=== PATIENT | female | born 1965 | race Caucasian/White ===

== ENCOUNTER 2024-11-01 16:57 | Observation (INO) | payer BC, SELFPAY ==
[2024-11-01] VITALS (8 sets, daily range): BP systolic 99–107; BP diastolic 45–65; PULSE 81–93; RESP 16–20; TEMP 36–36.7; O2SAT 94–98
--- NOTE | ~2024-11-01 | XR_ITS ---
EXAMINATION: XR chest 1V portable Exam Date/Time: 11/01/2024 19:40 [facility] HISTORY: stroke symptoms Comparison: None. RESULT: Lines, tubes, and devices: None. Lungs and pleura: Low volumes with crowding, otherwise clear. Cardiomediastinal silhouette: Calcified left hilar nodes, otherwise unremarkable. Other: No acute osseous or upper abdominal finding. IMPRESSION: No acute cardiopulmonary process. Reviewed, dictated and finalized at location K. [facility] TOOL AND DIE
--- NOTE | ~2024-11-01 | CT_ITS ---
EXAMINATION: CT brain wo con DATE: 11/01/2024 17:33 INDICATION: facial droop . TECHNIQUE: Computed tomography (CT) of the head was performed without intravenous contrast. The mA wa s adjusted according to patient size. Iterative reconstruction technique was employed. The dose-lengt h product was 605.33 mGy-cm. COMPARISON: None. FINDINGS: No acute intracranial hemorrhage or extra-axial fluid collection. No hydrocephalus, mass, or herniation. No acute ischemic infarct. Unremarkable dural venous sinus attenuation. No acute osseous abnormality. The aerated spaces are clear. Small nasopharyngeal polyp. Moderate atrophy and chronic white matter change. Atherosclerotic intracranial calcification. Focal b ilateral old lacunar infarcts. Focal right frontal encephalomalacia. IMPRESSION: No acute intracranial process. Reviewed, dictated and finalized at location K. FARMER
--- NOTE | 2024-11-01 17:12 | ECG_ITS ---
Test Date: 2024-11-01 18:04:37 Measurements Intervals [place] Rate: 86 P: 40 DE: 158 QRS: -26 QRSD: 90 T: 30 QT: 372 QTc: 445 Interpretive Statements SINUS RHYTHM POSSIBLE ANTERIOR MYOCARDIAL INFARCTION , OF INDETERMINATE AGE CONSIDER INFERIOR INFARCT, AGE INDETERMINATE BASELINE ARTIFACT- I, II, AVR ABNORMAL ECG No previous ECG available for comparison Electronically Signed On 11-01-2024 19:06:10 EVENING SITTER by Abimael Branch D.O.
--- NOTE | 2024-11-01 17:13 | ED.NEUROSD ---
HPI - Neuro Symptoms/Deficit General Chief Complaint: Neuro Symptoms/Deficit <Marcy Workman PA-C - Last Filed: 11/02/24 10:28> Stated Complaint: PT/OT noticed facial drooping unknown LKW <Marcy Workman PA-C - Last Filed: 11/02/24 10:28> Time Seen by Provider: 11/01/24 17:13 <Marcy Workman PA-C - Last Filed: 11/02/24 10:28> Focused HPI: This is a 59 year old female that presents to the ER for left sided facial droop. Noted today by her PT/OT specialist. She is seeing them after a recent lumbar surgery. Unsure when her last known well was. No other focal numbness, weakness. GENERAL: Well-appearing, well-nourished, and in no acute distress. HEAD: Normocephalic, atraumatic. CHEST: Clear to auscultation. ?No respiratory distress. HEART: Regular rate and rhythm.? NEURO: ?Alert and oriented x3. Patient screened in triage and initial orders placed.? ?Additional care and disposition to be based upon?diagnostic testing and treatment. <ZEINA Vides Last Filed: 11/02/24 10:28> Source: patient and family <Navin Valladares PA-C - Last Filed: 11/01/24 20:36> Mode of arrival: ambulatory <Navin Valladares PA-C - Last Filed: 11/01/24 20:36> Limitations: no limitations <ZEINA Ryan Last Filed: 11/01/24 20:36> History of Present Illness HPI Narrative: This is a 59-year-old female who presents to the ED for chief complaint of left-sided facial droop. It was noted by her home speech language therapist today. This was communicated to her spine surgeon who recommended going to the ER for evaluation of possible stroke. She is accompanied by her 2 daughters who are bedside. They state that patient had a complicated hospital course recently with spine surgery at [facility]. She had spinal hardware placed on 10/19/2024 and ended up being accidentally overdosed with opioids. She had to be placed on Narcan drip. She was able to be discharged from the hospital about 5-6 days ago. Daughter is concerned because she has had difficulty with slurring speech and this facial droop since the surgery. Last known well is unknown but seems to be before the initial date of surgery. They state that since being home she has had a continuation of the symptoms of left facial droop and occasional slurring of words / occasional difficulty naming objects. Patient denies any focal numbness or weakness. She does feel that it is hard to find words at times. Denies chest pain, shortness of breath, headache, neck pain, dizziness. <Navin Valladares PA-C - Last Filed: 11/01/24 20:36> Related Data Home Medications: Home Medications ?Medication ?Instructions ?Recorded ?Confirmed ?Last Taken ?Type alpha lipoic acid 600 mg capsule 600 mg PO DAILY 11/01/24 11/01/24 Unknown History amitriptyline 10 mg tablet 10 mg PO HS 11/01/24 11/01/24 Unknown History atorvastatin 20 mg tablet 20 mg PO HS 11/01/24 11/01/24 Unknown History escitalopram oxalate 10 mg tablet 10 mg PO DAILY 11/01/24 11/01/24 Unknown History fludrocortisone 0.1 mg tablet 0.1 mg PO .am 11/01/24 11/01/24 Unknown History gabapentin 300 mg capsule 300 mg PO TID 11/01/24 11/01/24 Unknown History hydrocodone 5 mg-acetaminophen 325 1 tablet PO Q6H 11/01/24 11/01/24 Unknown History mg tablet metformin 500 mg tablet,extended See Rx Instructions PO .COMPLEX 11/01/24 11/01/24 Unknown History release 24 hr methocarbamol 500 mg tablet 500 mg PO Q6H 11/01/24 11/01/24 Unknown History omeprazole 40 mg capsule,delayed 40 mg PO BID 11/01/24 11/01/24 Unknown History release oxycodone 15 mg tablet 15 mg PO Q4H 11/01/24 11/01/24 Unknown History prednisone 5 mg tablet 5 mg PO DAILY 11/01/24 11/01/24 Unknown History pregabalin 100 mg capsule 100 mg PO HS 11/01/24 11/01/24 Unknown History tacrolimus 1 mg tablet,extended 1 mg PO QID 11/01/24 11/01/24 Unknown History release 24 hr (Envarsus XR) tirzepatide 5 mg/0.5 mL 5 mg subcut WEEKLY 11/01/24 11/01/24 10/29/24 History subcutaneous pen injector (Mounjaro) <Marcy Workman PA-C - Last Filed: 11/02/24 10:28> Allergies/Adverse Reactions: Allergies Allergy/AdvReac Type Severity Reaction Status Date / Time vancomycin Allergy Intermediate Hives Verified 11/01/24 21:10 amoxicillin Allergy Mild Hives Verified 11/01/24 21:10 <Marcy Workman PA-C - Last Filed: 11/02/24 10:28> Review of Systems Review of Systems: All systems as dictated in HPI <Navin Valladares PA-C - Last Filed: 11/01/24 20:36> PMFSH Past Medical History Medical History: Medical History (Updated 11/02/24 @ 10:28 by Marcy Workman PA-C) UTI (urinary tract infection) GERD (gastroesophageal reflux disease) Insulin dependent diabetes mellitus Recurrent depression Dyslipidemia <Marcy Workman PA-C - Last Filed: 11/02/24 10:28> Surgical History Surgical History: Surgical History (Updated 11/01/24 @ 21:38 by Enrique Escobedo MD) S/P lumbar fusion S/P kidney transplant <Marcy Workman PA-C - Last Filed: 11/02/24 10:28> Social History Social History: Social History Smoking status: Never smoker Alcohol intake: never Substance use: never Do You Feel Safe in your Home?: Yes Lack of Transportation: No Lack of Food: Never True Current Housing: I Have Housing Concerned About Future Housing: No Difficulty Paying Gas/Electric Bills: No Difficulty Paying for Meds: No Currently Unemployed: No Education: High School Diploma/GED Difficulty w/ Childcare or Family Care: No Spiritual care concerns: No <Marcy Workman PA-C - Last Filed: 11/02/24 10:28> Exam Narrative: GENERAL: Well-appearing, well-nourished, and in no acute distress. HEAD: Normocephalic, atraumatic. EYES: PERRLA and EOMI. ENT: Nares clear, no rhinorrhea or epistaxis. Mucous membranes moist. Oropharynx without tonsillar hypertrophy exudate or other lesions. NECK: Supple. No adenopathy or masses. CHEST: No respiratory distress. Clear to auscultation. No wheezes rales or rhonchi HEART: Regular rate and rhythm. No murmur heard. Normal peripheral pulses. ABDOMEN: Soft, nontender, nondistended, normal active bowel sounds. MSK: Normal range of motion. No edema. SKIN: Warm, dry, no rash. NEURO: Alert and oriented x4. Left facial droop noted. Occasional difficulty with word finding. No dysarthria. Negative pronator drift to the upper and lower extremities. No nystagmus. 5/5 strength and sensation to the upper and lower extremities. PSYCH: Normal mood and affect. <Navin Valladares PA-C - Last Filed: 11/01/24 20:36> Course Vital Signs Vital signs: Vital Signs Temperature 96.8 F L 11/01/24 17:07 Pulse Rate 93 11/01/24 17:07 Respiratory Rate 18 11/01/24 17:07 Blood Pressure 101/60 11/01/24 17:07 Pulse Oximetry 98 11/01/24 17:07 Oxygen Delivery Room Air 11/01/24 17:07 Temperature 98.1 F 11/02/24 05:36 Pulse Rate 79 11/02/24 05:36 Respiratory Rate 18 11/02/24 05:36 Blood Pressure 120/59 L 11/02/24 05:36 Pulse Oximetry 95 11/02/24 05:36 Oxygen Delivery Room Air 11/02/24 08:00 <Marcy Workman PA-C - Last Filed: 11/02/24 10:28> Vital Signs Temperature 96.8 F L 11/01/24 17:07 Pulse Rate 93 11/01/24 17:07 Respiratory Rate 18 11/01/24 17:07 Blood Pressure 101/60 11/01/24 17:07 Pulse Oximetry 98 11/01/24 17:07 Oxygen Delivery Room Air 11/01/24 17:07 Temperature 98.1 F 11/02/24 05:36 Pulse Rate 79 11/02/24 05:36 Respiratory Rate 18 11/02/24 05:36 Blood Pressure 120/59 L 11/02/24 05:36 Pulse Oximetry 95 11/02/24 05:36 Oxygen Delivery Room Air 11/02/24 08:00 <Navin Valladares PA-C - Last Filed: 11/01/24 20:36> MDM - Neuro Symptoms/Deficit MDM Narrative Medical decision making narrative: This is a 59-year-old female who presents to the ED for possible stroke-like symptoms with an unknown last known well time. She was recently at the [facility] for spinal surgery and family feels that her speech symptoms and facial droop have been present since being in the hospital. Vitals are normal. Exam remarkable for slight left facial droop at the corner of the mouth. No other focal deficits on exam. EKG shows sinus rhythm with no acute ischemic findings. Lab work is unremarkable overall. BUN and creatinine slightly elevated, however she does have history of renal transplant in the distant past. NIH score is 1 for mild aphasia. Non con brain CT today shows no acute intracranial process, however does show focal bilateral lacunar infarcts, focal right frontal encephalomalacia, moderate atrophy and chronic white matter change. There is atherosclerotic intracranial calcification. Spoke with Dr. Philip (Neurology) who does agree that a CTA would be minimally useful compared to MRI. There is no surgical intervention that patient will qualify for possible stroke. I spoke with Dr. Resendiz ([facility] Neurology): He feels that an acute stroke is less likely given the patient's presentation today. He was able to review the records from [place] and does feel that the patient should be MRI compatible. He recommends that the patient be admitted here at [place] for stroke workup including MRI. He recommends that if the MRI is positive, she should get carotid artery imaging. Recommended medical therapy of 81 mg ASA as well as atorvastatin 80 mg daily. I discussed the above workup, plan with patient and family members. They are understanding and agreeable to plan for admission here. Discussed with Dr. Escobedo (hospitalist) will admit the patient to medical floor with telemetry. He is recommending adding lactic acid, VBG, ammonia levels onto laboratory studies. <Marcy Workman PA-C - Last Filed: 11/02/24 10:28> This is a 59-year-old female who presents to the ED for possible stroke-like symptoms with an unknown last known well time. She was recently at the [facility] for spinal surgery and family feels that her speech symptoms and facial droop have been present since being in the hospital. Vitals are normal. Exam remarkable for slight left facial droop at the corner of the mouth. No other focal deficits on exam. EKG shows sinus rhythm with no acute ischemic findings. Lab work is unremarkable overall. BUN and creatinine slightly elevated, however she does have history of renal transplant in the distant past. NIH score is 1 for mild aphasia. Non con brain CT today shows no acute intracranial process, however does show focal bilateral lacunar infarcts, focal right frontal encephalomalacia, moderate atrophy and chronic white matter change. There is atherosclerotic intracranial calcification. Spoke with Dr. Philip (Neurology) who does agree that a CTA would be minimally use full compared to MRI today. There is no surgical intervention that patient will qualify for possible stroke. I spoke with Dr. Resendiz ([facility] Neurology): He feels that an acute stroke is less likely given the patient's presentation today. He was able to review the records from [place] and does feel that the patient should be MRI compatible. He recommends that the patient be admitted here at [place] for stroke workup including MRI. He recommends that if the MRI is positive, she should get carotid artery imaging. Recommended medical therapy of 81 mg ASA as well as atorvastatin 80 mg daily. I discussed the above workup, plan with patient and family members. They are understanding and agreeable to plan for admission here. Discussed with Dr. Escobedo (hospitalist) will admit the patient to medical floor with telemetry. He is recommending adding lactic acid, VBG, ammonia levels onto laboratory studies. <Navin Valladares PA-C - Last Filed: 11/01/24 20:36> Lab Data Result diagrams: 11/02/24 05:29 11/02/24 05:29 <Marcy Workman PA-C - Last Filed: 11/02/24 10:28> Labs: Lab Results 11/01/24 Range/Units 17:20 WBC 8.3 (4.5-10.0) K/mm3 RBC 4.19 L (4.2-5.4) M/mm3 Hgb 12.0 (12.0-15.0) g/dL Hct 39.5 (37.0-47.0) % MCV 94.3 (80-100) fl MCH 28.6 (26-34) pg MCHC 30.4 L (32-36) g/dl RDW 15.2 H (11.5-14.5) % Plt Count 278 (150-375) k/mm3 MPV 9.9 (7.4-10.4) fl Immature Gran % (Auto) 0.4 (0-0.5) % Neut % (Auto) 84.1 H (45.5-73.1) % Lymph % (Auto) 9.5 L (18.3-44.2) % Nash % (Auto) 3.9 (2.6-8.5) % Eos % (Auto) 1.6 (0-4.4) % Baso % (Auto) 0.5 (0.2-1.2) % Lymph # (Auto) 0.79 L (0.9-3.2) K/mm3 Nash # (Auto) 0.3 (0.1-0.6) K/mm3 Eos # (Auto) 0.1 (0-0.3) K/mm3 Baso # (Auto) 0.0 (0.0-0.1) K/mm3 Abs Immat Gran (auto) 0.03 (0.00-0.031) K/mm3 Absolute Neuts (auto) 7.0 H (1.3-6.7) K/mm3 Absolute Nucleated RBC 0.000 (0.0-0.012) K/mm3 Nucleated RBC % 0.0 (0.0-0.2) % PT 13.1 (11.1-14.7) Seconds INR 0.9 APTT 27.5 (22.3-36.8) Seconds Sodium 137 (137-145) mmol/L Potassium 5.0 (3.4-5.0) mmol/L Chloride 102 (98-107) mmol/L Carbon Dioxide 25 (22-30) mmol/L Anion Gap 10 (4-12) mmol/L BUN 36 H (7-17) mg/dL Creatinine 1.36 H (0.7-1.0) mg/dL Estim Creat Clear Calc 47 ml/min Estimated GFR 40 L (59 - ) Glucose 121 H (65-110) mg/dL Hemoglobin A1c 5.2 (<5.7) % Calcium 10.4 H (8.4-10.2) mg/dL Total Bilirubin 1.1 (0.2-1.3) mg/dL AST 36 (14-36) U/L ALT 28 (6-35) U/L Alkaline Phosphatase 108 (38-126) U/L Troponin I < 0.012 (0.000-0.034) ng/mL Total Protein 7.0 (6.3-8.2) g/dL Albumin 3.7 (3.5-5.1) g/dL <Marcy Workman PA-C - Last Filed: 11/02/24 10:28> Lab Results 11/01/24 Range/Units 17:20 WBC 8.3 (4.5-10.0) K/mm3 RBC 4.19 L (4.2-5.4) M/mm3 Hgb 12.0 (12.0-15.0) g/dL Hct 39.5 (37.0-47.0) % MCV 94.3 (80-100) fl MCH 28.6 (26-34) pg MCHC 30.4 L (32-36) g/dl RDW 15.2 H (11.5-14.5) % Plt Count 278 (150-375) k/mm3 MPV 9.9 (7.4-10.4) fl Immature Gran % (Auto) 0.4 (0-0.5) % Neut % (Auto) 84.1 H (45.5-73.1) % Lymph % (Auto) 9.5 L (18.3-44.2) % Nash % (Auto) 3.9 (2.6-8.5) % Eos % (Auto) 1.6 (0-4.4) % Baso % (Auto) 0.5 (0.2-1.2) % Lymph # (Auto) 0.79 L (0.9-3.2) K/mm3 Nash # (Auto) 0.3 (0.1-0.6) K/mm3 Eos # (Auto) 0.1 (0-0.3) K/mm3 Baso # (Auto) 0.0 (0.0-0.1) K/mm3 Abs Immat Gran (auto) 0.03 (0.00-0.031) K/mm3 Absolute Neuts (auto) 7.0 H (1.3-6.7) K/mm3 Absolute Nucleated RBC 0.000 (0.0-0.012) K/mm3 Nucleated RBC % 0.0 (0.0-0.2) % PT 13.1 (11.1-14.7) Seconds INR 0.9 APTT 27.5 (22.3-36.8) Seconds Sodium 137 (137-145) mmol/L Potassium 5.0 (3.4-5.0) mmol/L Chloride 102 (98-107) mmol/L Carbon Dioxide 25 (22-30) mmol/L Anion Gap 10 (4-12) mmol/L BUN 36 H (7-17) mg/dL Creatinine 1.36 H (0.7-1.0) mg/dL Estim Creat Clear Calc 47 ml/min Estimated GFR 40 L (59 - ) Glucose 121 H (65-110) mg/dL Hemoglobin A1c 5.2 (<5.7) % Calcium 10.4 H (8.4-10.2) mg/dL Total Bilirubin 1.1 (0.2-1.3) mg/dL AST 36 (14-36) U/L ALT 28 (6-35) U/L Alkaline Phosphatase 108 (38-126) U/L Troponin I < 0.012 (0.000-0.034) ng/mL Total Protein 7.0 (6.3-8.2) g/dL Albumin 3.7 (3.5-5.1) g/dL <ZEINA Ryan Last Filed: 11/01/24 20:36> Imaging Data Radiologist's impression: ITS Impressions Head CT 11/01/24 17:41 IMPRESSION: No acute intracranial process. Chest X-Ray 11/01/24 19:48 IMPRESSION: No acute cardiopulmonary process. <Marcy Workman PA-C - Last Filed: 11/02/24 10:28> ECG Data EKG #1: ECG completion date: 11/01/24 <Navin Valladares PA-C - Last Filed: 11/01/24 20:36> ECG completion time: 18:04 <Navin Valladares PA-C - Last Filed: 11/01/24 20:36> Prior ECG tracings: not available for review <Navin Valladares PA-C - Last Filed: 11/01/24 20:36> EKG Interpretation: normal rate, sinus rhythm, normal QRS, normal QT and right axis <Navin Valladares PA-C - Last Filed: 11/01/24 20:36> Critical Care Time Critical Care Time Critical Care Time: No <Marcy Workman PA-C - Last Filed: 11/02/24 10:28> Discharge Plan Discharge Clinical Impression: Stroke-like symptoms <Marcy Workman PA-C - Last Filed: 11/02/24 10:28> Patient Disposition: Still a Patient <Marcy Workman PA-C - Last Filed: 11/02/24 10:28> Condition: Stable <Marcy Workman PA-C - Last Filed: 11/02/24 10:28> Quality Stroke Scale Stroke Scale 1: 1a Level of consciousness: alert-0 <Navin Valladares PA-C - Last Filed: 11/01/24 20:36> 1b Level of consciousness questions: answers both correctly-0 <Navin Valladares PA-C - Last Filed: 11/01/24 20:36> 1c Level of consciousness commands: obeys both correctly-0 <Navin Valladares PA-C - Last Filed: 11/01/24 20:36> 2 Best gaze: normal-0 <Navin Valladares PA-C - Last Filed: 11/01/24 20:36> 3 Visual: no visual loss-0 <Navin Valladares PA-C - Last Filed: 11/01/24 20:36> 4 Facial palsy: normal-0 <Navin Valladares PA-C - Last Filed: 11/01/24 20:36> 5a Motor: left arm: no drift-0 <Navin Valladares PA-C - Last Filed: 11/01/24 20:36> 5b Motor: right arm: no drift-0 <Navin Valladares PA-C - Last Filed: 11/01/24 20:36> 6a Motor: left leg: no drift-0 <Navin Valladares PA-C - Last Filed: 11/01/24 20:36> 6b Motor: right leg: no drift-0 <Navin Valladares PA-C - Last Filed: 11/01/24 20:36> 7 Limb ataxia: absent-0 <Navin Valladares PA-C - Last Filed: 11/01/24 20:36> 8 Sensory: normal-0 <Navin Valladares PA-C - Last Filed: 11/01/24 20:36> 9 Best language: some loss of fluency-1 <Navin Valladares PA-C - Last Filed: 11/01/24 20:36> 10 Dysarthria: normal-0 <Navin Valladares PA-C - Last Filed: 11/01/24 20:36> 11 Extinction and inattention: no abnormality-0 <Navin Valladares PA-C - Last Filed: 11/01/24 20:36> Level:: 1 <Marcy Workman PA-C - Last Filed: 11/02/24 10:28> 1 <Navin Valladares PA-C - Last Filed: 11/01/24 20:36>
[2024-11-01 17:28] LABS: Basophils Percent Auto 0.5 % (0.2-1.2); Eosinophils Absolute Auto 0.1 K/mm3 (0-0.3); Eosinophils Percent Auto 1.6 % (0-4.4); Hematocrit 39.5 % (37.0-47.0); Immature Granulocyte Absolute 0.03 K/mm3 (0.00-0.031); Immature Granulocyte Percent A 0.4 % (0-0.5); Lymphocytes Absolute Auto 0.79 K/mm3 (0.9-3.2); Lymphocytes Percent Auto 9.5 % (18.3-44.2); Mean Corpuscular HGB Conc 30.4 g/dl (32-36); Mean Corpuscular Hemoglobin 28.6 pg (26-34); Mean Corpuscular Volume 94.3 fl (80-100); Mean Platelet Volume 9.9 fl (7.4-10.4); Monocytes Absolute Auto 0.3 K/mm3 (0.1-0.6); Monocytes Percent Auto 3.9 % (2.6-8.5); Neutrophils Percent Auto 84.1 % (45.5-73.1); Platelet Count Result 278 k/mm3 (150-375); Red Blood Count 4.19 M/mm3 (4.2-5.4); Red Cell Distribution Width 15.2 % (11.5-14.5); White Blood Count 8.3 K/mm3 (4.5-10.0)
[2024-11-01 17:39] LABS: INR 0.9; Prothrombin Time 13.1 Seconds (11.1-14.7)
[2024-11-01 17:40] LABS: Partial Thromboplastin Time 27.5 Seconds (22.3-36.8)
[2024-11-01 17:42] LABS: Alanine Aminotransferase 28 U/L (6-35); Albumin Level 3.7 g/dL (3.5-5.1); Alkaline Phosphatase 108 U/L (38-126); Anion Gap 10 mmol/L (4-12); Aspartate Amino Transferase 36 U/L (14-36); Bilirubin,Total 1.1 mg/dL (0.2-1.3); Blood Urea Nitrogen 36 mg/dL (7-17); Calcium 10.4 mg/dL (8.4-10.2); Carbon Dioxide 25 mmol/L (22-30); Chloride 102 mmol/L (98-107); Estimated CRCL calculation 47 ml/min; Estimated Glomerular Filt Rate 40; Glucose 121 mg/dL (65-110); Sodium 137 mmol/L (137-145)
[2024-11-01 17:54] LABS: Troponin I < 0.012 ng/mL (0.000-0.034)
--- OUTSIDE RECORDS SUMMARY | 2024-11-01 18:35 | XMS_ITS | Encounter Summary ---
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 Name Role Phone Hugh Sarkar MD Primary Care Provider Encounter Details Date Type Department Care Team (Late Contact Info) Description 12/08/2022 [employer] [facility] Patient Accounts [address] [place] [address] [facility] Provider Monthly Credit Card Payment Social History Tobacco Use Types Packs/Day Years Used Date Smoking Tobacco: Never Smokeless Tobacco: Never Alcohol Use Standard Drinks/Week Comments Not Currently 0 (1 standard drink = 0.6 oz pur e alcohol) Comments No Sex and Gender Information Value Date Recorded Sex Assigned at Not on file Legal Sex Female 7:51 PM CDT Gender Identity Not on file Sexual Orientation Straight 03/14/2024 2: 49 PM CDT COVID-19 Exposure Response Date Recorded In the last 10 days, have yo u been in contact with someone who was confirmed or suspected to have Coronavirus/COVID-19? No / Unsure 12/02/2022 3:58 PM CDT documented as of this encounter Plan of Treatment Upcoming Encounters Date Type Department Care Team (Late Contact Info) Description 12/13/2024 3:45 PM CDT Office Visit [address] [address] Malathi Clark PA [address] [address] documented as of this encounter Visit Diagnoses Not on filedocumented in this encounter Care Teams Grounds Maintenance Worker Relationship Specialty Start Date End Date Hugh Sarkar MD [address] [place] [id number] PCP - General FAMILY PRACTICE 02/10/19 documented as of this encounter
--- OUTSIDE RECORDS SUMMARY | 2024-11-01 18:35 | XMS_ITS | Clinical Summary ---
Author Organization [facility] Address [address] [place] [address] Care Team Providers Care Rattan Worker Name Role Phone Hugh Sarkar MD Primary Care Provider [phone] Allergies Active Allergy Reactions Criticality Noted Date Comments Amoxicillin Hives,Itching,Rash Medium 12/24/1986 Vancomycin Hives 03/15/2018 Medications escitalopram (LEXAPRO) 10 MG tablet Take 1 tablet (10 mg total) by mouth daily. Active amitriptyline (ELAVIL) 10 MG tablet Take 1 tablet (10 mg total) by mouth nightly at bedtime. Active predniSONE (DELTASONE) 5 mg tablet Take 1 tablet (5 mg total) by mouth daily. Active gabapentin (NEURONTIN) 300 MG capsule Take 1 capsule (300 mg total) by mouth 3 (three) times daily. Active aspirin EC (ECOTRIN) 81 MG tablet Take 1 tablet (81 mg total) by mouth daily. Active atorvastatin (LIPITOR) 20 MG tablet Take 1 tablet (20 mg total) by mouth daily. Active Senna (SENOKOT) 8.6 MG tablet Take 2 tablets (17.2 mg total) by mouth as needed for Constipation. Active insulin glargine (LANTUS) 100 UNIT/ML injection (PEN) Inject 18 Units into the skin nightly at bedtime. Active fish oil (OMEGA-3 FATTY ACID) 1000 MG Cap capsule Take 1 capsule (1,000 mg total) by mouth 2 (two) times daily. Active Alpha-Lipoic Acid 600 MG Cap 4 Active vitamin B-12 (CYANOCOBALAMI N) 1000 MCG tablet 6 Active metFORMIN ER (GLUCOPHAGE-XR ) 500 MG 24 hr tablet Take 1 tablet (500 mg total) by mouth 2 (two) times daily. 6 Active pregabalin (LYRICA) 100 MG capsule Take 1 capsule (100 mg total) by mouth daily. 3 Active ENVARSUS XR 1 MG TABLET SR 24 HR tablet 3 Active NOVOLOG 100 UNIT/ML injection (VIAL) 18 Units 3 (three) times daily before meals. 3 Active omeprazole (PRILOSEC) 40 MG capsule Take 1 capsule (40 mg total) by mouth daily. 3 Active SEMGLEE, YFGN, 100 UNIT/ML Solution Pen-injector INJECT 18 UNITS IN THE EVENING 4 Active MOUNJARO 2.5 MG/0.5ML injection INJECT 2.5 MG SUBCUTANEOUSLY WEEKLY 4 Active fludrocortison e (FLORINEF) 0.1 MG tablet 4 Active Glucagon 3 MG/DOSE Powder 1 spray by Nasal route. 4 Active TRUEPLUS INSULIN SYRINGE 31G X 5/16 0.5 ML Misc 4 Active Active Problems Problem Noted Date Diagnosed Date Low back pain 06/13/2024 Right shoulder pain 03/16/2024 Traumatic complete tear of r otator cuff, unspecified laterality, initial encounter 02/10/2023 Encounters Date Type Department Care Team Description 10/30/2024 Telephone [facility] [address] [place] [address] Puja Gloria RN Referral (Swing bed referral to [facility] from [facility]/) 08/16/2024 3:00 PM [employer] Office Visit [address] [address] Malathi Clark PA Injection (RIGHT shoulder) 08/16/2024 MyChart Message Enc [address] [address] Malathi Clark PA Visit Follow Up 08/16/2024 Travel from Last 3 Months Immunizations Name Administration Dates Next Due MODERNA COVID-19 ([employer] PORSHA CYDNEY), MRNA, LNP-S, PF, 50 MCG/ 0.25 ML DOSE 2022 Tdap (Boostrix) 03/18/2024 Family History Medical History Relation Comments Polycystic kidney disease Father Breast Cancer Maternal Aunt Alzheimer's disease Mother Breast Cancer Paternal Aunt Breast Cancer Sister Relation Status Comments Father Maternal Aunt Mother Paternal Aunt Sister Social History Tobacco Use Types Packs/Day Years Used Date Smoking Tobacco: Never Smokeless Tobacco: Never Tobacco Cessation:Counseling Given: Not Answered Alcohol Use Standard Drinks/Week Comments Not Currently 0 (1 standard drink = 0.6 oz pur e alcohol) Comments No Sex and Gender Information Value Date Recorded Sex Assigned at Not on file Legal Sex Female 7:51 PM CDT Gender Identity Not on file Sexual Orientation Straight 03/14/2024 2: 49 PM CDT Last Filed Vital Signs Vital Sign Reading Time Taken Comments Blood Pressure 123/85 03/22/2024 8:36 AM CDT Pulse 80 03/22/2024 8:36 AM CDT Temperature 36.6 C (97.8 F) 03/18/2024 8:25 AM CDT Respiratory Rate 16 03/18/2024 9:33 AM CDT Oxygen Saturation 97% 03/22/2024 8:36 AM CDT Inhaled Oxygen Concentration - - Weight 97.1 kg (214 lb) 08/16/2024 3:00 PM [employer] Height 175.3 cm (5' 9 ) 08/16/2024 3:00 PM [employer] Body Mass Index 31.6 08/16/2024 3:00 PM [employer] Plan of Treatment Upcoming Encounters Date Type Department Care Team (Late st Contact Info) Description 12/13/2024 3:45 PM CDT Office Visit [facility] [address] [place] [address] Malathi Clark PA [address] [place] [id number] Health Maintenance Due Date Last Done Comments Annual Physical 1968 Hepatitis C 1981 RSV Immunization or 60+ Years (1 - Risk 60-74 years 1-dose series) 2023 COVID-19 Vaccine ( season) 2024 2022, 06/11/2021, 09/28/2020, Additional history exists Mammogram Screening 04/26/2026 04/26/2024, 04/20/2023, 03/16/2022, Additional history exists Colorectal Cancer Screening Colonoscopy (10 Years) 09/29/2032 09/29/2022, 09/29/2022 DTaP, Tdap and Td Vaccines (2 - Td or Tdap) 03/18/2034 03/18/2024 Pneumococcal Vaccine: Pediatrics (0 to 5 Years) and At-Risk Patients (6 to 64 Years) Completed 08/25/2022, 07/07/2015 Zoster Vaccines Completed 03/24/2023, 08/25/2022 Influenza Adult Completed 06/06/2024, 07/08, 07/10/2022, Additional history exists Meningococcal B Vaccine Aged Out No l onger eligible based on patient's age to complete this topic Meningococcal Vaccine Aged Out No matt shell eligible based on patient's age to complete this topic RSV Immunizations Under 20 Months Aged Out No longer eligible based on patient's age to complete this topic Procedures Procedure Name Priority Date/Time Associated Diagnosis Comments MG SCREENING W BRUCE MANDEEP DIGI Routine 04/26/2024 2:57 PM CDT Visit for screening mammogram COLONOSCOPY 09/29/2022 6:50 AM [employer] from Last 3 Months or Most Recently Relevant to Health Maintenance Results * MG SCREENING W BRUCE MANDEEP DIGI (04/26/2024 2:57 PM CDT) Anatomical Region Laterality Modality Breast Bilateral Mammography 04/26/2024 3:27 PM CDT Impressions 04/26/2024 3:27 PM CDT IMPRESSION: No interval features to suggest malignancy. In the absence of clinical symptoms, return for annual screening mammogram due in 1 year. RECOMMENDATION: Routine Screening, Bilateral Mammogram in 1 year ASSESSMENT: ACR BI-RADS 1 - NEGATIVE Ordered By: BALTAZAR TRIANA Interpreted By: Eugenio Blanco MD, 04/26/2024 3:27 PM Narrative 04/26/2024 3:27 PM CDT EXAMINATION: BILATERAL SCREENING MAMMOGRAPHY Exam Date: 04/26/2024 2:35 PM CLINICAL INDICATION: 59 years of age female routine screening. COMPARISON: Dating back to 02/22/2019 TECHNIQUE: Digital CC & MLO views. Tomosynthesis imaging acquisition Study read with the assistance of a computer-aided detection system. TISSUE DENSITY: The breast tissue is almost entirely fatty. FINDINGS: No suspicious grouping of microcalcifications, architectural distortion, or any suspicious nodule 3 dimensionally demonstrated in either breast. us Baltazar Triana PA MAMMO Final Result * Colonoscopy (09/29/2022 6:50 AM [employer]) us Roc Garcias MD GI PROCEDURE ORDERABLES Final Result from Last 3 Months or Most Recently Relevant to Health Maintenance Insurance [facility] Care Teams Rattan Worker Relationship Specialty Start Date End Date Hugh Sarkar MD [address] [place] [phone] PCP - General FAMILY PRACTICE 02/10/19
--- OUTSIDE RECORDS SUMMARY | 2024-11-01 18:35 | XMS_ITS | Encounter Summary ---
Author Organization [facility] Address [facility] [place] [address] Care Team Providers Care Bank Teller Machine Mechanic Name Role Phone Hugh Sarkar MD Primary Care Provider Encounter Details Date Type Department Care Team (Late Contact Info) Description 02/15/2024 MyChart Message Enc [address] [address] Malathi Clark PA [address] [place] [id number] Visit Follow Up Social History Tobacco Use Types Packs/Day Years [...] Orientation Straight 03/14/2024 2: 49 PM CDT documented as of this encounter Plan of Treatment Upcoming Encounters Date Type Department Care Team (Late Contact Info) Description 12/13/2024 3:45 PM CDT Office Visit [address] [address] Malathi Clark PA [address] [place] [address] [phone] documented as of this encounter Visit Diagnoses Not on filedocumented in this encounter Care Teams Bank Teller Machine Mechanic Relationship Specialty Start Date End Date Hugh Sarkar MD [address] [place] [phone] PCP - General FAMILY PRACTICE 02/10/19 documented as of this encounter
--- OUTSIDE RECORDS SUMMARY | 2024-11-01 18:35 | XMS_ITS ---
Author Organization [facility] ([facility]) Address [address] [address] Care Team Providers Care Professor Of Archaeology Name Role Phone Unavailable Unavailable Unavailable Allergies, Adverse Reactions, Alerts This patient has no known allergies or adverse reactions. Problems This patient has no known problems.
--- OUTSIDE RECORDS SUMMARY | 2024-11-01 18:35 | XMS_ITS | Referral Summary ---
Author Organization [facility] Address [address] [place] [address] Care Team Providers Care Calender Wind Up Helper Name Role Phone Hugh Sarkar MD Primary Care Provider [phone] Seda Russell MD Unavailable [phone] Malena Morales MD Unavailable Allyn Tierney RN Unavailable Encounters Date Type Department Care Team Description 11/01/2024 Telephone [facility] Orthopaedic Surgery [address] [place] [address] [address] Inderjit Stephen MD 10/30/2024 Telephone [facility] Orthopaedic Surgery [address] [place] [address] [address] [place] [phone] Inderjit Stephen MD 10/30/2024 SHOP/CHAP Initial Eligibility Review [facility] OP CASE MANAGEMENT [address] [place] [phone] Katiana Salas LCSW 10/19/2024 5:43 AM LANDSCAPE ARCHITECTURE TEACHER - 10/27/2024 4:46 PM LANDSCAPE ARCHITECTURE TEACHER Hospital Encounter [facility] [address] [place] [id number] Inderjit Stephen MD Spondylolisthesis of lumbar region (Primary Dx); Type 2 diabetes mellitus with diabetic neuropathy, with long-term current use of insulin (HCC); Peripheral nerve disease; Kidney transplanted Discharge Disposition: Discharge to home or self care 10/19/2024 7:30 AM LANDSCAPE ARCHITECTURE TEACHER - 10/19/2024 1:45 PM LANDSCAPE ARCHITECTURE TEACHER Surgery [facility] Operating Room [address] [place] [address] Inderjit Stephen MD FUSION DECOMPRESSION LAMINECTOMY WITH INSTRUMENTATION - MEDTRONIC SOLERA- L2-Pelvis Instrumented Posteror Spinal Fusion, L3-5 laminectomy/foraminotom y, autograft, allograft, bone morphogenetic protein, cut to close 240 minutes 10/19/2024 7:32 AM LANDSCAPE ARCHITECTURE TEACHER Anesthesia Event [facility] Operating Room [address] [place] [address] Lesly Ambrocio MD Wilkens, Kelly Ann, NP 10/06/2024 Telephone [facility] and [facility] Transplant Kidney [address] [facility] [address] [phone] [place] [address] Allyn Tierney RN 10/04/2024 Telephone [facility] Orthopaedic Surgery [address] [place] [address] Office Building [address] [place] [phone] Inderjit Stephen MD 10/03/2024 Documentation [facility] Orthopaedic Surgery [address] [place] [address] Office [facility] [address] [place] [phone] Zenobia Ricks RN 10/03/2024 2:00 PM LANDSCAPE ARCHITECTURE TEACHER Pre-Admission Testing [facility] Center for Preoperative Assessment and Planning [facility] [address] [place] [address] Spondylolisthesis of lumbar region; Lumbar radiculopathy 10/03/2024 10:00 AM LANDSCAPE ARCHITECTURE TEACHER Clinical Support [facility] Endocrinology Metabolism and Lipid [address] [facility] 13th [place] [address] [place] [address] Jocelin Thompson RN Type 2 diabetes mellitus with diabetic neuropathy, with long-term current use of insulin (HCC) (Primary Dx) 10/03/2024 9:30 AM LANDSCAPE ARCHITECTURE TEACHER Office Visit [facility] Endocrinology Metabolism and Lipid [address] [facility] 13th [place] [address] [place] [phone] Nimco Tong PA Type 2 diabetes mellitus with diabetic neuropathy, with long-term current use of insulin (HCC) (Primary Dx); Hypoglycemia; Mixed hyperlipidemia; Obesity with body mass index 30 or greater; Encounter for aftercare following kidney transplant from Last 3 Months Allergies Active Allergy Reactions Criticality Noted Date Comments Amoxicillin Hives,Itching,Rash Medium 12/24/1986 Moxifloxacin Itching Low 03/31/2012 Pt not sure if true allergy Vancomycin Redness,Hives Medium 01/14/2016 Medications amitriptyline (ELAVIL) 10 mg tablet Take 1 tablet (10 mg total) by mouth nightly 017 Active aspirin 81 mg tabletIndicatio ns:started post transplant Take 1 tablet (81 mg total) by mouth every morning 016 Active alpha lipoic acid 600 mg capsuleIndicati ons:Peripheral nerve disease Take 1 capsule (600 mcg total) by mouth daily. 018 Active Additional Information Patient taking differently:1 capsule oralNightly, Reported on 10/19/2024 cyanocobalamin (Vitamin B-12) 1,000 mcg tabletIndicatio ns:Prevention of Vitamin B12 Deficiency Take 0.5 tablets (500 mcg total) by mouth 3 (three) times a day. 018 Active escitalopram (LEXAPRO) 10 mg tablet TAKE ONE TABLET BY MOUTH EVERY DAY 30 tablet 1 019 Active Additional Information Patient taking differently: 10 mg oral Nightly, Reported on 10/19/2024 pen needle, diabetic 32 gauge x 32 needleIndicatio ns:Type 2 diabetes, uncontrolled, with neuropathy Use for insulin 4 times daily. 400 each 3 022 Active lancets (OneTouch Delica Plus Lancet) 30 gauge miscIndications :Type 2 diabetes mellitus with other diabetic kidney complication, without long-term current use of insulin (HCC) Use to test blood sugar 4 times per day 150 each 11 04/14/2 022 Active glucagon (BAQSIMI) 3 mg/actuation spray,non-aeros olIndications:T ype 2 diabetes mellitus with diabetic neuropathy, with long-term current use of insulin ([facility]) Administer 1 spray into one nostril as needed (In cases of emergency low blood sugars) 2 each Active insulin syringe-needle U-100 0.5 mL 31 gauge x 5/16 syringeIndicati ons:Encounter for long-term (current) use of insulin ([facility]),Type 2 diabetes mellitus with diabetic neuropathy, with long-term current use of insulin ([facility]) Use to inject 1-4 times daily as directed 200 each Active atorvastatin (LIPITOR) 20 mg tablet TAKE ONE TABLET BY MOUTH DAILY 30 tablet Active Additional Information Patient taking differently:20 mg oralNightly, Indications: hyperlipidemia, Reported on 10/19/2024 fludrocortisone 0.1 mg tablet Take 1 tablet (0.1 mg total) by mouth daily 30 tablet 2024 Active Additional Information Patient taking differently:0.1 mg oralEvery morning, Reported on 10/19/2024 predniSONE (DELTASONE) 5 mg tablet TAKE ONE TABLET BY MOUTH DAILY 30 tablet Active Additional Information Patient taking differently: 5 mg oral Every morning, TAKE ONE TABLET BY MOUTH DAILY,Indications: Organ Transplant Rejection, Reported on 10/19/2024 metFORMIN XR (GLUCOPHAGE XR) 500 mg 24 hr tabletIndicatio ns:Type 2 diabetes mellitus with diabetic neuropathy, with long-term current use of insulin ([facility]),Periphera l nerve disease TAKE ONE TABLET BY MOUTH BEFORE LUNCH AND DINNER 60 tablet 2 Active Additional Information Patient taking differently: 500 mg oral 2 times daily, TAKE ONE TABLET BY MOUTH BEFORE LUNCH AND DINNER,Indications: type 2 diabetes mellitus, Reported on 10/19/2024 blood-glucose sensor (Gameletcom G7 Sensor) deviceIndicatio ns:Type 2 diabetes mellitus with diabetic neuropathy, with long-term current use of insulin ([facility]),Hypoglyce mariah Use for continuous glucose monitor. Change sensor every 10 days. 9 each 3 Active FERROUS FUMARATE ORAL Take 325 mg by mouth daily with breakfast Active cholecalciferol (Vitamin D3) 2000 unit capsule Take 1 capsule (2,000 Units total) by mouth every morning Active multivitamin tabletIndicatio ns:Vitamin Deficiency Prevention Take 1 tablet by mouth every morning Active insulin glargine 100 unit/mL vial for injection Inject 8 Units under the skin nightly Active Mounjaro 5 mg/0.5 mL pen injector injectionIndica tions:Type 2 diabetes mellitus with diabetic neuropathy, with long-term current use of insulin (HCC) INJECT 5 MG UNDER THE SKIN EVERY 7 DAYS E11.9 2 mL 3 Active pregabalin (LYRICA) 100 mg capsuleIndicati ons:Postoperati ve Acute Pain Take 1 capsule (100 mg total) by mouth daily after dinner 30 capsule 2024 Active oxyCODONE (ROXICODONE) 15 mg immediate release tabletIndicatio ns:Pain Take 0.5 tablets (7.5 mg total) by mouth every 4 (four) hours as needed for pain 42 tablet Active lidocaine (LIDODERM) 5 % Place 2 patches on the skin daily Remove & discard patch within 12 hours or as directed by . 60 patch 2024 Active methocarbamoL (ROBAXIN) 500 mg tablet Take 1 tablet (500 mg total) by mouth 4 (four) times a day 120 tablet 2024 Active omeprazole (PriLOSEC) 40 mg capsuleIndicati ons:Type 2 diabetes mellitus with diabetic neuropathy, with long-term current use of insulin (HCC),Periphera l nerve disease Take 1 capsule (40 mg total) by mouth 2 (two) times a day Active acetaminophen 500 mg capsuleIndicati ons:Pain Take 2 capsules (1,000 mg total) by mouth every 6 (six) hours as needed for pain Active senna-docusate (PERICOLACE) 8.6-50 mg Take 1 tablet by mouth as needed for constipation 30 tablet 2024 Active gabapentin (NEURONTIN) 300 mg capsule Take 1 capsule (300 mg total) by mouth 3 (three) times a day 90 capsule 11 02/21/2 025 02/21/ 2026 Active tacrolimus XR (ENVARSUS XR) 1 mg tablet extended release 24 hrIndications:P revention of Kidney Transplant Rejection Take 1 tablet (1 mg total) by mouth daily Take 4 Tablets equaling 4 mg daily 120 tablet 025 2024 Active HYDROcodone-yaima taminophen (NORCO) 5-325 mg per tabletIndicatio ns:Pain Take 1 tablet by mouth every 4 (four) hours as needed for pain 42 tablet 025 Active senna-docusate (PERICOLACE) 8.6-50 mg Take 1 tablet by mouth as needed for constipation 016 2024 Discontinued omega 0-ggq-ebq-fish oil 1,000 mg (120 mg-180 mg) capsule Take 1 capsule (1,000 mg total) by mouth 3 (three) times a day 2024 Discontinued(S top Taking at Discharge) docosahexaenoic acid-epa 120-180 mg capsule Take 1,000 mg by mouth 3 (three) times a day with meals 2024 Discontinued(E rror) gabapentin (NEURONTIN) 300 mg capsuleIndicati ons:Type 2 diabetes mellitus with diabetic neuropathy, with long-term current use of insulin ([facility]),Periphera l nerve disease Take 1 capsule (300 mg total) by mouth 3 (three) times a day 90 capsule 11 023 2024 Discontinued omeprazole (PriLOSEC) 40 mg capsuleIndicati ons:Type 2 diabetes mellitus with diabetic neuropathy, with long-term current use of insulin ([facility]),Periphera l nerve disease Take 1 capsule (40 mg total) by mouth daily 30 capsule 3 023 2024 Discontinued(E rror) insulin glargine (SEMGLEE-yfgn) 100 unit/mL (3 mL) pen for injectionIndica tions:Type 2 diabetes mellitus with diabetic neuropathy, with long-term current use of insulin ([facility]) INJECT 18 UNITS IN THE EVENING 45 mL 2 024 2024 Discontinued(E rror) insulin aspart (NovoLOG) 100 unit/mL vial for injectionIndica tions:Type 2 diabetes mellitus with diabetic neuropathy, with long-term current use of insulin ([facility]),Periphera l nerve disease INJECT 18 units breakfast, 14 units at lunch and 14 units at dinner PLUS 1 UNIT FOR EVERY 25 POINTS GREATER THAN 150. Total daily dose: 80 units. 30 mL 3 024 2024 Discontinued(E rror) pregabalin (LYRICA) 100 mg capsuleIndicati ons:Aftercare following organ transplant TRANSFERRED: 02/12/23 -READ RX NOTE (ALT-N)- TAKE 1 CAPSULE EVERY DAY AT SUPPER TIME 90 capsule 1 024 2024 Discontinued Mounjaro 5 mg/0.5 mL pen injectorIndicat ions:Type 2 diabetes mellitus with diabetic neuropathy, with long-term current use of insulin ([facility]) INJECT 5 MG UNDER THE SKIN EVERY 7 DAYS 2 mL 3 024 2024 Discontinued tacrolimus XR (Envarsus XR) 1 mg tablet extended release 24 hrIndications:K idney transplanted TAKE 3 TABLETS BY MOUTH DAILY 90 tablet 11 024 2024 Discontinued(S top Taking at Discharge) mupirocin (BACTROBAN) 2 % ointment Apply topically 2 (two) times a day for 5 days APPLY TO NOSTRILS TWICE A DAY FOR 5 DAYS PRIOR TO SURGERY. 22 g 025 2024 acetaminophen (TYLENOL) 500 mg tablet Take 1 tablet (500 mg total) by mouth every 6 (six) hours as needed for pain 2024 Discontinued(S top Taking at Discharge) cephalexin (KEFLEX) 500 mg capsule Take 1 capsule (500 mg total) by mouth 2 (two) times a day for 7 days 14 capsule 025 2024 pregabalin (LYRICA) 100 mg capsuleIndicati ons:Aftercare following organ transplant TAKE 1 CAPSULE BY MOUTH DAILY AT SUPPER 90 capsule 1 025 2024 Discontinued(S top Taking at Discharge) gabapentin (NEURONTIN) 300 mg capsuleIndicati ons:Type 2 diabetes mellitus with diabetic neuropathy, with long-term current use of insulin (HCC),Periphera l nerve disease TAKE 1 CAPSULE BY MOUTH 3 TIMES A DAY 90 capsule 11 025 2024 Discontinued(S top Taking at Discharge) tacrolimus XR (ENVARSUS XR) 4 mg tablet extended release 24 hrIndications:P revention of Kidney Transplant Rejection Take 1 tablet (4 mg total) by mouth every morning 30 tablet 025 2024 Discontinued(S top Taking at Discharge) Active Problems Patient Care Coordination No te Formatting of this note migh t be different from the original. Lab: [facility] P:[phone] F:[phone] SO: Q-Monthly FK; Q-3 Routine (06/27/2025) Problem Noted Date Diagnosed Date Spondylolisthesis 10/19/2024 Hypoglycemia 10/03/2024 Assessment & Plan (10/03/2024 12:49 PM LANDSCAPE ARCHITECTURE TEACHER): - Upon rooming, BG 67mg/dL, patient's hands were shaking - Given an apple juice by staff - Prior to her appointment, she had given 13 units of Novolog for a donut, sausage biscuit and coffee with cream + sugar - Repeat blood sugar is 95 mg/dL - Start Dexcom G7 to evaluate recurrent hypoglycemia. Spondylolisthesis of lumbar region 08/17/2024 Lumbar radiculopathy 08/17/2024 Right shoulder pain 03/16/2024 Traumatic complete tear of rotator cuff 02/11/20 23 COVID 10/08/2021 Overview (10/08/2021): After vaccination - onset 10/01/21 Assessment & Plan (10/08/2021 9:32 AM LANDSCAPE ARCHITECTURE TEACHER): Current infection - about 10/01/21. Causes some temporary hyperglycemia. Has immunity to COVID-19 virus 04/07/2021 Overview (08/10/2022): Moderna vaccine x 4 COVID infection 10/01/21 Note - immunosuppression from transplant Assessment & Plan (08/10/2022 9:25 AM LANDSCAPE ARCHITECTURE TEACHER): Fully vaccinated, Hx COVID; eligible for booster. Assessment & Plan (12/19/2021 2:46 PM CDT): Moderna vaccine x3 as well as COVID infection. She can check with her transplant team ia to getting a fourth shot Assessment & Plan (10/03/2021 4:18 PM LANDSCAPE ARCHITECTURE TEACHER): Moderna vaccine 06/11/2021, 09/28/2020, 08/31/2020 Note - immunosuppression from transplant Immunosuppression 12/06/2020 Edema, lower extremity 12/06/2020 Vitamin D deficiency 06/03/2018 Overview (10/08/2021): 04/24/2021 DEXA hip and spine normal Assessment & Plan (05/28/2024 7:09 PM CDT): Continue supplement Assessment & Plan (11/16/2023 8:43 PM CDT): Continue supplement Assessment & Plan (05/18/2023 7:19 PM CDT): Continue supplement Assessment & Plan (08/14/2022 10:26 AM LANDSCAPE ARCHITECTURE TEACHER): Continue supplement and recheck level Assessment & Plan (12/19/2021 2:47 PM CDT): 04/24/2021 DEXA hip and spine normal Continue long-term supplement. Assessment & Plan (10/08/2021 9:35 AM LANDSCAPE ARCHITECTURE TEACHER): 04/24/2021 DEXA hip and spine normal Continue long-term supplement and recheck level Assessment & Plan (04/07/2021 10:06 AM CDT): Recent level about 70, scheduled to have a 24 hour urine calcium and a DEXA bone density per the renal transplant team. Assessment & Plan (06/04/2020 4:46 PM CDT): Continue long-term supplementation Assessment & Plan (10/27/2019 3:01 PM LANDSCAPE ARCHITECTURE TEACHER): Continue supplement Assessment & Plan (12/28/2018 3:31 PM CDT): Continue supplement, particularly since she has take steroids Basal cell carcinoma of skin of other parts of f yaima - Right 03/28/2018 Basal cell carcinoma of skin of other parts of f yaima 03/28/2018 Obesity with body mass index 30 or greater 01/07 Assessment & Plan (10/03/2024 12:51 PM LANDSCAPE ARCHITECTURE TEACHER): - Continue Mounjaro 5 mg once a week - She has lost approximately 15 lbs since March 2024 - Once reoccurring hypoglycemia resolves, will optimize Mounjaro Dermatophytoses 11/20/2016 Skin callus 11/20/2016 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 Controlled - having too much hypoglycemia. Lab Results Component Value Date HGBA1C 5.2 10/03/2024 Per [place] [employer], goal A1c is less 7% without significant hypoglycemia. - Management Goal: reduce frequency of hypoglycemia - Continue Metformin XR 500 mg twice daily - Continue Mounjaro 5 mg once weekly. Consider optimizing when hypoglycemia has been resolved. - Continue glargine 8 units once daily - STOP Novolog for now. - START Dexcom G7 CGM. Sample sensor placed today. Phone is not compatible with DorsaVI or Dafiti apps. Given sample supply chain vice president today as well. Plan to download in 1 week from home, given written instructions on how to complete this. She will message me once downloaded and I will review blood sugar readings. - Advised annual dilated eye exam - up to date. - Advised checking blood glucose before driving - Discussed hypoglycemia risk, and treatment such as the rule of 15s and the use of glucagon - Annual labs are up to date. - Update me on consistent glycemia excursions or if there is any hypoglycemia. - Advised and ensured that I am available via phone or Edusoftt if they have any concerns for hypo/hyperglycemia, medication refills, etc. Assessment & Plan (05/28/2024 7:09 PM CDT): Overall doing reasonably well, stable on current regimen Assessment & Plan (04/03/2024 10:05 AM CDT): - Diabetes is complicated by neuropathy, CKD s/p renal transplant (2016) and chronic steroid use. Controlled. Lab Results Component Value Date HGBA1C 5.4 04/03/2024 Per [place] [employer], goal A1c is less 7% without significant hypoglycemia. - Management Goal: maintain glycemic control - If taking Mounjaro 2.5 mg weekly: Metformin XR 500 mg BID Reduce glargine to 15 units at night Novolog 10 units at breakfast, 18 units with lunch and dinner - If taking Mounjaro 5 mg weekly: Metformin XR 500 mg BID Reduce glargine to 15 units at night Reduce Novolog to 8 units with breakfast and 15 units with meals - Continue checking blood sugar 4+ times/daily. She is interested in starting a CGM. Asked her to call her insurance and see which CGM they prefer. She will let us know which one to start. - Advised bolusing 10-15 minutes before each meal. - Advised annual dilated eye exam - UTD. - Advised checking blood glucose before driving - Discussed hypoglycemia risk, and treatment such as the rule of 15s and the use of glucagon. Prescription sent. - Annual labs are UTD - Update me on consistent glycemia excursions or if there is any hypoglycemia. - Advised and ensured that I am available via phone or MyChart if they have any concerns for hypo/hyperglycemia, medication refills, etc. Assessment & Plan (11/16/2023 8:45 PM CDT): Overall doing reasonably well, but higher mid-day glucoses. Need to adjust AM Novolog. Also may benefit from Jardiance, but off-label so defer to renal specialist to review. Assessment & Plan (05/18/2023 7:21 PM CDT): Slightly suboptimal control; would benefit from switching Lantus to the AM. Would also benefit from GLP-1 agonist. Needs repeat A1c with next labs. Assessment & Plan (08/14/2022 10:27 AM LANDSCAPE ARCHITECTURE TEACHER): Glucoses increase after meals, so needs mealtime Humalog in addition to sliding scale. Also needs to adjust insulin during GI procedure in September. Assessment & Plan (05/07/2022 3:10 PM CDT): Hemoglobin A1c decreased to 6.5%, without hypoglycemia. Try Livongo system through insurance, but still recommend FreeStyle Elif, if insurance coverage/cost is reasonable. She is tolerating Metformin XR 1,000mg, Jardiance 25mg and Januvia 100mg well and without side effects at this time. She is taking Lantus PM daily, consistently. She is taking Novolog with meals and using sliding scale. Diabetes education is beneficial for her as she is intelligent and motivated to manage her diabetes. Assessment & Plan (12/19/2021 2:48 PM CDT): Glucoses somewhat better with recent increases in her Lantus, but she would also benefit from mealtime NovoLog plus a sliding scale. She had comprehensive diabetes and nutrition Education today Assessment & Plan (10/08/2021 9:37 AM LANDSCAPE ARCHITECTURE TEACHER): Glucoses a little high, and renal function adequate for full-dose Invokana, which provides some renal and cardiovascular protection. Also temporarily higher due to COVID infection Assessment & Plan (04/07/2021 10:07 AM CDT): Clinically doing well, recent A1c within target. She anticipates having more exercise and following a good diet. She also needs to occasionally check her glucoses in the evenings Assessment & Plan (06/04/2020 4:45 PM CDT): Glucoses creeping up a little, A1c recently 7.3%. She would benefit from adding SGLT-2 inhibitor therapy, which would help to lower her glucoses and provide cardiovascular and renal benefit. Assessment & Plan (10/27/2019 3:01 PM LANDSCAPE ARCHITECTURE TEACHER): Glucoses within a good margin of safety. However, we need to increase gabapentin as tolerated. She also uses Lyrica (control substances agreement in effect) Assessment & Plan (12/28/2018 3:31 PM CDT): Slightly suboptimal glycemic control, may do better with G LP 1 agonist instead of linagliptin Assessment & Plan (09/02/2018 3:44 PM LANDSCAPE ARCHITECTURE TEACHER): She had been taking Januvia 100 mg daily and with a drop in her EGFR to 41 she would be safer taking Tradjenta 5 mg daily since there is no renal clearance issues The renal dosing for Januvia would be 50 mg her last and this likely would not be adequate to manage her blood sugars Hemoglobin A1c 7.4% We discussed this and I made the changes today Peripheral nerve disease 04/27/2016 Assessment & Plan (11/16/2023 8:45 PM CDT): Improved with better glycemic control and gabapentin, pregabalin. Assessment & Plan (12/19/2021 2:47 PM CDT): Improved with better glycemic control and gabapentin Assessment & Plan (06/04/2020 4:44 PM CDT): Still very painful, affects her quality and ability to sleep. We should be able to increase her gabapentin and take at supper time in order to have an effect by a bedtime. Assessment & Plan (12/28/2018 3:32 PM CDT): Continue gabapentin, optimize glycemic control Assessment & Plan (09/02/2018 3:48 PM LANDSCAPE ARCHITECTURE TEACHER): Takes alpha lipoic acid Lyrica and gabapentin and still has some pain She could consider Nortriptyline 25 mg at bedtime might help her pain a little bit more but this should be discussed with her primary care doctor but it could be substituted for the Amitriptyline 10 mg that she also takes at a very low dose at bedtime. Urged her to incorporate activities that help her work on her balance which has been somewhat affected by the neuropathy. History of nocturia 04/27/2016 Post-transplant diabetes mellitus ([facility]) 03/06 Aftercare following organ transplant 03/24/2016 Assessment & Plan (05/07/2022 9:35 AM CDT): On steroids, immunosuppressants that affect glycemic control as well as neuropathy. Assessment & Plan (12/19/2021 2:45 PM CDT): On steroids, immunosuppressants that affect glycemic control as well as neuropathy. Assessment & Plan (10/08/2021 9:44 AM LANDSCAPE ARCHITECTURE TEACHER): On steroids, immunosuppressants that affect glycemic control as well as neuropathy. Assessment & Plan (04/07/2021 10:14 AM CDT): On steroids, immunosuppressants that affect glycemic control as well as neuropathy Assessment & Plan (06/04/2020 4:47 PM CDT): On steroids, immunosuppressants that affect glycemic control as well as neuropathy Assessment & Plan (10/27/2019 8:05 AM LANDSCAPE ARCHITECTURE TEACHER): On steroids, immunosuppressants that affect diabetes care Encounter for aftercare following kidney transpl ant 01/21/2016 Assessment & Plan (10/03/2024 12:52 PM LANDSCAPE ARCHITECTURE TEACHER): - Chronic immunosuppressant and steroid use complicates diabetes management. Assessment & Plan (05/28/2024 7:10 PM CDT): On steroids, immunosuppressants that affect glycemic control as well as neuropathy. Assessment & Plan (04/03/2024 10:06 AM CDT): - Chronic steroid use complicates diabetes management and control Assessment & Plan (11/16/2023 8:45 PM CDT): On steroids, immunosuppressants that affect glycemic control as well as neuropathy. Assessment & Plan (05/18/2023 7:18 PM CDT): On steroids, immunosuppressants that affect glycemic control as well as neuropathy. 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 Assessment & Plan (09/02/2018 3:43 PM LANDSCAPE ARCHITECTURE TEACHER): Has follow-up with renal scheduled EGFR is 41 Creatinine has been range 1.5-1.65 Orthostatic hypotension 01/14/2016 Hyperlipidemia 03/12/2011 Assessment & Plan (10/03/2024 12:50 PM LANDSCAPE ARCHITECTURE TEACHER): - Last LDL 65 (12/2023), up to date - Continue Lipitor 20 mg daily Assessment & Plan (05/28/2024 7:10 PM CDT): Continue statin, omega-3 and glycemic control. Assessment & Plan (04/03/2024 10:06 AM CDT): - Last LDL 65 (12/2023), at goal - Continue Lipitor 20 mg daily Assessment & Plan (11/16/2023 8:42 PM CDT): Continue statin, omega-3 and glycemic control. Assessment & Plan (05/18/2023 7:18 PM CDT): Continue statin, omega-3 and glycemic control. Assessment & Plan (08/14/2022 10:28 AM LANDSCAPE ARCHITECTURE TEACHER): Continue statin, omega-3 and glycemic control. Assessment & Plan (05/07/2022 9:34 AM CDT): Continue statin therapy (atorvastatin 20mg) daily and she is also taking omega- 3. Optimize glycemic control. 04/2022- HDL 50, LDL 84 Assessment & Plan (12/19/2021 2:46 PM CDT): Continue statin, omega-3 and glycemic control. Recent Tg only slightly elevated and LDL within goal. Assessment & Plan (10/08/2021 9:33 AM LANDSCAPE ARCHITECTURE TEACHER): Continue statin, omega-3 and glycemic control. Recent Tg only slightly elevated and LDL within goal. Assessment & Plan (04/07/2021 10:07 AM CDT): Continue statin, omega-3 and glycemic control Assessment & Plan (12/28/2018 3:31 PM CDT): Continue statin, optimize glycemic control Cerebral arterial aneurysm 03/12/2011 Polycystic kidney disease 03/12/2011 Resolved Problems Problem Noted Date Diagnosed Date Resolved Date Hypercalcemia 12/06/2020 04/07/2021 Immunizations Immunization Administration Dates Next Due Influenza, Quadrivalent, Alva l Culture-based MDCK, Preservative Free, Antibiotic Free, Intramuscular 07/27/2018 Influenza, Quadrivalent, Spl it, Intramuscular 05/22/2021,05/23/2020 Influenza, Quadrivalent, Spl it, Preservative Free, Intramuscular 07/27/2019,09/28/2016,09/28/2016 Influenza, Trivalent, IM (MDV) 07/27/2018 Influenza, Trivalent, Preser vative Free, Intramuscular 06/28/2017,06/28/2017,07/07/2015,07/07 Influenza, Unspecified 06/06/2024,05/22/2021 Pneumococcal Polysaccharide PPV23 08/25/2022,09/2014 ZOSTER Recombinant 03/24/2023,08/25/2022 Social History Tobacco Use Types Packs/Day Years Used Date Smoking Tobacco: Never Smokeless Tobacco: Never Tobacco Cessation:Counseling Given: No 2heuresavant Utilities Answer Date Recorded In the past 12 months has Augmentix, Drimki, or water [employer] threatened to shut off services in your home? No 10/25/2024 Social Connection and Isolat ion Panel [NHANES] Answer Date Recorded In a typical week, how many times do you talk on the phone with family, friends, or neighbors? More than three times a week 10/25/2024 How often do you get togethe r with friends or relatives? More than three times a week 10/25/2024 How often do you attend [facility] or confucianist services? More than 4 times per year 10/25/2024 Do you belong to any clubs o r organizations such as episcopal groups, unions, fraternal or athletic groups, or school groups? Yes 10/25/2024 How often do you attend meet ings of the clubs or organizations you belong to? More than 4 times per year 10/25/2024 Are you , , di vorced, , never , or living with a partner? 10/25/2024 Overall Financial Resource Strain (CARDIA) Answe r Date Recorded How hard is it for you to pa y for the very basics like food, housing, medical care, and heating? Not hard at all 10/25/2024 PHQ-2 Answer Date Recorded PHQ-2 Total Score (If total score is 3 or more points, staff should administer the PHQ-9) 0 10/25/2024 Hunger Vital Sign Answer Date Recorded Within the past 12 months, y ou worried that your food would run out before you got the money to buy more. Never true 10/25/19 25 Within the past 12 months, t he food you bought just didn't last and you didn't have money to get more. Never true 10/25/2024 PRAPARE - Transportation Answer Date Re corded In the past 12 months, has l ack of transportation kept you from medical appointments or from getting medications? No 10/07 In the past 12 months, has l ack of transportation kept you from meetings, work, or from getting things needed for daily living? No 10/25/2024 Housing Stability Vital Sign Answer Louis e Recorded In the last 12 months, was t here a time when you were not able to pay the mortgage or rent on time? No 10/25/2024 In the past 12 months, how m any times have you moved where you were living? 0 10/25/2024 At any time in the past 12 m [facility], were you homeless or living in a prison (including now)? No 10/25/2024 Personal Safety Answer Date Recorded Have you ever been in or are you currently in a harmful physical or emotional relationship or is someone making you feel afraid or unsafe? Denies 10/19/2024 Comments Unknown Sex and Gender Information Value Date Recorded Sex Assigned at Not on file Legal Sex Female 4:18 AM LANDSCAPE ARCHITECTURE TEACHER Gender Identity Female 07/10/2019 11:32 AM LANDSCAPE ARCHITECTURE TEACHER Sexual Orientation Not on file Last Filed Vital Signs Vital Sign Reading Time Taken Comments Blood Pressure 100/54 10/27/2024 11:20 AM LANDSCAPE ARCHITECTURE TEACHER Pulse 80 10/27/2024 11:20 AM LANDSCAPE ARCHITECTURE TEACHER Temperature 36.6 C (97.8 F) 10/27/2024 11:20 AM LANDSCAPE ARCHITECTURE TEACHER Respiratory Rate 16 10/27/2024 11:20 AM LANDSCAPE ARCHITECTURE TEACHER Oxygen Saturation 98% 10/27/2024 11:20 AM LANDSCAPE ARCHITECTURE TEACHER Inhaled Oxygen Concentration - - Weight 91 kg (200 lb 9.9 oz) 10/19/2024 8:00 PM LANDSCAPE ARCHITECTURE TEACHER Height 175.3 cm (5' 9 ) 10/19/2024 8:00 PM LANDSCAPE ARCHITECTURE TEACHER Body Mass Index 29.63 10/19/2024 8:00 PM LANDSCAPE ARCHITECTURE TEACHER Plan of Treatment Not on file Medical Devices Implanted Type Area Fish And Wildlife Technician Device Identifier Shelf Expiration Date Model / Serial / Lot Fistula Left: Arm Si-Bone Implant Arthrodesis 90x9.5mm Ifuse [facility] Sacroiliac [id number] - [id number] - [id number] Implanted:Qty: 1 on 10/19/2024 by Inderjit Stephen MD at [facility] N/A: Spine Thoracic Si-Bone 06/14/2034 [id number] / [id number] / Medicrea [place] Lp 6.5mm 50mm 2 Lead Spine Pedicle Screw Bone Nonsterile [id number] - [id number] Implanted:Qty: 6 on 10/19/2024 by Inderjit Stephen MD at [facility] N/A: Spine Thoracic Medicrea Usa [id number] / / Medicrea Usa Screw Spinal Pedicle Dual Lead Solid Pass Lp 6.5x55mm Titanium [id number] - [id number] Implanted:Qty: 3 on 10/19/2024 by Inderjit Stephen MD at [facility] N/A: Spine Thoracic Medicrea Usa [id number] / / Medicrea [place] Pass Lp 6.5mm 45mm 2 Lead Spine Pedicle Screw Bone Nonsterile [id number] - [id number] Implanted:Qty: 1 on 10/19/2024 by Inderjit Stephen MD at [facility] N/A: Spine Thoracic Medicrea Usa [id number] / / Medicrea [place] Pass Lp Break Away Nut Spinal Nonsterile [id number] - [id number] Implanted:Qty: 10 on 10/19/2024 by Inderjit Stephen MD at [facility] N/A: Spine Thoracic Medicrea Usa [id number] / / Medicrea [place] Pass Lp 6mm Standard Clamp Spinal Nonsterile Latex Free [id number] - [id number] Implanted:Qty: 5 on 10/19/2024 by Inderjit Stephen MD at [facility] N/A: Spine Thoracic Medicrea Usa [id number] / / Medicrea [place] Pass Lp 6mm Offset Spine Connector Abiel Nonsterile Latex Free [id number] - [id number] Implanted:Qty: 3 on 10/19/2024 by Inderjit Stephen MD at [facility] N/A: Spine Thoracic Medicrea [place]sa [id number] / / Medicrea [place] Pass Lp 6mm Spine Angulate Connector Abiel Nonsterile Latex Free [id number] - [id number] Implanted:Qty: 2 on 10/19/2024 by Inderjit Stephen MD at [facility] N/A: Spine Thoracic Medicrea [place]sa [id number] / / Medtronic Inc Unid Exp [id number] 6.0 Ti Abiel 4up L [id number] - [id number] Implanted:Qty: 2 on 10/19/2024 by Inderjit Stephen MD at [facility] N/A: Spine Thoracic Medtronic Inc 01/15/2025 [id number] / / Medtronic Inc Bmp Infuse [id number] - [id number] Implanted:Qty: 1 on 10/19/2024 by Inderjit Stephen MD at [facility] N/A: Spine Thoracic Medtronic Inc [id number] 10/07/2025 [id number] / / [id number] Medtronic Inc Kit Graft Bone Sponge Xlg Infuse 8cc Granules [id number] - [id number] Implanted:Qty: 1 on 10/19/2024 by Inderjit Stephen MD at [facility] N/A: Spine Thoracic Medtronic Inc [id number] 01/04/2026 [id number] / / [id number] Medtronic Inc Set Implant Graft Bone Filler Accelerate Milo 9cc Dbf [id number] - [id number] - [id number] Implanted:Qty: 1 on 10/19/2024 by Inderjit Stephen MD at [facility] N/A: Spine Lumbar Medtronic Inc [id number] 07/04/2026 [id number] / [id number] / Medtronic Inc Set Implant Graft Bone Filler Accelerate Milo 9cc Dbf [id number] - [id number] - [id number] Implanted:Qty: 1 on 10/19/2024 by Inderjit Stephen MD at [facility] N/A: Spine Lumbar Medtronic Inc [id number] 07/04/2026 [id number] / [id number] / Medtronic Inc Set Implant Graft Bone Filler Accelerate Dagmar 9cc Dbf [id number] - [id number] - [id number] Implanted:Qty: 1 on 10/19/2024 by Inderjit Stephen MD at [facility] N/A: Spine Lumbar Medtronic Inc [id number] 07/04/2026 [id number] / [id number] / Medtronic Inc Set Implant Graft Bone Filler Accelerate Milo 9cc Dbf [id number] - [id number] - [id number] Implanted:Qty: 1 on 10/19/2024 by Inderjit Stephen MD at [facility] N/A: Spine Lumbar Medtronic Inc [id number] 07/04/2026 [id number] / [id number] / Allosource Crushed Chip Frozen Graft 60ml Bone Cancellous [id number] - [id number] Implanted:Qty: 1 on 10/19/2024 by Inderjit Stephen MD at [facility] N/A: Spine Thoracic Allosource 07/18/2029 [id number] / / [id number] Si-Bone Implant Arthrodesis 90x9.5mm Ifuse [place] [employer] Sacroiliac [id number] - [id number] - [id number] Implanted:Qty: 1 on 10/19/2024 by Inderjit Stephen MD at [facility] N/A: Spine Thoracic Si-Bone 06/26/2034 [id number] / [id number] / Procedures Procedure Name Priority Date/Time Associated Diagnosis Comments POCT GLUCOSE DEVICE Routine 10/27/2024 12:08 PM LANDSCAPE ARCHITECTURE TEACHER POCT GLUCOSE DEVICE Routine 10/27/2024 8 :09 AM LANDSCAPE ARCHITECTURE TEACHER EGFR Routine 10/27/2024 6:29 AM LANDSCAPE ARCHITECTURE TEACHER TACROLIMUS LEVEL, TROUGH Routine 10/27/2024 6:29 AM LANDSCAPE ARCHITECTURE TEACHER RENAL FUNCTION PANEL Routine 10/27/2024 6:29 AM LANDSCAPE ARCHITECTURE TEACHER PHOSPHORUS Routine 10/26/2024 9:55 PM LANDSCAPE ARCHITECTURE TEACHER MAGNESIUM Routine 10/26/2024 9:55 PM LANDSCAPE ARCHITECTURE TEACHER POCT GLUCOSE DEVICE Routine 10/26/2024 9 :27 PM LANDSCAPE ARCHITECTURE TEACHER POCT GLUCOSE DEVICE Routine 10/26/2024 8 :33 PM LANDSCAPE ARCHITECTURE TEACHER POCT GLUCOSE DEVICE Routine 10/26/2024 5 :22 PM LANDSCAPE ARCHITECTURE TEACHER POCT GLUCOSE DEVICE Routine 10/26/2024 11:49 AM LANDSCAPE ARCHITECTURE TEACHER POCT GLUCOSE DEVICE Routine 10/26/2024 8 :09 AM LANDSCAPE ARCHITECTURE TEACHER EGFR Routine 10/26/2024 6:38 AM LANDSCAPE ARCHITECTURE TEACHER TACROLIMUS LEVEL, TROUGH Routine 10/26/2024 6:38 AM LANDSCAPE ARCHITECTURE TEACHER RENAL FUNCTION PANEL Routine 10/26/2024 6:38 AM LANDSCAPE ARCHITECTURE TEACHER POCT GLUCOSE DEVICE Routine 10/25/2024 9 :51 PM LANDSCAPE ARCHITECTURE TEACHER PHOSPHORUS Routine 10/25/2024 9:42 PM LANDSCAPE ARCHITECTURE TEACHER MAGNESIUM Routine 10/25/2024 9:42 PM LANDSCAPE ARCHITECTURE TEACHER POCT GLUCOSE DEVICE Routine 10/25/2024 8 :00 PM LANDSCAPE ARCHITECTURE TEACHER POCT GLUCOSE DEVICE Routine 10/25/2024 5 :28 PM LANDSCAPE ARCHITECTURE TEACHER POCT GLUCOSE DEVICE Routine 10/25/2024 11:06 AM LANDSCAPE ARCHITECTURE TEACHER XR SCOLIOSIS AP LAT IP Routine 10/25/2024 10:17 AM LANDSCAPE ARCHITECTURE TEACHER POCT GLUCOSE DEVICE Routine 10/25/2024 7 :18 AM LANDSCAPE ARCHITECTURE TEACHER EGFR Routine 10/25/2024 6:56 AM LANDSCAPE ARCHITECTURE TEACHER TACROLIMUS LEVEL, TROUGH Routine 10/25/2024 6:56 AM LANDSCAPE ARCHITECTURE TEACHER RENAL FUNCTION PANEL Routine 10/25/2024 6:56 AM LANDSCAPE ARCHITECTURE TEACHER PHOSPHORUS Routine 10/25/2024 1:21 AM LANDSCAPE ARCHITECTURE TEACHER MAGNESIUM Routine 10/25/2024 1:21 AM LANDSCAPE ARCHITECTURE TEACHER CBC WITHOUT DIFFERENTIAL Routine 10/25/2024 1:21 AM LANDSCAPE ARCHITECTURE TEACHER POCT GLUCOSE DEVICE Routine 10/24/2024 8 :06 PM LANDSCAPE ARCHITECTURE TEACHER POCT GLUCOSE DEVICE Routine 10/24/2024 6 :03 PM LANDSCAPE ARCHITECTURE TEACHER POCT GLUCOSE DEVICE Routine 10/24/2024 11:31 AM LANDSCAPE ARCHITECTURE TEACHER EGFR Routine 10/24/2024 5:03 AM LANDSCAPE ARCHITECTURE TEACHER RENAL FUNCTION PANEL Routine 10/24/2024 5:03 AM LANDSCAPE ARCHITECTURE TEACHER TACROLIMUS LEVEL, TROUGH Routine 10/24/2024 5:03 AM LANDSCAPE ARCHITECTURE TEACHER PHOSPHORUS Routine 10/23/2024 10:00 PM LANDSCAPE ARCHITECTURE TEACHER MAGNESIUM Routine 10/23/2024 10:00 PM LANDSCAPE ARCHITECTURE TEACHER CBC WITHOUT DIFFERENTIAL Routine 10/23/2024 10:00 PM LANDSCAPE ARCHITECTURE TEACHER POCT GLUCOSE DEVICE Routine 10/23/2024 8 :23 PM LANDSCAPE ARCHITECTURE TEACHER POCT GLUCOSE DEVICE Routine 10/23/2024 5 :48 PM LANDSCAPE ARCHITECTURE TEACHER POCT GLUCOSE DEVICE Routine 10/23/2024 4 :55 PM LANDSCAPE ARCHITECTURE TEACHER POCT GLUCOSE DEVICE Routine 10/23/2024 2 :06 PM LANDSCAPE ARCHITECTURE TEACHER POCT GLUCOSE DEVICE Routine 10/23/2024 12:39 PM LANDSCAPE ARCHITECTURE TEACHER POCT GLUCOSE DEVICE Routine 10/23/2024 12:03 PM LANDSCAPE ARCHITECTURE TEACHER POCT GLUCOSE DEVICE Routine 10/23/2024 7 :29 AM LANDSCAPE ARCHITECTURE TEACHER EGFR Routine 10/23/2024 5:24 AM LANDSCAPE ARCHITECTURE TEACHER RENAL FUNCTION PANEL Routine 10/23/2024 5:24 AM LANDSCAPE ARCHITECTURE TEACHER TACROLIMUS LEVEL, TROUGH Routine 10/23/2024 5:24 AM LANDSCAPE ARCHITECTURE TEACHER POCT GLUCOSE DEVICE Routine 10/23/2024 3 :24 AM LANDSCAPE ARCHITECTURE TEACHER POCT GLUCOSE DEVICE Routine 10/23/2024 12:16 AM LANDSCAPE ARCHITECTURE TEACHER PHOSPHORUS Routine 10/22/2024 8:39 PM LANDSCAPE ARCHITECTURE TEACHER MAGNESIUM Routine 10/22/2024 8:39 PM LANDSCAPE ARCHITECTURE TEACHER CBC WITHOUT DIFFERENTIAL Routine 10/22/2024 8:39 PM LANDSCAPE ARCHITECTURE TEACHER TACROLIMUS LEVEL, TROUGH Routine 10/22/2024 8:35 PM LANDSCAPE ARCHITECTURE TEACHER POCT GLUCOSE DEVICE Routine 10/22/2024 8 :25 PM LANDSCAPE ARCHITECTURE TEACHER POCT GLUCOSE DEVICE Routine 10/22/2024 4 :24 PM LANDSCAPE ARCHITECTURE TEACHER EGFR STAT 10/22/2024 1:09 PM LANDSCAPE ARCHITECTURE TEACHER TACROLIMUS LEVEL, TROUGH STAT 10/22/2024 1:09 PM LANDSCAPE ARCHITECTURE TEACHER RENAL FUNCTION PANEL STAT 10/22/2024 1:09 PM LANDSCAPE ARCHITECTURE TEACHER POCT GLUCOSE DEVICE Routine 10/22/2024 12:12 PM LANDSCAPE ARCHITECTURE TEACHER POCT GLUCOSE DEVICE Routine 10/22/2024 8 :00 AM LANDSCAPE ARCHITECTURE TEACHER EGFR Routine 10/22/2024 5:52 AM LANDSCAPE ARCHITECTURE TEACHER PHOSPHORUS Routine 10/22/2024 5:52 AM LANDSCAPE ARCHITECTURE TEACHER TACROLIMUS LEVEL, TROUGH Routine 10/22/2024 5:52 AM LANDSCAPE ARCHITECTURE TEACHER TACROLIMUS LEVEL, RANDOM Routine 10/22/2024 5:52 AM LANDSCAPE ARCHITECTURE TEACHER COMPREHENSIVE METABOLIC PANEL Routine 10/22/2024 5:52 AM LANDSCAPE ARCHITECTURE TEACHER POCT GLUCOSE DEVICE Routine 10/22/2024 3 :49 AM LANDSCAPE ARCHITECTURE TEACHER POCT GLUCOSE DEVICE Routine 10/21/2024 11:38 PM LANDSCAPE ARCHITECTURE TEACHER POCT GLUCOSE DEVICE Routine 10/21/2024 8 :23 PM LANDSCAPE ARCHITECTURE TEACHER EGFR Timed 10/21/2024 4:35 PM LANDSCAPE ARCHITECTURE TEACHER TACROLIMUS LEVEL, RANDOM Timed 10/21/2024 4:35 PM LANDSCAPE ARCHITECTURE TEACHER COMPREHENSIVE METABOLIC PANEL Timed 10/21/2024 4:35 PM LANDSCAPE ARCHITECTURE TEACHER PHOSPHORUS Routine 10/21/2024 4:35 PM LANDSCAPE ARCHITECTURE TEACHER MAGNESIUM Routine 10/21/2024 4:35 PM LANDSCAPE ARCHITECTURE TEACHER CBC WITHOUT DIFFERENTIAL Routine 10/21/2024 4:35 PM LANDSCAPE ARCHITECTURE TEACHER POCT GLUCOSE DEVICE Routine 10/21/2024 4 :15 PM LANDSCAPE ARCHITECTURE TEACHER POCT GLUCOSE DEVICE Routine 10/21/2024 11:39 AM LANDSCAPE ARCHITECTURE TEACHER POCT GLUCOSE DEVICE Routine 10/21/2024 7 :48 AM LANDSCAPE ARCHITECTURE TEACHER EGFR Routine 10/21/2024 4:35 AM LANDSCAPE ARCHITECTURE TEACHER TACROLIMUS LEVEL, RANDOM Routine 10/21/2024 4:35 AM LANDSCAPE ARCHITECTURE TEACHER PHOSPHORUS Routine 10/21/2024 4:35 AM LANDSCAPE ARCHITECTURE TEACHER MAGNESIUM Routine 10/21/2024 4:35 AM LANDSCAPE ARCHITECTURE TEACHER BASIC METABOLIC PANEL Routine 10/21/2024 4:35 AM LANDSCAPE ARCHITECTURE TEACHER CBC WITHOUT DIFFERENTIAL Routine 10/21/2024 4:35 AM LANDSCAPE ARCHITECTURE TEACHER POCT GLUCOSE DEVICE Routine 10/21/2024 4 :13 AM LANDSCAPE ARCHITECTURE TEACHER POCT GLUCOSE DEVICE Routine 10/20/2024 11:54 PM LANDSCAPE ARCHITECTURE TEACHER POCT GLUCOSE DEVICE Routine 10/20/2024 8 :14 PM LANDSCAPE ARCHITECTURE TEACHER POCT GLUCOSE DEVICE Routine 10/20/2024 3 :24 PM LANDSCAPE ARCHITECTURE TEACHER POCT GLUCOSE DEVICE Routine 10/20/2024 11:50 AM LANDSCAPE ARCHITECTURE TEACHER POCT GLUCOSE DEVICE Routine 10/20/2024 7 :38 AM LANDSCAPE ARCHITECTURE TEACHER TACROLIMUS LEVEL, RANDOM Routine 10/20/2024 4:37 AM LANDSCAPE ARCHITECTURE TEACHER POCT GLUCOSE DEVICE Routine 10/20/2024 3 :51 AM LANDSCAPE ARCHITECTURE TEACHER POCT GLUCOSE DEVICE Routine 10/19/2024 11:41 PM LANDSCAPE ARCHITECTURE TEACHER ECG 12-LEAD STAT 10/19/2024 8:45 PM LANDSCAPE ARCHITECTURE TEACHER URINALYSIS, MICROSCOPIC ONLY STAT 10/19/2024 8:31 PM LANDSCAPE ARCHITECTURE TEACHER URINE CULTURE STAT 10/19/2024 8:31 PM LANDSCAPE ARCHITECTURE TEACHER URINALYSIS AND REFLEX TO MICROSCOPIC AND CULTURE STAT 10/19/2024 8:31 PM LANDSCAPE ARCHITECTURE TEACHER POCT GLUCOSE DEVICE Routine 10/19/2024 8 :29 PM LANDSCAPE ARCHITECTURE TEACHER PROTIME-INR STAT 10/19/2024 8:26 PM LANDSCAPE ARCHITECTURE TEACHER APTT STAT 10/19/2024 8:26 PM LANDSCAPE ARCHITECTURE TEACHER PHOSPHORUS Routine 10/19/2024 8:26 PM LANDSCAPE ARCHITECTURE TEACHER MAGNESIUM Routine 10/19/2024 8:26 PM LANDSCAPE ARCHITECTURE TEACHER XR CHEST 1 VIEW ED Urgent/IP Urgent 10/19/2024 7:58 PM LANDSCAPE ARCHITECTURE TEACHER CREATINE KINASE (CK), TOTAL STAT 10/19/2024 6:56 PM LANDSCAPE ARCHITECTURE TEACHER LACTATE STAT 10/19/2024 6:56 PM LANDSCAPE ARCHITECTURE TEACHER LIPID PANEL STAT 10/19/2024 6:04 PM LANDSCAPE ARCHITECTURE TEACHER HEPATIC FUNCTION PANEL STAT 10/19/2024 6:04 PM LANDSCAPE ARCHITECTURE TEACHER MAGNESIUM STAT 10/19/2024 6:04 PM LANDSCAPE ARCHITECTURE TEACHER PHOSPHORUS STAT 10/19/2024 6:04 PM LANDSCAPE ARCHITECTURE TEACHER EGFR STAT 10/19/2024 6:04 PM LANDSCAPE ARCHITECTURE TEACHER DIFFERENTIAL AUTO STAT 10/19/2024 6:0 4 PM LANDSCAPE ARCHITECTURE TEACHER TROPONIN I HIGH-SENSITIVITY STAT 10/19/2024 6:04 PM LANDSCAPE ARCHITECTURE TEACHER BASIC METABOLIC PANEL STAT 10/19/2024 6:04 PM LANDSCAPE ARCHITECTURE TEACHER CBC WITH AUTO DIFFERENTIAL STAT 10/19/2024 6:04 PM LANDSCAPE ARCHITECTURE TEACHER BLOOD GAS, ARTERIAL STAT 10/19/2024 6 :04 PM LANDSCAPE ARCHITECTURE TEACHER POCT GLUCOSE DEVICE Routine 10/19/2024 6 :03 PM LANDSCAPE ARCHITECTURE TEACHER POC BLOOD GAS AND CHEMISTRIES, ARTERIAL Routine 10/19/2024 4:16 PM LANDSCAPE ARCHITECTURE TEACHER POCT GLUCOSE DEVICE Routine 10/19/2024 2 :32 PM LANDSCAPE ARCHITECTURE TEACHER EGFR STAT 10/19/2024 2:28 PM LANDSCAPE ARCHITECTURE TEACHER BASIC METABOLIC PANEL STAT 10/19/2024 2:28 PM LANDSCAPE ARCHITECTURE TEACHER CBC WITHOUT DIFFERENTIAL STAT 10/19/2024 2:28 PM LANDSCAPE ARCHITECTURE TEACHER XR SPINE LUMBAR 2 OR 3 VIEWS IP Routine 10/19/2024 1:13 PM LANDSCAPE ARCHITECTURE TEACHER FL FLUOROSCOPY < 1 HOUR IP Routine 10/19/2024 1:12 PM LANDSCAPE ARCHITECTURE TEACHER POC BLOOD GAS AND CHEMISTRIES, ARTERIAL Routine 10/19/2024 12:39 PM LANDSCAPE ARCHITECTURE TEACHER POC BLOOD GAS AND CHEMISTRIES, ARTERIAL Routine 10/19/2024 11:33 AM LANDSCAPE ARCHITECTURE TEACHER POC BLOOD GAS AND CHEMISTRIES, ARTERIAL Routine 10/19/2024 10:22 AM LANDSCAPE ARCHITECTURE TEACHER DE AN PROCEDURE PLACEHOLDER Routine 10/19/2024 9:52 AM LANDSCAPE ARCHITECTURE TEACHER DE AN PROCEDURE PLACEHOLDER Routine 10/19/2024 9:51 AM LANDSCAPE ARCHITECTURE TEACHER DE AN PROCEDURE PLACEHOLDER Routine 10/19/2024 9:46 AM LANDSCAPE ARCHITECTURE TEACHER DE AN ELECTIVE ENDOTRACHEAL AIRWAY Routine 10/19/2024 9:46 AM LANDSCAPE ARCHITECTURE TEACHER POC BLOOD GAS AND CHEMISTRIES, ARTERIAL Routine 10/19/2024 9:11 AM LANDSCAPE ARCHITECTURE TEACHER SPINAL CORD MONITORING 10/19/2024 7:30 AM LANDSCAPE ARCHITECTURE TEACHER Spondylolisthesis of lumbar region Lumbar radiculopathy Case Notes 08/22@1337- Per [place] via case msg cell saver is needed / Per Dilma via phone call cell saver ID- [id number]- DMF [id number]- Per audit case msg sent to [facility] to verify if cell saver needed or not for case- DMF Special Needs Medtronic Solera,, morselized allograft, local autograft, BMP 1 Large, SCM, Pro-Dows Table, c-arm, GW Tongs, 15 lbs traction, microscope, 1 unit bloodcell saver ID- [id number] BONE GRAFT WITH BONE MORPHOGENIC PROTEIN 10/19/2024 7:30 AM LANDSCAPE ARCHITECTURE TEACHER Spondylolisthesis of lumbar region Lumbar radiculopathy Case Notes 08/22@1337- Per [place] via case msg cell saver is needed / Per Dilma via phone call cell saver ID- [id number]- DMF [id number]- Per audit case msg sent to [facility] to verify if cell saver needed or not for case- DMF Special Needs Medtronic Solera,, morselized allograft, local autograft, BMP 1 Large, SCM, Pro-Dows Table, c-arm, GW Tongs, 15 lbs traction, microscope, 1 unit bloodcell saver ID- [id number] FUSION DECOMPRESSION LAMINECTOMY WITH INSTRUMENTATION - MEDTRONIC SOLERA 10/19/2024 7:30 AM LANDSCAPE ARCHITECTURE TEACHER Spondylolisthesis of lumbar region Lumbar radiculopathy Case Notes 08/22@1337- Per [place] via case msg cell saver is needed / Per Dilma via phone call cell saver ID- [id number]- DMF [id number]- Per audit case msg sent to [facility] to verify if cell saver needed or not for case- DMF Special Needs Med[employer] Solera,, morselized allograft, local autograft, BMP 1 Large, SCM, Pro-Dows Table, c-arm, GW Tongs, 15 lbs traction, microscope, 1 unit bloodcell saver ID- [id number] POCT GLUCOSE DEVICE Routine 10/19/2024 6 :53 AM LANDSCAPE ARCHITECTURE TEACHER TYPE AND SCREEN STAT 10/19/2024 6:52 AM LANDSCAPE ARCHITECTURE TEACHER EGFR Routine 10/03/2024 2:08 PM LANDSCAPE ARCHITECTURE TEACHER Spondylolisthesis of lumbar region Lumbar radiculopathy URINALYSIS, MICROSCOPIC ONLY Routine 10/03/2024 2:08 PM LANDSCAPE ARCHITECTURE TEACHER Spondylolisthesis of lumbar region Lumbar radiculopathy DIFFERENTIAL AUTO Routine 10/03/2024 2:0 8 PM LANDSCAPE ARCHITECTURE TEACHER Spondylolisthesis of lumbar region Lumbar radiculopathy NICOTINE METABOLITE SCREEN, URINE Routine 10/03/2024 2:08 PM LANDSCAPE ARCHITECTURE TEACHER Spondylolisthesis of lumbar region Lumbar radiculopathy ERYTHROCYTE SEDIMENTATION RATE Routine 10/03/2024 2:08 PM LANDSCAPE ARCHITECTURE TEACHER Spondylolisthesis of lumbar region Lumbar radiculopathy VITAMIN D 25 HYDROXY Routine 10/03/2024 2:08 PM LANDSCAPE ARCHITECTURE TEACHER Spondylolisthesis of lumbar region Lumbar radiculopathy TYPE AND SCREEN Routine 10/03/2024 2:08 PM LANDSCAPE ARCHITECTURE TEACHER Spondylolisthesis of lumbar region Lumbar radiculopathy CRP (ACUTE PHASE) Routine 10/03/2024 2:0 8 PM LANDSCAPE ARCHITECTURE TEACHER Spondylolisthesis of lumbar region Lumbar radiculopathy CBC WITH AUTO DIFFERENTIAL Routine 10/03/2024 2:08 PM LANDSCAPE ARCHITECTURE TEACHER Spondylolisthesis of lumbar region Lumbar radiculopathy COMPREHENSIVE METABOLIC PANEL Routine 10/03/2024 2:08 PM LANDSCAPE ARCHITECTURE TEACHER Spondylolisthesis of lumbar region Lumbar radiculopathy URINE CULTURE Routine 10/03/2024 2:08 PM LANDSCAPE ARCHITECTURE TEACHER URINALYSIS AND REFLEX TO MICROSCOPIC AND CULTURE Routine 10/03/2024 2:08 PM LANDSCAPE ARCHITECTURE TEACHER Spondylolisthesis of lumbar region Lumbar radiculopathy POCT HEMOGLOBIN A1C Routine 10/03/2024 9 :32 AM LANDSCAPE ARCHITECTURE TEACHER Type 2 diabetes mellitus with diabetic neuropathy, with long-term current use of insulin (HCC) POCT GLUCOSE 35114 Routine 10/03/2024 9: 32 AM LANDSCAPE ARCHITECTURE TEACHER Type 2 diabetes mellitus with diabetic neuropathy, with long-term current use of insulin (HCC) SERUM HEPATITIS C AB Routine 12/24/2015 6:54 AM CDT from Last 3 Months or Most Recently Relevant to Health Maintenance Results * POCT glucose (10/27/2024 12:08 PM LANDSCAPE ARCHITECTURE TEACHER) Glucose, POC 126 70 - 199 mg/dL Blood 10/27/2024 12:0 8 PM LANDSCAPE ARCHITECTURE TEACHER 10/27/2024 12:08 PM LANDSCAPE ARCHITECTURE TEACHER us Inderjit Stephen MD LAB POCT ORDERABLES - DEVICE Final Result [facility] Department [place] [address] * POCT glucose (10/27/2024 8:09 AM LANDSCAPE ARCHITECTURE TEACHER) Glucose, POC 111 70 - 199 mg/dL Blood 10/27/2024 8:09 AM LANDSCAPE ARCHITECTURE TEACHER 10/27/2024 8:09 AM LANDSCAPE ARCHITECTURE TEACHER Inderjit Stephen MD LAB POCT ORDERABLES - DEVICE Final Result Performing Organization Address [facility] Co de Phone Number [facility] [place] [address] * (ABNORMAL) eGFR (10/27/2024 6:29 AM LANDSCAPE ARCHITECTURE TEACHER) [facility] eGFR 44(L) >=60 mL/min/1. 73 m2 Comment: Interpretive Data Reference Interval Normal >/= 90 mL/min/1.73m2 Mildly decreased* 60 - 89 mL/min/1.73m2 Mildly to moderately decreased 45 - 59 mL/min/1.73m2 Moderately to severely decreased 30 - 44 mL/min/1.73m2 Severely decreased 15 - 29 mL/min/1.73m2 Kidney Failure < 15 mL/min/1.73m2 *Relative to young adult level Estimated glomerular filtration rate is determined by the 2020 CKD-EPI equation recommended by the National Kidney Foundation (A Unifying Approach to GFR Estimation: Recommendations of the NKF-ASK Task Force on Reassessing the Inclusion of Race in Diagnosing Kidney Disease, JASN 2020). The CKD-EPI equation should not be used for patients with unstable renal function and has not been validated in children and those over 70. Current interpretive data was last reviewed 2021. Blood 10/27/2024 6:2 9 AM LANDSCAPE ARCHITECTURE TEACHER 10/27/2024 6:40 AM LANDSCAPE ARCHITECTURE TEACHER Puja Bello NP LAB BLOOD ORDERABLES Sondra l Result Performing Organization Address City/[facility]/ZIP Co de Phone Number [facility] Department [place] [address] * Tacrolimus level trough (10/27/2024 6:29 AM LANDSCAPE ARCHITECTURE TEACHER) [facility] Tacrolimus trough 3.7 ng/mL Comment: Interpretive Data Testing performed by liquid chromatography-tandem mass spectrometry. Therapeutic concentrations vary depending on type of transplanted organ and time elapsed since transplant. Typical trough concentrations range from 5-15 ng/mL. This test was developed and its performance characteristics determined by the [facility] consistent with CLIA requirements. This test has not been cleared or approved by the US Food and Drug administration. Current interpretive data last reviewed 2019. Blood 10/27/2024 6:29 AM LANDSCAPE ARCHITECTURE TEACHER 10/27/2024 6:40 AM LANDSCAPE ARCHITECTURE TEACHER Herrera Hunter NP LAB BLOOD ORDERABLES Final R esult [facility] Department [place] [address] * (ABNORMAL) Renal function panel (10/27/2024 6:29 AM LANDSCAPE ARCHITECTURE TEACHER) Sodium 142 135 - 145 mmol/L Potassium, pl 4.4 3.3 - 4.9 mmol/L [facility] Chloride 104 97 - 110 mmol/L [facility] CO2 32 22 - 32 mmol/L [facility] Anion gap 6 2 - 15 mmol/L [facility] BUN 25 6 - 25 mg/dL [facility] Creatinine 1.36(H) 0.60 - 1.10 mg/dL [facility] Glucose 112 70 - 199 mg/dL [facility] Comment: Interpretive Data Fasting glucose >/= 126 mg/dl is diagnostic for diabetes. Fasting is defined as no caloric intake for at least 8 hours. Fasting glucose between 100 mg/dl to 125 mg/dl is diagnostic of prediabetes. In a patient with classic symptoms of hyperglycemia or hyperglycemic crisis, a random glucose >/= 200 mg/dl is diagnostic for diabetes. In the absence of unequivocal hyperglycemia, results should be confirmed by repeat testing. The classification and Diagnosis of Diabetes Diabetes Care 2021; 46: S19-S40. Current interpretive data was last revised 2022. Calcium 10.1 8.5 - 10.3 mg/dL [facility] Phosphorus, pl 3.4 2.3 - 4.5 mg/dL [facility] Albumin 3.3(L) 3.5 - 5.0 g/dL [facility] Blood 10/27/2024 6:29 AM LANDSCAPE ARCHITECTURE TEACHER 10/27/2024 6:40 AM LANDSCAPE ARCHITECTURE TEACHER Puja Bello WELD ENGINEER LAB BLOOD ORDERABLES Sondra l Result Performing Organization Address City/[facility] Co de Phone Number [facility] [place] [address] * Phosphorus (10/26/2024 9:55 PM LANDSCAPE ARCHITECTURE TEACHER) Pathologist [facility] Phosphorus, pl 2.4 2.3 - 4.5 mg/dL Blood 10/26/2024 9:55 PM LANDSCAPE ARCHITECTURE TEACHER 10/26/2024 11:35 PM LANDSCAPE ARCHITECTURE TEACHER Pippa Neville WELD ENGINEER LAB BLOOD ORDERABLES Final Result Performing Organization Address [facility] de Phone Number [facility] [place] [address] * Magnesium (10/26/2024 9:55 PM LANDSCAPE ARCHITECTURE TEACHER) [facility] Magnesium 2.4 1.4 - 2.5 mg/dL Blood 10/26/2024 9:55 PM LANDSCAPE ARCHITECTURE TEACHER 10/26/2024 11:35 PM LANDSCAPE ARCHITECTURE TEACHER Pippa Neville WELD ENGINEER LAB BLOOD ORDERABLES Final Result Performing Organization Address [facility] Co de Phone Number [facility] [place] [address] * POCT glucose (10/26/2024 9:27 PM LANDSCAPE ARCHITECTURE TEACHER) Glucose, POC 163 70 - 199 mg/dL Blood 10/26/2024 9:27 PM LANDSCAPE ARCHITECTURE TEACHER 10/26/2024 9:27 PM LANDSCAPE ARCHITECTURE TEACHER Inderjit Stephen MD LAB POCT ORDERABLES - DEVICE Final Result Performing Organization Address [facility] Co de Phone Number [facility] [place] [address] * (ABNORMAL) POCT glucose (10/26/2024 8:33 PM LANDSCAPE ARCHITECTURE TEACHER) Glucose, POC 256(H) 70 - 199 mg/dL Blood 10/26/2024 8:33 PM LANDSCAPE ARCHITECTURE TEACHER 10/26/2024 8:33 PM LANDSCAPE ARCHITECTURE TEACHER Inderjit Stephen MD LAB POCT ORDERABLES - DEVICE Final Result Performing Organization Address [facility] [place] [address] * POCT glucose (10/26/2024 5:22 PM LANDSCAPE ARCHITECTURE TEACHER) Glucose, POC 179 70 - 199 mg/dL Blood 10/26/2024 5:22 PM LANDSCAPE ARCHITECTURE TEACHER 10/26/2024 5:22 PM LANDSCAPE ARCHITECTURE TEACHER Inderjit Stephen MD LAB POCT ORDERABLES - DEVICE Final Result Performing Organization Address [facility] de Phone Number [facility] [place] [address] * POCT glucose (10/26/2024 11:49 AM LANDSCAPE ARCHITECTURE TEACHER) Glucose, POC 171 70 - 199 mg/dL Blood 10/26/2024 11:4 9 AM LANDSCAPE ARCHITECTURE TEACHER 10/26/2024 11:49 AM LANDSCAPE ARCHITECTURE TEACHER Inderjit Stephen MD LAB POCT ORDERABLES - DEVICE Final Result Performing Organization Address [facility] Co de Phone Number [facility] [place] [address] * POCT glucose (10/26/2024 8:09 AM LANDSCAPE ARCHITECTURE TEACHER) Glucose, POC 112 70 - 199 mg/dL Blood 10/26/2024 8:09 AM LANDSCAPE ARCHITECTURE TEACHER 10/26/2024 8:09 AM LANDSCAPE ARCHITECTURE TEACHER Inderjit Stephen MD LAB POCT ORDERABLES - DEVICE Final Result Performing Organization Address City/[facility]/ZIP Co de [place] [address] * (ABNORMAL) eGFR (10/26/2024 6:38 AM LANDSCAPE ARCHITECTURE TEACHER) Pathologist [facility] eGFR 39(L) >=60 mL/min/1. 73 m2 Comment: Interpretive Data Reference Interval Normal >/= 90 mL/min/1.73m2 Mildly decreased* 60 - 89 mL/min/1.73m2 Mildly to moderately decreased 45 - 59 mL/min/1.73m2 Moderately to severely decreased 30 - 44 mL/min/1.73m2 Severely decreased 15 - 29 mL/min/1.73m2 Kidney Failure < 15 mL/min/1.73m2 *Relative to young adult level Estimated glomerular filtration rate is determined by the 2020 CKD-EPI equation recommended by the National Kidney Foundation (A Unifying Approach to GFR Estimation: Recommendations of the NKF-ASK Task Force on Reassessing the Inclusion of Race in Diagnosing Kidney Disease, JASN 2020). The CKD-EPI equation should not be used for patients with unstable renal function and has not been validated in children and those over 70. Current interpretive data was last reviewed 2021. Blood 10/26/2024 6:38 AM LANDSCAPE ARCHITECTURE TEACHER 10/26/2024 6:46 AM LANDSCAPE ARCHITECTURE TEACHER us Puja Bello NP LAB BLOOD ORDERABLES Sondra l Result [facility] [place] [place] [address] * Tacrolimus level trough (10/26/2024 6:38 AM LANDSCAPE ARCHITECTURE TEACHER) Tacrolimus trough 3.4 ng/mL Comment: Interpretive Data Testing performed by liquid chromatography-tandem mass spectrometry. Therapeutic concentrations vary depending on type of transplanted organ and time elapsed since transplant. Typical trough concentrations range from 5-15 ng/mL. This test was developed and its performance characteristics determined by the [facility] consistent with CLIA requirements. This test has not been cleared or approved by the US Food and Drug administration. Current interpretive data last reviewed 2019. Blood 10/26/2024 6:38 AM LANDSCAPE ARCHITECTURE TEACHER 10/26/2024 6:46 AM LANDSCAPE ARCHITECTURE TEACHER Herrera Hunter NP LAB BLOOD ORDERABLES Final R esult [facility] Department [place] [address] * (ABNORMAL) Renal function panel (10/26/2024 6:38 AM LANDSCAPE ARCHITECTURE TEACHER) Sodium 142 135 - 145 mmol/L Potassium, pl 4.9 3.3 - 4.9 mmol/L [facility] Chloride 105 97 - 110 mmol/L [facility] CO2 33(H) 22 - 32 mmol/L [facility] Anion gap 4 2 - 15 mmol/L [facility] BUN 30(H) 6 - 25 mg/dL [facility] Creatinine 1.52(H) 0.60 - 1.10 mg/dL [facility] Glucose 115 70 - 199 mg/dL [facility] Comment: Interpretive Data Fasting glucose >/= 126 mg/dl is diagnostic for diabetes. Fasting is defined as no caloric intake for at least 8 hours. Fasting glucose between 100 mg/dl to 125 mg/dl is diagnostic of prediabetes. In a patient with classic symptoms of hyperglycemia or hyperglycemic crisis, a random glucose >/= 200 mg/dl is diagnostic for diabetes. In the absence of unequivocal hyperglycemia, results should be confirmed by repeat testing. The classification and Diagnosis of Diabetes Diabetes Care 202; 46: S19-S40. Current interpretive data was last revised 2022. Calcium 10.0 8.5 - 10.3 mg/dL [facility] Phosphorus, pl 2.9 2.3 - 4.5 mg/dL [facility] Albumin 3.2(L) 3.5 - 5.0 g/dL [facility] Blood 10/26/2024 6:38 AM LANDSCAPE ARCHITECTURE TEACHER 10/26/2024 6:46 AM LANDSCAPE ARCHITECTURE TEACHER Puja Bello WELD ENGINEER LAB BLOOD ORDERABLES Sondra l Result Performing Organization Address [facility] Co de Phone Number [facility] [place] [address] * POCT glucose (10/25/2024 9:51 PM LANDSCAPE ARCHITECTURE TEACHER) Glucose, POC 168 70 - 199 mg/dL Blood 10/25/2024 9:51 PM LANDSCAPE ARCHITECTURE TEACHER 10/25/2024 9:51 PM LANDSCAPE ARCHITECTURE TEACHER Inderjit Stephen MD LAB POCT ORDERABLES - DEVICE Final Result Performing Organization Address [facility] de Phone Number [facility] [place] [address] * Phosphorus (10/25/2024 9:42 PM LANDSCAPE ARCHITECTURE TEACHER) Phosphorus, pl 2.4 2.3 - 4.5 mg/dL Blood 10/25/2024 9:42 PM LANDSCAPE ARCHITECTURE TEACHER 10/25/2024 9:57 PM LANDSCAPE ARCHITECTURE TEACHER Pippa Neville WELD ENGINEER LAB BLOOD ORDERABLES Final Result Performing Organization Address [facility] Co de Phone Number [facility] [place] [address] * Magnesium (10/25/2024 9:42 PM LANDSCAPE ARCHITECTURE TEACHER) Magnesium 2.4 1.4 - 2.5 mg/dL Blood 10/25/2024 9:42 PM LANDSCAPE ARCHITECTURE TEACHER 10/25/2024 9:57 PM LANDSCAPE ARCHITECTURE TEACHER Pippa Neville NP LAB BLOOD ORDERABLES Final Result Performing Organization Address [facility] de Phone Number [facility] [place] [address] * (ABNORMAL) POCT glucose (10/25/2024 8:00 PM LANDSCAPE ARCHITECTURE TEACHER) Glucose, POC 253(H) 70 - 199 mg/dL Blood 10/25/2024 8:00 PM LANDSCAPE ARCHITECTURE TEACHER 10/25/2024 8:00 PM LANDSCAPE ARCHITECTURE TEACHER Inderjit Stephen MD LAB POCT ORDERABLES - DEVICE Final Result Performing Organization Address [facility] de Phone Number [facility] [place] [address] * (ABNORMAL) POCT glucose (10/25/2024 5:28 PM LANDSCAPE ARCHITECTURE TEACHER) Glucose, POC 272(H) 70 - 199 mg/dL Blood 10/25/2024 5:28 PM LANDSCAPE ARCHITECTURE TEACHER 10/25/2024 5:28 PM LANDSCAPE ARCHITECTURE TEACHER Inderjit Stephen MD LAB POCT ORDERABLES - DEVICE Final Result Performing Organization Address [facility] de Phone Number [facility] [place] [address] * (ABNORMAL) POCT glucose (10/25/2024 11:06 AM LANDSCAPE ARCHITECTURE TEACHER) Glucose, POC 231(H) 70 - 199 mg/dL Blood 10/25/2024 11:0 6 AM LANDSCAPE ARCHITECTURE TEACHER 10/25/2024 11:06 AM LANDSCAPE ARCHITECTURE TEACHER Inderjit Stephen MD LAB POCT ORDERABLES - DEVICE Final Result [facility] Department [place] [address] * XR Scoliosis Ap and Lateral (10/25/2024 10:17 AM LANDSCAPE ARCHITECTURE TEACHER) Anatomical Region Laterality Modality Spine N/A Computed Radiogr aphy 10/25/2024 10:5 8 AM LANDSCAPE ARCHITECTURE TEACHER Impressions 10/25/2024 11:19 AM LANDSCAPE ARCHITECTURE TEACHER 1. Unchanged posterior decompression and instrumented fusion from L2 to the pelvis. Dictated by: Fantasma Cox M.D. The radiology attending physician has personally reviewed this study, and had reviewed and/or edited this written report and agrees with it. Electronically signed by: Merrill Ohara M.D. Narrative 10/25/2024 11:19 AM LANDSCAPE ARCHITECTURE TEACHER EXAMINATION: XR SCOLIOSIS AP AND LATERAL HISTORY: Status post spinal fusion COMPARISON: Comparison is made to prior radiograph dated 10/19/2024. FINDINGS: Vertebral body heights are maintained. No significant scoliotic curvature. No coronal imbalance. No pelvic obliquity. Mild anterior sagittal imbalance. Unchanged posterior decompression and instrumented fusion from L2 to the pelvis. Instrumentation is intact. Decreased but persistent mild soft tissue and lindsay-instrumental gas about the L2 posterior rods. Right upper quadrant surgical clips. Procedure Note Merrill Ohara MD - 10/25/2024 EXAMINATION: XR SCOLIOSIS AP AND LATERAL HISTORY: Status post spinal fusion COMPARISON: Comparison is made to prior radiograph dated 10/19/2024. FINDINGS: Vertebral body heights are maintained. No significant scoliotic curvature. No coronal imbalance. No pelvic obliquity. Mild anterior sagittal imbalance. Unchanged posterior decompression and instrumented fusion from L2 to the pelvis. Instrumentation is intact. Decreased but persistent mild soft tissue and lindsay-instrumental gas about the L2 posterior rods. Right upper quadrant surgical clips. IMPRESSION: 1. Unchanged posterior decompression and instrumented fusion from L2 to the pelvis. Dictated by: Fantasma Cox M.D. The radiology attending physician has personally reviewed this study, and had reviewed and/or edited this written report and agrees with it. Electronically signed by: Merrill Ohara M.D. us Rayne Marcelino WELD ENGINEER IMG XR PROCEDURES F inal Result * POCT glucose (10/25/2024 7:18 AM LANDSCAPE ARCHITECTURE TEACHER) Glucose, POC 120 70 - 199 mg/dL Blood 10/25/2024 7:18 AM LANDSCAPE ARCHITECTURE TEACHER 10/25/2024 7:18 AM LANDSCAPE ARCHITECTURE TEACHER Inderjit Stephen MD LAB POCT ORDERABLES - DEVICE Final Result [facility] Department [place] [address] * (ABNORMAL) eGFR (10/25/2024 6:56 AM LANDSCAPE ARCHITECTURE TEACHER) eGFR 40(L) >=60 mL/min/1. 73 m2 Comment: Interpretive Data Reference Interval Normal >/= 90 mL/min/1.73m2 Mildly decreased* 60 - 89 mL/min/1.73m2 Mildly to moderately decreased 45 - 59 mL/min/1.73m2 Moderately to severely decreased 30 - 44 mL/min/1.73m2 Severely decreased 15 - 29 mL/min/1.73m2 Kidney Failure < 15 mL/min/1.73m2 *Relative to young adult level Estimated glomerular filtration rate is determined by the 2020 CKD-EPI equation recommended by the National Kidney Foundation (A Unifying Approach to GFR Estimation: Recommendations of the NKF-ASK Task Force on Reassessing the Inclusion of Race in Diagnosing Kidney Disease, JASN 202). The CKD-EPI equation should not be used for patients with unstable renal function and has not been validated in children and those over 70. Current interpretive data was last reviewed 2021. Blood 10/25/2024 6:56 AM LANDSCAPE ARCHITECTURE TEACHER 10/25/2024 7:02 AM LANDSCAPE ARCHITECTURE TEACHER us Puja Tamica Eugenia WELD ENGINEER LAB BLOOD ORDERABLES Sondra l Result Performing Organization Address [facility] de Phone Number [facility] Department [place] [address] * Tacrolimus level trough (10/25/2024 6:56 AM LANDSCAPE ARCHITECTURE TEACHER) [facility] Tacrolimus trough 4.1 ng/mL Comment: Interpretive Data Testing performed by liquid chromatography-tandem mass spectrometry. Therapeutic concentrations vary depending on type of transplanted organ and time elapsed since transplant. Typical trough concentrations range from 5-15 ng/mL. This test was developed and its performance characteristics determined by the [facility] consistent with CLIA requirements. This test has not been cleared or approved by the US Food and Drug administration. Current interpretive data last reviewed 2019. Blood 10/25/2024 6:56 AM LANDSCAPE ARCHITECTURE TEACHER 10/25/2024 7:02 AM LANDSCAPE ARCHITECTURE TEACHER Herrera Hunter WELD ENGINEER LAB BLOOD ORDERABLES Final R esult Performing Organization Address [facility] Co de Phone Number [facility] Department [place] [address] * (ABNORMAL) Renal function panel (10/25/2024 6:56 AM LANDSCAPE ARCHITECTURE TEACHER) [facility] Sodium 138 135 - 145 mmol/L Potassium, pl 4.3 3.3 - 4.9 mmol/L [facility] Chloride 102 97 - 110 mmol/L [facility] CO2 29 22 - 32 mmol/L [facility] Anion gap 7 2 - 15 mmol/L [facility] BUN 26(H) 6 - 25 mg/dL [facility] Creatinine 1.48(H) 0.60 - 1.10 mg/dL [facility] Glucose 102 70 - 199 mg/dL [facility] Comment: Interpretive Data Fasting glucose >/= 126 mg/dl is diagnostic for diabetes. Fasting is defined as no caloric intake for at least 8 hours. Fasting glucose between 100 mg/dl to 125 mg/dl is diagnostic of prediabetes. In a patient with classic symptoms of hyperglycemia or hyperglycemic crisis, a random glucose >/= 200 mg/dl is diagnostic for diabetes. In the absence of unequivocal hyperglycemia, results should be confirmed by repeat testing. The classification and Diagnosis of Diabetes Diabetes Care 202; 46: S19-S40. Current interpretive data was last revised 2022. Calcium 10.3 8.5 - 10.3 mg/dL [facility] Phosphorus, pl 2.5 2.3 - 4.5 mg/dL [facility] Albumin 3.3(L) 3.5 - 5.0 g/dL [facility] Blood 10/25/2024 6:56 AM LANDSCAPE ARCHITECTURE TEACHER 10/25/2024 7:02 AM LANDSCAPE ARCHITECTURE TEACHER Puja Bello NP LAB BLOOD ORDERABLES Sondra sosa Result [facility] Department [place] [address] * (ABNORMAL) CBC without differential (10/25/2024 1:21 AM LANDSCAPE ARCHITECTURE TEACHER) Pathologist [facility] WBC 4.9 3.8 - 9.9 K/cumm Hgb 10.5(L) 11.9 - 15.5 g/dL [facility] Hct 33.1(L) 35.6 - 45.5 % [facility] Plt 138(L) 150 - 400 K/cumm [facility] MPV 10.4 9.1 - 12.3 fL [facility] RBC 3.64(L) 3.90 - 5.20 M/cumm [facility] MCV 90.9 81.3 - 96.4 fL [facility] MCH 28.8 27.1 - 33.3 pg [facility] MCHC 31.7(L) 32.3 - 35.7 g/dL [facility] RDW CV 14.4 11.1 - 14.9 % [facility] RDW SD 48.4(H) 35.7 - 48.1 fL [facility] NRBC abs 0.00 0.00 - 0.01 K/cumm [facility] Blood 10/25/2024 1:21 AM LANDSCAPE ARCHITECTURE TEACHER 10/25/2024 2:32 AM LANDSCAPE ARCHITECTURE TEACHER Wilda Bryant WELD ENGINEER LAB BLOOD ORDERABLES Sondra l Result Performing Organization Address [facility] de Phone Number [facility] [place] [address] * Phosphorus (10/25/2024 1:21 AM LANDSCAPE ARCHITECTURE TEACHER) Phosphorus, pl 2.4 2.3 - 4.5 mg/dL Blood 10/25/2024 1:21 AM LANDSCAPE ARCHITECTURE TEACHER 10/25/2024 2:32 AM LANDSCAPE ARCHITECTURE TEACHER Pippa Neville WELD ENGINEER LAB BLOOD ORDERABLES Final Result Performing Organization Address [facility] de Phone Number [facility] [place] [address] * (ABNORMAL) Magnesium (10/25/2024 1:21 AM LANDSCAPE ARCHITECTURE TEACHER) Magnesium 2.9(H) 1.4 - 2.5 mg/dL Blood 10/25/2024 1:21 AM LANDSCAPE ARCHITECTURE TEACHER 10/25/2024 2:32 AM LANDSCAPE ARCHITECTURE TEACHER Pippa Neville WELD ENGINEER LAB BLOOD ORDERABLES Final Result Performing Organization Address [facility] Phone Number [facility] Department [place] [address] * (ABNORMAL) POCT glucose (10/24/2024 8:06 PM LANDSCAPE ARCHITECTURE TEACHER) Glucose, POC 270(H) 70 - 199 mg/dL Blood 10/24/2024 8:06 PM LANDSCAPE ARCHITECTURE TEACHER 10/24/2024 8:06 PM LANDSCAPE ARCHITECTURE TEACHER Inderjit Stephen MD LAB POCT ORDERABLES - DEVICE Final Result Performing Organization Address [facility]/ZIP Co de Phone Number [facility] [place] [address] * (ABNORMAL) POCT glucose (10/24/2024 6:03 PM LANDSCAPE ARCHITECTURE TEACHER) Glucose, POC 251(H) 70 - 199 mg/dL Blood 10/24/2024 6:03 PM LANDSCAPE ARCHITECTURE TEACHER 10/24/2024 6:03 PM LANDSCAPE ARCHITECTURE TEACHER Inderjit Stephen MD LAB POCT ORDERABLES - DEVICE Final Result Performing Organization Address [facility] [place] [address] * POCT glucose (10/24/2024 11:31 AM LANDSCAPE ARCHITECTURE TEACHER) [facility] Glucose, POC 168 70 - 199 mg/dL Blood 10/24/2024 11:3 1 AM LANDSCAPE ARCHITECTURE TEACHER 10/24/2024 11:31 AM LANDSCAPE ARCHITECTURE TEACHER Inderjit Stephen MD LAB POCT ORDERABLES - DEVICE Final Result Performing Organization Address [facility] Co de Phone Number [facility] [place] [address] * (ABNORMAL) eGFR (10/24/2024 5:03 AM LANDSCAPE ARCHITECTURE TEACHER) [facility] eGFR 41(L) >=60 mL/min/1. 73 m2 Comment: Interpretive Data Reference Interval Normal >/= 90 mL/min/1.73m2 Mildly decreased* 60 - 89 mL/min/1.73m2 Mildly to moderately decreased 45 - 59 mL/min/1.73m2 Moderately to severely decreased 30 - 44 mL/min/1.73m2 Severely decreased 15 - 29 mL/min/1.73m2 Kidney Failure < 15 mL/min/1.73m2 *Relative to young adult level Estimated glomerular filtration rate is determined by the 2020 CKD-EPI equation recommended by the National Kidney Foundation (A Unifying Approach to GFR Estimation: Recommendations of the NKF-ASK Task Force on Reassessing the Inclusion of Race in Diagnosing Kidney Disease, JASN 2020). The CKD-EPI equation should not be used for patients with unstable renal function and has not been validated in children and those over 70. Current interpretive data was last reviewed 2021. Blood 10/24/2024 5:03 AM LANDSCAPE ARCHITECTURE TEACHER 10/24/2024 5:43 AM LANDSCAPE ARCHITECTURE TEACHER [facility] LAB BLOOD ORDERABLES Sondra l Result Performing Organization Address [facility] de Phone Number [facility] [place] [address] * Tacrolimus level trough (10/24/2024 5:03 AM LANDSCAPE ARCHITECTURE TEACHER) Pathologist [facility] Tacrolimus trough 5.2 ng/mL Comment: Interpretive Data Testing performed by liquid chromatography-tandem mass spectrometry. Therapeutic concentrations vary depending on type of transplanted organ and time elapsed since transplant. Typical trough concentrations range from 5-15 ng/mL. This test was developed and its performance characteristics determined by the [facility] consistent with CLIA requirements. This test has not been cleared or approved by the US Food and Drug administration. Current interpretive data last reviewed 2019. Blood 10/24/2024 5:03 AM LANDSCAPE ARCHITECTURE TEACHER 10/24/2024 5:43 AM LANDSCAPE ARCHITECTURE TEACHER [facility] LAB BLOOD ORDERABLES Sondra l Result Performing Organization Address [facility] de Phone Number [facility] [address] [place] [address] * (ABNORMAL) Renal function panel (10/24/2024 5:03 AM LANDSCAPE ARCHITECTURE TEACHER) [facility] Sodium 141 135 - 145 mmol/L Potassium, pl 4.1 3.3 - 4.9 mmol/L [facility] Chloride 104 97 - 110 mmol/L [facility] CO2 30 22 - 32 mmol/L [facility] Anion gap 7 2 - 15 mmol/L [facility] BUN 26(H) 6 - 25 mg/dL [facility] Creatinine 1.44(H) 0.60 - 1.10 mg/dL [facility] Glucose 108 70 - 199 mg/dL [facility] Comment: Interpretive Data Fasting glucose >/= 126 mg/dl is diagnostic for diabetes. Fasting is defined as no caloric intake for at least 8 hours. Fasting glucose between 100 mg/dl to 125 mg/dl is diagnostic of prediabetes. In a patient with classic symptoms of hyperglycemia or hyperglycemic crisis, a random glucose >/= 200 mg/dl is diagnostic for diabetes. In the absence of unequivocal hyperglycemia, results should be confirmed by repeat testing. The classification and Diagnosis of Diabetes Diabetes Care 202; 46: S19-S40. Current interpretive data was last revised 2022. Calcium 9.7 8.5 - 10.3 mg/dL [facility] Phosphorus, pl 2.4 2.3 - 4.5 mg/dL [facility] Albumin 3.0(L) 3.5 - 5.0 g/dL [facility] Blood 10/24/2024 5:03 AM LANDSCAPE ARCHITECTURE TEACHER 10/24/2024 5:43 AM LANDSCAPE ARCHITECTURE TEACHER Puja Bello NP LAB BLOOD ORDERABLES Sondra sosa Result [facility] Department [place] [address] * (ABNORMAL) CBC without differential (10/23/2024 10:00 PM LANDSCAPE ARCHITECTURE TEACHER) [facility] WBC 4.4 3.8 - 9.9 K/cumm Hgb 10.5(L) 11.9 - 15.5 g/dL [facility] Hct 32.7(L) 35.6 - 45.5 % [facility] Plt 112(L) 150 - 400 K/cumm [facility] MPV 10.7 9.1 - 12.3 fL [facility] RBC 3.62(L) 3.90 - 5.20 M/cumm [facility] MCV 90.3 81.3 - 96.4 fL [facility] MCH 29.0 27.1 - 33.3 pg [facility] MCHC 32.1(L) 32.3 - 35.7 g/dL [facility] RDW CV 14.4 11.1 - 14.9 % [facility] RDW SD 47.6 35.7 - 48.1 fL [facility] NRBC abs 0.00 0.00 - 0.01 K/cumm [facility] Blood 10/23/2024 10:0 0 PM LANDSCAPE ARCHITECTURE TEACHER 10/23/2024 11:01 PM LANDSCAPE ARCHITECTURE TEACHER Wilda Bryant WELD ENGINEER LAB BLOOD ORDERABLES Sondra l Result Performing Organization Address [facility] Co de Phone Number [facility] [place] [address] * Phosphorus (10/23/2024 10:00 PM LANDSCAPE ARCHITECTURE TEACHER) Phosphorus, pl 2.3 2.3 - 4.5 mg/dL Blood 10/23/2024 10:0 0 PM LANDSCAPE ARCHITECTURE TEACHER 10/23/2024 11:01 PM LANDSCAPE ARCHITECTURE TEACHER Pippa Neville WELD ENGINEER LAB BLOOD ORDERABLES Final Result Performing Organization Address [facility] Co de Phone Number [facility] [place] [address] * Magnesium (10/23/2024 10:00 PM LANDSCAPE ARCHITECTURE TEACHER) Magnesium 2.4 1.4 - 2.5 mg/dL Blood 10/23/2024 10:0 0 PM LANDSCAPE ARCHITECTURE TEACHER 10/23/2024 11:01 PM LANDSCAPE ARCHITECTURE TEACHER Pippa Neville WELD ENGINEER LAB BLOOD ORDERABLES Final Result Performing Organization Address [facility] Co de Phone Number [facility] [place] [address] * (ABNORMAL) POCT glucose (10/23/2024 8:23 PM LANDSCAPE ARCHITECTURE TEACHER) Glucose, POC 218(H) 70 - 199 mg/dL Blood 10/23/2024 8:23 PM LANDSCAPE ARCHITECTURE TEACHER 10/23/2024 8:23 PM LANDSCAPE ARCHITECTURE TEACHER Inderjit Stephen MD LAB POCT ORDERABLES - DEVICE Final Result Performing Organization Address [facility] Co de Phone Number [facility] [place] [address] * POCT glucose (10/23/2024 5:48 PM LANDSCAPE ARCHITECTURE TEACHER) Glucose, POC 191 70 - 199 mg/dL Blood 10/23/2024 5:48 PM LANDSCAPE ARCHITECTURE TEACHER 10/23/2024 5:48 PM LANDSCAPE ARCHITECTURE TEACHER Inderjit Stephen MD LAB POCT ORDERABLES - DEVICE Final Result Performing Organization Address [facility] de Phone Number [facility] [place] [address] * POCT glucose (10/23/2024 4:55 PM LANDSCAPE ARCHITECTURE TEACHER) Glucose, POC 187 70 - 199 mg/dL Blood 10/23/2024 4:55 PM LANDSCAPE ARCHITECTURE TEACHER 10/23/2024 4:55 PM LANDSCAPE ARCHITECTURE TEACHER Inderjit Stephen MD LAB POCT ORDERABLES - DEVICE Final Result Performing Organization Address [facility] de Phone Number [facility] [place] [address] * (ABNORMAL) POCT glucose (10/23/2024 2:06 PM LANDSCAPE ARCHITECTURE TEACHER) Glucose, POC 266(H) 70 - 199 mg/dL Blood 10/23/2024 2:06 PM LANDSCAPE ARCHITECTURE TEACHER 10/23/2024 2:06 PM LANDSCAPE ARCHITECTURE TEACHER Inderjit Stephen MD LAB POCT ORDERABLES - DEVICE Final Result Performing Organization Address [facility] Co de Phone Number [facility] [place] [address] * (ABNORMAL) POCT glucose (10/23/2024 12:39 PM LANDSCAPE ARCHITECTURE TEACHER) Glucose, POC 237(H) 70 - 199 mg/dL Blood 10/23/2024 12:3 9 PM LANDSCAPE ARCHITECTURE TEACHER 10/23/2024 12:39 PM LANDSCAPE ARCHITECTURE TEACHER Inderjit Stephen MD LAB POCT ORDERABLES - DEVICE Final Result Performing Organization Address [facility] de Phone Number [facility] [place] [address] * (ABNORMAL) POCT glucose (10/23/2024 12:03 PM LANDSCAPE ARCHITECTURE TEACHER) Glucose, POC 254(H) 70 - 199 mg/dL Blood 10/23/2024 12:0 3 PM LANDSCAPE ARCHITECTURE TEACHER 10/23/2024 12:03 PM LANDSCAPE ARCHITECTURE TEACHER Inderjit Stephen MD LAB POCT ORDERABLES - DEVICE Final Result Performing Organization Address [facility] [place] [address] * POCT glucose (10/23/2024 7:29 AM LANDSCAPE ARCHITECTURE TEACHER) Glucose, POC 109 70 - 199 mg/dL Blood 10/23/2024 7:29 AM LANDSCAPE ARCHITECTURE TEACHER 10/23/2024 7:29 AM LANDSCAPE ARCHITECTURE TEACHER Inderjit Stephen MD LAB POCT ORDERABLES - DEVICE Final Result Performing Organization Address [facility] Co de Phone Number [facility] [place] [address] * (ABNORMAL) eGFR (10/23/2024 5:24 AM LANDSCAPE ARCHITECTURE TEACHER) eGFR 40(L) >=60 mL/min/1. 73 m2 Comment: Interpretive Data Reference Interval Normal >/= 90 mL/min/1.73m2 Mildly decreased* 60 - 89 mL/min/1.73m2 Mildly to moderately decreased 45 - 59 mL/min/1.73m2 Moderately to severely decreased 30 - 44 mL/min/1.73m2 Severely decreased 15 - 29 mL/min/1.73m2 Kidney Failure < 15 mL/min/1.73m2 *Relative to young adult level Estimated glomerular filtration rate is determined by the 2020 CKD-EPI equation recommended by the National Kidney Foundation (A Unifying Approach to GFR Estimation: Recommendations of the NKF-ASK Task Force on Reassessing the Inclusion of Race in Diagnosing Kidney Disease, JASN 2020). The CKD-EPI equation should not be used for patients with unstable renal function and has not been validated in children and those over 70. Current interpretive data was last reviewed 2021. Blood 10/23/2024 5:24 AM LANDSCAPE ARCHITECTURE TEACHER 10/23/2024 5:37 AM LANDSCAPE ARCHITECTURE TEACHER Puja Bello NP LAB BLOOD ORDERABLES Sondra l Result Performing Organization Address [facility] Co de Phone Number [facility] [place] [address] * Tacrolimus level trough (10/23/2024 5:24 AM LANDSCAPE ARCHITECTURE TEACHER) Tacrolimus trough 5.4 ng/mL Comment: Interpretive Data Testing performed by liquid chromatography-tandem mass spectrometry. Therapeutic concentrations vary depending on type of transplanted organ and time elapsed since transplant. Typical trough concentrations range from 5-15 ng/mL. This test was developed and its performance characteristics determined by the [facility] consistent with CLIA requirements. This test has not been cleared or approved by the US Food and Drug administration. Current interpretive data last reviewed 2019. Blood 10/23/2024 5:24 AM LANDSCAPE ARCHITECTURE TEACHER 10/23/2024 1:46 PM LANDSCAPE ARCHITECTURE TEACHER us Puja Bello NP LAB BLOOD ORDERABLES Sondra l Result [facility] Department [place] [address] * (ABNORMAL) Renal function panel (10/23/2024 5:24 AM LANDSCAPE ARCHITECTURE TEACHER) Sodium 143 135 - 145 mmol/L Potassium, pl 4.3 3.3 - 4.9 mmol/L [facility] Chloride 108 97 - 110 mmol/L [facility] CO2 28 22 - 32 mmol/L [facility] Anion gap 7 2 - 15 mmol/L [facility] BUN 21 6 - 25 mg/dL [facility] Creatinine 1.47(H) 0.60 - 1.10 mg/dL [facility] Glucose 106 70 - 199 mg/dL [facility] Comment: Interpretive Data Fasting glucose >/= 126 mg/dl is diagnostic for diabetes. Fasting is defined as no caloric intake for at least 8 hours. Fasting glucose between 100 mg/dl to 125 mg/dl is diagnostic of prediabetes. In a patient with classic symptoms of hyperglycemia or hyperglycemic crisis, a random glucose >/= 200 mg/dl is diagnostic for diabetes. In the absence of unequivocal hyperglycemia, results should be confirmed by repeat testing. The classification and Diagnosis of Diabetes Diabetes Care 2021; 46: S19-S40. Current interpretive data was last revised 2022. Calcium 10.1 8.5 - 10.3 mg/dL [facility] Phosphorus, pl 2.8 2.3 - 4.5 mg/dL [facility] Albumin 3.1(L) 3.5 - 5.0 g/dL [facility] Blood 10/23/2024 5:24 AM LANDSCAPE ARCHITECTURE TEACHER 10/23/2024 5:37 AM LANDSCAPE ARCHITECTURE TEACHER us Puja Bello NP LAB BLOOD ORDERABLES Sondra l Result Performing Organization Address [facility]/ZIP Co de Phone Number [facility] [place] [address] * POCT glucose (10/23/2024 3:24 AM LANDSCAPE ARCHITECTURE TEACHER) [facility] Signature Glucose, POC 145 70 - 199 mg/dL Blood 10/23/2024 3:24 AM LANDSCAPE ARCHITECTURE TEACHER 10/23/2024 3:24 AM LANDSCAPE ARCHITECTURE TEACHER Inderjit Stephen MD LAB POCT ORDERABLES - DEVICE Final Result Performing Organization Address [facility] Co de Phone Number [facility] [place] [address] * POCT glucose (10/23/2024 12:16 AM LANDSCAPE ARCHITECTURE TEACHER) [facility] Glucose, POC 127 70 - 199 mg/dL Blood 10/23/2024 12:1 6 AM LANDSCAPE ARCHITECTURE TEACHER 10/23/2024 12:16 AM LANDSCAPE ARCHITECTURE TEACHER Inderjit Stephen MD LAB POCT ORDERABLES - DEVICE Final Result Performing Organization Address [facility] Co de Phone Number [facility] [place] [address] * (ABNORMAL) CBC without differential (10/22/2024 8:39 PM LANDSCAPE ARCHITECTURE TEACHER) [facility] WBC 5.3 3.8 - 9.9 K/cumm Hgb 11.2(L) 11.9 - 15.5 g/dL [facility] Hct 34.9(L) 35.6 - 45.5 % [facility] Plt 109(L) 150 - 400 K/cumm [facility] MPV 10.9 9.1 - 12.3 fL [facility] RBC 3.82(L) 3.90 - 5.20 M/cumm [facility] MCV 91.4 81.3 - 96.4 fL [facility] MCH 29.3 27.1 - 33.3 pg [facility] MCHC 32.1(L) 32.3 - 35.7 g/dL [facility] RDW CV 14.6 11.1 - 14.9 % [facility] RDW SD 49.1(H) 35.7 - 48.1 fL [facility] NRBC abs 0.00 0.00 - 0.01 K/cumm [facility] Blood 10/22/2024 8:39 PM LANDSCAPE ARCHITECTURE TEACHER 10/22/2024 8:56 PM LANDSCAPE ARCHITECTURE TEACHER Wilda Bryant WELD ENGINEER LAB BLOOD ORDERABLES Sondra l Result Performing Organization Address [facility] Co de Phone Number [facility] [place] [address] * Phosphorus (10/22/2024 8:39 PM LANDSCAPE ARCHITECTURE TEACHER) Phosphorus, pl 3.0 2.3 - 4.5 mg/dL Blood 10/22/2024 8:39 PM LANDSCAPE ARCHITECTURE TEACHER 10/22/2024 8:57 PM LANDSCAPE ARCHITECTURE TEACHER Pippa Neville WELD ENGINEER LAB BLOOD ORDERABLES Final Result Performing Organization Address [facility] Co de Phone Number [facility] Department [place] [address] * Magnesium (10/22/2024 8:39 PM LANDSCAPE ARCHITECTURE TEACHER) Magnesium 2.0 1.4 - 2.5 mg/dL Blood 10/22/2024 8:39 PM LANDSCAPE ARCHITECTURE TEACHER 10/22/2024 8:57 PM LANDSCAPE ARCHITECTURE TEACHER Pippa Neville WELD ENGINEER LAB BLOOD ORDERABLES Final Result Performing Organization Address City/[facility]/ZIP Co de Phone Number [facility] Department [place] [address] * Tacrolimus level trough (10/22/2024 8:35 PM LANDSCAPE ARCHITECTURE TEACHER) Tacrolimus trough 8.4 ng/mL Comment: Interpretive Data Testing performed by liquid chromatography-tandem mass spectrometry. Therapeutic concentrations vary depending on type of transplanted organ and time elapsed since transplant. Typical trough concentrations range from 5-15 ng/mL. This test was developed and its performance characteristics determined by the [facility] consistent with CLIA requirements. This test has not been cleared or approved by the US Food and Drug administration. Current interpretive data last reviewed 2019. Blood 10/22/2024 8:35 PM LANDSCAPE ARCHITECTURE TEACHER 10/23/2024 9:44 AM LANDSCAPE ARCHITECTURE TEACHER Inderjit Stephen MD LAB BLOOD ORDERABLES Final Result Performing Organization Address [facility] Phone Number [facility] Department [place] [address] * POCT glucose (10/22/2024 8:25 PM LANDSCAPE ARCHITECTURE TEACHER) Glucose, POC 168 70 - 199 mg/dL Blood 10/22/2024 8:25 PM LANDSCAPE ARCHITECTURE TEACHER 10/22/2024 8:25 PM LANDSCAPE ARCHITECTURE TEACHER Inderjit Stephne MD LAB POCT ORDERABLES - DEVICE Final Result Performing Organization Address [facility] de Phone Number [facility] [place] [address] * POCT glucose (10/22/2024 4:24 PM LANDSCAPE ARCHITECTURE TEACHER) Glucose, POC 179 70 - 199 mg/dL Blood 10/22/2024 4:24 PM LANDSCAPE ARCHITECTURE TEACHER 10/22/2024 4:24 PM LANDSCAPE ARCHITECTURE TEACHER Inderjit Stephen MD LAB POCT ORDERABLES - DEVICE Final Result MAYDA CANNON [facility] Department [place] [address] * (ABNORMAL) eGFR (10/22/2024 1:09 PM LANDSCAPE ARCHITECTURE TEACHER) eGFR 46(L) >=60 mL/min/1. 73 m2 Comment: Interpretive Data Reference Interval Normal >/= 90 mL/min/1.73m2 Mildly decreased* 60 - 89 mL/min/1.73m2 Mildly to moderately decreased 45 - 59 mL/min/1.73m2 Moderately to severely decreased 30 - 44 mL/min/1.73m2 Severely decreased 15 - 29 mL/min/1.73m2 Kidney Failure < 15 mL/min/1.73m2 *Relative to young adult level Estimated glomerular filtration rate is determined by the 2020 CKD-EPI equation recommended by the National Kidney Foundation (A Unifying Approach to GFR Estimation: Recommendations of the NKF-ASK Task Force on Reassessing the Inclusion of Race in Diagnosing Kidney Disease, JASN 2020). The CKD-EPI equation should not be used for patients with unstable renal function and has not been validated in children and those over 70. Current interpretive data was last reviewed 2021. Blood 10/22/2024 1:09 PM LANDSCAPE ARCHITECTURE TEACHER 10/22/2024 1:20 PM LANDSCAPE ARCHITECTURE TEACHER Puja Bello NP LAB BLOOD ORDERABLES Sondra ian Result MAYDA CANNON [facility] Department [place] [address] * Tacrolimus level trough (10/22/2024 1:09 PM LANDSCAPE ARCHITECTURE TEACHER) Tacrolimus trough 4.2 ng/mL Comment: Interpretive Data Testing performed by liquid chromatography-tandem mass spectrometry. Therapeutic concentrations vary depending on type of transplanted organ and time elapsed since transplant. Typical trough concentrations range from 5-15 ng/mL. This test was developed and its performance characteristics determined by the [facility] consistent with CLIA requirements. This test has not been cleared or approved by the US Food and Drug administration. Current interpretive data last reviewed 2019. Blood 10/22/2024 1:09 PM LANDSCAPE ARCHITECTURE TEACHER 10/22/2024 1:20 PM LANDSCAPE ARCHITECTURE TEACHER Puja Bello WELD ENGINEER LAB BLOOD ORDERABLES Sondra l Result [facility] Department [place] [address] * (ABNORMAL) Renal function panel (10/22/2024 1:09 PM LANDSCAPE ARCHITECTURE TEACHER) Sodium 143 135 - 145 mmol/L Potassium, pl 4.3 3.3 - 4.9 mmol/L [facility] Chloride 106 97 - 110 mmol/L [facility] CO2 28 22 - 32 mmol/L [facility] Anion gap 9 2 - 15 mmol/L [facility] BUN 16 6 - 25 mg/dL [facility] Creatinine 1.33(H) 0.60 - 1.10 mg/dL [facility] Glucose 165 70 - 199 mg/dL [facility] Comment: Interpretive Data Fasting glucose >/= 126 mg/dl is diagnostic for diabetes. Fasting is defined as no caloric intake for at least 8 hours. Fasting glucose between 100 mg/dl to 125 mg/dl is diagnostic of prediabetes. In a patient with classic symptoms of hyperglycemia or hyperglycemic crisis, a random glucose >/= 200 mg/dl is diagnostic for diabetes. In the absence of unequivocal hyperglycemia, results should be confirmed by repeat testing. The classification and Diagnosis of Diabetes Diabetes Care 2021; 46: S19-S40. Current interpretive data was last revised 2022. Calcium 10.6(H) 8.5 - 10.3 mg/dL [facility] Phosphorus, pl 2.4 2.3 - 4.5 mg/dL [facility] Albumin 3.4(L) 3.5 - 5.0 g/dL [facility] Blood 10/22/2024 1:09 PM LANDSCAPE ARCHITECTURE TEACHER 10/22/2024 1:20 PM LANDSCAPE ARCHITECTURE TEACHER Puja Tamica [place] WELD ENGINEER LAB BLOOD ORDERABLES Sondra l Result Performing Organization Address City/[facility]/ZIP Co de Phone Number [facility] Department [place] [address] * POCT glucose (10/22/2024 12:12 PM LANDSCAPE ARCHITECTURE TEACHER) [facility] Signature Glucose, POC 128 70 - 199 mg/dL Blood 10/22/2024 12:1 2 PM LANDSCAPE ARCHITECTURE TEACHER 10/22/2024 12:12 PM LANDSCAPE ARCHITECTURE TEACHER us Inderjit Stephen MD LAB POCT ORDERABLES - DEVICE Final Result Performing Organization Address [facility] Co de Phone Number [facility] [place] [address] * POCT glucose (10/22/2024 8:00 AM LANDSCAPE ARCHITECTURE TEACHER) [facility] Glucose, POC 92 70 - 199 mg/dL Blood 10/22/2024 8:00 AM LANDSCAPE ARCHITECTURE TEACHER 10/22/2024 8:00 AM LANDSCAPE ARCHITECTURE TEACHER Inderjit Stephen MD LAB POCT ORDERABLES - DEVICE Final Result Performing Organization Address [facility] Co de Phone Number [facility] Department [place] [address] * (ABNORMAL) eGFR (10/22/2024 5:52 AM LANDSCAPE ARCHITECTURE TEACHER) [facility] eGFR 48(L) >=60 mL/min/1. 73 m2 Comment: Interpretive Data Reference Interval Normal >/= 90 mL/min/1.73m2 Mildly decreased* 60 - 89 mL/min/1.73m2 Mildly to moderately decreased 45 - 59 mL/min/1.73m2 Moderately to severely decreased 30 - 44 mL/min/1.73m2 Severely decreased 15 - 29 mL/min/1.73m2 Kidney Failure < 15 mL/min/1.73m2 *Relative to young adult level Estimated glomerular filtration rate is determined by the 2020 CKD-EPI equation recommended by the National Kidney Foundation (A Unifying Approach to GFR Estimation: Recommendations of the NKF-ASK Task Force on Reassessing the Inclusion of Race in Diagnosing Kidney Disease, JASN 2020). The CKD-EPI equation should not be used for patients with unstable renal function and has not been validated in children and those over 70. Current interpretive data was last reviewed 2021. Blood 10/22/2024 5:52 AM LANDSCAPE ARCHITECTURE TEACHER 10/22/2024 6:32 AM LANDSCAPE ARCHITECTURE TEACHER [facility] Eugenia NP LAB BLOOD ORDERABLES Sondra l Result Performing Organization Address [facility] de Phone Number MAYDA [facility] [address] [place] [address] * Tacrolimus level trough (10/22/2024 5:52 AM LANDSCAPE ARCHITECTURE TEACHER) Tacrolimus trough 2.0 ng/mL Comment: Interpretive Data Testing performed by liquid chromatography-tandem mass spectrometry. Therapeutic concentrations vary depending on type of transplanted organ and time elapsed since transplant. Typical trough concentrations range from 5-15 ng/mL. This test was developed and its performance characteristics determined by the [facility] consistent with CLIA requirements. This test has not been cleared or approved by the US Food and Drug administration. Current interpretive data last reviewed 2019. Blood 10/22/2024 5:52 AM LANDSCAPE ARCHITECTURE TEACHER 10/22/2024 6:32 AM LANDSCAPE ARCHITECTURE TEACHER [facility] LAB BLOOD ORDERABLES Sondra l Result Performing Organization Address [facility] de Phone Number [facility] [place] [address] * Tacrolimus level random (10/22/2024 5:52 AM LANDSCAPE ARCHITECTURE TEACHER) Tacrolimus random 2.2 ng/mL Comment: Interpretive Data Testing performed by liquid chromatography-tandem mass spectrometry. Therapeutic concentrations vary depending on type of transplanted organ and time elapsed since transplant. Typical trough concentrations range from 5-15 ng/mL. This test was developed and its performance characteristics determined by the [facility] consistent with CLIA requirements. This test has not been cleared or approved by the [place] Food and Drug administration. Current interpretive data last reviewed 2019. Blood 10/22/2024 5:52 AM LANDSCAPE ARCHITECTURE TEACHER 10/22/2024 6:32 AM LANDSCAPE ARCHITECTURE TEACHER Pippa Neville WELD ENGINEER LAB BLOOD ORDERABLES Final Result Performing Organization Address City/[facility]/ZIP Co de Phone Number [facility] Department [place] [address] * Phosphorus (10/22/2024 5:52 AM LANDSCAPE ARCHITECTURE TEACHER) Pathologist [facility] Phosphorus, pl 2.5 2.3 - 4.5 mg/dL Blood 10/22/2024 5:52 AM LANDSCAPE ARCHITECTURE TEACHER 10/22/2024 6:32 AM LANDSCAPE ARCHITECTURE TEACHER Puja Bello WELD ENGINEER LAB BLOOD ORDERABLES Sondra l Result Performing Organization Address [facility] de Phone Number [facility] Department [place] [address] * (ABNORMAL) Comprehensive metabolic panel (10/22/2024 5:52 AM LANDSCAPE ARCHITECTURE TEACHER) Pathologist [facility] Sodium 143 135 - 145 mmol/L Potassium, pl 4.0 3.3 - 4.9 mmol/L [facility] Chloride 108 97 - 110 mmol/L [facility] CO2 29 22 - 32 mmol/L [facility] Anion gap 6 2 - 15 mmol/L [facility] BUN 14 6 - 25 mg/dL [facility] Creatinine 1.27(H) 0.60 - 1.10 mg/dL [facility] Glucose 88 70 - 199 mg/dL [facility] Comment: Interpretive Data Fasting glucose >/= 126 mg/dl is diagnostic for diabetes. Fasting is defined as no caloric intake for at least 8 hours. Fasting glucose between 100 mg/dl to 125 mg/dl is diagnostic of prediabetes. In a patient with classic symptoms of hyperglycemia or hyperglycemic crisis, a random glucose >/= 200 mg/dl is diagnostic for diabetes. In the absence of unequivocal hyperglycemia, results should be confirmed by repeat testing. The classification and Diagnosis of Diabetes Diabetes Care 2021; 46: S19-S40. Current interpretive data was last revised 2022. Calcium 10.5(H) 8.5 - 10.3 mg/dL [facility] Bilirubin, total 0.6 0.1 - 1.2 mg/dL [facility] Protein, pl 5.8(L) 6.5 - 8.5 g/dL [facility] Albumin 3.2(L) 3.5 - 5.0 g/dL [facility] Alk phos 60 40 - 130 Units/L [facility] ALT 12 7 - 45 Units/L [facility] AST 44 10 - 45 Units/L [facility] Blood 10/22/2024 5:52 AM LANDSCAPE ARCHITECTURE TEACHER 10/22/2024 6:32 AM LANDSCAPE ARCHITECTURE TEACHER Puja Bello NP LAB BLOOD ORDERABLES Sondra l Result [facility] [place] [address] * POCT glucose (10/22/2024 3:49 AM LANDSCAPE ARCHITECTURE TEACHER) Glucose, POC 86 70 - 199 mg/dL Blood 10/22/2024 3:49 AM LANDSCAPE ARCHITECTURE TEACHER 10/22/2024 3:49 AM LANDSCAPE ARCHITECTURE TEACHER Inderjit Stephen MD LAB POCT ORDERABLES - DEVICE Final Result [facility] [place] [address] * POCT glucose (10/21/2024 11:38 PM LANDSCAPE ARCHITECTURE TEACHER) Glucose, POC 91 70 - 199 mg/dL Blood 10/21/2024 11:3 8 PM LANDSCAPE ARCHITECTURE TEACHER 10/21/2024 11:38 PM LANDSCAPE ARCHITECTURE TEACHER Inderjit Stephen MD LAB POCT ORDERABLES - DEVICE Final Result Performing Organization Address City/[facility] Co de Phone Number [facility] [place] [address] * POCT glucose (10/21/2024 8:23 PM LANDSCAPE ARCHITECTURE TEACHER) Glucose, POC 128 70 - 199 mg/dL Blood 10/21/2024 8:23 PM LANDSCAPE ARCHITECTURE TEACHER 10/21/2024 8:23 PM LANDSCAPE ARCHITECTURE TEACHER Inderjit Stephen MD LAB POCT ORDERABLES - DEVICE Final Result Performing Organization Address [facility] de Phone Number [facility] [place] [address] * (ABNORMAL) eGFR (10/21/2024 4:35 PM LANDSCAPE ARCHITECTURE TEACHER) [facility] eGFR 46(L) >=60 mL/min/1. 73 m2 Comment: Interpretive Data Reference Interval Normal >/= 90 mL/min/1.73m2 Mildly decreased* 60 - 89 mL/min/1.73m2 Mildly to moderately decreased 45 - 59 mL/min/1.73m2 Moderately to severely decreased 30 - 44 mL/min/1.73m2 Severely decreased 15 - 29 mL/min/1.73m2 Kidney Failure < 15 mL/min/1.73m2 *Relative to young adult level Estimated glomerular filtration rate is determined by the 2020 CKD-EPI equation recommended by the National Kidney Foundation (A Unifying Approach to GFR Estimation: Recommendations of the NKF-ASK Task Force on Reassessing the Inclusion of Race in Diagnosing Kidney Disease, JASN 2020). The CKD-EPI equation should not be used for patients with unstable renal function and has not been validated in children and those over 70. Current interpretive data was last reviewed 2021. Blood 10/21/2024 4:35 PM LANDSCAPE ARCHITECTURE TEACHER 10/21/2024 4:43 PM LANDSCAPE ARCHITECTURE TEACHER Pippa Neville WELD ENGINEER LAB BLOOD ORDERABLES Final Result Performing Organization Address [facility] Co de Phone Number [facility] Department [place] [address] * Tacrolimus level random (10/21/2024 4:35 PM LANDSCAPE ARCHITECTURE TEACHER) [facility] Tacrolimus random 3.4 ng/mL Comment: Interpretive Data Testing performed by liquid chromatography-tandem mass spectrometry. Therapeutic concentrations vary depending on type of transplanted organ and time elapsed since transplant. Typical trough concentrations range from 5-15 ng/mL. This test was developed and its performance characteristics determined by the [facility] consistent with CLIA requirements. This test has not been cleared or approved by the US Food and Drug administration. Current interpretive data last reviewed 2019. Blood 10/21/2024 4:35 PM LANDSCAPE ARCHITECTURE TEACHER 10/21/2024 4:43 PM LANDSCAPE ARCHITECTURE TEACHER Puja Bello WELD ENGINEER LAB BLOOD ORDERABLES Sondra l Result Performing Organization Address [facility] de Phone Number [facility] Department [place] [address] * (ABNORMAL) CBC without differential (10/21/2024 4:35 PM LANDSCAPE ARCHITECTURE TEACHER) [facility] WBC 5.9 3.8 - 9.9 K/cumm Hgb 11.3(L) 11.9 - 15.5 g/dL [facility] Hct 35.2(L) 35.6 - 45.5 % [facility] Plt 74(L) 150 - 400 K/cumm [facility] MPV 11.3 9.1 - 12.3 fL [facility] RBC 3.88(L) 3.90 - 5.20 M/cumm [facility] MCV 90.7 81.3 - 96.4 fL [facility] MCH 29.1 27.1 - 33.3 pg [facility] MCHC 32.1(L) 32.3 - 35.7 g/dL [facility] RDW CV 14.6 11.1 - 14.9 % [facility] RDW SD 48.6(H) 35.7 - 48.1 fL [facility] NRBC abs 0.00 0.00 - 0.01 K/cumm [facility] Blood 10/21/2024 4:35 PM LANDSCAPE ARCHITECTURE TEACHER 10/21/2024 4:43 PM LANDSCAPE ARCHITECTURE TEACHER Wilda Bryant WELD ENGINEER LAB BLOOD ORDERABLES Sondra l Result Performing Organization Address City/[facility]/[place] [address] * Phosphorus (10/21/2024 4:35 PM LANDSCAPE ARCHITECTURE TEACHER) Pathologist [facility] Phosphorus, pl 2.6 2.3 - 4.5 mg/dL Blood 10/21/2024 4:35 PM LANDSCAPE ARCHITECTURE TEACHER 10/21/2024 4:43 PM LANDSCAPE ARCHITECTURE TEACHER Pippa Neville WELD ENGINEER LAB BLOOD ORDERABLES Final Result Performing Organization Address [facility] Co de Phone Number [facility] [place] [address] * Magnesium (10/21/2024 4:35 PM LANDSCAPE ARCHITECTURE TEACHER) [facility] Magnesium 1.7 1.4 - 2.5 mg/dL Blood 10/21/2024 4:35 PM LANDSCAPE ARCHITECTURE TEACHER 10/21/2024 4:43 PM LANDSCAPE ARCHITECTURE TEACHER Pippa Neville WELD ENGINEER LAB BLOOD ORDERABLES Final Result Performing Organization Address [facility] de Phone Number [facility] [place] [address] * (ABNORMAL) Comprehensive metabolic panel (10/21/2024 4:35 PM LANDSCAPE ARCHITECTURE TEACHER) [facility] Sodium 141 135 - 145 mmol/L Potassium, pl 4.1 3.3 - 4.9 mmol/L [facility] Chloride 105 97 - 110 mmol/L [facility] CO2 26 22 - 32 mmol/L [facility] Anion gap 10 2 - 15 mmol/L [facility] BUN 18 6 - 25 mg/dL [facility] Creatinine 1.32(H) 0.60 - 1.10 mg/dL [facility] Glucose 240(H) 70 - 199 mg/dL [facility] Comment: Interpretive Data Fasting glucose >/= 126 mg/dl is diagnostic for diabetes. Fasting is defined as no caloric intake for at least 8 hours. Fasting glucose between 100 mg/dl to 125 mg/dl is diagnostic of prediabetes. In a patient with classic symptoms of hyperglycemia or hyperglycemic crisis, a random glucose >/= 200 mg/dl is diagnostic for diabetes. In the absence of unequivocal hyperglycemia, results should be confirmed by repeat testing. The classification and Diagnosis of Diabetes Diabetes Care 2021; 46: S19-S40. Current interpretive data was last revised 2022. Calcium 10.4(H) 8.5 - 10.3 mg/dL [facility] Bilirubin, total 0.5 0.1 - 1.2 mg/dL [facility] Protein, pl 6.1(L) 6.5 - 8.5 g/dL [facility] Albumin 3.4(L) 3.5 - 5.0 g/dL [facility] Alk phos 65 40 - 130 Units/L [facility] ALT 14 7 - 45 Units/L [facility] AST 51(H) 10 - 45 Units/L [facility] Blood 10/21/2024 4:35 PM LANDSCAPE ARCHITECTURE TEACHER 10/21/2024 4:43 PM LANDSCAPE ARCHITECTURE TEACHER us Pippa Neville NP LAB BLOOD ORDERABLES Final Result [facility] Department [place] [address] * (ABNORMAL) POCT glucose (10/21/2024 4:15 PM LANDSCAPE ARCHITECTURE TEACHER) [facility] Glucose, POC 229(H) 70 - 199 mg/dL Blood 10/21/2024 4:15 PM LANDSCAPE ARCHITECTURE TEACHER 10/21/2024 4:15 PM LANDSCAPE ARCHITECTURE TEACHER Inderjit Stephen MD LAB POCT ORDERABLES - DEVICE Final Result Performing Organization Address [facility] de Phone Number [facility] [place] [address] * POCT glucose (10/21/2024 11:39 AM LANDSCAPE ARCHITECTURE TEACHER) [facility] Glucose, POC 150 70 - 199 mg/dL Blood 10/21/2024 11:3 9 AM LANDSCAPE ARCHITECTURE TEACHER 10/21/2024 11:39 AM LANDSCAPE ARCHITECTURE TEACHER Result [facility] Inderjit Stephen MD LAB POCT ORDERABLES - DEVICE Final Result Performing Organization Address [facility] de Phone Number [facility] [place] [address] * POCT glucose (10/21/2024 7:48 AM LANDSCAPE ARCHITECTURE TEACHER) [facility] Glucose, POC 134 70 - 199 mg/dL Blood 10/21/2024 7:48 AM LANDSCAPE ARCHITECTURE TEACHER 10/21/2024 7:48 AM LANDSCAPE ARCHITECTURE TEACHER Result [facility] Inderjit Stephen MD LAB POCT ORDERABLES - DEVICE Final Result Performing Organization Address [facility] de Phone Number [facility] [place] [address] * (ABNORMAL) eGFR (10/21/2024 4:35 AM LANDSCAPE ARCHITECTURE TEACHER) [facility] eGFR 42(L) >=60 mL/min/1. 73 m2 Comment: Interpretive Data Reference Interval Normal >/= 90 mL/min/1.73m2 Mildly decreased* 60 - 89 mL/min/1.73m2 Mildly to moderately decreased 45 - 59 mL/min/1.73m2 Moderately to severely decreased 30 - 44 mL/min/1.73m2 Severely decreased 15 - 29 mL/min/1.73m2 Kidney Failure < 15 mL/min/1.73m2 *Relative to young adult level Estimated glomerular filtration rate is determined by the 2020 CKD-EPI equation recommended by the National Kidney Foundation (A Unifying Approach to GFR Estimation: Recommendations of the NKF-ASK Task Force on Reassessing the Inclusion of Race in Diagnosing Kidney Disease, JASN 2020). The CKD-EPI equation should not be used for patients with unstable renal function and has not been validated in children and those over 70. Current interpretive data was last reviewed 2021. Blood 10/21/2024 4:35 AM LANDSCAPE ARCHITECTURE TEACHER 10/21/2024 5:19 AM LANDSCAPE ARCHITECTURE TEACHER Wilda Bryant WELD ENGINEER LAB BLOOD ORDERABLES Sondra l Result Performing Organization Address [facility] de Phone Number [facility] [place] [address] * Tacrolimus level random (10/21/2024 4:35 AM LANDSCAPE ARCHITECTURE TEACHER) Tacrolimus random 2.2 ng/mL Comment: Interpretive Data Testing performed by liquid chromatography-tandem mass spectrometry. Therapeutic concentrations vary depending on type of transplanted organ and time elapsed since transplant. Typical trough concentrations range from 5-15 ng/mL. This test was developed and its performance characteristics determined by the [facility] consistent with CLIA requirements. This test has not been cleared or approved by the US Food and Drug administration. Current interpretive data last reviewed 2019. Blood 10/21/2024 4:35 AM LANDSCAPE ARCHITECTURE TEACHER 10/21/2024 5:19 AM LANDSCAPE ARCHITECTURE TEACHER Pippa eNville WELD ENGINEER LAB BLOOD ORDERABLES Final Result Performing Organization Address [facility] Co de Phone Number [facility] Department [place] [address] * (ABNORMAL) CBC without differential (10/21/2024 4:35 AM LANDSCAPE ARCHITECTURE TEACHER) [facility] WBC 5.7 3.8 - 9.9 K/cumm Hgb 10.8(L) 11.9 - 15.5 g/dL [facility] Hct 32.9(L) 35.6 - 45.5 % [facility] Plt 82(L) 150 - 400 K/cumm [facility] MPV 11.3 9.1 - 12.3 fL [facility] RBC 3.67(L) 3.90 - 5.20 M/cumm [facility] MCV 89.6 81.3 - 96.4 fL [facility] MCH 29.4 27.1 - 33.3 pg [facility] MCHC 32.8 32.3 - 35.7 g/dL [facility] RDW CV 14.6 11.1 - 14.9 % [facility] RDW SD 47.8 35.7 - 48.1 fL [facility] NRBC abs 0.00 0.00 - 0.01 K/cumm [facility] Blood 10/21/2024 4:35 AM LANDSCAPE ARCHITECTURE TEACHER 10/21/2024 5:19 AM LANDSCAPE ARCHITECTURE TEACHER Wilda Bryant WELD ENGINEER LAB BLOOD ORDERABLES Sondra l Result Performing Organization Address City/[facility]/ZIP Co de Phone Number [facility] [place] [address] * Phosphorus (10/21/2024 4:35 AM LANDSCAPE ARCHITECTURE TEACHER) [facility] Phosphorus, pl 2.3 2.3 - 4.5 mg/dL Blood 10/21/2024 4:35 AM LANDSCAPE ARCHITECTURE TEACHER 10/21/2024 5:19 AM LANDSCAPE ARCHITECTURE TEACHER Pippa Neville WELD ENGINEER LAB BLOOD ORDERABLES Final Result [facility] [place] [address] * Magnesium (10/21/2024 4:35 AM LANDSCAPE ARCHITECTURE TEACHER) Magnesium 1.7 1.4 - 2.5 mg/dL Blood 10/21/2024 4:35 AM LANDSCAPE ARCHITECTURE TEACHER 10/21/2024 5:19 AM LANDSCAPE ARCHITECTURE TEACHER Pippa Neville WELD ENGINEER LAB BLOOD ORDERABLES Final Result Performing Organization Address City/[facility]/ZIP Co de Phone Number [facility] Department [place] [address] * (ABNORMAL) Basic metabolic panel (10/21/2024 4:35 AM LANDSCAPE ARCHITECTURE TEACHER) Pathologist [facility] Sodium 141 135 - 145 mmol/L Potassium, pl 3.9 3.3 - 4.9 mmol/L [facility] Chloride 107 97 - 110 mmol/L [facility] CO2 25 22 - 32 mmol/L [facility] Anion gap 9 2 - 15 mmol/L [facility] BUN 19 6 - 25 mg/dL [facility] Creatinine 1.43(H) 0.60 - 1.10 mg/dL [facility] Glucose 122 70 - 199 mg/dL [facility] Comment: Interpretive Data Fasting glucose >/= 126 mg/dl is diagnostic for diabetes. Fasting is defined as no caloric intake for at least 8 hours. Fasting glucose between 100 mg/dl to 125 mg/dl is diagnostic of prediabetes. In a patient with classic symptoms of hyperglycemia or hyperglycemic crisis, a random glucose >/= 200 mg/dl is diagnostic for diabetes. In the absence of unequivocal hyperglycemia, results should be confirmed by repeat testing. The classification and Diagnosis of Diabetes Diabetes Care 202; 46: S19-S40. Current interpretive data was last revised 2022. Calcium 9.8 8.5 - 10.3 mg/dL [facility] Blood 10/21/2024 4:35 AM LANDSCAPE ARCHITECTURE TEACHER 10/21/2024 5:19 AM LANDSCAPE ARCHITECTURE TEACHER Wilda Bryant WELD ENGINEER LAB BLOOD ORDERABLES [place] [address] * POCT glucose (10/21/2024 4:13 AM LANDSCAPE ARCHITECTURE TEACHER) Glucose, POC 131 70 - 199 mg/dL Blood 10/21/2024 4:13 AM LANDSCAPE ARCHITECTURE TEACHER 10/21/2024 4:13 AM LANDSCAPE ARCHITECTURE TEACHER Inderjit Stephen MD LAB POCT ORDERABLES - DEVICE Final Result Performing Organization Address [facility] [place] [address] * POCT glucose (10/20/2024 11:54 PM LANDSCAPE ARCHITECTURE TEACHER) Glucose, POC 148 70 - 199 mg/dL Blood 10/20/2024 11:5 4 PM LANDSCAPE ARCHITECTURE TEACHER 10/20/2024 11:54 PM LANDSCAPE ARCHITECTURE TEACHER Inderjit Stephen MD LAB POCT ORDERABLES - DEVICE Final Result Performing Organization Address [facility]/ZIP Co de Phone Number [facility] [place] [address] * POCT glucose (10/20/2024 8:14 PM LANDSCAPE ARCHITECTURE TEACHER) Glucose, POC 163 70 - 199 mg/dL Blood 10/20/2024 8:14 PM LANDSCAPE ARCHITECTURE TEACHER 10/20/2024 8:14 PM LANDSCAPE ARCHITECTURE TEACHER Inderjit Stephen MD LAB POCT ORDERABLES - DEVICE Final Result Performing Organization Address City/[facility] Co de Phone Number [facility] [place] [address] * POCT glucose (10/20/2024 3:24 PM LANDSCAPE ARCHITECTURE TEACHER) Glucose, POC 165 70 - 199 mg/dL Blood 10/20/2024 3:24 PM LANDSCAPE ARCHITECTURE TEACHER 10/20/2024 3:24 PM LANDSCAPE ARCHITECTURE TEACHER Inderjit Stephen MD LAB POCT ORDERABLES - DEVICE Final Result Performing Organization Address [facility] Phone Number [facility] [place] [address] * POCT glucose (10/20/2024 11:50 AM LANDSCAPE ARCHITECTURE TEACHER) Glucose, POC 118 70 - 199 mg/dL Blood 10/20/2024 11:5 0 AM LANDSCAPE ARCHITECTURE TEACHER 10/20/2024 11:50 AM LANDSCAPE ARCHITECTURE TEACHER Inderjit Stephen MD LAB POCT ORDERABLES - DEVICE Final Result Performing Organization Address [facility] Phone Number [facility] [place] [address] * POCT glucose (10/20/2024 7:38 AM LANDSCAPE ARCHITECTURE TEACHER) Glucose, POC 90 70 - 199 mg/dL Blood 10/20/2024 7:38 AM LANDSCAPE ARCHITECTURE TEACHER 10/20/2024 7:38 AM LANDSCAPE ARCHITECTURE TEACHER Result [facility] Inderjit Stephen MD LAB POCT ORDERABLES - DEVICE Final Result Performing Organization Address [facility] Number [facility] [place] [address] * Tacrolimus level random (10/20/2024 4:37 AM LANDSCAPE ARCHITECTURE TEACHER) [facility] Tacrolimus random 1.9 ng/mL Comment: Interpretive Data Testing performed by liquid chromatography-tandem mass spectrometry. Therapeutic concentrations vary depending on type of transplanted organ and time elapsed since transplant. Typical trough concentrations range from 5-15 ng/mL. This test was developed and its performance characteristics determined by the [facility] consistent with CLIA requirements. This test has not been cleared or approved by the US Food and Drug administration. Current interpretive data last reviewed 2019. Blood 10/20/2024 4:37 AM LANDSCAPE ARCHITECTURE TEACHER 10/20/2024 4:54 AM LANDSCAPE ARCHITECTURE TEACHER Pippa Neville NP LAB BLOOD ORDERABLES Final Result Performing Organization Address [facility] Co de Phone Number [facility] [place] [address] * POCT glucose (10/20/2024 3:51 AM LANDSCAPE ARCHITECTURE TEACHER) Glucose, POC 95 70 - 199 mg/dL Blood 10/20/2024 3:51 AM LANDSCAPE ARCHITECTURE TEACHER 10/20/2024 3:51 AM LANDSCAPE ARCHITECTURE TEACHER Inderjit Stephen MD LAB POCT ORDERABLES - DEVICE Final Result Performing Organization Address [facility] Co de Phone Number [facility] [place] [address] * POCT glucose (10/19/2024 11:41 PM LANDSCAPE ARCHITECTURE TEACHER) Glucose, POC 98 70 - 199 mg/dL Blood 10/19/2024 11:4 1 PM LANDSCAPE ARCHITECTURE TEACHER 10/19/2024 11:41 PM LANDSCAPE ARCHITECTURE TEACHER Inderjit Stephen MD LAB POCT ORDERABLES - DEVICE Final Result Performing Organization Address [facility] Co de Phone Number [facility] [place] [address] * ECG 12 lead (10/19/2024 8:45 PM LANDSCAPE ARCHITECTURE TEACHER) Ventricular Rate EKG/Min 78 BPM [facility] Atrial Rate 78 BPM [facility] DE-Interval (MSEC) 164 ms [facility] QRS-Interval (MSEC) 86 ms [facility] QT-Interval (MSEC) 386 ms [facility] QTc 440 ms [facility] P Dows 41 degrees [facility] R Dows -7 degrees [facility] T Dows 34 degrees [facility] Diagnosis Normal sinus rhythm Low voltage QRS Cannot rule out Anterior infarct (cited on or before 27-MAR-2014) Abnormal ECG When compared with ECG of 29-DEC-2015 01:20, Vent. rate has decreased BY 42 BPM Questionable change in initial forces of Anterior leads Confirmed by GIL GALLARDO M.D ([id number]) on 10/20/2024 2:15:25 PM [facility] 10/19/2024 8:45 PM LANDSCAPE ARCHITECTURE TEACHER 10/20/2024 2:15 PM LANDSCAPE ARCHITECTURE TEACHER us Pippa Neville NP ECG ORDERABLES Sondra sosa Result [facility] * (ABNORMAL) Urinalysis reflex to microscopic and culture Urine (10/19/2024 8:31 PM LANDSCAPE ARCHITECTURE TEACHER) Color, ur Yellow Yellow Clarity, ur Clear Clear [facility] Specific gravity, ur 1.021 1.003 - 1.030 [facility] pH, urine 6.0 [facility] Comment: Interpretive Data U rine pH is affected by diet, medications, systemic acid-base disturbances, and renal tubular function. pH may affect urinary stone formation. For example, urine pH below 6.0 may help reduce the tendency for calcium phosphate stones and pH greater than 6.0 may reduce the tendency for uric acid stone formation. Source: [place] [employer] Current Interpretive Data was last revised on 2017 Protein, ur ql Trace Negative [facility] Glucose, ur ql Trace(A) Negative [facility] Ketones, ur Negative Negative [facility] Bilirubin, ur Negative Negative [facility] Blood, ur Trace(A) Negative [facility] Urobilinogen, ur <2.0 <2.0 mg/dL [facility] Nitrite, ur Negative Negative [facility] Leukocyte esterase, ur 2+(A) Negative [facility] UA reflex comment Reflex to microscopic UA will be performed. [facility] Urine 10/19/2024 8:31 PM LANDSCAPE ARCHITECTURE TEACHER 10/19/2024 8:48 PM LANDSCAPE ARCHITECTURE TEACHER Pipap Neville WELD ENGINEER LAB MICROBIOLOGY - G ENERAL ORDERABLES Final Result Performing Organization Address [facility] Co de Phone Number [facility] [place] [address] * (ABNORMAL) Urinalysis, microscopic only (10/19/2024 8:31 PM LANDSCAPE ARCHITECTURE TEACHER) WBC, ur 11-20(A) 0 - 5 /HPF RBC, ur 6-10(A) 0 - 2 /HPF [facility] Epithelial cells, squamous, ur 1-5 0 - 5 /HPF [facility] Bacteria, ur 1+(A) [facility] Mucous, ur Present(A) [facility] Culture Reflex Comment Reflex to urine culture will be performed. [facility] Urine 10/19/2024 8:31 PM LANDSCAPE ARCHITECTURE TEACHER 10/19/2024 8:48 PM LANDSCAPE ARCHITECTURE TEACHER Pippa Neville WELD ENGINEER LAB URINE ORDERABLES Final Result Performing Organization Address [facility] de Phone Number [facility] [place] [address] * Urine culture Urine (10/19/2024 8:31 PM LANDSCAPE ARCHITECTURE TEACHER) Report Final Report: No growth Urine 10/19/2024 8:31 PM LANDSCAPE ARCHITECTURE TEACHER 10/19/2024 11:08 PM LANDSCAPE ARCHITECTURE TEACHER Narrative [facility] - 10/21/2024 7:55 AM LANDSCAPE ARCHITECTURE TEACHER Urine culture reflexed based upon urinalysis results. Testing performed by [facility] ([phone]) Pippa Neville WELD ENGINEER LAB MICROBIOLOGY - G ENERAL ORDERABLES Final Result Performing Organization Address City/[facility] Co de Phone Number [facility] [place] [address] * POCT glucose (10/19/2024 8:29 PM LANDSCAPE ARCHITECTURE TEACHER) Glucose, POC 128 70 - 199 mg/dL Blood 10/19/2024 8:29 PM LANDSCAPE ARCHITECTURE TEACHER 10/19/2024 8:29 PM LANDSCAPE ARCHITECTURE TEACHER Inderjit Stephen MD LAB POCT ORDERABLES - DEVICE Final Result Performing Organization Address [facility] [place] [address] * (ABNORMAL) aPTT (10/19/2024 8:26 PM LANDSCAPE ARCHITECTURE TEACHER) aPTT 24(L) 28 - 38 sec Comment: Interpretive Data Heparin therapeutic range: 66.0 - 100.0 seconds. Range based on correlation with therapeutic heparin activity range of 0.3 - 0.7 Units/mL. Current interpretive data was last revised on 2023. Blood 10/19/2024 8:26 PM LANDSCAPE ARCHITECTURE TEACHER 10/19/2024 8:50 PM LANDSCAPE ARCHITECTURE TEACHER us Pippa Neville NP LAB BLOOD ORDERABLES Final Result Performing Organization Address [facility] Co de Phone Number [facility] [place] [address] * Protime-INR (10/19/2024 8:26 PM LANDSCAPE ARCHITECTURE TEACHER) PT 11.6 9.7 - 13.0 sec INR 1.07 0.90 - 1.20 [facility] Comment: Interpretive data Oral anticoagulant therapeutic ranges: Venous thromboembolism prophylaxis or treatment: 2.0-3.0 CARDIOLOGY Standard range: 2.0-3.0 High-intensity range: 2.5-3.5 Refer to indication-specific guidelines for appropriate target ranges for prosthetic heart valve replacement. Current interpretive data was last revised on 2019. Blood 10/19/2024 8:26 PM LANDSCAPE ARCHITECTURE TEACHER 10/19/2024 8:50 PM LANDSCAPE ARCHITECTURE TEACHER Pippa Neville WELD ENGINEER LAB BLOOD ORDERABLES Final Result Performing Organization Address [facility] Co de Phone Number [facility] [place] [address] * Phosphorus (10/19/2024 8:26 PM LANDSCAPE ARCHITECTURE TEACHER) Phosphorus, pl 2.6 2.3 - 4.5 mg/dL Blood 10/19/2024 8:26 PM LANDSCAPE ARCHITECTURE TEACHER 10/19/2024 8:43 PM LANDSCAPE ARCHITECTURE TEACHER Pippa Banuelosbrien WELD ENGINEER LAB BLOOD ORDERABLES Final Result Performing Organization Address [facility] Phone Number [facility] Department [place] [address] * (ABNORMAL) Magnesium (10/19/2024 8:26 PM LANDSCAPE ARCHITECTURE TEACHER) Magnesium 2.9(H) 1.4 - 2.5 mg/dL Blood 10/19/2024 8:26 PM LANDSCAPE ARCHITECTURE TEACHER 10/19/2024 8:43 PM LANDSCAPE ARCHITECTURE TEACHER Pippa Neville WELD ENGINEER LAB BLOOD ORDERABLES Final Result Performing Organization Address [facility] [place] [address] * XR Chest 1 View (10/19/2024 7:58 PM LANDSCAPE ARCHITECTURE TEACHER) Anatomical Region Laterality Modality Body, Chest N/A Digital Radiogra phy 10/20/2024 9:34 AM LANDSCAPE ARCHITECTURE TEACHER Impressions 10/20/2024 9:34 AM LANDSCAPE ARCHITECTURE TEACHER No priors are available for comparison. The lung volumes are small and the right hemidiaphragm is elevated. There are streaky opacities adjacent to the right hilum, favored to be atelectasis given the small lung volumes and elevated diaphragm. The left lung is clear. Heart size normal. No pleural effusion or pneumothorax. Electronically signed by: George Mendoza M.D. Narrative 10/20/2024 9:34 AM LANDSCAPE ARCHITECTURE TEACHER EXAMINATION: 1 view chest radiograph Procedure Note George Mendoza MD - 10/20/2024 EXAMINATION: 1 view chest radiograph IMPRESSION: No priors are available for comparison. The lung volumes are small and the right hemidiaphragm is elevated. There are streaky opacities adjacent to the right hilum, favored to be atelectasis given the small lung volumes and elevated diaphragm. The left lung is clear. Heart size normal. No pleural effusion or pneumothorax. Electronically signed by: George Mendoza M.D. Inderjit Stephen MD IMG XR PROCEDURES Fi nal Result * Lactate (10/19/2024 6:56 PM LANDSCAPE ARCHITECTURE TEACHER) Pathologist [facility] Lactate 1.4 0.7 - 2.0 mmol/L Blood 10/19/2024 6:56 PM LANDSCAPE ARCHITECTURE TEACHER 10/19/2024 7:07 PM LANDSCAPE ARCHITECTURE TEACHER Pippa Neville NP LAB BLOOD ORDERABLES Final Result Performing Organization Address City/[facility]/ZIP Co de Phone Number [facility] Department [place] [address] * (ABNORMAL) Creatine kinase (CK), total (10/19/2024 6:56 PM LANDSCAPE ARCHITECTURE TEACHER) CK 416(H) 30 - 200 Units/L Blood 10/19/2024 6:56 PM LANDSCAPE ARCHITECTURE TEACHER 10/19/2024 7:07 PM LANDSCAPE ARCHITECTURE TEACHER Pippa Neville NP LAB BLOOD ORDERABLES Final Result [facility] Department [place] [address] * Troponin I high-sensitivity (10/19/2024 6:04 PM LANDSCAPE ARCHITECTURE TEACHER) Trop I hs 4 <=17 ng/L Comment: Interpretive Data For further hscTnI resources including the diagnostic algorithm and an aid in interpretation, copy and paste this link: [email or web address]/[email or web address] Current Interpretive Data last revised 2020. Blood 10/19/2024 6:04 PM LANDSCAPE ARCHITECTURE TEACHER 10/19/2024 6:23 PM LANDSCAPE ARCHITECTURE TEACHER Inderjit Stephen MD LAB BLOOD ORDERABLES Final Result [facility] Department [place] [address] * (ABNORMAL) eGFR (10/19/2024 6:04 PM LANDSCAPE ARCHITECTURE TEACHER) eGFR 48(L) >=60 mL/min/1. 73 m2 Comment: Interpretive Data Reference Interval Normal >/= 90 mL/min/1.73m2 Mildly decreased* 60 - 89 mL/min/1.73m2 Mildly to moderately decreased 45 - 59 mL/min/1.73m2 Moderately to severely decreased 30 - 44 mL/min/1.73m2 Severely decreased 15 - 29 mL/min/1.73m2 Kidney Failure < 15 mL/min/1.73m2 *Relative to young adult level Estimated glomerular filtration rate is determined by the 2020 CKD-EPI equation recommended by the National Kidney Foundation (A Unifying Approach to GFR Estimation: Recommendations of the NKF-ASK Task Force on Reassessing the Inclusion of Race in Diagnosing Kidney Disease, JASN 2020). The CKD-EPI equation should not be used for patients with unstable renal function and has not been validated in children and those over 70. Current interpretive data was last reviewed 2021. Blood 10/19/2024 6:04 PM LANDSCAPE ARCHITECTURE TEACHER 10/19/2024 6:23 PM LANDSCAPE ARCHITECTURE TEACHER us Inderjit Stephen MD LAB BLOOD ORDERABLES Final Result [facility] Department [place] [address] * (ABNORMAL) Differential, auto (10/19/2024 6:04 PM LANDSCAPE ARCHITECTURE TEACHER) Neutrophil abs 6.8(H) 1.5 - 6.5 K/cumm Imm gran abs 0.1 0.0 - 0.1 K/cumm [facility] Lymphocyte abs 0.2(L) 0.8 - 3.3 K/cumm [facility] Monocyte abs 0.2 0.2 - 0.8 K/cumm [facility] Eosinophil abs 0.0 0.0 - 0.5 K/cumm [facility] Basophil abs 0.0 0.0 - 0.1 K/cumm [facility] Neutrophil pct 93.8 % [facility] Comment: Interpretive Data Percent cell count reference ranges are not reported, since discordance with absolute values may lead to misinterpretation of CBC data. Current Interpretive Data was last revised on 2017. Imm gran pct 1.0 % [facility] Comment: Interpretive Data Percent cell count reference ranges are not reported, since discordance with absolute values may lead to misinterpretation of CBC data. Current Interpretive Data was last revised on 2017. Lymphocyte pct 2.6 % [facility] Comment: Interpretive Data Percent cell count reference ranges are not reported, since discordance with absolute values may lead to misinterpretation of CBC data. Current Interpretive Data was last revised on 2017. Monocyte pct 2.5 % [facility] Comment: Interpretive Data Percent cell count reference ranges are not reported, since discordance with absolute values may lead to misinterpretation of CBC data. Current Interpretive Data was last revised on 2017. Eosinophil pct 0.0 % [facility] Comment: Interpretive Data Percent cell count reference ranges are not reported, since discordance with absolute values may lead to misinterpretation of CBC data. Current Interpretive Data was last revised on 2017. Basophil pct 0.1 % [facility] Comment: Interpretive Data Percent cell count reference ranges are not reported, since discordance with absolute values may lead to misinterpretation of CBC data. Current Interpretive Data was last revised on 2017. Blood 10/19/2024 6:04 PM LANDSCAPE ARCHITECTURE TEACHER 10/19/2024 6:23 PM LANDSCAPE ARCHITECTURE TEACHER Inderjit Stephen MD LAB BLOOD ORDERABLES Final Result [facility] [place] [address] * (ABNORMAL) CBC with auto differential (10/19/2024 6:04 PM LANDSCAPE ARCHITECTURE TEACHER) WBC 7.2 3.8 - 9.9 K/cumm Hgb 12.0 11.9 - 15.5 g/dL [facility] Hct 37.5 35.6 - 45.5 % [facility] Plt 97(L) 150 - 400 K/cumm [facility] MPV 10.4 9.1 - 12.3 fL [facility] RBC 4.11 3.90 - 5.20 M/cumm [facility] MCV 91.2 81.3 - 96.4 fL [facility] MCH 29.2 27.1 - 33.3 pg [facility] MCHC 32.0(L) 32.3 - 35.7 g/dL [facility] RDW CV 15.0(H) 11.1 - 14.9 % [facility] RDW SD 49.8(H) 35.7 - 48.1 fL [facility] NRBC abs 0.00 0.00 - 0.01 K/cumm [facility] Blood 10/19/2024 6:04 PM LANDSCAPE ARCHITECTURE TEACHER 10/19/2024 6:23 PM LANDSCAPE ARCHITECTURE TEACHER Inderjit Stephen MD LAB BLOOD ORDERABLES Final Result Performing Organization Address City/[facility]/ZIP Co de Phone Number [facility] Department [place] [address] * Phosphorus (10/19/2024 6:04 PM LANDSCAPE ARCHITECTURE TEACHER) Pathologist [facility] Phosphorus, pl 3.4 2.3 - 4.5 mg/dL Blood 10/19/2024 6:04 PM LANDSCAPE ARCHITECTURE TEACHER 10/19/2024 6:23 PM LANDSCAPE ARCHITECTURE TEACHER Inderjit Stephen MD LAB BLOOD ORDERABLES Final Result Performing Organization Address [facility] [place] [address] * Magnesium (10/19/2024 6:04 PM LANDSCAPE ARCHITECTURE TEACHER) [facility] Magnesium 1.6 1.4 - 2.5 mg/dL Blood 10/19/2024 6:04 PM LANDSCAPE ARCHITECTURE TEACHER 10/19/2024 6:23 PM LANDSCAPE ARCHITECTURE TEACHER Result [facility] Inderjit Stephen MD LAB BLOOD ORDERABLES Final Result Performing Organization Address [facility] [place] [address] * (ABNORMAL) Blood gas, arterial (10/19/2024 6:04 PM LANDSCAPE ARCHITECTURE TEACHER) Pathologist [facility] pH, Art 7.28(L) 7.35 - 7.45 PCO2, Arterial 47(H) 35 - 45 mmHg [facility] PO2, Arterial 117(H) 83 - 108 mmHg [facility] HCO3 Art (Calculated) 22 20 - 30 mmol/L [facility] BE, art -5 mmol/L [facility] Comment: Interpretive Data No Reference Range Established Current Interpretive Data was last revised on 2017 O2 Sat Art (Measured) 98(H) 90 - 95 % [facility] Blood 10/19/2024 6:04 PM LANDSCAPE ARCHITECTURE TEACHER 10/19/2024 6:17 PM LANDSCAPE ARCHITECTURE TEACHER Paulette Whitehead MD LAB BLOOD ORDERABLES Fi nal Result Performing Organization Address [facility] Co de Phone Number [facility] [place] [address] * (ABNORMAL) Hepatic function panel (10/19/2024 6:04 PM LANDSCAPE ARCHITECTURE TEACHER) Bilirubin, total 0.6 0.1 - 1.2 mg/dL Bilirubin, direct 0.3 0.1 - 0.3 mg/dL [facility] Protein, pl 5.4(L) 6.5 - 8.5 g/dL [facility] Albumin 3.7 3.5 - 5.0 g/dL [facility] Alk phos 70 40 - 130 Units/L [facility] ALT 53(H) 7 - 45 Units/L [facility] AST 86(H) 10 - 45 Units/L [facility] Blood 10/19/2024 6:04 PM LANDSCAPE ARCHITECTURE TEACHER 10/19/2024 6:23 PM LANDSCAPE ARCHITECTURE TEACHER us Inderjit Stephen MD LAB BLOOD ORDERABLES Final Result Performing Organization Address [facility] Co de Phone Number [facility] [place] [address] * (ABNORMAL) Lipid panel (10/19/2024 6:04 PM LANDSCAPE ARCHITECTURE TEACHER) Cholesterol 108 30 - 199 mg/dL Comment: Interpretive Data Ages < or = 19 years Acceptable: <170 mg/dL Borderline high: 170-199 mg/dL High: >or= 200 mg/dL Ages > or = 20 years Desirable: <200 mg/dL Borderline high: 200-239 mg/dL High: >or= 240 mg/dL Literature References: 1. Expert Panel on Integrated Guidelines for Cardiovascular Health and Risk Reduction in Children and Adolescents. Pediatrics 2011;128:S213 2. NCEP Expert Panel. Circulation 2004;110:227 Current Interpretive Data was last revised on 2018. Triglycerides 270(H) <=149 mg/dL [facility] Comment: Interpretive Data Ages < or = 9 years Acceptable: <75 mg/dL Borderline high: 75-99 mg/dL High: >or= 100 mg/dL Ages 10 to 20 years Acceptable: <90 mg/dL Borderline high: 90-129 mg/dL High: >or= 130 mg/dL Ages > or = 20 years Desirable: <150 mg/dL Borderline high: 150-199 mg/dL High: 200-499 mg/dL Very high: >or= 499 mg/dL Literature References: 1. Expert Panel on Integrated Guidelines for Cardiovascular Health and Risk Reduction in Children and Adolescents. Pediatrics 2011;128:S213 2. NCEP Expert Panel. Circulation 2004;110:227 Current Interpretive Data was last revised on 2018. HDL 25(L) >=40 mg/dL [facility] Comment: Interpretive Data Ages < or = 19 years Acceptable: >45 mg/dL Borderline low: 40-45 mg/dL Low: <40 mg/dL Ages > or = 20 years Desirable: >or= 60 mg/dL Low: <40 mg/dL Literature References: 1. Expert Panel on Integrated Guidelines for Cardiovascular Health and Risk Reduction in Children and Adolescents. Pediatrics 2011;128:S213 2. NCEP Expert Panel. Circulation 2004;110:227 Current Interpretive Data was last revised on 2018. LDL, calculated 41 <=129 mg/dL [facility] Comment: Interpretive Data Ages < or = 19 years Acceptable: <110 mg/dL Borderline high: 110-129 mg/dL High: >or= 130 mg/dL Ages > or = 20 years Optimal: <100 mg/dL Near optimal: 100-129 mg/dL Borderline high: 130-159 mg/dL High: >160 mg/dL Calculated using the Chapin LDL-C estimating equation. This equation was implemented on 2024. Prior to this date LDL-C was estimated using the Friedewald equation. Literature References: 1. Expert Panel on Integrated Guidelines for Cardiovascular Health and Risk Reduction in Children and Adolescents. Pediatrics 2011;128:S213 2. NCEP Expert Panel. Circulation 2004;110:227 3. Chapin June al. ZBIGNIEW Cardiol. 2020 January 04;5(5):540-548. doi: [email or web address] Current Interpretive Data was last revised on 2024. Non-HDL Cholesterol 83 mg/dL [facility] Comment: Interpretive Data Ages < or = 19 years Acceptable: <120 mg/dL Borderline high: 120-144 mg/dL High: >145 mg/dL Ages > or = 20 years When triglycerides are >200 mg/dL, Non-HDL cholesterol is a secondary target of therapy with treatment goals that are 30 mg/dL greater than the LDL cholesterol target. Literature References: 1. Expert Panel on Integrated Guidelines for Cardiovascular Health and Risk Reduction in Children and Adolescents. Pediatrics 2011;128:S213 2. NCEP Expert Panel. Circulation 2004;110:227 Current Interpretive Data was last revised on 2018. Chol/HDL ratio 4 [facility] Blood 10/19/2024 6:04 PM LANDSCAPE ARCHITECTURE TEACHER 10/19/2024 6:23 PM LANDSCAPE ARCHITECTURE TEACHER us Inderjit Stephen MD LAB BLOOD ORDERABLES Final Result [facility] Department [place] [address] * (ABNORMAL) Basic metabolic panel (10/19/2024 6:04 PM LANDSCAPE ARCHITECTURE TEACHER) Sodium 141 135 - 145 mmol/L Potassium, pl 4.3 3.3 - 4.9 mmol/L [facility] Chloride 110 97 - 110 mmol/L [facility] CO2 23 22 - 32 mmol/L [facility] Anion gap 8 2 - 15 mmol/L [facility] BUN 21 6 - 25 mg/dL [facility] Creatinine 1.28(H) 0.60 - 1.10 mg/dL [facility] Glucose 209(H) 70 - 199 mg/dL [facility] Comment: Interpretive Data Fasting glucose >/= 126 mg/dl is diagnostic for diabetes. Fasting is defined as no caloric intake for at least 8 hours. Fasting glucose between 100 mg/dl to 125 mg/dl is diagnostic of prediabetes. In a patient with classic symptoms of hyperglycemia or hyperglycemic crisis, a random glucose >/= 200 mg/dl is diagnostic for diabetes. In the absence of unequivocal hyperglycemia, results should be confirmed by repeat testing. The classification and Diagnosis of Diabetes Diabetes Care 2021; 46: S19-S40. Current interpretive data was last revised 2022. Calcium 8.8 8.5 - 10.3 mg/dL [facility] Blood 10/19/2024 6:04 PM LANDSCAPE ARCHITECTURE TEACHER 10/19/2024 6:23 PM LANDSCAPE ARCHITECTURE TEACHER Inderjit Stephen MD LAB BLOOD ORDERABLES Final Result Performing Organization Address City/[facility]/ZIP Co de Phone Number [facility] Department [place] [address] * POCT glucose (10/19/2024 6:03 PM LANDSCAPE ARCHITECTURE TEACHER) Glucose, POC 189 70 - 199 mg/dL Blood 10/19/2024 6:03 PM LANDSCAPE ARCHITECTURE TEACHER 10/19/2024 6:03 PM LANDSCAPE ARCHITECTURE TEACHER Inderjit Stephen MD LAB POCT ORDERABLES - DEVICE Final Result Performing Organization Address [facility] de Phone Number [facility] Department [place] [address] * (ABNORMAL) POC Blood Gas and Chemistries, Arterial - (10/19/2024 4:16 PM LANDSCAPE ARCHITECTURE TEACHER) pH, Art POC 6.98(C) 7.35 - 7.45 pCO2, Art POC 111(C) 35 - 45 mmHg [facility] pO2, Art POC 177(H) 83 - 108 mmHg [facility] Na, POC 140 135 - 145 mmol/L [facility] K POC 5.0(H) 3.3 - 4.9 mmol/L [facility] Comment: Hemolyzed;K+ value may be falsely elevated 0.6-1.0 Interpretive Data Not all point of care methods assess for hemolysis. Confirm with instrument and retest K+ if not consistent with clinical signs and symptoms. Current Interpretive Data was last revised on 2023. Cl, POC 110 97 - 110 mmol/L [facility] Ionized Ca, POC 5.51(H) 4.50 - 5.10 mg/dL [facility] Glucose, POC 254(H) 70 - 199 mg/dL [facility] Lactate, POC 0.5(L) 0.7 - 2.0 mmol/L [facility] SO2 (mishel) arterial 100(H) 90 - 95 % [facility] Base excess, POC -8.1 mmol/L [facility] HCO3, Art POC 26 20 - 30 mmol/L [facility] Hct, POC 40.0 36.3 - 45.3 % [facility] Total Hb, POC 13.4 11.9 - 15.5 g/dL [facility] Blood 10/19/2024 4:16 PM LANDSCAPE ARCHITECTURE TEACHER 10/19/2024 4:16 PM LANDSCAPE ARCHITECTURE TEACHER Inderjit Stephen MD LAB POCT ORDERABLES - DEVICE Final Result Performing Organization Address [facility] Co de Phone Number [facility] Department [place] [address] * POCT glucose (10/19/2024 2:32 PM LANDSCAPE ARCHITECTURE TEACHER) [facility] Glucose, POC 178 70 - 199 mg/dL Blood 10/19/2024 2:32 PM LANDSCAPE ARCHITECTURE TEACHER 10/19/2024 2:32 PM LANDSCAPE ARCHITECTURE TEACHER Inderjit Stephen MD LAB POCT ORDERABLES - DEVICE Final Result Performing Organization Address City/[facility] Co de Phone Number [facility] [place] [address] * (ABNORMAL) eGFR (10/19/2024 2:28 PM LANDSCAPE ARCHITECTURE TEACHER) [facility] eGFR 49(L) >=60 mL/min/1. 73 m2 Comment: Interpretive Data Reference Interval Normal >/= 90 mL/min/1.73m2 Mildly decreased* 60 - 89 mL/min/1.73m2 Mildly to moderately decreased 45 - 59 mL/min/1.73m2 Moderately to severely decreased 30 - 44 mL/min/1.73m2 Severely decreased 15 - 29 mL/min/1.73m2 Kidney Failure < 15 mL/min/1.73m2 *Relative to young adult level Estimated glomerular filtration rate is determined by the 2020 CKD-EPI equation recommended by the National Kidney Foundation (A Unifying Approach to GFR Estimation: Recommendations of the NKF-ASK Task Force on Reassessing the Inclusion of Race in Diagnosing Kidney Disease, JASN 202). The CKD-EPI equation should not be used for patients with unstable renal function and has not been validated in children and those over 70. Current interpretive data was last reviewed 2021. Blood 10/19/2024 2:28 PM LANDSCAPE ARCHITECTURE TEACHER 10/19/2024 2:41 PM LANDSCAPE ARCHITECTURE TEACHER us Wilda Bryant NP LAB BLOOD ORDERABLES Sondra sosa Result [facility] Department [place] [address] * (ABNORMAL) CBC without differential (10/19/2024 2:28 PM LANDSCAPE ARCHITECTURE TEACHER) WBC 8.0 3.8 - 9.9 K/cumm Hgb 12.1 11.9 - 15.5 g/dL [facility] Hct 38.6 35.6 - 45.5 % [facility] Plt 94(L) 150 - 400 K/cumm [facility] MPV 10.4 9.1 - 12.3 fL [facility] RBC 4.09 3.90 - 5.20 M/cumm [facility] MCV 94.4 81.3 - 96.4 fL [facility] MCH 29.6 27.1 - 33.3 pg [facility] MCHC 31.3(L) 32.3 - 35.7 g/dL [facility] RDW CV 14.9 11.1 - 14.9 % [facility] RDW SD 52.2(H) 35.7 - 48.1 fL [facility] NRBC abs 0.00 0.00 - 0.01 K/cumm [facility] Blood 10/19/2024 2:28 PM LANDSCAPE ARCHITECTURE TEACHER 10/19/2024 2:41 PM LANDSCAPE ARCHITECTURE TEACHER Wilda Bryant NP LAB BLOOD ORDERABLES Sondra l Result Performing Organization Address [facility]/ZIP Co de Phone Number [facility] Department [place] [address] * (ABNORMAL) Basic metabolic panel (10/19/2024 2:28 PM LANDSCAPE ARCHITECTURE TEACHER) [facility] Sodium 140 135 - 145 mmol/L Potassium, pl 4.2 3.3 - 4.9 mmol/L [facility] Chloride 109 97 - 110 mmol/L [facility] CO2 25 22 - 32 mmol/L [facility] Anion gap 6 2 - 15 mmol/L [facility] BUN 19 6 - 25 mg/dL [facility] Creatinine 1.25(H) 0.60 - 1.10 mg/dL [facility] Glucose 200(H) 70 - 199 mg/dL [facility] Comment: Interpretive Data Fasting glucose >/= 126 mg/dl is diagnostic for diabetes. Fasting is defined as no caloric intake for at least 8 hours. Fasting glucose between 100 mg/dl to 125 mg/dl is diagnostic of prediabetes. In a patient with classic symptoms of hyperglycemia or hyperglycemic crisis, a random glucose >/= 200 mg/dl is diagnostic for diabetes. In the absence of unequivocal hyperglycemia, results should be confirmed by repeat testing. The classification and Diagnosis of Diabetes Diabetes Care 2021; 46: S19-S40. Current interpretive data was last revised 2022. Calcium 8.9 8.5 - 10.3 mg/dL [facility] Blood 10/19/2024 2:28 PM LANDSCAPE ARCHITECTURE TEACHER 10/19/2024 2:41 PM LANDSCAPE ARCHITECTURE TEACHER Wilda Bryant NP LAB BLOOD ORDERABLES Sondra l Result Performing Organization Address [facility] Co de Phone Number [facility] Department [place] [address] * XR Spine Lumbar 2 or 3 Views (10/19/2024 1:13 PM LANDSCAPE ARCHITECTURE TEACHER) Anatomical Region Laterality Modality Spine N/A Computed Radiogr aphy 10/19/2024 1:21 PM LANDSCAPE ARCHITECTURE TEACHER Impressions 10/19/2024 1:32 PM LANDSCAPE ARCHITECTURE TEACHER Posterior spinal fusion instrumentation spanning from L2 to the iliac bones. Dictated by: Amadou Meeks MD The radiology attending physician has personally reviewed this study, and had reviewed and/or edited this written report and agrees with it. Electronically signed by: Bairon Cevallos M.D. Narrative 10/19/2024 1:32 PM LANDSCAPE ARCHITECTURE TEACHER EXAMINATION: XR SPINE LUMBAR 2 OR 3 VIEWS HISTORY: Intra-Op; L2-Pelvis Posteror Spinal Fusion COMPARISON: 07/12/2024 FINDINGS: 2 intraoperative views of the lumbar spine are provided for interpretation. Posterior instrumented fusion extending from L2 to the iliac bones. Lap sponges noted. Procedure Note Bairon Cevallos MD PhD - 10/19/2024 EXAMINATION: XR SPINE LUMBAR 2 OR 3 VIEWS HISTORY: Intra-Op; L2-Pelvis Posteror Spinal Fusion COMPARISON: 07/12/2024 FINDINGS: 2 intraoperative views of the lumbar spine are provided for interpretation. Posterior instrumented fusion extending from L2 to the iliac bones. Lap sponges noted. IMPRESSION: Posterior spinal fusion instrumentation spanning from L2 to the iliac bones. Dictated by: Amadou Meeks MD The radiology attending physician has personally reviewed this study, and had reviewed and/or edited this written report and agrees with it. Electronically signed by: Bairon Cevallos M.D. Inderjit Stephen MD IMG XR PROCEDURES Fi nal Result * FL Fluoroscopy < 1 Hour (10/19/2024 1:12 PM LANDSCAPE ARCHITECTURE TEACHER) Narrative [facility] - 10/19/2024 1:13 PM LANDSCAPE ARCHITECTURE TEACHER The images from this study are not interpreted by Radiology. Please refer to the physician's procedure / OR operative note. Inderjit Stephen MD IMG FLUOROSCOPY PROC EDURES Final Result [facility] * (ABNORMAL) POC Blood Gas and Chemistries, Arterial - (10/19/2024 12:39 PM LANDSCAPE ARCHITECTURE TEACHER) pH, Art POC 7.36 7.35 - 7.45 pCO2, Art POC 37 35 - 45 mmHg [facility] pO2, Art POC 183(H) 83 - 108 mmHg [facility] Na, POC 140 135 - 145 mmol/L [facility] K POC 3.4 3.3 - 4.9 mmol/L [facility] Comment: Interpretive Data Not all point of care methods assess for hemolysis. Confirm with instrument and retest K+ if not consistent with clinical signs and symptoms. Current Interpretive Data was last revised on 2023. Cl, POC 110 97 - 110 mmol/L [facility] Ionized Ca, POC 5.47(H) 4.50 - 5.10 mg/dL [facility] Glucose, POC 160 70 - 199 mg/dL [facility] Lactate, POC 0.9 0.7 - 2.0 mmol/L [facility] SO2 (mishel) arterial 100(H) 90 - 95 % [facility] Base excess, POC -4.1 mmol/L [facility] Hct, POC 37.0 36.3 - 45.3 % [facility] Total Hb, POC 12.3 11.9 - 15.5 g/dL [facility] Blood 10/19/2024 12:3 9 PM LANDSCAPE ARCHITECTURE TEACHER 10/19/2024 12:39 PM LANDSCAPE ARCHITECTURE TEACHER us Inderjit Stephen MD LAB POCT ORDERABLES - DEVICE Final Result [facility] Department [place] [address] * (ABNORMAL) POC Blood Gas and Chemistries, Arterial - (10/19/2024 11:33 AM LANDSCAPE ARCHITECTURE TEACHER) pH, Art POC 7.37 7.35 - 7.45 pCO2, Art POC 37 35 - 45 mmHg [facility] pO2, Art POC 181(H) 83 - 108 mmHg [facility] Na, POC 140 135 - 145 mmol/L [facility] K POC 3.6 3.3 - 4.9 mmol/L [facility] Comment: Interpretive Data Not all point of care methods assess for hemolysis. Confirm with instrument and retest K+ if not consistent with clinical signs and symptoms. Current Interpretive Data was last revised on 2023. Cl, POC 110 97 - 110 mmol/L [facility] Ionized Ca, POC 5.38(H) 4.50 - 5.10 mg/dL [facility] Glucose, POC 116 70 - 199 mg/dL [facility] Lactate, POC 1.0 0.7 - 2.0 mmol/L [facility] SO2 (mishel) arterial 100(H) 90 - 95 % [facility] Base excess, POC -3.4 mmol/L [facility] Hct, POC 38.0 36.3 - 45.3 % [facility] Total Hb, POC 12.5 11.9 - 15.5 g/dL [facility] Blood 10/19/2024 11:3 3 AM LANDSCAPE ARCHITECTURE TEACHER 10/19/2024 11:33 AM LANDSCAPE ARCHITECTURE TEACHER Inderjit Stephen MD LAB POCT ORDERABLES - DEVICE Final Result [facility] Department [place] [address] * (ABNORMAL) POC Blood Gas and Chemistries, Arterial - (10/19/2024 10:22 AM LANDSCAPE ARCHITECTURE TEACHER) pH, Art POC 7.41 7.35 - 7.45 pCO2, Art POC 34(L) 35 - 45 mmHg [facility] pO2, Art POC 163(H) 83 - 108 mmHg [facility] Na, POC 139 135 - 145 mmol/L [facility] K POC 3.2(L) 3.3 - 4.9 mmol/L [facility] Comment: Interpretive Data Not all point of care methods assess for hemolysis. Confirm with instrument and retest K+ if not consistent with clinical signs and symptoms. Current Interpretive Data was last revised on 2023. Cl, POC 110 97 - 110 mmol/L [facility] Ionized Ca, POC 5.46(H) 4.50 - 5.10 mg/dL [facility] Glucose, POC 97 70 - 199 mg/dL [facility] Lactate, POC 0.9 0.7 - 2.0 mmol/L [facility] SO2 (mishel) arterial 100(H) 90 - 95 % [facility] Base excess, POC -2.4 mmol/L [facility] Hct, POC 39.0 36.3 - 45.3 % [facility] Total Hb, POC 13.1 11.9 - 15.5 g/dL [facility] Blood 10/19/2024 10:2 2 AM LANDSCAPE ARCHITECTURE TEACHER 10/19/2024 10:22 AM LANDSCAPE ARCHITECTURE TEACHER Inderjit Stephen MD LAB POCT ORDERABLES - DEVICE Final Result Performing Organization Address City/State/[facility] Co de Phone Number [facility] Department [place] [address] * DE AN PROCEDURE PLACEHOLDER (10/19/2024 9:52 AM LANDSCAPE ARCHITECTURE TEACHER) Narrative Sveta Naranjo CRNA - 10/19/2024 9:52 AM LANDSCAPE ARCHITECTURE TEACHER Sveta Naranjo CRNA 10/19/2024 9:53 AM Arterial Line Patient location: OR Indication: continuous blood pressure monitoring and blood sampling needed Staff: Placed by: SUPERVISOR PAPER COATING: Sveta Naranjo CRNA Procedure prep: Prep solution: chlorhexadine/alcohol Prep: sterile gloves Arterial line: Catheter size: 20 gauge Catheter length: 1 and 1/4 inch Catheter type: wire-guided catheter Seldinger technique: no Laterality: right Site: radial artery Line secured: Tegaderm and tape Results: good waveform and good blood return Number of attempts: 1 Assessment: Events: patient tolerated procedure well with no complications Lesly Ambrocio MD ANESTHESIA ORDERABLES Final Resu lt * DE AN PROCEDURE PLACEHOLDER (10/19/2024 9:51 AM LANDSCAPE ARCHITECTURE TEACHER) Sveta Maldonado CRNA - 10/19/2024 9:51 AM LANDSCAPE ARCHITECTURE TEACHER Sveta Naranjo CRNA 10/19/2024 9:52 AM Peripheral IV Catheter Patient location: OR Staff: Placed by: Anesthesiologist: Lesly Ambrocio MD Preprocedure prep: Prep solution: chlorhexadine PIV line: Laterality: right Site: saphenous Catheter size: 18 g Technique: ultrasound guided Procedure details: good blood return and occlusive dressing applied Number of attempts: 1 Assessment: Events: patient tolerated procedure well with no complications Additional comments: Multiple iv site attempts to ultrasound, patient with left arm restriction Lesly Ambrocio MD ANESTHESIA ORDERABLES Final Resu lt * DE AN ELECTIVE ENDOTRACHEAL AIRWAY, DE AN PROCEDURE PLACEHOLDER (10/19/2024 9:46 AM LANDSCAPE ARCHITECTURE TEACHER) Sveta Maldonado CRNA - 10/19/2024 9:46 AM LANDSCAPE ARCHITECTURE TEACHER Sveta Naranjo CRNA 10/19/2024 9:50 AM Airway Patient location: OR Urgency: elective Indications for airway management: anesthesia Difficult airway: no Staff: Placed by: SOPHIE: Sveta Naranjo CRNA Emergent airway documentation: Risks and benefits discussed: yes Consent obtained: yes Consent given by: patient Airway prep: Preoxygenated: yes Patient position: sniffing Mask difficulty assessment: 0 - not attempted Spontaneous ventilation during airway: absent Sedation level during airway: GA Final airway details: Final airway type: endotracheal airway Tube type: ETT ETT size: 7.0 mm Cuffed: yes Technique used for successful ETT placement: direct laryngoscopy Insertion site: oral Blade type: Amita Blade size: 3 Cormack-Lehane (direct): grade IIa - partial view of glottis Initial cuff pressure: 28 cm H2O Cuff volume: 8 mL Cuff inflated with: air ETT to teeth: 21 cm Airway secured with: silk tape, prone view tape and tegaderm Number of attempts: 1 Additional comments: AOI, DVC, ENT resident placed ETT with supervision, esme equal bs, cta, distant, teeth and soft tissue intact, esme bite blocks soft gauze with tongue in neutral position Lesly Ambrocio MD ANESTHESIA ORDERABLES Final Resu lt * (ABNORMAL) POC Blood Gas and Chemistries, Arterial - (10/19/2024 9:11 AM LANDSCAPE ARCHITECTURE TEACHER) pH, Art POC 7.41 7.35 - 7.45 pCO2, Art POC 36 35 - 45 mmHg [facility] pO2, Art POC 119(H) 83 - 108 mmHg [facility] Na, POC 140 135 - 145 mmol/L [facility] K POC 3.5 3.3 - 4.9 mmol/L [facility] Comment: Interpretive Data Not all point of care methods assess for hemolysis. Confirm with instrument and retest K+ if not consistent with clinical signs and symptoms. Current Interpretive Data was last revised on 2023. Cl, POC 109 97 - 110 mmol/L [facility] Ionized Ca, POC 5.60(H) 4.50 - 5.10 mg/dL [facility] Glucose, POC 96 70 - 199 mg/dL [facility] Lactate, POC 1.0 0.7 - 2.0 mmol/L [facility] SO2 (mishel) arterial 100(H) 90 - 95 % [facility] Base excess, POC -1.4 mmol/L [facility] Hct, POC 42.0 36.3 - 45.3 % [facility] Total Hb, POC 14.0 11.9 - 15.5 g/dL [facility] Blood 10/19/2024 9:11 AM LANDSCAPE ARCHITECTURE TEACHER 10/19/2024 9:11 AM LANDSCAPE ARCHITECTURE TEACHER Inderjit Stephen MD LAB POCT ORDERABLES - DEVICE Final Result Performing Organization Address [facility]/ZIP Co de Phone Number [facility] Department [place] [address] * POCT glucose (10/19/2024 6:53 AM LANDSCAPE ARCHITECTURE TEACHER) Glucose, POC 99 70 - 199 mg/dL Blood 10/19/2024 6:53 AM LANDSCAPE ARCHITECTURE TEACHER 10/19/2024 6:53 AM LANDSCAPE ARCHITECTURE TEACHER Inderjit Stephen MD LAB POCT ORDERABLES - DEVICE Final Result Performing Organization Address City/[facility]/ZIP Co de Phone Number [facility] Department [place] [address] * Type and screen (10/19/2024 6:52 AM LANDSCAPE ARCHITECTURE TEACHER) ABO Rh O Negative Nas, indirect Negative [facility] Blood 10/19/2024 6:52 AM LANDSCAPE ARCHITECTURE TEACHER 10/19/2024 7:24 AM LANDSCAPE ARCHITECTURE TEACHER Narrative [facility] - 10/19/2024 8:47 AM LANDSCAPE ARCHITECTURE TEACHER Has the patient had Daratumumab or Isatuximab in the past 6 months?->Unknown us Jamilah Cortez NP LAB BLOOD BANK TEST ORDERAB LES Final Result Performing Organization Address [facility] Co de Phone Number [facility] [place] [address] * (ABNORMAL) eGFR (10/03/2024 2:08 PM LANDSCAPE ARCHITECTURE TEACHER) eGFR 39(L) >=60 mL/min/1. 73 m2 Comment: Interpretive Data Reference Interval Normal >/= 90 mL/min/1.73m2 Mildly decreased* 60 - 89 mL/min/1.73m2 Mildly to moderately decreased 45 - 59 mL/min/1.73m2 Moderately to severely decreased 30 - 44 mL/min/1.73m2 Severely decreased 15 - 29 mL/min/1.73m2 Kidney Failure < 15 mL/min/1.73m2 *Relative to young adult level Estimated glomerular filtration rate is determined by the 2020 CKD-EPI equation recommended by the National Kidney Foundation (A Unifying Approach to GFR Estimation: Recommendations of the NKF-ASK Task Force on Reassessing the Inclusion of Race in Diagnosing Kidney Disease, JASN 2020). The CKD-EPI equation should not be used for patients with unstable renal function and has not been validated in children and those over 70. Current interpretive data was last reviewed 2021. Blood 10/03/2024 2:08 PM LANDSCAPE ARCHITECTURE TEACHER 10/03/2024 2:59 PM LANDSCAPE ARCHITECTURE TEACHER us Inderjit Stephen MD LAB BLOOD ORDERABLES Final Result [facility] Department [place] [address] * Differential, auto (10/03/2024 2:08 PM LANDSCAPE ARCHITECTURE TEACHER) Neutrophil abs 3.6 1.5 - 6.5 K/cumm Imm gran abs 0.0 0.0 - 0.1 K/cumm [facility] Lymphocyte abs 1.4 0.8 - 3.3 K/cumm [facility] Monocyte abs 0.4 0.2 - 0.8 K/cumm [facility] Eosinophil abs 0.1 0.0 - 0.5 K/cumm [facility] Basophil abs 0.0 0.0 - 0.1 K/cumm [facility] Neutrophil pct 65.5 % [facility] Comment: Interpretive Data Percent cell count reference ranges are not reported, since discordance with absolute values may lead to misinterpretation of CBC data. Current Interpretive Data was last revised on 2017. Imm gran pct 0.2 % [facility] Comment: Interpretive Data Percent cell count reference ranges are not reported, since discordance with absolute values may lead to misinterpretation of CBC data. Current Interpretive Data was last revised on 2017. Lymphocyte pct 24.8 % [facility] Comment: Interpretive Data Percent cell count reference ranges are not reported, since discordance with absolute values may lead to misinterpretation of CBC data. Current Interpretive Data was last revised on 2017. Monocyte pct 6.6 % [facility] Comment: Interpretive Data Percent cell count reference ranges are not reported, since discordance with absolute values may lead to misinterpretation of CBC data. Current Interpretive Data was last revised on 2017. Eosinophil pct 2.4 % [facility] Comment: Interpretive Data Percent cell count reference ranges are not reported, since discordance with absolute values may lead to misinterpretation of CBC data. Current Interpretive Data was last revised on 2017. Basophil pct 0.5 % [facility] Comment: Interpretive Data Percent cell count reference ranges are not reported, since discordance with absolute values may lead to misinterpretation of CBC data. Current Interpretive Data was last revised on 2017. Blood 10/03/2024 2:08 PM LANDSCAPE ARCHITECTURE TEACHER 10/03/2024 3:00 PM LANDSCAPE ARCHITECTURE TEACHER us Inderjit Stephen MD LAB BLOOD ORDERABLES Final Result Performing Organization Address [facility]/ZIP Co de Phone Number [facility] Department [place] [address] * (ABNORMAL) Urinalysis reflex to microscopic and culture Urine, clean voided (10/03/2024 2:08 PM LANDSCAPE ARCHITECTURE TEACHER) Color, ur Yellow Yellow Clarity, ur Cloudy(A) Clear [facility] Specific gravity, ur 1.026 1.003 - 1.030 [facility] pH, urine 5.5 [facility] Comment: Interpretive Data U rine pH is affected by diet, medications, systemic acid-base disturbances, and renal tubular function. pH may affect urinary stone formation. For example, urine pH below 6.0 may help reduce the tendency for calcium phosphate stones and pH greater than 6.0 may reduce the tendency for uric acid stone formation. Source: [facility] Current Interpretive Data was last revised on 2017 Protein, ur ql 1+(A) Negative [facility] Glucose, ur ql Negative Negative [facility] Ketones, ur 1+(A) Negative [facility] Bilirubin, ur Negative Negative [facility] Blood, ur Trace(A) Negative [facility] Urobilinogen, ur <2.0 <2.0 mg/dL [facility] Nitrite, ur Negative Negative [facility] Leukocyte esterase, ur 3+(A) Negative [facility] UA reflex comment Reflex to microscopic UA will be performed. [facility] Urine, clean voided 10/03/2024 2:08 PM LANDSCAPE ARCHITECTURE TEACHER 10/03/2024 2:49 PM LANDSCAPE ARCHITECTURE TEACHER Inderjit Stephen MD LAB MICROBIOLOGY - G ENERAL ORDERABLES Final Result [facility] Department [place] [address] * (ABNORMAL) CBC with auto differential (10/03/2024 2:08 PM LANDSCAPE ARCHITECTURE TEACHER) [facility] WBC 5.5 3.8 - 9.9 K/cumm Hgb 14.5 11.9 - 15.5 g/dL [facility] Hct 45.2 35.6 - 45.5 % [facility] Plt 117(L) 150 - 400 K/cumm [facility] MPV 10.8 9.1 - 12.3 fL [facility] RBC 4.96 3.90 - 5.20 M/cumm [facility] MCV 91.1 81.3 - 96.4 fL [facility] MCH 29.2 27.1 - 33.3 pg [facility] MCHC 32.1(L) 32.3 - 35.7 g/dL [facility] RDW CV 14.7 11.1 - 14.9 % [facility] RDW SD 49.2(H) 35.7 - 48.1 fL [facility] NRBC abs 0.00 0.00 - 0.01 K/cumm [facility] Blood 10/03/2024 2:08 PM LANDSCAPE ARCHITECTURE TEACHER 10/03/2024 3:00 PM LANDSCAPE ARCHITECTURE TEACHER Inderjit Stephen MD LAB BLOOD ORDERABLES Final Result Performing Organization Address [facility]/State/[facility] Co de Phone Number [facility] Department [place] [address] * Nicotine metabolite screen, urine (10/03/2024 2:08 PM LANDSCAPE ARCHITECTURE TEACHER) [facility] Nicotine, ur <5.0 <5.0 ng/mL [facility] Cotinine, ur <5.0 <5.0 ng/mL [facility] Anabasine ur <2.0 <2.0 ng/mL [facility] Comment: ADDITIONAL INFORMATION This test was developed and its performance characteristics determined by [facility] in a manner consistent with CLIA requirements. This test has not been cleared or approved by the U.S. Food and Drug Administration. Test Performed by: [facility] [address] [place] [address] X Ray Nurse: Luciana Simmons Ph.D.; CLIA# [id number] Nornicotine, ur <2.0 <2.0 ng/mL [facility] Urine 10/03/2024 2:08 PM LANDSCAPE ARCHITECTURE TEACHER 10/03/2024 4:21 PM LANDSCAPE ARCHITECTURE TEACHER Inderjit Stephen MD LAB URINE ORDERABLES Final Result Performing Organization Address City/[facility]/ZIP Co de Phone Number [facility] [place] [address] [place] [facility] * (ABNORMAL) Vitamin D 25 hydroxy (10/03/2024 2:08 PM LANDSCAPE ARCHITECTURE TEACHER) Pathologist [facility] Vitamin D 25-OH 86(H) 30 - 80 ng/mL Blood 10/03/2024 2:08 PM LANDSCAPE ARCHITECTURE TEACHER 10/03/2024 2:59 PM LANDSCAPE ARCHITECTURE TEACHER Inderjit Stephen MD LAB BLOOD ORDERABLES Final Result Performing Organization Address City/[facility]/ZIP Co de Phone Number [facility] Department [place] [address] * (ABNORMAL) Urinalysis, microscopic only (10/03/2024 2:08 PM LANDSCAPE ARCHITECTURE TEACHER) WBC, ur 21-50(A) 0 - 5 /HPF RBC, ur 0-2 0 - 2 /HPF [facility] Epithelial cells, squamous, ur 1-5 0 - 5 /HPF [facility] Bacteria, ur 2+(A) [facility] Mucous, ur Present(A) [facility] Amorphous crystals, ur Trace(A) [facility] Hyaline casts, ur 1-5 0 - 10 /LPF [facility] Culture Reflex Comment Reflex to urine culture will be performed. [facility] Urine, clean voided 10/03/2024 2:08 PM LANDSCAPE ARCHITECTURE TEACHER 10/03/2024 2:49 PM LANDSCAPE ARCHITECTURE TEACHER Inderjit Stephen MD LAB URINE ORDERABLES Final Result Performing Organization Address [facility] Co de Phone Number [facility] [place] [address] * Erythrocyte sedimentation rate (10/03/2024 2:08 PM LANDSCAPE ARCHITECTURE TEACHER) Pathologist [facility] Erythrocyte sedimentation rate 7 1 - 30 mm/hr Blood 10/03/2024 2:08 PM LANDSCAPE ARCHITECTURE TEACHER 10/03/2024 3:00 PM LANDSCAPE ARCHITECTURE TEACHER Inderjit Stephen MD LAB BLOOD ORDERABLES Final Result Performing Organization Address [facility] de Phone Number [facility] [place] [address] * Type and screen (10/03/2024 2:08 PM LANDSCAPE ARCHITECTURE TEACHER) Pathologist [facility] Nas, indirect Negative ABO Rh O Negative [facility] Blood 10/03/2024 2:08 PM LANDSCAPE ARCHITECTURE TEACHER 10/03/2024 3:00 PM LANDSCAPE ARCHITECTURE TEACHER Narrative [facility] - 10/03/2024 4:53 PM LANDSCAPE ARCHITECTURE TEACHER Has the patient had Daratumumab or Isatuximab in the past 6 months?->Unknown Inderjit Stephen MD LAB BLOOD BANK TEST ORDERABLES Final Result Performing Organization Address [facility] [place] [address] * (ABNORMAL) Urine culture Urine, clean voided (10/03/2024 2:08 PM LANDSCAPE ARCHITECTURE TEACHER) Pathologist [facility] Emergency Department Report Final Report: Greater than or equal to 100,000 colonies/mL of Klebsiella pneumoniae (.) Organism KLEBSIELLA PNEUMONIAE [facility] Urine, clean voided 10/03/2024 2:08 PM LANDSCAPE ARCHITECTURE TEACHER 10/03/2024 7:29 PM LANDSCAPE ARCHITECTURE TEACHER Narrative [facility] - 10/05/2024 3:03 PM LANDSCAPE ARCHITECTURE TEACHER Urine culture reflexed based upon urinalysis results. Testing performed by [facility] Microbiology Laboratory ([phone]) Organism Antibiotic Method Susceptibility Klebsiella pneumoniae Ampicillin INTERPRETATION Resistant Klebsiella pneumoniae Cefazolin INTERPRETATION Susceptible Klebsiella pneumoniae Nitrofurantoin INTERPRETATION Intermediate Klebsiella pneumoniae Gentamicin INTERPRETATION Susceptible Klebsiella pneumoniae Trimethoprim with Sulfamethoxazole INTERPRETATION Susceptible Klebsiella pneumoniae Meropenem INTERPRETATION Susceptible Klebsiella pneumoniae Cefepime INTERPRETATION Susceptible Klebsiella pneumoniae Ciprofloxacin INTERPRETATION Susceptible Klebsiella pneumoniae Ceftazidime INTERPRETATION Susceptible Klebsiella pneumoniae Ceftriaxone INTERPRETATION Susceptible Klebsiella pneumoniae Piperacillin/Tazobactam INTERPRE TATION Susceptible Klebsiella pneumoniae Cephalexin INTERPRETATION Susceptible Klebsiella pneumoniae Cefuroxime-axetil INTERPRETATION Susceptible Klebsiella pneumoniae Cefdinir INTERPRETATION Susceptible Inderjit Stephen MD LAB MICROBIOLOGY - G ENERAL ORDERABLES Final Result [facility] Department [place] [address] * CRP (acute phase) (10/03/2024 2:08 PM LANDSCAPE ARCHITECTURE TEACHER) [facility] CRP 0.5 <=10.0 mg/L Blood 10/03/2024 2:08 PM LANDSCAPE ARCHITECTURE TEACHER 10/03/2024 2:59 PM LANDSCAPE ARCHITECTURE TEACHER Inderjit Stephen MD LAB BLOOD ORDERABLES Final Result [facility] [place] [address] * (ABNORMAL) Comprehensive metabolic panel (10/03/2024 2:08 PM LANDSCAPE ARCHITECTURE TEACHER) [facility] Sodium 145 135 - 145 mmol/L Potassium, pl 4.4 3.3 - 4.9 mmol/L [facility] Comment:Hemolyzed; Potassium value may be falsely elevated by as much as 0.3-0.5 mmol/L. Suggest redraw and reanalysis. Chloride 108 97 - 110 mmol/L [facility] CO2 30 22 - 32 mmol/L [facility] Anion gap 7 2 - 15 mmol/L [facility] BUN 18 6 - 25 mg/dL [facility] Creatinine 1.50(H) 0.60 - 1.10 mg/dL [facility] Glucose 58(L) 70 - 199 mg/dL [facility] Comment: Interpretive Data Fasting glucose >/= 126 mg/dl is diagnostic for diabetes. Fasting is defined as no caloric intake for at least 8 hours. Fasting glucose between 100 mg/dl to 125 mg/dl is diagnostic of prediabetes. In a patient with classic symptoms of hyperglycemia or hyperglycemic crisis, a random glucose >/= 200 mg/dl is diagnostic for diabetes. In the absence of unequivocal hyperglycemia, results should be confirmed by repeat testing. The classification and Diagnosis of Diabetes Diabetes Care 2021; 46: S19-S40. Current interpretive data was last revised 2022. Calcium 10.1 8.5 - 10.3 mg/dL [facility] Bilirubin, total 0.5 0.1 - 1.2 mg/dL [facility] Protein, pl 6.5 6.5 - 8.5 g/dL [facility] Albumin 3.9 3.5 - 5.0 g/dL [facility] Alk phos 59 40 - 130 Units/L [facility] ALT 20 7 - 45 Units/L [facility] AST 31 10 - 45 Units/L [facility] Comment:Hemolyzed; result ma y be falsely elevated Blood 10/03/2024 2:08 PM LANDSCAPE ARCHITECTURE TEACHER 10/03/2024 2:59 PM LANDSCAPE ARCHITECTURE TEACHER us Inderjit Stephen MD LAB BLOOD ORDERABLES Final Result [facility] [place] [address] * POCT glucose (10/03/2024 9:32 AM LANDSCAPE ARCHITECTURE TEACHER) Glucose Blood, POC 67 mg/dL Blood 10/03/2024 9:32 AM LANDSCAPE ARCHITECTURE TEACHER [facility] ABREU POINT OF CARE TEST ORDERA BLES Final Result * POCT hemoglobin A1c (10/03/2024 9:32 AM LANDSCAPE ARCHITECTURE TEACHER) Hemoglobin A1C, POC 5.2 4.0 - 5.6 % Blood 10/03/2024 9:32 AM LANDSCAPE ARCHITECTURE TEACHER [facility] ABREU POINT OF CARE TEST ORDERA BLES Final Result * Serum Hepatitis C ab (12/24/2015 6:54 AM CDT) HCV ab Negative NEG HISTORICAL RESULTS Serum 12/24/2015 6:54 AM CDT Narrative HISTORICAL RESULTS - 12/25/2015 7:16 AM CDT Interpretive Data If confirmation is required, call Laboratory Customer Service to request sample to be sent to [facility] for Hepatitis C Virus (HCV) RNA Detection and Quantitation by Real-Time Reverse Cream Maker-PCR (RT-PCR). Current interpretive data was last revised on 2011 Nicole Kunz WELD ENGINEER LAB BLOOD ORDERA BLES Final Result HISTORICAL RESULTS from Last 3 Months or Most Recently Relevant to Health Maintenance Insurance [place] [facility] Address: [address] [address] [place] [address] [facility] BL CHOICE [place] P[place] Advance Directives For more information, please contact: [phone] * Full Code (Latest Code Status on File) Date Activated Date Inactivated Comments 10/19/2024 6:14 PM 10/27/2024 8:46 PM Care Teams Calender Wind Up Helper Relationship Specialty Start Date End Date Hugh Sarkar MD PCP - General 11/16/16 Seda Russell MD [id number] [place] [address] Referring Physician Transplant 05/02/20 Malena Morales MD [address] [place] [address] Referring Physician Endocrinology Diabetes & Metabolism 05/02/20 Allyn Tierney, DANIKA [address] [facility] [address] [place] [address] Ice Guard Inspector Ice Guard Inspector 09/17/20
--- OUTSIDE RECORDS SUMMARY | 2024-11-01 18:35 | XMS_ITS | Encounter Summary ---
Author Organization [facility] Address [facility] [place] [address] Care Team Providers Care Collar Pointer Name Role Phone Hugh Sarkar MD Primary Care Provider Encounter Details Date Type Department Care Team (Late st Contact Info) Description 02/10/2023 MyChart Message Enc [address], [facility] [id number] Hang Dorman MD [address] [place] [address] Visit Follow Up Social History Tobacco Use [...] suspected to have Coronavirus/COVID-19? No / Unsure 02/10/2023 3:27 PM CDT documented as of this encounter Plan of Treatment Upcoming Encounters Date Type Department Care Team (Late Contact Info) Description 12/13/2024 3:45 PM CDT Office Visit [facility] [address] [facility], [facility] 1 [place] [address] Malathi Clark PA 7[address] [facility] 1 [place] [address] documented as of this encounter Visit Diagnoses Not on filedocumented in this encounter Care Teams Collar Pointer Relationship Specialty Start Date End Date Hugh Sarkar MD [address] [place] [phone] PCP - General FAMILY PRACTICE 02/10/19 documented as of this encounter
--- OUTSIDE RECORDS SUMMARY | 2024-11-01 18:35 | XMS_ITS | Encounter Summary ---
Author Organization [facility] Address [facility] [place] [address] Care Team Providers Care Dairy Farm Manager Name Role Phone Hugh Sarkar MD Primary Care Provider Encounter Details Date Type Department Care Team (Late st Contact Info) Description 08/16/2024 MyChart Message Enc [address] [address] Malathi Clark PA [address] [place] [address] Visit Follow Up Social History Tobacco [...] Description 12/13/2024 3:45 PM CDT Office Visit [address] [address] Malathi Clark PA [address] [place] [address] documented as of this encounter Visit Diagnoses Not on filedocumented in this encounter Care Teams Dairy Farm Manager Relationship Specialty Start Date End Date Hugh Sarkar MD [address] [place] [phone] PCP - General FAMILY PRACTICE 02/10/19 documented as of this encounter
--- OUTSIDE RECORDS SUMMARY | 2024-11-01 18:36 | XMS_ITS ---
Author Organization [facility] Address [address] [place] [address] Care Team Providers Care Underwriting Clerks Supervisor Name Role Phone Hugh Sarkar MD Primary Care Provider Seda Russell MD Unavailable [phone] Malena Morales MD Unavailable Allyn Tierney RN Unavailable Transplant Episode Kidney Recipient [facility] ([place], [place]) - [facility] Organ Received: Right Kidney Transplanted on 12/25/2015 Marked as Active Follow-up on 12/25/2015 Kidney CoordinatorAllyn Tierney RN Fax: N/A Email: N/A [place] Organ Diagnosis Organ Primary Contributory Kidney Polycystic Kidneys Retransplant Diagnosis Organ Primary Contributory Kidney Polycystic Kidneys Infection History Noted Survival Infection Treatment Organism Resolved 10/08/2021 5 years 9 months COVID 11/20/2016 331 days Dermatophytoses 06/23/2016 181 days Disease due to B K polyomavirus Donor Information Organ ABO Source Meets Risk Criteria HLA Match Mismatches Cross Match Right Kidney Transplanted O DBD No A: B: DR: Right Kidney Donor Serology Results Anti-CMV CMV IgG: Positive EBV IgG EBV VCA IgG: Positive Anti-HBcAb HBC Total: Negative HBsAg HBsAg: Negative HBV DNA No results on file Anti-HCV HCV: Negative Anti-HIV I/II No results on file Anti-HTLV I/II HTLV: Not Done RPR/VDRL RPR: Negative EBV IgM EBV VCA IgM: Negative HBsAb No results on file EBNA No results on file SARS CoV-2 No results on file Care Team Name Role Phone Fax Email Allyn Tierney, RN Kidney Coordinator [phone] N/ A N/A Nita Thomas Primary Mechanical Equipment Sales Engineer N/A N/A N/A Allyn Tierney RN Station Cashier [phone] N/A N/A Marlena Zaidi Secondary Mechanical Equipment Sales Engineer N/A N/A N/A Esmer Moreira RN Secondary Coordinator [phone] N/A N/A Brittany Deutsch Data Collection Interviewer [phone] N/A N/A Events Post-Transplant Pre-Transplant Admitted: 12/24/2015 Referred: 12/08/2010 Transplanted: 12/25/2015 Evaluation began: 1 Discharged: 01/03/2016 Center waitlisted: 1 Dialysis History Dialysis History Start End Type Comments Center 08/24/2011 Continuous Arter iovenous Hemofiltration 4 days/week [facility] Dialysis Center Information Center Phone Fax Address [facility] [phone] [address] [facility] [address]
--- OUTSIDE RECORDS SUMMARY | 2024-11-01 18:36 | XMS_ITS | Encounter Summary ---
Author Organization [facility] Address [address] [place] [address] Phone Care Team Providers Care Installer Soft Top Name Role Phone Hugh Sarkar MD Primary Care Provider [phone] Reason for Visit * Auth/Cert (Routine) Specialty Diagnoses / Procedures Referred By Arabella gonzalez Referred To Contact Referral ID Status Reason Start Date Expiration Date Visits Re quested Visits Authorized [id number] 1 1 Encounter Details Date Type Department Care Team (Latest Contact Info) Description 10/31/2024 9:30 AM RN NICU [facility] [address] [place] [address] Ifrah Andersen, RN [place] SN - [place] START OF CARE Social History Tobacco Use Types Packs/Day Years Used Date Smoking Tobacco: Never Assessed Comments Unknown Sex and Gender Information Value Date Recorded Sex Assigned at Not on file Legal Sex Female 7:58 AM RN NICU Gender Identity Not on file Sexual Orientation Not on file documented as of this encounter Last Filed Vital Signs Vital Sign Reading Time Taken Comments Blood Pressure 108/60 10/31/2024 9:54 AM RN NICU Pulse 68 10/31/2024 9:54 AM RN NICU Temperature 36.9 C (98.4 F) 10/31/2024 9:54 AM RN NICU Respiratory Rate 18 10/31/2024 9:54 AM RN NICU Oxygen Saturation - - Inhaled Oxygen Concentration - - Weight - - Height - - Body Mass Index - - documented in this encounter Plan of Treatment Upcoming Encounters Date Type Department Care Team (Late st Contact Info) Description 11/02/2024 1:00 AM RN [facility] [address] [place] [address] Ifrah Andersen, RN [place] 11/02/2024 8:00 AM [facility] [address] [place] [address] Sho Reardon MSW [place] 11/03/2024 1:00 AM RN [facility] [address] [place] [address] Rayne Castillo, SOLIDS CONTROL TECHNICIAN [place] 11/07/2024 1:00 AM RN NICU [facility] Visit [facility] [address] [place] [address] Rayne Castillo, SOLIDS CONTROL TECHNICIAN [place] 11/07/2024 2:00 AM RN [facility] [address] [place] [address] Ifrah Andersen, RN [place] 11/08/2024 1:00 AM RN NICU Home Care Visit [address] [address] Tiara Cortez, SPIRITUAL COUNSELOR [place] 11/09/2024 1:00 AM RN [facility] [address] [place] [address] Rayne Castillo, SOLIDS CONTROL TECHNICIAN [place] 11/09/2024 2:00 AM RN [facility] [address] [place] [address] Ifrah Andersen, RN [place] 11/13/2024 1:00 AM CDT Home Care Visit [address] [address] Rayne Castillo, SOLIDS CONTROL TECHNICIAN [place] 11/13/2024 2:00 AM CDT [facility] [address] [place] [address] Tiara Cortez, SPIRITUAL COUNSELOR [place] 11/14/2024 1:00 AM CDT [facility] [address] [place] [address] Ifrah Andersen, RN [place] 11/15/2024 1:00 AM CDT [facility] [address] [place] [address] Keiry Stubbs, PT 11/15/2024 2:00 AM CDT [facility] [address] [place] [address] Tiara Cortez, TC [place] 11/21/2024 1:00 AM CDT Home Care Visit [address] [address] Ifrah Andersen, RN [place] 11/23/2024 1:00 AM CDT Home Care Visit [address] [address] Tiara Cortez, TC [place] 11/24/2024 1:00 AM CDT Home Care Visit [address] [address] Tiara Cortez, TC [place] 11/28/2024 1:00 AM CDT Home Care Visit [address] [address] Ifrah Andersen, RN [place] documented as of this encounter Visit Diagnoses Not on filedocumented in this encounter Care Teams Installer Soft Top Relationship Specialty Start Date End Date Hugh Sarkar MD [address] [place] [address] PCP - General Family Medicine 10/27/24 documented as of this encounter
--- OUTSIDE RECORDS SUMMARY | 2024-11-01 18:36 | XMS_ITS | Clinical Summary ---
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 Active Cholecalciferol (Vitamin D3) 25 mcg Capsule Take 2,000 Units by mouth daily. Active Tacrolimus ER (ASTAGRAF) 1 MG CAPSULE SR 24 HR Take 4 mg by mouth daily. Active acetaminophen (TYLENOL) 500 MG Tablet Take 1,000 mg by mouth every 6 hours as needed for Mild or more severe pain. Active amitriptyline (ELAVIL) 10 MG Tablet Take 10 mg by mouth nightly. Active Aspirin 81 MG Capsule Take 1 Tablet by mouth daily. Active atorvastatin (LIPITOR) 20 MG Tablet Take 20 mg by mouth daily. Active Cyanocobalamin (Vitamin B 12) 500 MCG Tablet Take 1 Tablet by mouth 3 times daily. Active escitalopram (LEXAPRO) 10 MG Tablet Take 10 mg by mouth daily. Active ferrous sulfate 324 MG Tablet Delayed Response Take 324 mg by mouth daily. Active fludrocortisone (FLORINEF) 0.1 MG Tablet Take 0.1 mg by mouth daily. Active gabapentin (NEURONTIN) 300 MG Capsule Take 300 mg by mouth 3 times daily. Active insulin glargine in sodium chloride 8 Units by Subcutaneous route daily. Active lidocaine (LIDODERM) 5 % Patch 2 Patches by Transdermal route every 12 hours. Active metFORMIN (GLUCOPHAGE) 500 MG Tablet Take 500 mg by mouth 2 times daily (with meals). Active methocarbamol (ROBAXIN) 500 MG Tablet Take 500 mg by mouth 4 times daily. Active Tirzepatide (Mounjaro) 5 MG/0.5ML Solution Auto-injector 5 mg by Injection route once a week. Active Multiple Vitamin (MULTI VITAMIN PO) Take 1 Tablet by mouth daily. Active omeprazole (PriLOSEC) 40 MG CAPSULE DELAYED RELEASE Take 40 mg by mouth daily. Active oxyCODONE, immediate release, (OXY-IR) 15 MG Tablet Take 7.5 mg by mouth every 4 hours as needed for Severe pain. Active pregabalin (LYRICA) 100 MG Capsule Take 100 mg by mouth daily. Active senna (SENOKOT) 8.6 MG Tablet Take 1 Tablet by mouth daily as needed for Constipation - 1st line. Active Encounters Date Type Department Care Team Description 11/01/2024 12:30 PM PMO MANAGER Home Care Visit [address] [address] Joyce Alex, CULTURE ROOM WORKER-SPEECH LANGUAGE PATHOLOGIST CULTURE ROOM WORKER - INITIAL EVALUATION 11/01/2024 12:30 PM PMO MANAGER Home Care Visit [address] [address] Maria T Munoz, OT OT - INITIAL EVALUATION 10/31/2024 11:30 AM PMO MANAGER Home Care Visit [address] [address] Keiry Stubbs, PT PT - INITIAL EVALUATION 10/31/2024 9:30 AM PMO MANAGER Home Care Visit [address] [address] Ifrah Andersen, RN SN - OASIS START OF CARE 10/31/2024 Plan of Care Documentation [address] [address] from Last 3 Months Social History Tobacco Use Types Packs/Day Years Used Date Smoking Tobacco: Never Assessed Comments Unknown Sex and Gender Information Value Date Recorded Sex Assigned at Not on file Legal Sex Female 7:58 AM PMO MANAGER Gender Identity Not on file Sexual Orientation Not on file Last Filed Vital Signs Vital Sign Reading Time Taken Comments Blood Pressure 102/58 11/01/2024 12:38 PM PMO MANAGER Pulse 73 11/01/2024 12:38 PM PMO MANAGER Temperature 36.3 C (97.4 F) 11/01/2024 12:38 PM PMO MANAGER Respiratory Rate 16 11/01/2024 12:38 PM PMO MANAGER Oxygen Saturation 95% 11/01/2024 12:38 PM PMO MANAGER Inhaled Oxygen Concentration - - Weight - - Height - - Body Mass Index - - Plan of Treatment Upcoming Encounters Date Type Department Care Team (Late st Contact Info) Description 11/02/2024 1:00 AM PMO MANAGER Home Care Visit [address] [address] Ifrah Andersen, RN [place] 11/02/2024 8:00 AM PMO MANAGER Home Care Visit [address] [address] Sho Reardon MSW [place] 11/03/2024 1:00 AM PMO MANAGER Home Care Visit [address] [address] Rayne Castillo, HOSPITALITY SERVICES MANAGER [place] 11/07/2024 1:00 AM PMO MANAGER Home Care Visit [address] [address] Rayne Castillo, HOSPITALITY SERVICES MANAGER [place] 11/07/2024 2:00 AM PMO MANAGER Home Care Visit [address] [address] Ifrah Andersen, RN [place] 11/08/2024 1:00 AM PMO MANAGER Home Care Visit [address] [address] Tiara Cortez OTA [place] 11/09/2024 1:00 AM PMO MANAGER Home Care Visit [address] [address] Rayne Castillo, HOSPITALITY SERVICES MANAGER [place] 11/09/2024 2:00 AM PMO MANAGER Home Care Visit [address] [address] Ifrah Andersen, RN [place] 11/13/2024 1:00 AM CDT Home Care Visit [address] [address] Rayne Castillo PTA [place] 11/13/2024 2:00 AM CD[facility] [address] [place] [address] Tiara Cortez, TC [place] 11/14/2024 1:00 AM CDT Home Care Visit [address] [address] Ifrah Andersen, RN [place] 11/15/2024 1:00 AM CDT Home Care Visit [address] [address] Keiry Stubbs, PT 11/15/2024 2:00 AM CDT Home Care Visit [address] [address] Tiara Cortez, TC [place] 11/21/2024 1:00 AM CDT Home Care Visit [address] [address] Ifrah Andersen, RN [place] 11/23/2024 1:00 AM CDT Home Care Visit [address] [address] Tiara Cortez, TC [place] 11/24/2024 1:00 AM CDT Home Care Visit [address] [address] Tiara Cortez, AIRFIELD ENGINEER OFFICER [place] 11/28/2024 1:00 AM CDT Home Care Visit [address] [address] Ifrah Andersen, RN [place] Health Maintenance Due Date Last Done Comments Hepatitis C Virus (HCV) Screening 1963 Pap Smear 1984 Cervical Cancer Screening (CCS) 1993 HPV/Cotest 1993 Cologuard 2013 Immunochemical Fecal Occult Blood 2013 Respiratory Syncytial Virus (RSV) Immunization (Adult) (1 - Risk 60-74 years 1-dose series) 2023 SARS-COV-2 Immunization ( season) 2024 2022, 06/11/2021, 09/28/2020, Additional history exists Mammogram 04/26/2025 04/26/2024, 0809/2023, 04/20/2023, Additional history exists Colonoscopy 09/29/2032 09/29/2022 Colorectal Cancer Screening 09/29/2032 09/29/2022 Pneumococcal Immunization (50+ years) Completed 08/25/2022, 08/25/2022, 07/07/2015 Zoster Immunization Completed 03/24/2023, TdaP Immunization Completed 03/18/2024, 03/29/2023 Influenza Immunization Completed , 07/10/2022, 05/22/2021, Additional history exists Hepatitis B Immunization Aged Out No longer eligible based on patient's age to complete this topic Meningococcal Immunization (ACWY) Aged Out No longer eligible based on patient's age to complete this topic Rotavirus Immunization Aged Out No lo nger eligible based on patient's age to complete this topic Insurance [facility] Care Teams Shipyard Helper Relationship Specialty Start Date End Date Hugh Sarkar MD [address] [place] [address] PCP - General Family Medicine 10/27/24
--- OUTSIDE RECORDS SUMMARY | 2024-11-01 18:36 | XMS_ITS | Clinical Summary ---
Author Organization [facility] Address [address] [place] [address] Care Team Providers Care Language Pathologist Name Role Phone Hugh Sarkar MD Primary Care Provider Seda Russell MD Unavailable [phone] Malena Morales MD Unavailable Allyn Tierney RN Unavailable Allergies Active Allergy Reactions Criticality Noted Date [...] BY MOUTH EVERY DAY 30 tablet 1 Active Additional Information Patient taking differently: 10 mg oral Nightly, Reported on 10/19/2024 pen needle, diabetic 32 gauge x 5/32 needleIndicatio ns:Type 2 diabetes, uncontrolled, with neuropathy Use for insulin 4 times daily. 400 each 3 Active lancets (OneTouch Delica Plus Lancet) 30 gauge miscIndications :Type 2 diabetes mellitus with other diabetic kidney complication, without long-term current use of insulin ([facility]) Use to test blood sugar 4 times per day 150 each Active glucagon (BAQSIMI) 3 mg/actuation spray,non-aeros olIndications:T ype 2 diabetes mellitus with diabetic neuropathy, with long-term current use of insulin ([facility]) Administer 1 spray into one nostril as needed (In cases of emergency low blood sugars) 2 each 3 Active insulin syringe-needle U-100 0.5 mL 31 gauge x 5/16 syringeIndicati ons:Encounter for long-term (current) use of insulin ([facility]),Type 2 diabetes mellitus with diabetic neuropathy, with long-term current use of insulin ([facility]) Use to inject 1-4 times daily as directed 200 each Active atorvastatin (LIPITOR) 20 mg tablet TAKE ONE TABLET BY MOUTH DAILY 30 tablet 11 Active Additional Information Patient taking differently:20 mg [...] neuropathy, with long-term current use of insulin ([facility]),Periphera l nerve disease TAKE ONE TABLET BY MOUTH BEFORE LUNCH AND DINNER 60 tablet 2 Active Additional Information Patient taking differently: 500 mg oral 2 times daily, TAKE ONE TABLET BY MOUTH BEFORE LUNCH AND DINNER,Indications: type 2 diabetes mellitus, Reported on 10/19/2024 blood-glucose sensor (Dexcom G7 Sensor) deviceIndicatio ns:Type 2 diabetes mellitus with diabetic neuropathy, with long-term current use of insulin ([facility]),Hypoglyce mariah Use for continuous glucose monitor. Change [...] neuropathy, with long-term current use of insulin ([facility]) INJECT 5 MG UNDER THE SKIN EVERY [...] neuropathy, with long-term current use of insulin ([facility]),Periphera l nerve disease Take 1 capsule (40 mg total) by mouth 2 (two) times a day Active acetaminophen 500 mg capsuleIndicati ons:Pain Take 2 capsules (1,000 mg total) by mouth every 6 (six) hours as needed for pain Active senna-docusate (PERICOLACE) 8.6-50 mg Take 1 tablet by mouth as needed for constipation 30 tablet 025 2024 Active gabapentin (NEURONTIN) 300 mg capsule Take 1 capsule (300 mg total) by mouth 3 (three) times a day 90 capsule 11 025 2025 Active tacrolimus XR (ENVARSUS XR) 1 mg [...] needed for constipation 016 2024 Discontinued omega 2-chy-vys-fish oil 1,000 mg (120 mg-180 mg) capsule [...] neuropathy, with long-term current use of insulin ([facility]),Periphera l nerve disease Take 1 capsule (300 mg total) by mouth 3 (three) times a day 90 capsule 11 023 2024 Discontinued omeprazole (PriLOSEC) 40 mg capsuleIndicati ons:Type 2 diabetes mellitus with diabetic neuropathy, with long-term current use of insulin ([facility]),Periphera l nerve disease Take 1 capsule (40 mg total) by mouth daily 30 capsule 3 023 2024 Discontinued(E rror) insulin glargine (SEMGLEE-yfgn) 100 unit/mL (3 mL) pen for injectionIndica tions:Type 2 diabetes mellitus with diabetic neuropathy, with long-term current use of insulin ([facility]) INJECT 18 UNITS IN THE EVENING 45 mL 2 024 2024 Discontinued(E rror) insulin aspart (NovoLOG) 100 unit/mL vial for injectionIndica tions:Type 2 diabetes mellitus with diabetic neuropathy, with long-term current use of insulin ([facility]),Periphera l nerve disease INJECT 18 units breakfast, [...] neuropathy, with long-term current use of insulin ([facility]) INJECT 5 MG UNDER THE SKIN EVERY [...] t be different from the original. Lab: [facility] P:[phone] F:[phone] SO: Q-Monthly FK; Q-3 Routine (06/27/2025) Problem Noted Date Diagnosed Date Spondylolisthesis 10/19/2024 Hypoglycemia 10/03/2024 Assessment & Plan (10/03/2024 12:49 PM TERADATA ARCHITECT): - Upon rooming, BG 67mg/dL, patient's hands [...] 10/01/21 Assessment & Plan (10/08/2021 9:32 AM TERADATA ARCHITECT): Current infection - about 10/01/21. Causes some temporary hyperglycemia. Has immunity to COVID-19 virus 04/07/2021 Overview (08/10/2022): Moderna vaccine x 4 COVID infection 10/01/21 Note - immunosuppression from transplant Assessment & Plan (08/10/2022 9:25 AM TERADATA ARCHITECT): Fully vaccinated, Hx COVID; eligible for booster. Assessment & Plan (12/19/2021 2:46 PM CDT): Moderna vaccine x3 as well as COVID infection. She can check with her transplant team ia to getting a fourth shot Assessment & Plan (10/03/2021 4:18 PM TERADATA ARCHITECT): Moderna vaccine 06/11/2021, 09/28/2020, 08/31/2020 Note - immunosuppression from transplant Immunosuppression 12/06/2020 Edema, lower extremity 12/06/2020 Vitamin D deficiency 06/03/2018 Overview (10/08/2021): 04/24/2021 DEXA hip and spine normal Assessment & Plan (05/28/2024 7:09 PM CDT): Continue supplement Assessment & Plan (11/16/2023 8:43 PM CDT): Continue supplement Assessment & Plan (05/18/2023 7:19 PM CDT): Continue supplement Assessment & Plan (08/14/2022 10:26 AM TERADATA ARCHITECT): Continue supplement and recheck level Assessment & Plan (12/19/2021 2:47 PM CDT): 04/24/2021 DEXA hip and spine normal Continue long-term supplement. Assessment & Plan (10/08/2021 9:35 AM TERADATA ARCHITECT): 04/24/2021 DEXA hip and spine normal Continue long-term supplement and recheck level Assessment & Plan (04/07/2021 10:06 AM CDT): Recent level about 70, scheduled to have a 24 hour urine calcium and a DEXA bone density per the renal transplant team. Assessment & Plan (06/04/2020 4:46 PM CDT): Continue long-term supplementation Assessment & Plan (10/27/2019 3:01 PM TERADATA ARCHITECT): Continue supplement Assessment & Plan (12/28/2018 3:31 PM CDT): Continue supplement, particularly since she has take steroids Basal cell carcinoma of skin of other parts of f yaima - Right 03/28/2018 Basal cell carcinoma of skin of other parts of f yaima 03/28/2018 Obesity with body mass index 30 or greater 01/07 Assessment & Plan (10/03/2024 12:51 PM TERADATA ARCHITECT): - Continue Mounjaro 5 mg once a [...] 04/27/2016 Assessment & Plan (10/03/2024 12:47 PM TERADATA ARCHITECT): - Diabetes is complicated by neuropathy, chronic kidney disease s/p transplant (2015), hyperlipidemia and obesity. Controlled - having too much hypoglycemia. Lab Results Component Value Date HGBA1C 5.2 10/03/2024 Per [place] [employer], goal A1c is less 7% [...] placed today. Phone is not compatible with Elif or Dexcom apps. Given sample furniture mechanic today as well. Plan to download in [...] that I am available via phone or [employer] if they have any concerns for hypo/hyperglycemia, medication refills, etc. Assessment & Plan (05/28/2024 7:09 PM CDT): Overall doing reasonably well, stable on current regimen Assessment & Plan (04/03/2024 10:05 AM CDT): - Diabetes is complicated by neuropathy, CKD s/p renal transplant (2016) and chronic steroid use. Controlled. Lab Results Component Value Date HGBA1C 5.4 04/03/2024 Per [place] [employer], goal A1c is less 7% [...] labs. Assessment & Plan (08/14/2022 10:27 AM TERADATA ARCHITECT): Glucoses increase after meals, so needs mealtime [...] today Assessment & Plan (10/08/2021 9:37 AM TERADATA ARCHITECT): Glucoses a little high, and renal function [...] benefit. Assessment & Plan (10/27/2019 3:01 PM TERADATA ARCHITECT): Glucoses within a good margin of safety. However, we need to increase gabapentin as tolerated. 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 Assessment & Plan (12/19/2021 2:45 PM CDT): On steroids, immunosuppressants that affect glycemic control as well as neuropathy. Assessment & Plan (10/08/2021 9:44 AM TERADATA ARCHITECT): On steroids, immunosuppressants that affect glycemic control as well as neuropathy. Assessment & Plan (04/07/2021 10:14 AM CDT): On steroids, immunosuppressants that affect glycemic control as well as neuropathy Assessment & Plan (06/04/2020 4:47 PM CDT): On steroids, immunosuppressants that affect glycemic control as well as neuropathy Assessment & Plan (10/27/2019 8:05 AM TERADATA ARCHITECT): On steroids, immunosuppressants that affect diabetes care Encounter for aftercare following kidney transpl ant 01/21/2016 Assessment & Plan (10/03/2024 12:52 PM TERADATA ARCHITECT): - Chronic immunosuppressant and steroid use complicates [...] neuropathy. Assessment & Plan (08/14/2022 10:28 AM TERADATA ARCHITECT): On steroids, immunosuppressants that affect glycemic control as well as neuropathy. Assessment & Plan (09/02/2018 3:43 PM TERADATA ARCHITECT): Has follow-up with renal scheduled EGFR is 41 Creatinine has been range 1.5-1.65 Orthostatic hypotension 01/14/2016 Hyperlipidemia 03/12/2011 Assessment & Plan (10/03/2024 12:50 PM TERADATA ARCHITECT): - Last LDL 65 (12/2023), up to [...] control. Assessment & Plan (08/14/2022 10:28 AM TERADATA ARCHITECT): Continue statin, omega-3 and glycemic control. Assessment & Plan (05/07/2022 9:34 AM CDT): Continue statin therapy (atorvastatin 20mg) daily and she is also taking omega- 3. Optimize glycemic control. 04/2022- HDL 50, LDL 84 Assessment & Plan (12/19/2021 2:46 PM CDT): Continue statin, omega-3 and glycemic control. Recent Tg only slightly elevated and LDL within goal. Assessment & Plan (10/08/2021 9:33 AM TERADATA ARCHITECT): Continue statin, omega-3 and glycemic control. Recent Tg only slightly elevated and LDL within goal. Assessment & Plan (04/07/2021 10:07 AM CDT): Continue statin, omega-3 and glycemic control Assessment & Plan (12/28/2018 3:31 PM CDT): Continue statin, optimize glycemic control Cerebral arterial aneurysm 03/12/2011 Polycystic kidney disease 03/12/2011 Resolved Problems Problem Noted Date Diagnosed Date Resolved Date Hypercalcemia 12/06/2020 04/07/2021 Encounters Date Type Department Care Team Description 11/01/2024 Telephone [facility] Orthopaedic Surgery [address] [place] [address] [address] [place] [phone] Inderjit Stephen MD 10/30/2024 Telephone [facility] Orthopaedic Surgery [address] [place] [address] 4 [address] [place] [address] Inderjit Stephen MD 10/30/2024 SHOP/CHAP Initial Eligibility Review [facility] OP CASE MANAGEMENT [address] [place] [address] Katiana Salas LCSW 10/19/2024 7:32 AM TERADATA ARCHITECT Anesthesia Event [facility] Operating Room [address] [place] [id number] Lesly Ambrocio MD Wilkens, Kelly Ann, CHALINO 10/19/2024 7:30 AM TERADATA ARCHITECT - 10/19/2024 1:45 PM TERADATA ARCHITECT Surgery [facility] Operating Room [address] [place] [address] Inderjit Stephen MD FUSION DECOMPRESSION LAMINECTOMY WITH INSTRUMENTATION - MEDTRONIC SOLERA- L2-Pelvis Instrumented Posteror Spinal Fusion, L3-5 laminectomy/foraminotom y, autograft, allograft, bone morphogenetic protein, cut to close 240 minutes 10/19/2024 5:43 AM TERADATA ARCHITECT - 10/27/2024 4:46 PM TERADATA ARCHITECT Hospital Encounter [facility] [address] [place] [address] Inderjit Stephen MD Spondylolisthesis of lumbar region (Primary Dx); Type 2 diabetes mellitus with diabetic neuropathy, with long-term current use of insulin (HCC); Peripheral nerve disease; Kidney transplanted Discharge Disposition: Discharge to home or self care 10/06/2024 Telephone [facility] and [facility] Transplant Kidney [address] [address] [phone] [place] [address] Allyn Tierney RN 10/04/2024 Telephone [facility] Orthopaedic Surgery [facility] Medical Office Building [address] [place] [address] Inderjit Stephen MD 10/03/2024 2:00 PM TERADATA ARCHITECT Pre-Admission Testing [facility] for Preoperative Assessment and Planning [facility] [address] [place] [address] Spondylolisthesis of lumbar region; Lumbar radiculopathy 10/03/2024 10:00 AM TERADATA ARCHITECT Clinical Support [facility] Endocrinology Metabolism and Lipid [address] [facility] Medicine 13th [place] [address] [place] [phone] Jocelin Thompson RN Type 2 diabetes mellitus with diabetic neuropathy, with long-term current use of insulin (HCC) (Primary Dx) 10/03/2024 9:30 AM TERADATA ARCHITECT Office Visit [facility] Endocrinology Metabolism and Lipid [address] [facility] 13th [place] [address] Nimco Tong PA Type 2 diabetes mellitus with diabetic neuropathy, with long-term current use of insulin (HCC) (Primary Dx); Hypoglycemia; Mixed hyperlipidemia; Obesity with body mass index 30 or greater; Encounter for aftercare following kidney transplant 10/03/2024 Documentation [facility] Orthopaedic Surgery [address] [facility] Medical Office Building [address] [place] [phone] Zenobia Ricks RN from Last 3 Months Immunizations Immunization Administration Dates Next Due Influenza, Quadrivalent, Alva l Culture-based MDCK, Preservative Free, Antibiotic Free, Intramuscular 07/27/2018 Influenza, Quadrivalent, Spl it, Intramuscular 05/22/2021,05/23/2020 Influenza, Quadrivalent, Spl it, Preservative Free, Intramuscular 07/27/2019,09/28/2016,09/28/2016 Influenza, Trivalent, IM (MDV) 07/27/2018 Influenza, Trivalent, Preser vative Free, Intramuscular 06/28/2017,06/28/2017,07/07/2015,07/07 Influenza, Unspecified 06/06/2024,05/22/2021 Pneumococcal Polysaccharide PPV23 08/25/2022,09/2014 ZOSTER Recombinant 03/24/2023,08/25/2022 Surgical History Surgery Date Site/Laterality Comments CENTRAL LINE PLACEMENT > 5 YEARS 12/27/2015 N/A KIDNEY TRANSPLANT 12/06/2015 - 01/04/2016 FL UPPER GI AIR CONTRAST W KUB 06/07/2024 Left ESOPHAGEAL DILATION 09/06/2022 - 10/06/2022 Medical History Medical History Date Comments Cancer (CMS/HCC) (HCC) Hypercalcemia 12/06/2020 Rotator cuff tear 11/2022 pt states both sides Hyperlipidemia Polycystic kidney disease History of hemodialysis Type 2 diabetes mellitus (HCC) Spondylolisthesis of lumbar region Kidney transplant recipient PONV (postoperative nausea and vomiting) Acquired aneurysm of cerebral artery Family History Medical History Relation Name Comments Polycystic kidney disease Daughter 1 Po lycystic Kidney - Father, two brothers, two daughters, one grandson (Added by TW Conv) Polycystic kidney disease Daughter 2 Po lycystic Kidney - Father, two brothers, two daughters, one grandson (Added by TW Conv) Polycystic kidney disease Father Po lycystic Kidney - Father, two brothers, two daughters, one grandson (Added by TW Conv)/Polycystic Kidney - Father, two brothers, two daughters, one grandson (Added by TW Conv) No Known Problems Mother Polycystic kidney disease Other 1 Po lycystic Kidney - Father, two brothers, two daughters, one grandson (Added by TW Conv) Polycystic kidney disease Other 2 Po lycystic Kidney - Father, two brothers, two daughters, one grandson (Added by TW Conv) Polycystic kidney disease Other 3 Po lycystic Kidney - Father, two brothers, two daughters, one grandson (Added by TW Conv) Polycystic kidney disease Other 4 Po lycystic Kidney - Father, two brothers, two daughters, one grandson (Added by TW Conv) Breast cancer Sister Adenocarcinoma of breast - (Added by TW Conv) Relation Name Status Comments Daughter 1 Daughter 2 Father Mother Other 1 Other 2 Other 3 Other 4 Sister Social History Tobacco Use Types Packs/Day Years Used Date Smoking Tobacco: Never Smokeless Tobacco: Never Tobacco Cessation:Counseling Given: No [facility] Utilities Answer Date Recorded In the past 12 months has [employer], gas, oil, or water [employer] threatened to shut off services in your [...] week 10/25/2024 How often do you attend chur or rastafari services? More than 4 times per year 10/25/2024 Do you belong to any clubs o r organizations such as religious groups, unions, fraternal or athletic groups, or [...] any time in the past 12 m [facility], were you homeless or living in a halfway (including now)? No 10/25/2024 Personal Safety Answer Date Recorded Have you ever been in or are you currently in a harmful physical or emotional relationship or is someone making you feel afraid or unsafe? Denies 10/19/2024 Comments Unknown Sex and Gender Information Value Date Recorded Sex Assigned at Not on file Legal Sex Female 4:18 AM TERADATA ARCHITECT Gender Identity Female 07/10/2019 11:32 AM TERADATA ARCHITECT Sexual Orientation Not on file Obstetrics History Last Filed Vital Signs Vital Sign Reading Time Taken Comments Blood Pressure 100/54 10/27/2024 11:20 AM TERADATA ARCHITECT Pulse 80 10/27/2024 11:20 AM TERADATA ARCHITECT Temperature 36.6 C (97.8 F) 10/27/2024 11:20 AM TERADATA ARCHITECT Respiratory Rate 16 10/27/2024 11:20 AM TERADATA ARCHITECT Oxygen Saturation 98% 10/27/2024 11:20 AM TERADATA ARCHITECT Inhaled Oxygen Concentration - - Weight 91 kg (200 lb 9.9 oz) 10/19/2024 8:00 PM TERADATA ARCHITECT Height 175.3 cm (5' 9 ) 10/19/2024 8:00 PM TERADATA ARCHITECT Body Mass Index 29.63 10/19/2024 8:00 PM TERADATA ARCHITECT Plan of Treatment Health Maintenance Due Date Last Done Comments Albumin Creatinine Ratio, Urine 1963 Cervical Cancer Screening 1963 Colon Cancer Screening-Colonoscopy 1963 Dilated Eye Exam 1963 Hepatitis B Screening 1981 Regular Well Visit/Exam 18-64 1981 Foot Exam 10/27/2020 10/27/2019, 08/07, 06/03/2018 Pneumococcal vaccine <65 (3 of 3 - PCV) 08/25/2023 08/25/2022, 07/07/2015 Covid-19 Vaccine ( - 2023-2 5 season) 2024 2022, 06/11/2021, 09/28/2020, Additional history exists Hemoglobin A1C 04/02/2025 10/03/2024, 03/07, 08/11/2022, Additional history exists Breast Cancer Screening-Mammogram 04/26/2025 04/26/2024, 04/26/2024, 04/20/2023, Additional history exists Depression Screening 08/17/2025 08/17/2024 Lipid Panel 10/19/2025 10/19/2024, 06/07, 03/15/2024, Additional history exists eGFR 10/27/2025 10/27/2024, 10/08, 10/25/2024, Additional history exists DTaP/Tdap/Td Vaccine (2 - Td or Tdap) 03/18/2034 03/18/2024 Hepatitis C Screening Completed 12/24/2015 , 10/04/2015, 05/26/2015, Additional history exists Zoster Vaccine Completed 03/24/2023, 08/25/2022 Influenza Vaccine Completed 06/06/2024, , 07/07/2022, Additional history exists Medical Devices Implanted Type Area Armorer Technician Device Identifier Shelf Expiration Date Model / Serial / Lot Fistula Left: Arm Si-Bone Implant Arthrodesis 90x9.5mm Ifuse [place] Grnt Sacroiliac [id number] - [id number] - [id number] Implanted:Qty: 1 on 10/19/2024 by Inderjit Stephen MD at [facility] N/A: Spine Thoracic Si-Bone 06/14/2034 [id number] / [id number] / Medicrea [place] Lp 6.5mm 50mm 2 Lead Spine Pedicle Screw Bone Nonsterile [id number] - [id number] Implanted:Qty: 6 on 10/19/2024 by Inderjit Stephen MD at [facility] N/A: Spine Thoracic Medicrea Usa [id number] / / Medicrea [place]sa Screw Spinal Pedicle Dual Lead Solid Pass Lp 6.5x55mm Titanium [id number] - [id number] Implanted:Qty: 3 on 10/19/2024 by Inderjit Stephen MD at [facility] N/A: Spine Thoracic Medicrea Usa [id number] / / Medicrea [place] Lp 6.5mm 45mm 2 Lead Spine Pedicle Screw Bone Nonsterile [id number] - [id number] Implanted:Qty: 1 on 10/19/2024 by Inderjit Stephen MD at [facility] N/A: Spine Thoracic Medicrea Usa [id number] / / Medicrea [place] Lp Break Away Nut Spinal Nonsterile [id number] - [id number] Implanted:Qty: 10 on 10/19/2024 by Inderjit Stephen MD at [facility] N/A: Spine Thoracic Medicrea Usa [id number] / / Medicrea [place] Lp 6mm Standard Clamp Spinal Nonsterile Latex Free [id number] - [id number] Implanted:Qty: 5 on 10/19/2024 by Inderjit Stephen MD at [facility] N/A: Spine Thoracic Medicrea [place]sa [id number] / / Medicrea [place] Lp 6mm Offset Spine Connector Abiel Nonsterile Latex Free [id number] - [id number] Implanted:Qty: 3 on 10/19/2024 by Inderjit Stephen MD at [facility] N/A: Spine Thoracic Medicrea [place]sa [id number] / / Medicrea [place] Lp 6mm Spine Angulate Connector Abiel Nonsterile Latex Free [id number] - [id number] Implanted:Qty: 2 on 10/19/2024 by Inderjit Stephen MD at [facility] N/A: Spine Thoracic Medicrea [place] [id number] / / Medtronic Inc Unid Exp [id number] 6.0 Ti Abiel 4up L [id number] - [id number] Implanted:Qty: 2 on 10/19/2024 by Inderjit Stephen MD at [facility] N/A: Spine Thoracic Medtronic Inc 01/15/2025 [id number] / / Medtronic Inc Bmp Infuse Sm [id number] - [id number] Implanted:Qty: 1 on 10/19/2024 by Inderjit Stephen MD at [facility] N/A: Spine Thoracic Medtronic Inc [id number] 10/07/2025 [id number] / / [id number] Medtronic Inc Kit Graft Bone Sponge Xlg Infuse 8cc Granules [id number] - [id number] Implanted:Qty: 1 on 10/19/2024 by Inderjit Stephen MD at [facility] N/A: Spine Thoracic Medtronic Inc [id number] 01/04/2026 [id number] / / [id number] Medtronic Inc Set Implant Graft Bone Filler Accelerate [place] 9cc Dbf [id number] - [id number] - [id number] Implanted:Qty: 1 on 10/19/2024 by Inderjit Stephen MD at [facility] N/A: Spine Lumbar Medtronic Inc [id number] 07/04/2026 [id number] / [id number] / Medtronic Inc Set Implant Graft Bone Filler Accelerate [place] 9cc Dbf [id number] - [id number] - [id number] Implanted:Qty: 1 on 10/19/2024 by Inderjit Stephen MD at [facility] N/A: Spine Lumbar Medtronic Inc [id number] 07/04/2026 [id number] / [id number] / Medtronic Inc Set Implant Graft Bone Filler Accelerate [place] 9cc Dbf [id number] - [id number] - [id number] Implanted:Qty: 1 on 10/19/2024 by Inderjit Stephen MD at [facility] N/A: Spine Lumbar Medtronic Inc [id number] 07/04/2026 [id number] / [id number] / Medtronic Inc Set Implant Graft Bone Filler Accelerate [place] 9cc Dbf [id number] - [id number] - [id number] Implanted:Qty: 1 on 10/19/2024 by Inderjit Stephen MD at [facility] N/A: Spine Lumbar Medtronic Inc [id number] 07/04/2026 [id number] / [id number] / Allosource Crushed Chip Frozen Graft 60ml Bone Cancellous [id number] - [id number] Implanted:Qty: 1 on 10/19/2024 by Inderjit Stephen MD at [facility] N/A: Spine Thoracic Allosource 07/18/2029 [id number] / / [id number] Si-Bone Implant Arthrodesis 90x9.5mm Ifuse [employer] Sacroiliac [id number] - [id number] - [id number] Implanted:Qty: 1 on 10/19/2024 by Inderjit Stephen MD at [facility] System N/A: Spine Thoracic Si-Bone 06/26/2034 [id number] / [id number] / Procedures Procedure Name Priority Date/Time Associated Diagnosis Comments POCT GLUCOSE DEVICE Routine 10/27/2024 12:08 PM TERADATA ARCHITECT POCT GLUCOSE DEVICE Routine 10/27/2024 8 :09 AM TERADATA ARCHITECT EGFR Routine 10/27/2024 6:29 AM TERADATA ARCHITECT TACROLIMUS LEVEL, TROUGH Routine 10/27/2024 6:29 AM TERADATA ARCHITECT RENAL FUNCTION PANEL Routine 10/27/2024 6:29 AM TERADATA ARCHITECT PHOSPHORUS Routine 10/26/2024 9:55 PM TERADATA ARCHITECT MAGNESIUM Routine 10/26/2024 9:55 PM TERADATA ARCHITECT POCT GLUCOSE DEVICE Routine 10/26/2024 9 :27 PM TERADATA ARCHITECT POCT GLUCOSE DEVICE Routine 10/26/2024 8 :33 PM TERADATA ARCHITECT POCT GLUCOSE DEVICE Routine 10/26/2024 5 :22 PM TERADATA ARCHITECT POCT GLUCOSE DEVICE Routine 10/26/2024 11:49 AM TERADATA ARCHITECT POCT GLUCOSE DEVICE Routine 10/26/2024 8 :09 AM TERADATA ARCHITECT EGFR Routine 10/26/2024 6:38 AM TERADATA ARCHITECT TACROLIMUS LEVEL, TROUGH Routine 10/26/2024 6:38 AM TERADATA ARCHITECT RENAL FUNCTION PANEL Routine 10/26/2024 6:38 AM TERADATA ARCHITECT POCT GLUCOSE DEVICE Routine 10/25/2024 9 :51 PM TERADATA ARCHITECT PHOSPHORUS Routine 10/25/2024 9:42 PM TERADATA ARCHITECT MAGNESIUM Routine 10/25/2024 9:42 PM TERADATA ARCHITECT POCT GLUCOSE DEVICE Routine 10/25/2024 8 :00 PM TERADATA ARCHITECT POCT GLUCOSE DEVICE Routine 10/25/2024 5 :28 PM TERADATA ARCHITECT POCT GLUCOSE DEVICE Routine 10/25/2024 11:06 AM TERADATA ARCHITECT XR SCOLIOSIS AP LAT IP Routine 10/25/2024 10:17 AM TERADATA ARCHITECT POCT GLUCOSE DEVICE Routine 10/25/2024 7 :18 AM TERADATA ARCHITECT EGFR Routine 10/25/2024 6:56 AM TERADATA ARCHITECT TACROLIMUS LEVEL, TROUGH Routine 10/25/2024 6:56 AM TERADATA ARCHITECT RENAL FUNCTION PANEL Routine 10/25/2024 6:56 AM TERADATA ARCHITECT PHOSPHORUS Routine 10/25/2024 1:21 AM TERADATA ARCHITECT MAGNESIUM Routine 10/25/2024 1:21 AM TERADATA ARCHITECT CBC WITHOUT DIFFERENTIAL Routine 10/25/2024 1:21 AM TERADATA ARCHITECT POCT GLUCOSE DEVICE Routine 10/24/2024 8 :06 PM TERADATA ARCHITECT POCT GLUCOSE DEVICE Routine 10/24/2024 6 :03 PM TERADATA ARCHITECT POCT GLUCOSE DEVICE Routine 10/24/2024 11:31 AM TERADATA ARCHITECT EGFR Routine 10/24/2024 5:03 AM TERADATA ARCHITECT RENAL FUNCTION PANEL Routine 10/24/2024 5:03 AM TERADATA ARCHITECT TACROLIMUS LEVEL, TROUGH Routine 10/24/2024 5:03 AM TERADATA ARCHITECT PHOSPHORUS Routine 10/23/2024 10:00 PM TERADATA ARCHITECT MAGNESIUM Routine 10/23/2024 10:00 PM TERADATA ARCHITECT CBC WITHOUT DIFFERENTIAL Routine 10/23/2024 10:00 PM TERADATA ARCHITECT POCT GLUCOSE DEVICE Routine 10/23/2024 8 :23 PM TERADATA ARCHITECT POCT GLUCOSE DEVICE Routine 10/23/2024 5 :48 PM TERADATA ARCHITECT POCT GLUCOSE DEVICE Routine 10/23/2024 4 :55 PM TERADATA ARCHITECT POCT GLUCOSE DEVICE Routine 10/23/2024 2 :06 PM TERADATA ARCHITECT POCT GLUCOSE DEVICE Routine 10/23/2024 12:39 PM TERADATA ARCHITECT POCT GLUCOSE DEVICE Routine 10/23/2024 12:03 PM TERADATA ARCHITECT POCT GLUCOSE DEVICE Routine 10/23/2024 7 :29 AM TERADATA ARCHITECT EGFR Routine 10/23/2024 5:24 AM TERADATA ARCHITECT RENAL FUNCTION PANEL Routine 10/23/2024 5:24 AM TERADATA ARCHITECT TACROLIMUS LEVEL, TROUGH Routine 10/23/2024 5:24 AM TERADATA ARCHITECT POCT GLUCOSE DEVICE Routine 10/23/2024 3 :24 AM TERADATA ARCHITECT POCT GLUCOSE DEVICE Routine 10/23/2024 12:16 AM TERADATA ARCHITECT PHOSPHORUS Routine 10/22/2024 8:39 PM TERADATA ARCHITECT MAGNESIUM Routine 10/22/2024 8:39 PM TERADATA ARCHITECT CBC WITHOUT DIFFERENTIAL Routine 10/22/2024 8:39 PM TERADATA ARCHITECT TACROLIMUS LEVEL, TROUGH Routine 10/22/2024 8:35 PM TERADATA ARCHITECT POCT GLUCOSE DEVICE Routine 10/22/2024 8 :25 PM TERADATA ARCHITECT POCT GLUCOSE DEVICE Routine 10/22/2024 4 :24 PM TERADATA ARCHITECT EGFR STAT 10/22/2024 1:09 PM TERADATA ARCHITECT TACROLIMUS LEVEL, TROUGH STAT 10/22/2024 1:09 PM TERADATA ARCHITECT RENAL FUNCTION PANEL STAT 10/22/2024 1:09 PM TERADATA ARCHITECT POCT GLUCOSE DEVICE Routine 10/22/2024 12:12 PM TERADATA ARCHITECT POCT GLUCOSE DEVICE Routine 10/22/2024 8 :00 AM TERADATA ARCHITECT EGFR Routine 10/22/2024 5:52 AM TERADATA ARCHITECT PHOSPHORUS Routine 10/22/2024 5:52 AM TERADATA ARCHITECT TACROLIMUS LEVEL, TROUGH Routine 10/22/2024 5:52 AM TERADATA ARCHITECT TACROLIMUS LEVEL, RANDOM Routine 10/22/2024 5:52 AM TERADATA ARCHITECT COMPREHENSIVE METABOLIC PANEL Routine 10/22/2024 5:52 AM TERADATA ARCHITECT POCT GLUCOSE DEVICE Routine 10/22/2024 3 :49 AM TERADATA ARCHITECT POCT GLUCOSE DEVICE Routine 10/21/2024 11:38 PM TERADATA ARCHITECT POCT GLUCOSE DEVICE Routine 10/21/2024 8 :23 PM TERADATA ARCHITECT EGFR Timed 10/21/2024 4:35 PM TERADATA ARCHITECT TACROLIMUS LEVEL, RANDOM Timed 10/21/2024 4:35 PM TERADATA ARCHITECT COMPREHENSIVE METABOLIC PANEL Timed 10/21/2024 4:35 PM TERADATA ARCHITECT PHOSPHORUS Routine 10/21/2024 4:35 PM TERADATA ARCHITECT MAGNESIUM Routine 10/21/2024 4:35 PM TERADATA ARCHITECT CBC WITHOUT DIFFERENTIAL Routine 10/21/2024 4:35 PM TERADATA ARCHITECT POCT GLUCOSE DEVICE Routine 10/21/2024 4 :15 PM TERADATA ARCHITECT POCT GLUCOSE DEVICE Routine 10/21/2024 11:39 AM TERADATA ARCHITECT POCT GLUCOSE DEVICE Routine 10/21/2024 7 :48 AM TERADATA ARCHITECT EGFR Routine 10/21/2024 4:35 AM TERADATA ARCHITECT TACROLIMUS LEVEL, RANDOM Routine 10/21/2024 4:35 AM TERADATA ARCHITECT PHOSPHORUS Routine 10/21/2024 4:35 AM TERADATA ARCHITECT MAGNESIUM Routine 10/21/2024 4:35 AM TERADATA ARCHITECT BASIC METABOLIC PANEL Routine 10/21/2024 4:35 AM TERADATA ARCHITECT CBC WITHOUT DIFFERENTIAL Routine 10/21/2024 4:35 AM TERADATA ARCHITECT POCT GLUCOSE DEVICE Routine 10/21/2024 4 :13 AM TERADATA ARCHITECT POCT GLUCOSE DEVICE Routine 10/20/2024 11:54 PM TERADATA ARCHITECT POCT GLUCOSE DEVICE Routine 10/20/2024 8 :14 PM TERADATA ARCHITECT POCT GLUCOSE DEVICE Routine 10/20/2024 3 :24 PM TERADATA ARCHITECT POCT GLUCOSE DEVICE Routine 10/20/2024 11:50 AM TERADATA ARCHITECT POCT GLUCOSE DEVICE Routine 10/20/2024 7 :38 AM TERADATA ARCHITECT TACROLIMUS LEVEL, RANDOM Routine 10/20/2024 4:37 AM TERADATA ARCHITECT POCT GLUCOSE DEVICE Routine 10/20/2024 3 :51 AM TERADATA ARCHITECT POCT GLUCOSE DEVICE Routine 10/19/2024 11:41 PM TERADATA ARCHITECT ECG 12-LEAD STAT 10/19/2024 8:45 PM TERADATA ARCHITECT URINALYSIS, MICROSCOPIC ONLY STAT 10/19/2024 8:31 PM TERADATA ARCHITECT URINE CULTURE STAT 10/19/2024 8:31 PM TERADATA ARCHITECT URINALYSIS AND REFLEX TO MICROSCOPIC AND CULTURE STAT 10/19/2024 8:31 PM TERADATA ARCHITECT POCT GLUCOSE DEVICE Routine 10/19/2024 8 :29 PM TERADATA ARCHITECT PROTIME-INR STAT 10/19/2024 8:26 PM TERADATA ARCHITECT APTT STAT 10/19/2024 8:26 PM TERADATA ARCHITECT PHOSPHORUS Routine 10/19/2024 8:26 PM TERADATA ARCHITECT MAGNESIUM Routine 10/19/2024 8:26 PM TERADATA ARCHITECT XR CHEST 1 VIEW ED Urgent/IP Urgent 10/19/2024 7:58 PM TERADATA ARCHITECT CREATINE KINASE (CK), TOTAL STAT 10/19/2024 6:56 PM TERADATA ARCHITECT LACTATE STAT 10/19/2024 6:56 PM TERADATA ARCHITECT LIPID PANEL STAT 10/19/2024 6:04 PM TERADATA ARCHITECT HEPATIC FUNCTION PANEL STAT 10/19/2024 6:04 PM TERADATA ARCHITECT MAGNESIUM STAT 10/19/2024 6:04 PM TERADATA ARCHITECT PHOSPHORUS STAT 10/19/2024 6:04 PM TERADATA ARCHITECT EGFR STAT 10/19/2024 6:04 PM TERADATA ARCHITECT DIFFERENTIAL AUTO STAT 10/19/2024 6:0 4 PM TERADATA ARCHITECT TROPONIN I HIGH-SENSITIVITY STAT 10/19/2024 6:04 PM TERADATA ARCHITECT BASIC METABOLIC PANEL STAT 10/19/2024 6:04 PM TERADATA ARCHITECT CBC WITH AUTO DIFFERENTIAL STAT 10/19/2024 6:04 PM TERADATA ARCHITECT BLOOD GAS, ARTERIAL STAT 10/19/2024 6 :04 PM TERADATA ARCHITECT POCT GLUCOSE DEVICE Routine 10/19/2024 6 :03 PM TERADATA ARCHITECT POC BLOOD GAS AND CHEMISTRIES, ARTERIAL Routine 10/19/2024 4:16 PM TERADATA ARCHITECT POCT GLUCOSE DEVICE Routine 10/19/2024 2 :32 PM TERADATA ARCHITECT EGFR STAT 10/19/2024 2:28 PM TERADATA ARCHITECT BASIC METABOLIC PANEL STAT 10/19/2024 2:28 PM TERADATA ARCHITECT CBC WITHOUT DIFFERENTIAL STAT 10/19/2024 2:28 PM TERADATA ARCHITECT XR SPINE LUMBAR 2 OR 3 VIEWS IP Routine 10/19/2024 1:13 PM TERADATA ARCHITECT FL FLUOROSCOPY < 1 HOUR IP Routine 10/19/2024 1:12 PM TERADATA ARCHITECT POC BLOOD GAS AND CHEMISTRIES, ARTERIAL Routine 10/19/2024 12:39 PM TERADATA ARCHITECT POC BLOOD GAS AND CHEMISTRIES, ARTERIAL Routine 10/19/2024 11:33 AM TERADATA ARCHITECT POC BLOOD GAS AND CHEMISTRIES, ARTERIAL Routine 10/19/2024 10:22 AM TERADATA ARCHITECT MD AN PROCEDURE PLACEHOLDER Routine 10/19/2024 9:52 AM TERADATA ARCHITECT MD AN PROCEDURE PLACEHOLDER Routine 10/19/2024 9:51 AM TERADATA ARCHITECT MD AN PROCEDURE PLACEHOLDER Routine 10/19/2024 9:46 AM TERADATA ARCHITECT MD AN ELECTIVE ENDOTRACHEAL AIRWAY Routine 10/19/2024 9:46 AM TERADATA ARCHITECT POC BLOOD GAS AND CHEMISTRIES, ARTERIAL Routine 10/19/2024 9:11 AM TERADATA ARCHITECT SPINAL CORD MONITORING 10/19/2024 7:30 AM TERADATA ARCHITECT Spondylolisthesis of lumbar region Lumbar radiculopathy Case Notes 08/22@1337- Per Zenobia via case msg cell saver is needed / Per Dilma via phone call cell saver ID- [id number]- DMF 08/[id number]- Per audit case msg sent to [facility] to verify if cell saver needed or not for case- DMF Special Needs Medtronic Solera,, morselized allograft, local autograft, BMP 1 Large, SCM, Pro-Pampa Table, c-arm, GW Tongs, 15 lbs traction, microscope, 1 unit bloodcell saver ID- [id number] BONE GRAFT WITH BONE MORPHOGENIC PROTEIN 10/19/2024 7:30 AM TERADATA ARCHITECT Spondylolisthesis of lumbar region Lumbar radiculopathy Case Notes 08/22@1337- Per Zenobia via case msg cell saver is needed / Per Dilma via phone call cell saver ID- [id number]- DMF 08/[id number]- Per audit case msg sent to [facility] to verify if cell saver needed or not for case- DMF Special Needs Medtronic Solera,, morselized allograft, local autograft, BMP 1 Large, SCM, Pro-[place]ampa Table, c-arm, GW Tongs, 15 lbs traction, microscope, 1 unit bloodcell saver ID- [id number] FUSION DECOMPRESSION LAMINECTOMY WITH INSTRUMENTATION - MEDTRONIC SOLERA 10/19/2024 7:30 AM TERADATA ARCHITECT Spondylolisthesis of lumbar region Lumbar radiculopathy Case Notes 08/22@1337- Per Zenobia via case msg cell saver is needed / Per Dilma via phone call cell saver ID- [id number]- [facility] 08/22@0843- Per audit case msg sent to [facility] to verify if cell saver needed or not for case- DMF Special Needs Medtronic Solera,, morselized allograft, local autograft, BMP 1 Large, SCM, Pro-[place]ampa Table, c-arm, GW Tongs, 15 lbs traction, microscope, 1 unit bloodcell saver ID- [id number] POCT GLUCOSE DEVICE Routine 10/19/2024 6 :53 AM TERADATA ARCHITECT TYPE AND SCREEN STAT 10/19/2024 6:52 AM TERADATA ARCHITECT EGFR Routine 10/03/2024 2:08 PM TERADATA ARCHITECT Spondylolisthesis of lumbar region Lumbar radiculopathy URINALYSIS, MICROSCOPIC ONLY Routine 10/03/2024 2:08 PM TERADATA ARCHITECT Spondylolisthesis of lumbar region Lumbar radiculopathy DIFFERENTIAL AUTO Routine 10/03/2024 2:0 8 PM TERADATA ARCHITECT Spondylolisthesis of lumbar region Lumbar radiculopathy NICOTINE METABOLITE SCREEN, URINE Routine 10/03/2024 2:08 PM TERADATA ARCHITECT Spondylolisthesis of lumbar region Lumbar radiculopathy ERYTHROCYTE SEDIMENTATION RATE Routine 10/03/2024 2:08 PM TERADATA ARCHITECT Spondylolisthesis of lumbar region Lumbar radiculopathy VITAMIN D 25 HYDROXY Routine 10/03/2024 2:08 PM TERADATA ARCHITECT Spondylolisthesis of lumbar region Lumbar radiculopathy TYPE AND SCREEN Routine 10/03/2024 2:08 PM TERADATA ARCHITECT Spondylolisthesis of lumbar region Lumbar radiculopathy CRP (ACUTE PHASE) Routine 10/03/2024 2:0 8 PM TERADATA ARCHITECT Spondylolisthesis of lumbar region Lumbar radiculopathy CBC WITH AUTO DIFFERENTIAL Routine 10/03/2024 2:08 PM TERADATA ARCHITECT Spondylolisthesis of lumbar region Lumbar radiculopathy COMPREHENSIVE METABOLIC PANEL Routine 10/03/2024 2:08 PM TERADATA ARCHITECT Spondylolisthesis of lumbar region Lumbar radiculopathy URINE CULTURE Routine 10/03/2024 2:08 PM TERADATA ARCHITECT URINALYSIS AND REFLEX TO MICROSCOPIC AND CULTURE Routine 10/03/2024 2:08 PM TERADATA ARCHITECT Spondylolisthesis of lumbar region Lumbar radiculopathy POCT HEMOGLOBIN A1C Routine 10/03/2024 9 :32 AM TERADATA ARCHITECT Type 2 diabetes mellitus with diabetic neuropathy, with long-term current use of insulin (HCC) POCT GLUCOSE 36578 Routine 10/03/2024 9: 32 AM TERADATA ARCHITECT Type 2 diabetes mellitus with diabetic neuropathy, with long-term current use of insulin (HCC) SERUM HEPATITIS C AB Routine 12/24/2015 6:54 AM CDT from Last 3 Months or Most Recently Relevant to Health Maintenance Results * POCT glucose (10/27/2024 12:08 PM TERADATA ARCHITECT) Glucose, POC 126 70 - 199 mg/dL Blood 10/27/2024 12:0 8 PM TERADATA ARCHITECT 10/27/2024 12:08 PM TERADATA ARCHITECT Inderjit Stephen MD LAB POCT ORDERABLES - DEVICE Final Result Performing Organization Address [facility] Co de Phone Number [facility] Department [place] [address] * POCT glucose (10/27/2024 8:09 AM TERADATA ARCHITECT) [facility] Glucose, POC 111 70 - 199 mg/dL Blood 10/27/2024 8:09 AM TERADATA ARCHITECT 10/27/2024 8:09 AM TERADATA ARCHITECT Inderjit Stephen MD LAB POCT ORDERABLES - DEVICE Final Result Performing Organization Address City/[facility] Co de Phone Number [facility] [place] [address] * (ABNORMAL) eGFR (10/27/2024 6:29 AM TERADATA ARCHITECT) eGFR 44(L) >=60 mL/min/1. 73 m2 Comment: [...] data was last reviewed 2021. Blood 10/27/2024 6:29 AM TERADATA ARCHITECT 10/27/2024 6:40 AM TERADATA ARCHITECT Puja Bello HUMAN PERFORMANCE TECHNOLOGIST LAB BLOOD ORDERABLES Sondra l Result Performing Organization Address [facility] Co de Phone Number [facility] [place] [address] * Tacrolimus level trough (10/27/2024 6:29 AM TERADATA ARCHITECT) [facility] Signature Tacrolimus trough 3.7 ng/mL Comment: Interpretive Data Testing performed by liquid chromatography-tandem mass spectrometry. Therapeutic concentrations vary depending on type of transplanted organ and time elapsed since transplant. Typical trough concentrations range from 5-15 ng/mL. This test was developed and its performance characteristics determined by the [facility] consistent with CLIA requirements. This test has not been cleared or approved by the [place] Food and Drug administration. Current interpretive data last reviewed 2019. Blood 10/27/2024 6:29 AM TERADATA ARCHITECT 10/27/2024 6:40 AM TERADATA ARCHITECT Herrera Hunter HUMAN PERFORMANCE TECHNOLOGIST LAB BLOOD ORDERABLES Final R esult Performing Organization Address City/[facility]/ZIP Co de Phone Number [facility] Department [place] [address] * (ABNORMAL) Renal function panel (10/27/2024 6:29 AM TERADATA ARCHITECT) Sodium 142 135 - 145 mmol/L Potassium, pl 4.4 3.3 - 4.9 mmol/L [facility] Chloride 104 97 - 110 mmol/L [facility] CO2 32 22 - 32 mmol/L [facility] Anion gap 6 2 - 15 mmol/L [facility] BUN 25 6 - 25 mg/dL [facility] Creatinine 1.36(H) 0.60 - 1.10 mg/dL [facility] Glucose 112 70 - 199 mg/dL [facility] Comment: Interpretive Data Fasting glucose >/= [...] 2022. Calcium 10.1 8.5 - 10.3 mg/dL [facility] Phosphorus, pl 3.4 2.3 - 4.5 mg/dL [facility] Albumin 3.3(L) 3.5 - 5.0 g/dL [facility] Blood 10/27/2024 6:29 AM TERADATA ARCHITECT 10/27/2024 6:40 AM TERADATA ARCHITECT Puja Bello NP LAB BLOOD ORDERABLES Sondra l Result [facility] Department [place] [address] * Phosphorus (10/26/2024 9:55 PM TERADATA ARCHITECT) Phosphorus, pl 2.4 2.3 - 4.5 mg/dL Blood 10/26/2024 9:55 PM TERADATA ARCHITECT 10/26/2024 11:35 PM TERADATA ARCHITECT Pippa Neville HUMAN PERFORMANCE TECHNOLOGIST LAB BLOOD ORDERABLES Final Result Performing Organization Address [facility] Co de Phone Number [facility] [place] [address] * Magnesium (10/26/2024 9:55 PM TERADATA ARCHITECT) Magnesium 2.4 1.4 - 2.5 mg/dL Blood 10/26/2024 9:55 PM TERADATA ARCHITECT 10/26/2024 11:35 PM TERADATA ARCHITECT Pippa Taina Neville HUMAN PERFORMANCE TECHNOLOGIST LAB BLOOD ORDERABLES Final Result Performing Organization Address [facility] de Phone Number [facility] [place] [address] * POCT glucose (10/26/2024 9:27 PM TERADATA ARCHITECT) Glucose, POC 163 70 - 199 mg/dL Blood 10/26/2024 9:27 PM TERADATA ARCHITECT 10/26/2024 9:27 PM TERADATA ARCHITECT Inderjit Stephen MD LAB POCT ORDERABLES - DEVICE Final Result Performing Organization Address [facility] de Phone Number [facility] [place] [address] * (ABNORMAL) POCT glucose (10/26/2024 8:33 PM TERADATA ARCHITECT) Glucose, POC 256(H) 70 - 199 mg/dL Blood 10/26/2024 8:33 PM TERADATA ARCHITECT 10/26/2024 8:33 PM TERADATA ARCHITECT Inderjit Stephen MD LAB POCT ORDERABLES - DEVICE Final Result Performing Organization Address [facility] Co de Phone Number [facility] [place] [address] * POCT glucose (10/26/2024 5:22 PM TERADATA ARCHITECT) Glucose, POC 179 70 - 199 mg/dL Blood 10/26/2024 5:22 PM TERADATA ARCHITECT 10/26/2024 5:22 PM TERADATA ARCHITECT Inderjit Stephen MD LAB POCT ORDERABLES - DEVICE Final Result Performing Organization Address City/[facility] [place] [address] * POCT glucose (10/26/2024 11:49 AM TERADATA ARCHITECT) [facility] Signature Glucose, POC 171 70 - 199 mg/dL Blood 10/26/2024 11:4 9 AM TERADATA ARCHITECT 10/26/2024 11:49 AM TERADATA ARCHITECT us Inderjit Stephen MD LAB POCT ORDERABLES - DEVICE Final Result Performing Organization Address [facility] Co de Phone Number [facility] [place] [address] * POCT glucose (10/26/2024 8:09 AM TERADATA ARCHITECT) [facility] Signature Glucose, POC 112 70 - 199 mg/dL Blood 10/26/2024 8:09 AM TERADATA ARCHITECT 10/26/2024 8:09 AM TERADATA ARCHITECT Inderjit Stephen MD LAB POCT ORDERABLES - DEVICE Final Result Performing Organization Address City/[facility] [place] [address] * (ABNORMAL) eGFR (10/26/2024 6:38 AM TERADATA ARCHITECT) [facility] eGFR 39(L) >=60 mL/min/1. 73 m2 Comment: [...] last reviewed 2021. Blood 10/26/2024 6:38 AM TERADATA ARCHITECT 10/26/2024 6:46 AM TERADATA ARCHITECT us Puja Blelo NP LAB BLOOD ORDERABLES Sondra l Result [facility] Department [place] [address] * Tacrolimus level trough (10/26/2024 6:38 AM TERADATA ARCHITECT) [facility] Tacrolimus trough 3.4 ng/mL Comment: Interpretive Data Testing performed by liquid chromatography-tandem mass spectrometry. Therapeutic concentrations vary depending on type of transplanted organ and time elapsed since transplant. Typical trough concentrations range from 5-15 ng/mL. This test was developed and its performance characteristics determined by the [facility] consistent with CLIA requirements. This test has not been cleared or approved by the [place] Food and Drug administration. Current interpretive data last reviewed 2019. Blood 10/26/2024 6:38 AM TERADATA ARCHITECT 10/26/2024 6:46 AM TERADATA ARCHITECT us Herrera Hunter HUMAN PERFORMANCE TECHNOLOGIST LAB BLOOD ORDERABLES Final R esult [facility] Department [place] [address] * (ABNORMAL) Renal function panel (10/26/2024 6:38 AM TERADATA ARCHITECT) Sodium 142 135 - 145 mmol/L Potassium, pl 4.9 3.3 - 4.9 mmol/L [facility] Chloride 105 97 - 110 mmol/L [facility] CO2 33(H) 22 - 32 mmol/L [facility] Anion gap 4 2 - 15 mmol/L [facility] BUN 30(H) 6 - 25 mg/dL [facility] Creatinine 1.52(H) 0.60 - 1.10 mg/dL [facility] Glucose 115 70 - 199 mg/dL [facility] Comment: Interpretive Data Fasting glucose >/= [...] 2022. Calcium 10.0 8.5 - 10.3 mg/dL [facility] Phosphorus, pl 2.9 2.3 - 4.5 mg/dL [facility] Albumin 3.2(L) 3.5 - 5.0 g/dL [facility] Blood 10/26/2024 6:38 AM TERADATA ARCHITECT 10/26/2024 6:46 AM TERADATA ARCHITECT Puja Bello NP LAB BLOOD ORDERABLES Sondra l Result [facility] Department [place] [address] * POCT glucose (10/25/2024 9:51 PM TERADATA ARCHITECT) [facility] Glucose, POC 168 70 - 199 mg/dL Blood 10/25/2024 9:51 PM TERADATA ARCHITECT 10/25/2024 9:51 PM TERADATA ARCHITECT Inderjit Stephen MD LAB POCT ORDERABLES - DEVICE Final Result Performing Organization Address [facility] Co de Phone Number [facility] [place] [address] * Phosphorus (10/25/2024 9:42 PM TERADATA ARCHITECT) [facility] Phosphorus, pl 2.4 2.3 - 4.5 mg/dL Blood 10/25/2024 9:42 PM TERADATA ARCHITECT 10/25/2024 9:57 PM TERADATA ARCHITECT Pippa Neville NP LAB BLOOD ORDERABLES Final Result Performing Organization Address [facility] de Phone Number [facility] [place] [address] * Magnesium (10/25/2024 9:42 PM TERADATA ARCHITECT) [facility] Magnesium 2.4 1.4 - 2.5 mg/dL Blood 10/25/2024 9:42 PM TERADATA ARCHITECT 10/25/2024 9:57 PM TERADATA ARCHITECT Pippa Neville NP LAB BLOOD ORDERABLES Final Result Performing Organization Address [facility] de Phone Number [facility] [place] [address] * (ABNORMAL) POCT glucose (10/25/2024 8:00 PM TERADATA ARCHITECT) [facility] Glucose, POC 253(H) 70 - 199 mg/dL Blood 10/25/2024 8:00 PM TERADATA ARCHITECT 10/25/2024 8:00 PM TERADATA ARCHITECT Inderjit Stephen MD LAB POCT ORDERABLES - DEVICE Final Result Performing Organization Address [facility] de Phone Number [facility] [address] * (ABNORMAL) POCT glucose (10/25/2024 5:28 PM TERADATA ARCHITECT) Glucose, POC 272(H) 70 - 199 mg/dL Blood 10/25/2024 5:28 PM TERADATA ARCHITECT 10/25/2024 5:28 PM TERADATA ARCHITECT Inderjit Stephen MD LAB POCT ORDERABLES - DEVICE Final Result Performing Organization Address [facility] de Phone Number [facility] [place] [address] * (ABNORMAL) POCT glucose (10/25/2024 11:06 AM TERADATA ARCHITECT) Glucose, POC 231(H) 70 - 199 mg/dL Blood 10/25/2024 11:0 6 AM TERADATA ARCHITECT 10/25/2024 11:06 AM TERADATA ARCHITECT Inderjit Stephen MD LAB POCT ORDERABLES - DEVICE Final Result Performing Organization Address [facility] de Phone Number [facility] [place] [address] * XR Scoliosis Ap and Lateral (10/25/2024 10:17 AM TERADATA ARCHITECT) Anatomical Region Laterality Modality Spine N/A Computed Radiogr aphy 10/25/2024 10:5 8 AM TERADATA ARCHITECT Impressions 10/25/2024 11:19 AM TERADATA ARCHITECT 1. Unchanged posterior decompression and instrumented fusion from L2 to the pelvis. Dictated by: Fantasma Cox M.D. The radiology attending physician has personally reviewed this study, and had reviewed and/or edited this written report and agrees with it. Electronically signed by: Merrill Ohara M.D. Narrative 10/25/2024 11:19 AM [facility] ARCHITECT EXAMINATION: XR SCOLIOSIS AP AND LATERAL HISTORY: [...] by: Merrill Ohara M.D. us Rayne Marcelino HUMAN PERFORMANCE TECHNOLOGIST IMG XR PROCEDURES F inal Result * POCT glucose (10/25/2024 7:18 AM TERADATA ARCHITECT) Glucose, POC 120 70 - 199 mg/dL Blood 10/25/2024 7:18 AM TERADATA ARCHITECT 10/25/2024 7:18 AM TERADATA ARCHITECT us Inderjit Stephen MD LAB POCT ORDERABLES - DEVICE Final Result [facility] Department [place] [address] * (ABNORMAL) eGFR (10/25/2024 6:56 AM TERADATA ARCHITECT) eGFR 40(L) >=60 mL/min/1. 73 m2 Comment: [...] last reviewed 2021. Blood 10/25/2024 6:56 AM TERADATA ARCHITECT 10/25/2024 7:02 AM TERADATA ARCHITECT Puja Bello NP LAB BLOOD ORDERABLES Sondra sosa Result [facility] Department [place] [address] * Tacrolimus level trough (10/25/2024 6:56 AM TERADATA ARCHITECT) Tacrolimus trough 4.1 ng/mL Comment: Interpretive Data Testing performed by liquid chromatography-tandem mass spectrometry. Therapeutic concentrations vary depending on type of transplanted organ and time elapsed since transplant. Typical trough concentrations range from 5-15 ng/mL. This test was developed and its performance characteristics determined by the [facility] consistent with CLIA requirements. This test has not been cleared or approved by the [place] Food and Drug administration. Current interpretive data last reviewed 2019. Blood 10/25/2024 6:56 AM TERADATA ARCHITECT 10/25/2024 7:02 AM TERADATA ARCHITECT us Herrera Hunter HUMAN PERFORMANCE TECHNOLOGIST LAB BLOOD ORDERABLES Final R esult [facility] [place] [address] * (ABNORMAL) Renal function panel (10/25/2024 6:56 AM TERADATA ARCHITECT) [facility] Sodium 138 135 - 145 mmol/L Potassium, pl 4.3 3.3 - 4.9 mmol/L [facility] Chloride 102 97 - 110 mmol/L [facility] CO2 29 22 - 32 mmol/L [facility] Anion gap 7 2 - 15 mmol/L [facility] BUN 26(H) 6 - 25 mg/dL [facility] Creatinine 1.48(H) 0.60 - 1.10 mg/dL [facility] Glucose 102 70 - 199 mg/dL [facility] Comment: Interpretive Data Fasting glucose >/= [...] 2022. Calcium 10.3 8.5 - 10.3 mg/dL [facility] Phosphorus, pl 2.5 2.3 - 4.5 mg/dL [facility] Albumin 3.3(L) 3.5 - 5.0 g/dL [facility] Blood 10/25/2024 6:56 AM TERADATA ARCHITECT 10/25/2024 7:02 AM TERADATA ARCHITECT us Puja Bello HUMAN PERFORMANCE TECHNOLOGIST LAB BLOOD ORDERABLES Sondra l Result [facility] Department [place] [address] * (ABNORMAL) CBC without differential (10/25/2024 1:21 AM TERADATA ARCHITECT) [facility] WBC 4.9 3.8 - 9.9 K/cumm Hgb 10.5(L) 11.9 - 15.5 g/dL [facility] Hct 33.1(L) 35.6 - 45.5 % [facility] Plt 138(L) 150 - 400 K/cumm [facility] MPV 10.4 9.1 - 12.3 fL [facility] RBC 3.64(L) 3.90 - 5.20 M/cumm [facility] MCV 90.9 81.3 - 96.4 fL [facility] MCH 28.8 27.1 - 33.3 pg [facility] MCHC 31.7(L) 32.3 - 35.7 g/dL [facility] RDW CV 14.4 11.1 - 14.9 % [facility] RDW SD 48.4(H) 35.7 - 48.1 fL [facility] NRBC abs 0.00 0.00 - 0.01 K/cumm [facility] Blood 10/25/2024 1:21 AM TERADATA ARCHITECT 10/25/2024 2:32 AM TERADATA ARCHITECT Wilda Bryant HUMAN PERFORMANCE TECHNOLOGIST LAB BLOOD ORDERABLES Sondra l Result Performing Organization Address City/[facility]/ZIP Co de Phone Number [facility] Department [place] [address] * Phosphorus (10/25/2024 1:21 AM TERADATA ARCHITECT) [facility] Phosphorus, pl 2.4 2.3 - 4.5 mg/dL Blood 10/25/2024 1:21 AM TERADATA ARCHITECT 10/25/2024 2:32 AM TERADATA ARCHITECT Pippa Neville HUMAN PERFORMANCE TECHNOLOGIST LAB BLOOD ORDERABLES Final Result [facility] [place] [address] * (ABNORMAL) Magnesium (10/25/2024 1:21 AM TERADATA ARCHITECT) Magnesium 2.9(H) 1.4 - 2.5 mg/dL Blood 10/25/2024 1:21 AM TERADATA ARCHITECT 10/25/2024 2:32 AM TERADATA ARCHITECT us Pippa Neville NP LAB BLOOD ORDERABLES Final Result Performing Organization Address [facility] [place] [address] * (ABNORMAL) POCT glucose (10/24/2024 8:06 PM TERADATA ARCHITECT) Glucose, POC 270(H) 70 - 199 mg/dL Blood 10/24/2024 8:06 PM TERADATA ARCHITECT 10/24/2024 8:06 PM TERADATA ARCHITECT us Inderjit Stephen MD LAB POCT ORDERABLES - DEVICE Final Result Performing Organization Address [facility] Co de Phone Number [facility] [place] [address] * (ABNORMAL) POCT glucose (10/24/2024 6:03 PM TERADATA ARCHITECT) Glucose, POC 251(H) 70 - 199 mg/dL Blood 10/24/2024 6:03 PM TERADATA ARCHITECT 10/24/2024 6:03 PM TERADATA ARCHITECT Inderjit Stephen MD LAB POCT ORDERABLES - DEVICE Final Result Performing Organization Address City/[facility] Co de Phone Number [facility] [place] [address] * POCT glucose (10/24/2024 11:31 AM TERADATA ARCHITECT) Pathologist [facility] Glucose, POC 168 70 - 199 mg/dL Blood 10/24/2024 11:3 1 AM TERADATA ARCHITECT 10/24/2024 11:31 AM TERADATA ARCHITECT Inderjit Stephen MD LAB POCT ORDERABLES - DEVICE Final Result Performing Organization Address City/[facility]/ZIP Co de Phone Number [facility] Department [place] [address] * (ABNORMAL) eGFR (10/24/2024 5:03 AM TERADATA ARCHITECT) [facility] eGFR 41(L) >=60 mL/min/1. 73 m2 Comment: [...] last reviewed 2021. Blood 10/24/2024 5:03 AM TERADATA ARCHITECT 10/24/2024 5:43 AM TERADATA ARCHITECT us Puja Bello NP LAB BLOOD ORDERABLES Sondra l Result Performing Organization Address City/[facility]/ZIP Co de Phone Number [facility] Department [place] [address] * Tacrolimus level trough (10/24/2024 5:03 AM TERADATA ARCHITECT) [facility] Tacrolimus trough 5.2 ng/mL Comment: Interpretive Data Testing performed by liquid chromatography-tandem mass spectrometry. Therapeutic concentrations vary depending on type of transplanted organ and time elapsed since transplant. Typical trough concentrations range from 5-15 ng/mL. This test was developed and its performance characteristics determined by the [facility] consistent with CLIA requirements. This test has not been cleared or approved by the [place] Food and Drug administration. Current interpretive data last reviewed 2019. Blood 10/24/2024 5:03 AM TERADATA ARCHITECT 10/24/2024 5:43 AM TERADATA ARCHITECT Puja Bello NP LAB BLOOD ORDERABLES Sondra sosa Result [facility] Department [place] [address] * (ABNORMAL) Renal function panel (10/24/2024 5:03 AM TERADATA ARCHITECT) [facility] Sodium 141 135 - 145 mmol/L Potassium, pl 4.1 3.3 - 4.9 mmol/L [facility] Chloride 104 97 - 110 mmol/L [facility] CO2 30 22 - 32 mmol/L [facility] Anion gap 7 2 - 15 mmol/L [facility] BUN 26(H) 6 - 25 mg/dL [facility] Creatinine 1.44(H) 0.60 - 1.10 mg/dL [facility] Glucose 108 70 - 199 mg/dL [facility] Comment: Interpretive Data Fasting glucose >/= [...] 2022. Calcium 9.7 8.5 - 10.3 mg/dL [facility] Phosphorus, pl 2.4 2.3 - 4.5 mg/dL [facility] Albumin 3.0(L) 3.5 - 5.0 g/dL [facility] Blood 10/24/2024 5:03 AM TERADATA ARCHITECT 10/24/2024 5:43 AM TERADATA ARCHITECT Puja Bello HUMAN PERFORMANCE TECHNOLOGIST LAB BLOOD ORDERABLES Sondra l Result [facility] Department [place] [address] * (ABNORMAL) CBC without differential (10/23/2024 10:00 PM TERADATA ARCHITECT) [facility] WBC 4.4 3.8 - 9.9 K/cumm Hgb 10.5(L) 11.9 - 15.5 g/dL [facility] Hct 32.7(L) 35.6 - 45.5 % [facility] Plt 112(L) 150 - 400 K/cumm [facility] MPV 10.7 9.1 - 12.3 fL [facility] RBC 3.62(L) 3.90 - 5.20 M/cumm [facility] MCV 90.3 81.3 - 96.4 fL [facility] MCH 29.0 27.1 - 33.3 pg [facility] MCHC 32.1(L) 32.3 - 35.7 g/dL [facility] RDW CV 14.4 11.1 - 14.9 % [facility] RDW SD 47.6 35.7 - 48.1 fL [facility] NRBC abs 0.00 0.00 - 0.01 K/cumm [facility] Blood 10/23/2024 10:0 0 PM TERADATA ARCHITECT 10/23/2024 11:01 PM TERADATA ARCHITECT Wilda Bryant HUMAN PERFORMANCE TECHNOLOGIST LAB BLOOD ORDERABLES Sondra l Result [facility] Department [place] [address] * Phosphorus (10/23/2024 10:00 PM TERADATA ARCHITECT) Phosphorus, pl 2.3 2.3 - 4.5 mg/dL Blood 10/23/2024 10:0 0 PM TERADATA ARCHITECT 10/23/2024 11:01 PM TERADATA ARCHITECT Pippa Neville HUMAN PERFORMANCE TECHNOLOGIST LAB BLOOD ORDERABLES Final Result Performing Organization Address City/[facility] Co de Phone Number [facility] [place] [address] * Magnesium (10/23/2024 10:00 PM TERADATA ARCHITECT) Pathologist [facility] Magnesium 2.4 1.4 - 2.5 mg/dL Blood 10/23/2024 10:0 0 PM TERADATA ARCHITECT 10/23/2024 11:01 PM TERADATA ARCHITECT Pippa Neville NP LAB BLOOD ORDERABLES Final Result Performing Organization Address [facility] de Phone Number [facility] [place] [address] * (ABNORMAL) POCT glucose (10/23/2024 8:23 PM TERADATA ARCHITECT) Glucose, POC 218(H) 70 - 199 mg/dL Blood 10/23/2024 8:23 PM TERADATA ARCHITECT 10/23/2024 8:23 PM TERADATA ARCHITECT Inderjit Stephen MD LAB POCT ORDERABLES - DEVICE Final Result Performing Organization Address [facility] de Phone Number [facility] [place] [address] * POCT glucose (10/23/2024 5:48 PM TERADATA ARCHITECT) Glucose, POC 191 70 - 199 mg/dL Blood 10/23/2024 5:48 PM TERADATA ARCHITECT 10/23/2024 5:48 PM TERADATA ARCHITECT Inderjit Stephen MD LAB POCT ORDERABLES - DEVICE Final Result Performing Organization Address [facility] de Phone Number [facility] [place] [address] * POCT glucose (10/23/2024 4:55 PM TERADATA ARCHITECT) Glucose, POC 187 70 - 199 mg/dL Blood 10/23/2024 4:55 PM TERADATA ARCHITECT 10/23/2024 4:55 PM TERADATA ARCHITECT Inderjit Stephen MD LAB POCT ORDERABLES - DEVICE Final Result Performing Organization Address [facility] de Phone Number [facility] [place] [address] * (ABNORMAL) POCT glucose (10/23/2024 2:06 PM TERADATA ARCHITECT) Glucose, POC 266(H) 70 - 199 mg/dL Blood 10/23/2024 2:06 PM TERADATA ARCHITECT 10/23/2024 2:06 PM TERADATA ARCHITECT Inderjit Stephen MD LAB POCT ORDERABLES - DEVICE Final Result Performing Organization Address [facility] de Phone Number [facility] [place] [address] * (ABNORMAL) POCT glucose (10/23/2024 12:39 PM TERADATA ARCHITECT) Glucose, POC 237(H) 70 - 199 mg/dL Blood 10/23/2024 12:3 9 PM TERADATA ARCHITECT 10/23/2024 12:39 PM TERADATA ARCHITECT Inderjit Stephen MD LAB POCT ORDERABLES - DEVICE Final Result Performing Organization Address [facility] Co de Phone Number [facility] [place] [address] * (ABNORMAL) POCT glucose (10/23/2024 12:03 PM TERADATA ARCHITECT) Glucose, POC 254(H) 70 - 199 mg/dL Blood 10/23/2024 12:0 3 PM TERADATA ARCHITECT 10/23/2024 12:03 PM TERADATA ARCHITECT Inderjit Stephen MD LAB POCT ORDERABLES - DEVICE Final Result Performing Organization Address [facility] Co de Phone Number [facility] [place] [address] * POCT glucose (10/23/2024 7:29 AM TERADATA ARCHITECT) Pathologist [facility] Glucose, POC 109 70 - 199 mg/dL Blood 10/23/2024 7:29 AM TERADATA ARCHITECT 10/23/2024 7:29 AM TERADATA ARCHITECT Inderjit Stephen MD LAB POCT ORDERABLES - DEVICE Final Result Performing Organization Address [facility] Co de Phone Number [facility] [place] [address] * (ABNORMAL) eGFR (10/23/2024 5:24 AM TERADATA ARCHITECT) eGFR 40(L) >=60 mL/min/1. 73 m2 Comment: [...] last reviewed 2021. Blood 10/23/2024 5:24 AM TERADATA ARCHITECT 10/23/2024 5:37 AM TERADATA ARCHITECT [facility] LAB BLOOD ORDERABLES Sondra l Result Performing Organization Address [facility] de Phone Number [facility] [place] [address] * Tacrolimus level trough (10/23/2024 5:24 AM TERADATA ARCHITECT) Pathologist [facility] Tacrolimus trough 5.4 ng/mL Comment: Interpretive Data Testing performed by liquid chromatography-tandem mass spectrometry. Therapeutic concentrations vary depending on type of transplanted organ and time elapsed since transplant. Typical trough concentrations range from 5-15 ng/mL. This test was developed and its performance characteristics determined by the [facility] consistent with CLIA requirements. This test has not been cleared or approved by the [place] Food and Drug administration. Current interpretive data last reviewed 2019. Blood 10/23/2024 5:24 AM TERADATA ARCHITECT 10/23/2024 1:46 PM TERADATA ARCHITECT [facility] LAB BLOOD ORDERABLES Sondra l Result Performing Organization Address [facility] de Phone Number [facility] [place] [address] * (ABNORMAL) Renal function panel (10/23/2024 5:24 AM TERADATA ARCHITECT) Sodium 143 135 - 145 mmol/L Potassium, pl 4.3 3.3 - 4.9 mmol/L [facility] Chloride 108 97 - 110 mmol/L [facility] CO2 28 22 - 32 mmol/L [facility] Anion gap 7 2 - 15 mmol/L [facility] BUN 21 6 - 25 mg/dL [facility] Creatinine 1.47(H) 0.60 - 1.10 mg/dL [facility] Glucose 106 70 - 199 mg/dL [facility] Comment: Interpretive Data Fasting glucose >/= [...] 2022. Calcium 10.1 8.5 - 10.3 mg/dL [facility] Phosphorus, pl 2.8 2.3 - 4.5 mg/dL [facility] Albumin 3.1(L) 3.5 - 5.0 g/dL [facility] Blood 10/23/2024 5:24 AM TERADATA ARCHITECT 10/23/2024 5:37 AM TERADATA ARCHITECT Puja Bello NP LAB BLOOD ORDERABLES Sondra l Result Performing Organization Address City/[facility]/ZIP Co de Phone Number [facility] Department [place] [address] * POCT glucose (10/23/2024 3:24 AM TERADATA ARCHITECT) [facility] Glucose, POC 145 70 - 199 mg/dL Blood 10/23/2024 3:24 AM TERADATA ARCHITECT 10/23/2024 3:24 AM TERADATA ARCHITECT Inderjit Stephen MD LAB POCT ORDERABLES - DEVICE Final Result Performing Organization Address City/[facility]/ZIP Co de Phone Number [facility] Department [place] [address] * POCT glucose (10/23/2024 12:16 AM TERADATA ARCHITECT) [facility] Glucose, POC 127 70 - 199 mg/dL Blood 10/23/2024 12:1 6 AM TERADATA ARCHITECT 10/23/2024 12:16 AM TERADATA ARCHITECT Inderjit Stephen MD LAB POCT ORDERABLES - DEVICE Final Result Performing Organization Address [facility]/ZIP Co de Phone Number [facility] Department [place] [address] * (ABNORMAL) CBC without differential (10/22/2024 8:39 PM TERADATA ARCHITECT) [facility] WBC 5.3 3.8 - 9.9 K/cumm Hgb 11.2(L) 11.9 - 15.5 g/dL [facility] Hct 34.9(L) 35.6 - 45.5 % [facility] Plt 109(L) 150 - 400 K/cumm [facility] MPV 10.9 9.1 - 12.3 fL [facility] RBC 3.82(L) 3.90 - 5.20 M/cumm [facility] MCV 91.4 81.3 - 96.4 fL [facility] MCH 29.3 27.1 - 33.3 pg [facility] MCHC 32.1(L) 32.3 - 35.7 g/dL [facility] RDW CV 14.6 11.1 - 14.9 % [facility] RDW SD 49.1(H) 35.7 - 48.1 fL [facility] NRBC abs 0.00 0.00 - 0.01 K/cumm [facility] Blood 10/22/2024 8:39 PM TERADATA ARCHITECT 10/22/2024 8:56 PM TERADATA ARCHITECT us Wilda Bryant HUMAN PERFORMANCE TECHNOLOGIST LAB BLOOD ORDERABLES Sondra l Result Performing Organization Address City/[facility]/ZIP Co de Phone Number [facility] [place] [address] * Phosphorus (10/22/2024 8:39 PM TERADATA ARCHITECT) Phosphorus, pl 3.0 2.3 - 4.5 mg/dL Blood 10/22/2024 8:39 PM TERADATA ARCHITECT 10/22/2024 8:57 PM TERADATA ARCHITECT Pippa Neville HUMAN PERFORMANCE TECHNOLOGIST LAB BLOOD ORDERABLES Final Result Performing Organization Address [facility] [place] [address] * Magnesium (10/22/2024 8:39 PM TERADATA ARCHITECT) Pathologist [facility] Magnesium 2.0 1.4 - 2.5 mg/dL Blood 10/22/2024 8:39 PM TERADATA ARCHITECT 10/22/2024 8:57 PM TERADATA ARCHITECT Pippa Neville NP LAB BLOOD ORDERABLES Final Result Performing Organization Address [facility] [place] [address] * Tacrolimus level trough (10/22/2024 8:35 PM TERADATA ARCHITECT) Pathologist [facility] Tacrolimus trough 8.4 ng/mL Comment: Interpretive Data Testing performed by liquid chromatography-tandem mass spectrometry. Therapeutic concentrations vary depending on type of transplanted organ and time elapsed since transplant. Typical trough concentrations range from 5-15 ng/mL. This test was developed and its performance characteristics determined by the [facility] consistent with CLIA requirements. This test has not been cleared or approved by the [place] Food and Drug administration. Current interpretive data last reviewed 2019. Blood 10/22/2024 8:35 PM TERADATA ARCHITECT 10/23/2024 9:44 AM TERADATA ARCHITECT Inderjit Stephen MD LAB BLOOD ORDERABLES Final Result Performing Organization Address [facility] Co de Phone Number [facility] [place] [address] * POCT glucose (10/22/2024 8:25 PM TERADATA ARCHITECT) Glucose, POC 168 70 - 199 mg/dL Blood 10/22/2024 8:25 PM TERADATA ARCHITECT 10/22/2024 8:25 PM TERADATA ARCHITECT Inderjit Stephen MD LAB POCT ORDERABLES - DEVICE Final Result Performing Organization Address City/[facility] Co de Phone Number [facility] [place] [address] * POCT glucose (10/22/2024 4:24 PM TERADATA ARCHITECT) Pathologist [facility] Glucose, POC 179 70 - 199 mg/dL Blood 10/22/2024 4:24 PM TERADATA ARCHITECT 10/22/2024 4:24 PM TERADATA ARCHITECT Inderjit Stephen MD LAB POCT ORDERABLES - DEVICE Final Result Performing Organization Address [facility] Co de Phone Number [facility] [place] [address] * (ABNORMAL) eGFR (10/22/2024 1:09 PM TERADATA ARCHITECT) [facility] eGFR 46(L) >=60 mL/min/1. 73 m2 Comment: [...] last reviewed 2021. Blood 10/22/2024 1:09 PM TERADATA ARCHITECT 10/22/2024 1:20 PM TERADATA ARCHITECT [facility] LAB BLOOD ORDERABLES Sondra l Result Performing Organization Address [facility] Phone Number [facility] [employer] [address] * Tacrolimus level trough (10/22/2024 1:09 PM TERADATA ARCHITECT) [facility] Tacrolimus trough 4.2 ng/mL Comment: Interpretive Data Testing performed by liquid chromatography-tandem mass spectrometry. Therapeutic concentrations vary depending on type of transplanted organ and time elapsed since transplant. Typical trough concentrations range from 5-15 ng/mL. This test was developed and its performance characteristics determined by the [facility] consistent with CLIA requirements. This test has not been cleared or approved by the [place] Food and Drug administration. Current interpretive data last reviewed 2019. Blood 10/22/2024 1:09 PM TERADATA ARCHITECT 10/22/2024 1:20 PM TERADATA ARCHITECT [facility] LAB BLOOD ORDERABLES Sondra l Result Performing Organization Address [facility] de Phone Number [facility] [place] [place] [address] * (ABNORMAL) Renal function panel (10/22/2024 1:09 PM TERADATA ARCHITECT) [facility] Sodium 143 135 - 145 mmol/L Potassium, pl 4.3 3.3 - 4.9 mmol/L [facility] Chloride 106 97 - 110 mmol/L [facility] CO2 28 22 - 32 mmol/L [facility] Anion gap 9 2 - 15 mmol/L [facility] BUN 16 6 - 25 mg/dL [facility] Creatinine 1.33(H) 0.60 - 1.10 mg/dL [facility] Glucose 165 70 - 199 mg/dL [facility] Comment: Interpretive Data Fasting glucose >/= [...] 2022. Calcium 10.6(H) 8.5 - 10.3 mg/dL [facility] Phosphorus, pl 2.4 2.3 - 4.5 mg/dL [facility] Albumin 3.4(L) 3.5 - 5.0 g/dL [facility] Blood 10/22/2024 1:09 PM TERADATA ARCHITECT 10/22/2024 1:20 PM TERADATA ARCHITECT Puja Bello NP LAB BLOOD ORDERABLES Sonrda l Result Performing Organization Address City/[facility]/ZIP Co de Phone Number [facility] Department [place] [address] * POCT glucose (10/22/2024 12:12 PM TERADATA ARCHITECT) [facility] Glucose, POC 128 70 - 199 mg/dL Blood 10/22/2024 12:1 2 PM TERADATA ARCHITECT 10/22/2024 12:12 PM TERADATA ARCHITECT Inderjit Stephen MD LAB POCT ORDERABLES - DEVICE Final Result Performing Organization Address City/[facility]/ZIP Co de Phone Number [facility] [place] [address] * POCT glucose (10/22/2024 8:00 AM TERADATA ARCHITECT) Glucose, POC 92 70 - 199 mg/dL Blood 10/22/2024 8:00 AM TERADATA ARCHITECT 10/22/2024 8:00 AM TERADATA ARCHITECT Inderjit Stephen MD LAB POCT ORDERABLES - DEVICE Final Result Performing Organization Address City/[facility] Co de Phone Number [facility] Department [place] [address] * (ABNORMAL) eGFR (10/22/2024 5:52 AM TERADATA ARCHITECT) Pathologist [facility] eGFR 48(L) >=60 mL/min/1. 73 m2 Comment: [...] last reviewed 2021. Blood 10/22/2024 5:52 AM TERADATA ARCHITECT 10/22/2024 6:32 AM TERADATA ARCHITECT us Puja Bello HUMAN PERFORMANCE TECHNOLOGIST LAB BLOOD ORDERABLES Sondra l Result Performing Organization Address City/[facility]/ZIP Co de Phone Number [facility] Department [place] [address] * Tacrolimus level trough (10/22/2024 5:52 AM TERADATA ARCHITECT) Tacrolimus trough 2.0 ng/mL Comment: Interpretive Data Testing performed by liquid chromatography-tandem mass spectrometry. Therapeutic concentrations vary depending on type of transplanted organ and time elapsed since transplant. Typical trough concentrations range from 5-15 ng/mL. This test was developed and its performance characteristics determined by the [facility] consistent with CLIA requirements. This test has not been cleared or approved by the [place] Food and Drug administration. Current interpretive data last reviewed 2019. Blood 10/22/2024 5:52 AM TERADATA ARCHITECT 10/22/2024 6:32 AM TERADATA ARCHITECT Puja Bello HUMAN PERFORMANCE TECHNOLOGIST LAB BLOOD ORDERABLES Sondra l Result Performing Organization Address [facility] de Phone Number [facility] Department of [employer] [place] [address] * Tacrolimus level random (10/22/2024 5:52 AM TERADATA ARCHITECT) Pathologist [facility] Tacrolimus random 2.2 ng/mL Comment: Interpretive Data Testing performed by liquid chromatography-tandem mass spectrometry. Therapeutic concentrations vary depending on type of transplanted organ and time elapsed since transplant. Typical trough concentrations range from 5-15 ng/mL. This test was developed and its performance characteristics determined by the [facility] consistent with CLIA requirements. This test has not been cleared or approved by the [place] Food and Drug administration. Current interpretive data last reviewed 2019. Blood 10/22/2024 5:52 AM TERADATA ARCHITECT 10/22/2024 6:32 AM TERADATA ARCHITECT Pippa Neville HUMAN PERFORMANCE TECHNOLOGIST LAB BLOOD ORDERABLES Final Result Performing Organization Address City/[facility]/ZIP Co de Phone Number [facility] [place] [address] * Phosphorus (10/22/2024 5:52 AM TERADATA ARCHITECT) Phosphorus, pl 2.5 2.3 - 4.5 mg/dL Blood 10/22/2024 5:52 AM TERADATA ARCHITECT 10/22/2024 6:32 AM TERADATA ARCHITECT Puja Bello NP LAB BLOOD ORDERABLES Sondra sosa Result [facility] Department [place] [address] * (ABNORMAL) Comprehensive metabolic panel (10/22/2024 5:52 AM TERADATA ARCHITECT) Pathologist [facility] Sodium 143 135 - 145 mmol/L Potassium, pl 4.0 3.3 - 4.9 mmol/L [facility] Chloride 108 97 - 110 mmol/L [facility] CO2 29 22 - 32 mmol/L [facility] Anion gap 6 2 - 15 mmol/L [facility] BUN 14 6 - 25 mg/dL [facility] Creatinine 1.27(H) 0.60 - 1.10 mg/dL [facility] Glucose 88 70 - 199 mg/dL [facility] Comment: Interpretive Data Fasting glucose >/= [...] Calcium 10.5(H) 8.5 - 10.3 mg/dL [facility] Bilirubin, total 0.6 0.1 - 1.2 mg/dL [facility] Protein, pl 5.8(L) 6.5 - 8.5 g/dL [facility] Albumin 3.2(L) 3.5 - 5.0 g/dL [facility] Alk phos 60 40 - 130 Units/L [facility] ALT 12 7 - 45 Units/L [facility] AST 44 10 - 45 Units/L [facility] Blood 10/22/2024 5:52 AM TERADATA ARCHITECT 10/22/2024 6:32 AM TERADATA ARCHITECT Puja Bello NP LAB BLOOD ORDERABLES Sondra l Result Performing Organization Address [facility] de Phone Number [facility] [place] [address] * POCT glucose (10/22/2024 3:49 AM TERADATA ARCHITECT) Glucose, POC 86 70 - 199 mg/dL Blood 10/22/2024 3:49 AM TERADATA ARCHITECT 10/22/2024 3:49 AM TERADATA ARCHITECT Inderjit Stephen MD LAB POCT ORDERABLES - DEVICE Final Result Performing Organization Address [facility] de Phone Number [facility] [place] [address] * POCT glucose (10/21/2024 11:38 PM TERADATA ARCHITECT) Glucose, POC 91 70 - 199 mg/dL Blood 10/21/2024 11:3 8 PM TERADATA ARCHITECT 10/21/2024 11:38 PM TERADATA ARCHITECT Inderjit Stephen MD LAB POCT ORDERABLES - DEVICE Final Result Performing Organization Address [facility] de Phone Number [facility] [place] [place] [address] * POCT glucose (10/21/2024 8:23 PM TERADATA ARCHITECT) Glucose, POC 128 70 - 199 mg/dL Blood 10/21/2024 8:23 PM TERADATA ARCHITECT 10/21/2024 8:23 PM TERADATA ARCHITECT Inderjit Stephen MD LAB POCT ORDERABLES - DEVICE Final Result Performing Organization Address [facility] de Phone Number MAYDA CANNON [facility] [place] [address] * (ABNORMAL) eGFR (10/21/2024 4:35 PM TERADATA ARCHITECT) eGFR 46(L) >=60 mL/min/1. 73 m2 Comment: [...] last reviewed 2021. Blood 10/21/2024 4:35 PM TERADATA ARCHITECT 10/21/2024 4:43 PM TERADATA ARCHITECT Pippa Neville NP LAB BLOOD ORDERABLES Final Result Performing Organization Address [facility] de Phone Number MAYDA CANNON [facility] Department [place] [address] * Tacrolimus level random (10/21/2024 4:35 PM TERADATA ARCHITECT) Tacrolimus random 3.4 ng/mL Comment: Interpretive Data Testing performed by liquid chromatography-tandem mass spectrometry. Therapeutic concentrations vary depending on type of transplanted organ and time elapsed since transplant. Typical trough concentrations range from 5-15 ng/mL. This test was developed and its performance characteristics determined by the [facility] consistent with CLIA requirements. This test has not been cleared or approved by the [place] Food and Drug administration. Current interpretive data last reviewed 2019. Blood 10/21/2024 4:35 PM TERADATA ARCHITECT 10/21/2024 4:43 PM TERADATA ARCHITECT Puja Bello HUMAN PERFORMANCE TECHNOLOGIST LAB BLOOD ORDERABLES Sondra l Result Performing Organization Address City/[facility]/ZIP Co de Phone Number [facility] Department [place] [address] * (ABNORMAL) CBC without differential (10/21/2024 4:35 PM TERADATA ARCHITECT) [facility] WBC 5.9 3.8 - 9.9 K/cumm Hgb 11.3(L) 11.9 - 15.5 g/dL [facility] Hct 35.2(L) 35.6 - 45.5 % [facility] Plt 74(L) 150 - 400 K/cumm [facility] MPV 11.3 9.1 - 12.3 fL [facility] RBC 3.88(L) 3.90 - 5.20 M/cumm [facility] MCV 90.7 81.3 - 96.4 fL [facility] MCH 29.1 27.1 - 33.3 pg [facility] MCHC 32.1(L) 32.3 - 35.7 g/dL [facility] RDW CV 14.6 11.1 - 14.9 % [facility] RDW SD 48.6(H) 35.7 - 48.1 fL [facility] NRBC abs 0.00 0.00 - 0.01 K/cumm [facility] Blood 10/21/2024 4:35 PM TERADATA ARCHITECT 10/21/2024 4:43 PM TERADATA ARCHITECT Wilda Bryant HUMAN PERFORMANCE TECHNOLOGIST LAB BLOOD ORDERABLES Sondra l Result [facility] [place] [address] * Phosphorus (10/21/2024 4:35 PM TERADATA ARCHITECT) [facility] Phosphorus, pl 2.6 2.3 - 4.5 mg/dL Blood 10/21/2024 4:35 PM TERADATA ARCHITECT 10/21/2024 4:43 PM TERADATA ARCHITECT Pippa Cabralcaleb Neville HUMAN PERFORMANCE TECHNOLOGIST LAB BLOOD ORDERABLES Final Result Performing Organization Address City/[facility]/ZIP Co de Phone Number [facility] [place] [address] * Magnesium (10/21/2024 4:35 PM TERADATA ARCHITECT) [facility] Magnesium 1.7 1.4 - 2.5 mg/dL Blood 10/21/2024 4:35 PM TERADATA ARCHITECT 10/21/2024 4:43 PM TERADATA ARCHITECT [facility] LAB BLOOD ORDERABLES Final Result Performing Organization Address [facility] de Phone Number [facility] [place] [address] * (ABNORMAL) Comprehensive metabolic panel (10/21/2024 4:35 PM TERADATA ARCHITECT) [facility] Sodium 141 135 - 145 mmol/L Potassium, pl 4.1 3.3 - 4.9 mmol/L [facility] Chloride 105 97 - 110 mmol/L [facility] CO2 26 22 - 32 mmol/L [facility] Anion gap 10 2 - 15 mmol/L [facility] BUN 18 6 - 25 mg/dL [facility] Creatinine 1.32(H) 0.60 - 1.10 mg/dL [facility] Glucose 240(H) 70 - 199 mg/dL [facility] Comment: Interpretive Data Fasting glucose >/= [...] 2022. Calcium 10.4(H) 8.5 - 10.3 mg/dL [facility] Bilirubin, total 0.5 0.1 - 1.2 mg/dL [facility] Protein, pl 6.1(L) 6.5 - 8.5 g/dL [facility] Albumin 3.4(L) 3.5 - 5.0 g/dL [facility] Alk phos 65 40 - 130 Units/L [facility] ALT 14 7 - 45 Units/L [facility] AST 51(H) 10 - 45 Units/L [facility] Blood 10/21/2024 4:35 PM TERADATA ARCHITECT 10/21/2024 4:43 PM TERADATA ARCHITECT Pippa Neville NP LAB BLOOD ORDERABLES Final Result [facility] [place] [address] * (ABNORMAL) POCT glucose (10/21/2024 4:15 PM TERADATA ARCHITECT) Glucose, POC 229(H) 70 - 199 mg/dL Blood 10/21/2024 4:15 PM TERADATA ARCHITECT 10/21/2024 4:15 PM TERADATA ARCHITECT us Inderjit Stephen MD LAB POCT ORDERABLES - DEVICE Final Result [facility] [place] [address] * POCT glucose (10/21/2024 11:39 AM TERADATA ARCHITECT) Glucose, POC 150 70 - 199 mg/dL Blood 10/21/2024 11:3 9 AM TERADATA ARCHITECT 10/21/2024 11:39 AM TERADATA ARCHITECT Inderjit Stephen MD LAB POCT ORDERABLES - DEVICE Final Result MAYDA [facility] Department [place] [address] * POCT glucose (10/21/2024 7:48 AM TERADATA ARCHITECT) Glucose, POC 134 70 - 199 mg/dL Blood 10/21/2024 7:48 AM TERADATA ARCHITECT 10/21/2024 7:48 AM TERADATA ARCHITECT Inderjit Stephen MD LAB POCT ORDERABLES - DEVICE Final Result Performing Organization Address [facility] de Phone Number MAYDA [facility] [place] [address] * (ABNORMAL) eGFR (10/21/2024 4:35 AM TERADATA ARCHITECT) eGFR 42(L) >=60 mL/min/1. 73 m2 Comment: [...] last reviewed 2021. Blood 10/21/2024 4:35 AM TERADATA ARCHITECT 10/21/2024 5:19 AM TERADATA ARCHITECT Wilda Bryant HUMAN PERFORMANCE TECHNOLOGIST LAB BLOOD ORDERABLES Sondra l Result Performing Organization Address City/[facility] Co de Phone Number [facility] [place] [address] * Tacrolimus level random (10/21/2024 4:35 AM TERADATA ARCHITECT) Pathologist [facility] Tacrolimus random 2.2 ng/mL Comment: Interpretive Data Testing performed by liquid chromatography-tandem mass spectrometry. Therapeutic concentrations vary depending on type of transplanted organ and time elapsed since transplant. Typical trough concentrations range from 5-15 ng/mL. This test was developed and its performance characteristics determined by the [facility] consistent with CLIA requirements. This test has not been cleared or approved by the [place] Food and Drug administration. Current interpretive data last reviewed 2019. Blood 10/21/2024 4:35 AM TERADATA ARCHITECT 10/21/2024 5:19 AM TERADATA ARCHITECT Pippa Neville HUMAN PERFORMANCE TECHNOLOGIST LAB BLOOD ORDERABLES Final Result Performing Organization Address City/[facility] Co de Phone Number [facility] [place] [address] * (ABNORMAL) CBC without differential (10/21/2024 4:35 AM TERADATA ARCHITECT) WBC 5.7 3.8 - 9.9 K/cumm Hgb 10.8(L) 11.9 - 15.5 g/dL [facility] Hct 32.9(L) 35.6 - 45.5 % [facility] Plt 82(L) 150 - 400 K/cumm [facility] MPV 11.3 9.1 - 12.3 fL [facility] RBC 3.67(L) 3.90 - 5.20 M/cumm [facility] MCV 89.6 81.3 - 96.4 fL [facility] MCH 29.4 27.1 - 33.3 pg [facility] MCHC 32.8 32.3 - 35.7 g/dL [facility] RDW CV 14.6 11.1 - 14.9 % [facility] RDW SD 47.8 35.7 - 48.1 fL [facility] NRBC abs 0.00 0.00 - 0.01 K/cumm [facility] Blood 10/21/2024 4:35 AM TERADATA ARCHITECT 10/21/2024 5:19 AM TERADATA ARCHITECT Wilda Bryant HUMAN PERFORMANCE TECHNOLOGIST LAB BLOOD ORDERABLES Sondra l Result Performing Organization Address City/[facility]/ZIP Co de Phone Number [facility] [place] [address] * Phosphorus (10/21/2024 4:35 AM TERADATA ARCHITECT) [facility] Phosphorus, pl 2.3 2.3 - 4.5 mg/dL Blood 10/21/2024 4:35 AM TERADATA ARCHITECT 10/21/2024 5:19 AM TERADATA ARCHITECT Pippa Neville HUMAN PERFORMANCE TECHNOLOGIST LAB BLOOD ORDERABLES Final Result Performing Organization Address [facility] de Phone Number [facility] Department [place] [address] * Magnesium (10/21/2024 4:35 AM TERADATA ARCHITECT) [facility] Magnesium 1.7 1.4 - 2.5 mg/dL Blood 10/21/2024 4:35 AM TERADATA ARCHITECT 10/21/2024 5:19 AM TERADATA ARCHITECT Pippa Neville HUMAN PERFORMANCE TECHNOLOGIST LAB BLOOD ORDERABLES Final Result Performing Organization Address [facility] de Phone Number [facility] [employer] [place] [address] * (ABNORMAL) Basic metabolic panel (10/21/2024 4:35 AM TERADATA ARCHITECT) Pathologist [facility] Sodium 141 135 - 145 mmol/L Potassium, pl 3.9 3.3 - 4.9 mmol/L [facility] Chloride 107 97 - 110 mmol/L [facility] CO2 25 22 - 32 mmol/L [facility] Anion gap 9 2 - 15 mmol/L [facility] BUN 19 6 - 25 mg/dL [facility] Creatinine 1.43(H) 0.60 - 1.10 mg/dL [facility] Glucose 122 70 - 199 mg/dL [facility] Comment: Interpretive Data Fasting glucose >/= [...] 2022. Calcium 9.8 8.5 - 10.3 mg/dL [facility] Blood 10/21/2024 4:35 AM TERADATA ARCHITECT 10/21/2024 5:19 AM TERADATA ARCHITECT us Wilda Bryant NP LAB BLOOD ORDERABLES Sondra l Result Performing Organization Address City/[facility]/ZIP Co de Phone Number [facility] [place] [address] * POCT glucose (10/21/2024 4:13 AM TERADATA ARCHITECT) [facility] Glucose, POC 131 70 - 199 mg/dL Blood 10/21/2024 4:13 AM TERADATA ARCHITECT 10/21/2024 4:13 AM TERADATA ARCHITECT us Inderjit Stephen MD LAB POCT ORDERABLES - DEVICE Final Result Performing Organization Address City/[facility]/ZIP Co de Phone Number [facility] [place] [address] * POCT glucose (10/20/2024 11:54 PM TERADATA ARCHITECT) Glucose, POC 148 70 - 199 mg/dL Blood 10/20/2024 11:5 4 PM TERADATA ARCHITECT 10/20/2024 11:54 PM TERADATA ARCHITECT Inderjit Stephen MD LAB POCT ORDERABLES - DEVICE Final Result Performing Organization Address [facility] de Phone Number [facility] [place] [address] * POCT glucose (10/20/2024 8:14 PM TERADATA ARCHITECT) Glucose, POC 163 70 - 199 mg/dL Blood 10/20/2024 8:14 PM TERADATA ARCHITECT 10/20/2024 8:14 PM TERADATA ARCHITECT Inderjit Stephen MD LAB POCT ORDERABLES - DEVICE Final Result Performing Organization Address [facility] de Phone Number [facility] [place] [address] * POCT glucose (10/20/2024 3:24 PM TERADATA ARCHITECT) Glucose, POC 165 70 - 199 mg/dL Blood 10/20/2024 3:24 PM TERADATA ARCHITECT 10/20/2024 3:24 PM TERADATA ARCHITECT Inderjit Stephen MD LAB POCT ORDERABLES - DEVICE Final Result Performing Organization Address [facility] de Phone Number [facility] [place] [place] [address] * POCT glucose (10/20/2024 11:50 AM TERADATA ARCHITECT) Glucose, POC 118 70 - 199 mg/dL Blood 10/20/2024 11:5 0 AM TERADATA ARCHITECT 10/20/2024 11:50 AM TERADATA ARCHITECT Inderjit Stephen MD LAB POCT ORDERABLES - DEVICE Final Result Performing Organization Address City/[facility] Co de Phone Number [facility] [place] [address] * POCT glucose (10/20/2024 7:38 AM TERADATA ARCHITECT) Glucose, POC 90 70 - 199 mg/dL Blood 10/20/2024 7:38 AM TERADATA ARCHITECT 10/20/2024 7:38 AM TERADATA ARCHITECT Inderjit Stephen MD LAB POCT ORDERABLES - DEVICE Final Result Performing Organization Address [facility] de Phone Number [facility] [place] [address] * Tacrolimus level random (10/20/2024 4:37 AM TERADATA ARCHITECT) [facility] Tacrolimus random 1.9 ng/mL Comment: Interpretive Data Testing performed by liquid chromatography-tandem mass spectrometry. Therapeutic concentrations vary depending on type of transplanted organ and time elapsed since transplant. Typical trough concentrations range from 5-15 ng/mL. This test was developed and its performance characteristics determined by the [facility] consistent with CLIA requirements. This test has not been cleared or approved by the [place] Food and Drug administration. Current interpretive data last reviewed 2019. Blood 10/20/2024 4:37 AM TERADATA ARCHITECT 10/20/2024 4:54 AM TERADATA ARCHITECT Pippa Neville NP LAB BLOOD ORDERABLES Final Result Performing Organization Address [facility] Co de Phone Number [facility] [place] [address] * POCT glucose (10/20/2024 3:51 AM TERADATA ARCHITECT) Glucose, POC 95 70 - 199 mg/dL Blood 10/20/2024 3:51 AM TERADATA ARCHITECT 10/20/2024 3:51 AM TERADATA ARCHITECT Inderjit Stephen MD LAB POCT ORDERABLES - DEVICE Final Result Performing Organization Address City/[facility] Co de Phone Number [facility] [place] [address] * POCT glucose (10/19/2024 11:41 PM TERADATA ARCHITECT) Pathologist [facility] Glucose, POC 98 70 - 199 mg/dL Blood 10/19/2024 11:4 1 PM TERADATA ARCHITECT 10/19/2024 11:41 PM TERADATA ARCHITECT Inderjit Stephen MD LAB POCT ORDERABLES - DEVICE Final Result Performing Organization Address [facility] de Phone Number [facility] Department [place] [address] * ECG 12 lead (10/19/2024 8:45 PM TERADATA ARCHITECT) [facility] Ventricular Rate EKG/Min 78 BPM [facility] Atrial Rate 78 BPM [facility] MD-Interval (MSEC) 164 ms [facility] QRS-Interval (MSEC) 86 ms [facility] QT-Interval (MSEC) 386 ms [facility] QTc 440 ms [facility] P [place] 41 degrees [facility] R [place] -7 degrees [facility] T [place] 34 degrees [facility] Diagnosis Normal sinus rhythm Low voltage QRS Cannot rule out Anterior infarct (cited on or before 27-MAR-2014) Abnormal ECG When compared with ECG of 29-DEC-2015 01:20, Vent. rate has decreased BY 42 BPM Questionable change in initial forces of Anterior leads Confirmed by GIL GALLARDO M.D ([id number]) on 10/20/2024 2:15:25 PM [facility] 10/19/2024 8:45 PM TERADATA ARCHITECT 10/20/2024 2:15 PM TERADATA ARCHITECT Pippa Neville HUMAN PERFORMANCE TECHNOLOGIST ECG ORDERABLES Sondra l Result Performing Organization Address [facility]/ZIP Co de Phone Number [facility] * (ABNORMAL) Urinalysis reflex to microscopic and culture Urine (10/19/2024 8:31 PM TERADATA ARCHITECT) Color, ur Yellow Yellow Clarity, ur Clear Clear [facility] Specific gravity, ur 1.021 1.003 - 1.030 [facility] pH, urine 6.0 [facility] Comment: Interpretive Data U rine pH is affected by diet, medications, systemic acid-base disturbances, and renal tubular function. pH may affect urinary stone formation. For example, urine pH below 6.0 may help reduce the tendency for calcium phosphate stones and pH greater than 6.0 may reduce the tendency for uric acid stone formation. Source: [facility] [employer] Current Interpretive Data was last revised on 2017 Protein, ur ql Trace Negative [facility] Glucose, ur ql Trace(A) Negative [facility] Ketones, ur Negative Negative [facility] Bilirubin, ur Negative Negative [facility] Blood, ur Trace(A) Negative [facility] Urobilinogen, ur <2.0 <2.0 mg/dL [facility] Nitrite, ur Negative Negative [facility] Leukocyte esterase, ur 2+(A) Negative [facility] UA reflex comment Reflex to microscopic UA will be performed. [facility] Urine 10/19/2024 8:31 PM TERADATA ARCHITECT 10/19/2024 8:48 PM TERADATA ARCHITECT Pippa Neville NP LAB MICROBIOLOGY - G ENERAL ORDERABLES Final Result [facility] [place] [address] * (ABNORMAL) Urinalysis, microscopic only (10/19/2024 8:31 PM TERADATA ARCHITECT) WBC, ur 11-20(A) 0 - 5 /HPF RBC, ur 6-10(A) 0 - 2 /HPF [facility] Epithelial cells, squamous, ur 1-5 0 - 5 /HPF [facility] Bacteria, ur 1+(A) [facility] Mucous, ur Present(A) [facility] Culture Reflex Comment Reflex to urine culture will be performed. [facility] Urine 10/19/2024 8:31 PM TERADATA ARCHITECT 10/19/2024 8:48 PM TERADATA ARCHITECT Pippa Neville NP LAB URINE ORDERABLES Final Result Performing Organization Address [facility] Co de Phone Number [facility] [place] [address] * Urine culture Urine (10/19/2024 8:31 PM TERADATA ARCHITECT) Pathologist [facility] Report Final Report: No growth Urine 10/19/2024 8:31 PM TERADATA ARCHITECT 10/19/2024 11:08 PM TERADATA ARCHITECT Narrative [facility] - 10/21/2024 7:55 AM TERADATA ARCHITECT Urine culture reflexed based upon urinalysis results. Testing performed by [facility] ([phone]) Pippa Neville NP LAB MICROBIOLOGY - G ENERAL ORDERABLES Final Result Performing Organization Address [facility] Co de Phone Number [facility] [place] [address] * POCT glucose (10/19/2024 8:29 PM TERADATA ARCHITECT) [facility] Glucose, POC 128 70 - 199 mg/dL Blood 10/19/2024 8:29 PM TERADATA ARCHITECT 10/19/2024 8:29 PM TERADATA ARCHITECT Inderjit Stephen MD LAB POCT ORDERABLES - DEVICE Final Result Performing Organization Address [facility] Co de Phone Number [facility] [place] [address] * (ABNORMAL) aPTT (10/19/2024 8:26 PM TERADATA ARCHITECT) Pathologist [facility] aPTT 24(L) 28 - 38 sec Comment: Interpretive Data Heparin therapeutic range: 66.0 - 100.0 seconds. Range based on correlation with therapeutic heparin activity range of 0.3 - 0.7 Units/mL. Current interpretive data was last revised on 2023. Blood 10/19/2024 8:26 PM TERADATA ARCHITECT 10/19/2024 8:50 PM TERADATA ARCHITECT [facility] LAB BLOOD ORDERABLES Final Result Performing Organization Address [facility] de Phone Number [facility] [place] [address] * Protime-INR (10/19/2024 8:26 PM TERADATA ARCHITECT) [facility] PT 11.6 9.7 - 13.0 sec INR 1.07 0.90 - 1.20 [facility] Comment: Interpretive data Oral anticoagulant therapeutic ranges: Venous thromboembolism prophylaxis or treatment: 2.0-3.0 CARDIOLOGY Standard range: 2.0-3.0 High-intensity range: 2.5-3.5 Refer to indication-specific guidelines for appropriate target ranges for prosthetic heart valve replacement. Current interpretive data was last revised on 2019. Blood 10/19/2024 8:26 PM TERADATA ARCHITECT 10/19/2024 8:50 PM TERADATA ARCHITECT Pippa Neville LAB BLOOD ORDERABLES Final Result Performing Organization Address [facility] de Phone Number [facility] Department [place] [address] * Phosphorus (10/19/2024 8:26 PM TERADATA ARCHITECT) Pathologist [facility] Phosphorus, pl 2.6 2.3 - 4.5 mg/dL Blood 10/19/2024 8:26 PM TERADATA ARCHITECT 10/19/2024 8:43 PM TERADATA ARCHITECT us Pippa Neville HUMAN PERFORMANCE TECHNOLOGIST LAB BLOOD ORDERABLES Final Result MAYDA CANNON [facility] Department [place] [address] * (ABNORMAL) Magnesium (10/19/2024 8:26 PM TERADATA ARCHITECT) Magnesium 2.9(H) 1.4 - 2.5 mg/dL Blood 10/19/2024 8:26 PM TERADATA ARCHITECT 10/19/2024 8:43 PM TERADATA ARCHITECT Pippa Neville HUMAN PERFORMANCE TECHNOLOGIST LAB BLOOD ORDERABLES Final Result Performing Organization Address [facility] Co de Phone Number MAYDA CANNON [facility]i [facility] [place] [address] * XR Chest 1 View (10/19/2024 7:58 PM TERADATA ARCHITECT) Anatomical Region Laterality Modality Body, Chest N/A Digital Radiogra phy 10/20/2024 9:34 AM TERADATA ARCHITECT Impressions 10/20/2024 9:34 AM TERADATA ARCHITECT No priors are available for comparison. The lung volumes are small and the right hemidiaphragm is elevated. There are streaky opacities adjacent to the right hilum, favored to be atelectasis given the small lung volumes and elevated diaphragm. The left lung is clear. Heart size normal. No pleural effusion or pneumothorax. Electronically signed by: George Mendoza M.D. Narrative 10/20/2024 9:34 AM TERADATA ARCHITECT EXAMINATION: 1 view chest radiograph Procedure Note [...] nal Result * Lactate (10/19/2024 6:56 PM TERADATA ARCHITECT) [facility] Lactate 1.4 0.7 - 2.0 mmol/L Blood 10/19/2024 6:56 PM TERADATA ARCHITECT 10/19/2024 7:07 PM TERADATA ARCHITECT Pippa Neville HUMAN PERFORMANCE TECHNOLOGIST LAB BLOOD ORDERABLES Final Result Performing Organization Address [facility] Co de Phone Number [facility] Department [place] [address] * (ABNORMAL) Creatine kinase (CK), total (10/19/2024 6:56 PM TERADATA ARCHITECT) [facility] CK 416(H) 30 - 200 Units/L Blood 10/19/2024 6:56 PM TERADATA ARCHITECT 10/19/2024 7:07 PM TERADATA ARCHITECT Pippa Neville HUMAN PERFORMANCE TECHNOLOGIST LAB BLOOD ORDERABLES Final Result Performing Organization Address [facility] de Phone Number [facility] Department [place] [address] * Troponin I high-sensitivity (10/19/2024 6:04 PM TERADATA ARCHITECT) [facility] Trop I hs 4 <=17 ng/L Comment: Interpretive Data For further hscTnI resources including the diagnostic algorithm and an aid in interpretation, copy and paste this link: https://bjhlab.testcatalog.org/show/[email or web address]-1 Current Interpretive Data last revised 2020. Blood 10/19/2024 6:04 PM TERADATA ARCHITECT 10/19/2024 6:23 PM TERADATA ARCHITECT Inderjit Stephen MD LAB BLOOD ORDERABLES Final Result Performing Organization Address [facility] Co de Phone Number [facility] [place] [address] * (ABNORMAL) eGFR (10/19/2024 6:04 PM TERADATA ARCHITECT) Pathologist [facility] eGFR 48(L) >=60 mL/min/1. 73 m2 Comment: [...] last reviewed 2021. Blood 10/19/2024 6:04 PM TERADATA ARCHITECT 10/19/2024 6:23 PM TERADATA ARCHITECT us Inderjit Stephen MD LAB BLOOD ORDERABLES Final Result Performing Organization Address [facility] Co de Phone Number [facility] [place] [address] * (ABNORMAL) Differential, auto (10/19/2024 6:04 PM TERADATA ARCHITECT) Pathologist [facility] Neutrophil abs 6.8(H) 1.5 - 6.5 K/cumm Imm gran abs 0.1 0.0 - 0.1 K/cumm [facility] Lymphocyte abs 0.2(L) 0.8 - 3.3 K/cumm [facility] Monocyte abs 0.2 0.2 - 0.8 K/cumm [facility] Eosinophil abs 0.0 0.0 - 0.5 K/cumm [facility] Basophil abs 0.0 0.0 - 0.1 K/cumm [facility] Neutrophil pct 93.8 % [facility] Comment: Interpretive Data Percent cell count reference ranges are not reported, since discordance with absolute values may lead to misinterpretation of CBC data. Current Interpretive Data was last revised on 2017. Imm gran pct 1.0 % [facility] Comment: Interpretive Data Percent cell count reference ranges are not reported, since discordance with absolute values may lead to misinterpretation of CBC data. Current Interpretive Data was last revised on 2017. Lymphocyte pct 2.6 % [facility] Comment: Interpretive Data Percent cell count reference ranges are not reported, since discordance with absolute values may lead to misinterpretation of CBC data. Current Interpretive Data was last revised on 2017. Monocyte pct 2.5 % [facility] Comment: Interpretive Data Percent cell count reference ranges are not reported, since discordance with absolute values may lead to misinterpretation of CBC data. Current Interpretive Data was last revised on 2017. Eosinophil pct 0.0 % [facility] Comment: Interpretive Data Percent cell count reference ranges are not reported, since discordance with absolute values may lead to misinterpretation of CBC data. Current Interpretive Data was last revised on 2017. Basophil pct 0.1 % [facility] Comment: Interpretive Data Percent cell count reference ranges are not reported, since discordance with absolute values may lead to misinterpretation of CBC data. Current Interpretive Data was last revised on 2017. Blood 10/19/2024 6:04 PM TERADATA ARCHITECT 10/19/2024 6:23 PM TERADATA ARCHITECT us Inderjit Stephen MD LAB BLOOD ORDERABLES Final Result MAYDA KASSANDRA [facility] Department [place] [address] * (ABNORMAL) CBC with auto differential (10/19/2024 6:04 PM TERADATA ARCHITECT) WBC 7.2 3.8 - 9.9 K/cumm Hgb 12.0 11.9 - 15.5 g/dL [facility] Hct 37.5 35.6 - 45.5 % [facility] Plt 97(L) 150 - 400 K/cumm [facility] MPV 10.4 9.1 - 12.3 fL [facility] RBC 4.11 3.90 - 5.20 M/cumm [facility] MCV 91.2 81.3 - 96.4 fL [facility] MCH 29.2 27.1 - 33.3 pg [facility] MCHC 32.0(L) 32.3 - 35.7 g/dL [facility] RDW CV 15.0(H) 11.1 - 14.9 % [facility] RDW SD 49.8(H) 35.7 - 48.1 fL [facility] NRBC abs 0.00 0.00 - 0.01 K/cumm [facility] Blood 10/19/2024 6:04 PM TERADATA ARCHITECT 10/19/2024 6:23 PM TERADATA ARCHITECT Inderjit Stephen MD LAB BLOOD ORDERABLES Final Result [facility] Department [place] [place] [address] * Phosphorus (10/19/2024 6:04 PM TERADATA ARCHITECT) Phosphorus, pl 3.4 2.3 - 4.5 mg/dL Blood 10/19/2024 6:04 PM TERADATA ARCHITECT 10/19/2024 6:23 PM TERADATA ARCHITECT Inderjit Stephen MD LAB BLOOD ORDERABLES Final Result [facility] [place] [address] * Magnesium (10/19/2024 6:04 PM TERADATA ARCHITECT) Magnesium 1.6 1.4 - 2.5 mg/dL Blood 10/19/2024 6:04 PM TERADATA ARCHITECT 10/19/2024 6:23 PM TERADATA ARCHITECT us Inderjit Stephen MD LAB BLOOD ORDERABLES Final Result Performing Organization Address [facility] de Phone Number [facility] Department [place] [address] * (ABNORMAL) Blood gas, arterial (10/19/2024 6:04 PM TERADATA ARCHITECT) pH, Art 7.28(L) 7.35 - 7.45 PCO2, Arterial 47(H) 35 - 45 mmHg [facility] PO2, Arterial 117(H) 83 - 108 mmHg [facility] HCO3 Art (Calculated) 22 20 - 30 mmol/L [facility] BE, art -5 mmol/L [facility] Comment: Interpretive Data No Reference Range Established Current Interpretive Data was last revised on 2017 O2 Sat Art (Measured) 98(H) 90 - 95 % [facility] Blood 10/19/2024 6:04 PM TERADATA ARCHITECT 10/19/2024 6:17 PM TERADATA ARCHITECT us Paulette Whitehead MD LAB BLOOD ORDERABLES Fi nal Result Performing Organization Address [facility] Co de Phone Number [facility] Department [place] [address] * (ABNORMAL) Hepatic function panel (10/19/2024 6:04 PM TERADATA ARCHITECT) Bilirubin, total 0.6 0.1 - 1.2 mg/dL Bilirubin, direct 0.3 0.1 - 0.3 mg/dL [facility] Protein, pl 5.4(L) 6.5 - 8.5 g/dL [facility] Albumin 3.7 3.5 - 5.0 g/dL [facility] Alk phos 70 40 - 130 Units/L [facility] ALT 53(H) 7 - 45 Units/L [facility] AST 86(H) 10 - 45 Units/L [facility] Blood 10/19/2024 6:04 PM TERADATA ARCHITECT 10/19/2024 6:23 PM TERADATA ARCHITECT us Inderjit Stephen MD LAB BLOOD ORDERABLES Final Result [facility] Department [place] [address] * (ABNORMAL) Lipid panel (10/19/2024 6:04 PM TERADATA ARCHITECT) Cholesterol 108 30 - 199 mg/dL Comment: [...] revised on 2018. Triglycerides 270(H) <=149 mg/dL [facility] Comment: Interpretive Data Ages < or [...] revised on 2018. HDL 25(L) >=40 mg/dL [facility] Comment: Interpretive Data Ages < or [...] on 2018. LDL, calculated 41 <=129 mg/dL [facility] Comment: Interpretive Data Ages < or [...] NCEP Expert Panel. Circulation 2004;110:227 3. Chapin Marx et al. ZBIGNIEW Cardiol. 2020 January 04;5(5):540-548. doi: [email or web address] Current Interpretive Data was last revised on 2024. Non-HDL Cholesterol 83 mg/dL [facility] Comment: Interpretive Data Ages < or [...] last revised on 2018. Chol/HDL ratio 4 [facility] Blood 10/19/2024 6:04 PM TERADATA ARCHITECT 10/19/2024 6:23 PM TERADATA ARCHITECT us Inderjit Stephen MD LAB BLOOD ORDERABLES Final Result [facility] Department [place] [address] * (ABNORMAL) Basic metabolic panel (10/19/2024 6:04 PM TERADATA ARCHITECT) Sodium 141 135 - 145 mmol/L Potassium, pl 4.3 3.3 - 4.9 mmol/L [facility] Chloride 110 97 - 110 mmol/L [facility] CO2 23 22 - 32 mmol/L [facility] Anion gap 8 2 - 15 mmol/L [facility] BUN 21 6 - 25 mg/dL [facility] Creatinine 1.28(H) 0.60 - 1.10 mg/dL [facility] Glucose 209(H) 70 - 199 mg/dL [facility] Comment: Interpretive Data Fasting glucose >/= [...] 2022. Calcium 8.8 8.5 - 10.3 mg/dL [facility] Blood 10/19/2024 6:04 PM TERADATA ARCHITECT 10/19/2024 6:23 PM TERADATA ARCHITECT Inderjit Stephen MD LAB BLOOD ORDERABLES Final Result Performing Organization Address [facility]/ZIP Co de Phone Number [facility] [place] [address] * POCT glucose (10/19/2024 6:03 PM TERADATA ARCHITECT) Glucose, POC 189 70 - 199 mg/dL Blood 10/19/2024 6:03 PM TERADATA ARCHITECT 10/19/2024 6:03 PM TERADATA ARCHITECT Inderjit Stephen MD LAB POCT ORDERABLES - DEVICE Final Result [facility] [place] [address] * (ABNORMAL) POC Blood Gas and Chemistries, Arterial - (10/19/2024 4:16 PM TERADATA ARCHITECT) [facility] pH, Art POC 6.98(C) 7.35 - 7.45 pCO2, Art POC 111(C) 35 - 45 mmHg [facility] pO2, Art POC 177(H) 83 - 108 mmHg [facility] Na, POC 140 135 - 145 mmol/L [facility] K POC 5.0(H) 3.3 - 4.9 mmol/L [facility] Comment: Hemolyzed;K+ value may be falsely elevated 0.6-1.0 Interpretive Data Not all point of care methods assess for hemolysis. Confirm with instrument and retest K+ if not consistent with clinical signs and symptoms. Current Interpretive Data was last revised on 2023. Cl, POC 110 97 - 110 mmol/L [facility] Ionized Ca, POC 5.51(H) 4.50 - 5.10 mg/dL [facility] Glucose, POC 254(H) 70 - 199 mg/dL [facility] Lactate, POC 0.5(L) 0.7 - 2.0 mmol/L [facility] SO2 (mishel) arterial 100(H) 90 - 95 % [facility] Base excess, POC -8.1 mmol/L [facility] HCO3, Art POC 26 20 - 30 mmol/L [facility] Hct, POC 40.0 36.3 - 45.3 % [facility] Total Hb, POC 13.4 11.9 - 15.5 g/dL [facility] Blood 10/19/2024 4:16 PM TERADATA ARCHITECT 10/19/2024 4:16 PM TERADATA ARCHITECT Inderjit Stephen MD LAB POCT ORDERABLES - DEVICE Final Result [facility] [employer] [address] * POCT glucose (10/19/2024 2:32 PM TERADATA ARCHITECT) Glucose, POC 178 70 - 199 mg/dL Blood 10/19/2024 2:32 PM TERADATA ARCHITECT 10/19/2024 2:32 PM TERADATA ARCHITECT us Inderjit Stephen MD LAB POCT ORDERABLES - DEVICE Final Result Performing Organization Address [facility] Co de Phone Number MAYDA [facility] [employer] [address] * (ABNORMAL) eGFR (10/19/2024 2:28 PM TERADATA ARCHITECT) eGFR 49(L) >=60 mL/min/1. 73 m2 Comment: [...] last reviewed 2021. Blood 10/19/2024 2:28 PM TERADATA ARCHITECT 10/19/2024 2:41 PM TERADATA ARCHITECT us Wilda Bryant HUMAN PERFORMANCE TECHNOLOGIST LAB BLOOD ORDERABLES Sondra l Result [facility] Department [place] [address] * (ABNORMAL) CBC without differential (10/19/2024 2:28 PM TERADATA ARCHITECT) [facility] WBC 8.0 3.8 - 9.9 K/cumm Hgb 12.1 11.9 - 15.5 g/dL [facility] Hct 38.6 35.6 - 45.5 % [facility] Plt 94(L) 150 - 400 K/cumm [facility] MPV 10.4 9.1 - 12.3 fL [facility] RBC 4.09 3.90 - 5.20 M/cumm [facility] MCV 94.4 81.3 - 96.4 fL [facility] MCH 29.6 27.1 - 33.3 pg [facility] MCHC 31.3(L) 32.3 - 35.7 g/dL [facility] RDW CV 14.9 11.1 - 14.9 % [facility] RDW SD 52.2(H) 35.7 - 48.1 fL [facility] NRBC abs 0.00 0.00 - 0.01 K/cumm [facility] Blood 10/19/2024 2:28 PM TERADATA ARCHITECT 10/19/2024 2:41 PM TERADATA ARCHITECT Wilda Bryant HUMAN PERFORMANCE TECHNOLOGIST LAB BLOOD ORDERABLES Sondra l Result [facility] [place] [address] * (ABNORMAL) Basic metabolic panel (10/19/2024 2:28 PM TERADATA ARCHITECT) [facility] Sodium 140 135 - 145 mmol/L Potassium, pl 4.2 3.3 - 4.9 mmol/L [facility] Chloride 109 97 - 110 mmol/L [facility] CO2 25 22 - 32 mmol/L [facility] Anion gap 6 2 - 15 mmol/L [facility] BUN 19 6 - 25 mg/dL [facility] Creatinine 1.25(H) 0.60 - 1.10 mg/dL [facility] Glucose 200(H) 70 - 199 mg/dL [facility] Comment: Interpretive Data Fasting glucose >/= [...] 2022. Calcium 8.9 8.5 - 10.3 mg/dL [facility] Blood 10/19/2024 2:28 PM TERADATA ARCHITECT 10/19/2024 2:41 PM TERADATA ARCHITECT Wilda Bryant HUMAN PERFORMANCE TECHNOLOGIST LAB BLOOD ORDERABLES Sondra sosa Result [facility] [place] [address] * XR Spine Lumbar 2 or 3 Views (10/19/2024 1:13 PM TERADATA ARCHITECT) Anatomical Region Laterality Modality Spine N/A Computed Radiogr aphy 10/19/2024 1:21 PM TERADATA ARCHITECT Impressions 10/19/2024 1:32 PM TERADATA ARCHITECT Posterior spinal fusion instrumentation spanning from L2 to the iliac bones. Dictated by: Amadou Meeks MD The radiology attending physician has personally reviewed this study, and had reviewed and/or edited this written report and agrees with it. Electronically signed by: Bairon Cevallos M.D. Narrative 10/19/2024 1:32 PM TERADATA ARCHITECT EXAMINATION: XR SPINE LUMBAR 2 OR 3 [...] Fluoroscopy < 1 Hour (10/19/2024 1:12 PM TERADATA ARCHITECT) Narrative [facility] - 10/19/2024 1:13 PM TERADATA ARCHITECT The images from this study are not interpreted by Radiology. Please refer to the physician's procedure / OR operative note. Inderjit Stephen MD [facility] FLUOROSCOPY PROC EDURES Final Result [email or web address] * (ABNORMAL) POC Blood Gas and Chemistries, Arterial - (10/19/2024 12:39 PM TERADATA ARCHITECT) pH, Art POC 7.36 7.35 - 7.45 pCO2, Art POC 37 35 - 45 mmHg [facility] pO2, Art POC 183(H) 83 - 108 mmHg [facility] Na, POC 140 135 - 145 mmol/L [facility] K POC 3.4 3.3 - 4.9 mmol/L [facility] Comment: Interpretive Data Not all point of care methods assess for hemolysis. Confirm with instrument and retest K+ if not consistent with clinical signs and symptoms. Current Interpretive Data was last revised on 2023. Cl, POC 110 97 - 110 mmol/L [facility] Ionized Ca, POC 5.47(H) 4.50 - 5.10 mg/dL [facility] Glucose, POC 160 70 - 199 mg/dL [facility] Lactate, POC 0.9 0.7 - 2.0 mmol/L [facility] SO2 (mishel) arterial 100(H) 90 - 95 % [facility] Base excess, POC -4.1 mmol/L [facility] Hct, POC 37.0 36.3 - 45.3 % [facility] Total Hb, POC 12.3 11.9 - 15.5 g/dL [facility] Blood 10/19/2024 12:3 9 PM TERADATA ARCHITECT 10/19/2024 12:39 PM TERADATA ARCHITECT us Inderjit Stephen MD LAB POCT ORDERABLES - DEVICE Final Result [facility] Department [place] [address] * (ABNORMAL) POC Blood Gas and Chemistries, Arterial - (10/19/2024 11:33 AM TERADATA ARCHITECT) pH, Art POC 7.37 7.35 - 7.45 pCO2, Art POC 37 35 - 45 mmHg [facility] pO2, Art POC 181(H) 83 - 108 mmHg [facility] Na, POC 140 135 - 145 mmol/L [facility] K POC 3.6 3.3 - 4.9 mmol/L [facility] Comment: Interpretive Data Not all point of care methods assess for hemolysis. Confirm with instrument and retest K+ if not consistent with clinical signs and symptoms. Current Interpretive Data was last revised on 2023. Cl, POC 110 97 - 110 mmol/L [facility] Ionized Ca, POC 5.38(H) 4.50 - 5.10 mg/dL [facility] Glucose, POC 116 70 - 199 mg/dL [facility] Lactate, POC 1.0 0.7 - 2.0 mmol/L [facility] SO2 (mishel) arterial 100(H) 90 - 95 % [facility] Base excess, POC -3.4 mmol/L [facility] Hct, POC 38.0 36.3 - 45.3 % [facility] Total Hb, POC 12.5 11.9 - 15.5 g/dL [facility] Blood 10/19/2024 11:3 3 AM TERADATA ARCHITECT 10/19/2024 11:33 AM TERADATA ARCHITECT Inderjit Stephen MD LAB POCT ORDERABLES - DEVICE Final Result [facility] Department [place] [address] * (ABNORMAL) POC Blood Gas and Chemistries, Arterial - (10/19/2024 10:22 AM TERADATA ARCHITECT) pH, Art POC 7.41 7.35 - 7.45 pCO2, Art POC 34(L) 35 - 45 mmHg [facility] pO2, Art POC 163(H) 83 - 108 mmHg [facility] Na, POC 139 135 - 145 mmol/L [facility] K POC 3.2(L) 3.3 - 4.9 mmol/L [facility] Comment: Interpretive Data Not all point of care methods assess for hemolysis. Confirm with instrument and retest K+ if not consistent with clinical signs and symptoms. Current Interpretive Data was last revised on 2023. Cl, POC 110 97 - 110 mmol/L [facility] Ionized Ca, POC 5.46(H) 4.50 - 5.10 mg/dL [facility] Glucose, POC 97 70 - 199 mg/dL [facility] Lactate, POC 0.9 0.7 - 2.0 mmol/L [facility] SO2 (mishel) arterial 100(H) 90 - 95 % [facility] Base excess, POC -2.4 mmol/L [facility] Hct, POC 39.0 36.3 - 45.3 % [facility] Total Hb, POC 13.1 11.9 - 15.5 g/dL [facility] Blood 10/19/2024 10:2 2 AM TERADATA ARCHITECT 10/19/2024 10:22 AM TERADATA ARCHITECT Inderjit Stephen MD LAB POCT ORDERABLES - DEVICE Final Result MAYDA Hurley [facility] [place] [address] * MD AN PROCEDURE PLACEHOLDER (10/19/2024 9:52 AM TERADATA ARCHITECT) Sveta Maldonado CRNA - 10/19/2024 9:52 AM TERADATA ARCHITECT Sveta Naranjo CRNA 10/19/2024 9:53 AM Arterial Line Patient location: OR Indication: continuous blood pressure monitoring and blood sampling needed Staff: Placed by: SOPHIE: Sveta Naranjo CRNA Procedure prep: Prep solution: [...] MD ANESTHESIA ORDERABLES Final Resu lt * MD AN PROCEDURE PLACEHOLDER (10/19/2024 9:51 AM TERADATA ARCHITECT) Sveta Maldonado CRNA - 10/19/2024 9:51 AM TERADATA ARCHITECT Sveta Naranjo CRNA 10/19/2024 9:52 AM Peripheral [...] MD ANESTHESIA ORDERABLES Final Resu lt * MD AN ELECTIVE ENDOTRACHEAL AIRWAY, MD AN PROCEDURE PLACEHOLDER (10/19/2024 9:46 AM TERADATA ARCHITECT) Sveta Maldonado CRNA - 10/19/2024 9:46 AM TERADATA ARCHITECT Sveta Naranjo CRNA 10/19/2024 9:50 AM Airway Patient location: OR Urgency: elective Indications for airway management: anesthesia Difficult airway: no Staff: Placed by: ENVIRONMENTAL SCIENCE PROGRAM DIRECTOR: Sveta Naranjo CRNA Emergent airway documentation: Risks [...] soft gauze with tongue in neutral position us Lesly Ambrocio MD ANESTHESIA ORDERABLES Final Resu lt * (ABNORMAL) POC Blood Gas and Chemistries, Arterial - (10/19/2024 9:11 AM TERADATA ARCHITECT) pH, Art POC 7.41 7.35 - 7.45 pCO2, Art POC 36 35 - 45 mmHg [facility] pO2, Art POC 119(H) 83 - 108 mmHg [facility] Na, POC 140 135 - 145 mmol/L [facility] K POC 3.5 3.3 - 4.9 mmol/L [facility] Comment: Interpretive Data Not all point of care methods assess for hemolysis. Confirm with instrument and retest K+ if not consistent with clinical signs and symptoms. Current Interpretive Data was last revised on 2023. Cl, POC 109 97 - 110 mmol/L [facility] Ionized Ca, POC 5.60(H) 4.50 - 5.10 mg/dL [facility] Glucose, POC 96 70 - 199 mg/dL [facility] Lactate, POC 1.0 0.7 - 2.0 mmol/L [facility] SO2 (mishel) arterial 100(H) 90 - 95 % [facility] Base excess, POC -1.4 mmol/L [facility] Hct, POC 42.0 36.3 - 45.3 % [facility] Total Hb, POC 14.0 11.9 - 15.5 g/dL [facility] Blood 10/19/2024 9:11 AM TERADATA ARCHITECT 10/19/2024 9:11 AM TERADATA ARCHITECT us Inderjit Stephen MD LAB POCT ORDERABLES - DEVICE Final Result Performing Organization Address [facility] Co de Phone Number [facility] [place] [address] * POCT glucose (10/19/2024 6:53 AM TERADATA ARCHITECT) Glucose, POC 99 70 - 199 mg/dL Blood 10/19/2024 6:53 AM TERADATA ARCHITECT 10/19/2024 6:53 AM TERADATA ARCHITECT Inderjit Stephen MD LAB POCT ORDERABLES - DEVICE Final Result Performing Organization Address [facility] de Phone Number [facility] [place] [address] * Type and screen (10/19/2024 6:52 AM TERADATA ARCHITECT) ABO Rh O Negative Nas, indirect Negative [facility] Blood 10/19/2024 6:52 AM TERADATA ARCHITECT 10/19/2024 7:24 AM TERADATA ARCHITECT Narrative [facility] - 10/19/2024 8:47 AM TERADATA ARCHITECT Has the patient had Daratumumab or Isatuximab in the past 6 months?->Unknown us Jamilah Cortez NP LAB BLOOD BANK TEST ORDERAB LES Final Result Performing Organization Address [facility] Co de Phone Number [facility] [place] [address] * (ABNORMAL) eGFR (10/03/2024 2:08 PM TERADATA ARCHITECT) Pathologist [facility] eGFR 39(L) >=60 mL/min/1. 73 m2 Comment: [...] last reviewed 2021. Blood 10/03/2024 2:08 PM TERADATA ARCHITECT 10/03/2024 2:59 PM TERADATA ARCHITECT us Inderjit Stephen MD LAB BLOOD ORDERABLES Final Result [facility] Department [place] [address] * Differential, auto (10/03/2024 2:08 PM TERADATA ARCHITECT) Pathologist [facility] Neutrophil abs 3.6 1.5 - 6.5 K/cumm Imm gran abs 0.0 0.0 - 0.1 K/cumm [facility] Lymphocyte abs 1.4 0.8 - 3.3 K/cumm [facility] Monocyte abs 0.4 0.2 - 0.8 K/cumm [facility] Eosinophil abs 0.1 0.0 - 0.5 K/cumm [facility] Basophil abs 0.0 0.0 - 0.1 K/cumm [facility] Neutrophil pct 65.5 % [facility] Comment: Interpretive Data Percent cell count reference ranges are not reported, since discordance with absolute values may lead to misinterpretation of CBC data. Current Interpretive Data was last revised on 2017. Imm gran pct 0.2 % [facility] Comment: Interpretive Data Percent cell count reference ranges are not reported, since discordance with absolute values may lead to misinterpretation of CBC data. Current Interpretive Data was last revised on 2017. Lymphocyte pct 24.8 % [facility] Comment: Interpretive Data Percent cell count reference ranges are not reported, since discordance with absolute values may lead to misinterpretation of CBC data. Current Interpretive Data was last revised on 2017. Monocyte pct 6.6 % [facility] Comment: Interpretive Data Percent cell count reference ranges are not reported, since discordance with absolute values may lead to misinterpretation of CBC data. Current Interpretive Data was last revised on 2017. Eosinophil pct 2.4 % [facility] Comment: Interpretive Data Percent cell count reference ranges are not reported, since discordance with absolute values may lead to misinterpretation of CBC data. Current Interpretive Data was last revised on 2017. Basophil pct 0.5 % [facility] Comment: Interpretive Data Percent cell count reference ranges are not reported, since discordance with absolute values may lead to misinterpretation of CBC data. Current Interpretive Data was last revised on 2017. Blood 10/03/2024 2:08 PM TERADATA ARCHITECT 10/03/2024 3:00 PM TERADATA ARCHITECT us Inderjit Stephen MD LAB BLOOD ORDERABLES Final Result [facility] Department of Laboratories [place], [place] [id number] * (ABNORMAL) Urinalysis reflex to microscopic and culture Urine, clean voided (10/03/2024 2:08 PM TERADATA ARCHITECT) Color, ur Yellow Yellow Clarity, ur Cloudy(A) Clear [facility] Specific gravity, ur 1.026 1.003 - 1.030 [facility] pH, urine 5.5 [facility] Comment: Interpretive Data U rine pH is affected by diet, medications, systemic acid-base disturbances, and renal tubular function. pH may affect urinary stone formation. For example, urine pH below 6.0 may help reduce the tendency for calcium phosphate stones and pH greater than 6.0 may reduce the tendency for uric acid stone formation. Source: [facility] Current Interpretive Data was last revised on 2017 Protein, ur ql 1+(A) Negative [facility] Glucose, ur ql Negative Negative [facility] Ketones, ur 1+(A) Negative [facility] Bilirubin, ur Negative Negative [facility] Blood, ur Trace(A) Negative [facility] Urobilinogen, ur <2.0 <2.0 mg/dL [facility] Nitrite, ur Negative Negative [facility] Leukocyte esterase, ur 3+(A) Negative [facility] UA reflex comment Reflex to microscopic UA will be performed. [facility] Urine, clean voided 10/03/2024 2:08 PM TERADATA ARCHITECT 10/03/2024 2:49 PM TERADATA ARCHITECT Inderjit Stephen MD LAB MICROBIOLOGY - [facility] ORDERABLES Final Result [facility] Department [place] [address] * (ABNORMAL) CBC with auto differential (10/03/2024 2:08 PM TERADATA ARCHITECT) WBC 5.5 3.8 - 9.9 K/cumm Hgb 14.5 11.9 - 15.5 g/dL [facility] Hct 45.2 35.6 - 45.5 % [facility] Plt 117(L) 150 - 400 K/cumm [facility] MPV 10.8 9.1 - 12.3 fL [facility] RBC 4.96 3.90 - 5.20 M/cumm [facility] MCV 91.1 81.3 - 96.4 fL [facility] MCH 29.2 27.1 - 33.3 pg [facility] MCHC 32.1(L) 32.3 - 35.7 g/dL [facility] RDW CV 14.7 11.1 - 14.9 % [facility] RDW SD 49.2(H) 35.7 - 48.1 fL [facility] NRBC abs 0.00 0.00 - 0.01 K/cumm [facility] Blood 10/03/2024 2:08 PM TERADATA ARCHITECT 10/03/2024 3:00 PM TERADATA ARCHITECT Inderjit Stephen MD LAB BLOOD ORDERABLES Final Result Performing Organization Address City/[facility]/ZIP Co de Phone Number [facility] Department [place] [address] * Nicotine metabolite screen, urine (10/03/2024 2:08 PM TERADATA ARCHITECT) Nicotine, ur <5.0 <5.0 ng/mL [facility] Cotinine, ur <5.0 <5.0 ng/mL [facility] Anabasine ur <2.0 <2.0 ng/mL [facility] Comment: ADDITIONAL INFORMATION This test was developed and its performance characteristics determined by [facility] in a manner consistent with CLIA requirements. This test has not been cleared or approved by the U.S. Food and Drug Administration. Test Performed by: [facility] - [address] [address] Wrapper Opener: Luciana Simmons Ph.D.; CLIA# [id number] Nornicotine, ur <2.0 <2.0 ng/mL [facility] Urine 10/03/2024 2:08 PM TERADATA ARCHITECT 10/03/2024 4:21 PM TERADATA ARCHITECT Inderjit Stephen MD LAB URINE ORDERABLES Final Result Performing Organization Address City/[facility]/ZIP Co de Phone Number [facility] Department [place] [address] [facility] * (ABNORMAL) Vitamin D 25 hydroxy (10/03/2024 2:08 PM TERADATA ARCHITECT) Pathologist [facility] Vitamin D 25-OH 86(H) 30 - 80 ng/mL Blood 10/03/2024 2:08 PM TERADATA ARCHITECT 10/03/2024 2:59 PM TERADATA ARCHITECT Inderjit Stephen MD LAB BLOOD ORDERABLES Final [place] [address] * (ABNORMAL) Urinalysis, microscopic only (10/03/2024 2:08 PM TERADATA ARCHITECT) [facility] WBC, ur 21-50(A) 0 - 5 /HPF RBC, ur 0-2 0 - 2 /HPF [facility] Epithelial cells, squamous, ur 1-5 0 - 5 /HPF [facility] Bacteria, ur 2+(A) [facility] Mucous, ur Present(A) [facility] Amorphous crystals, ur Trace(A) [facility] Hyaline casts, ur 1-5 0 - 10 /LPF [facility] Culture Reflex Comment Reflex to urine culture will be performed. [facility] Urine, clean voided 10/03/2024 2:08 PM TERADATA ARCHITECT 10/03/2024 2:49 PM TERADATA ARCHITECT Inderjit Stephen MD LAB URINE ORDERABLES Final Result Performing Organization Address City/[facility]/ZIP Co [place] [address] * Erythrocyte sedimentation rate (10/03/2024 2:08 PM TERADATA ARCHITECT) [facility] Erythrocyte sedimentation rate 7 1 - 30 mm/hr Blood 10/03/2024 2:08 PM TERADATA ARCHITECT 10/03/2024 3:00 PM TERADATA ARCHITECT Inderjit Stephen MD LAB BLOOD ORDERABLES Final Result Performing Organization Address City/[facility]/[place] [address] * Type and screen (10/03/2024 2:08 PM TERADATA ARCHITECT) Nas, indirect Negative ABO Rh O Negative [facility] Blood 10/03/2024 2:08 PM TERADATA ARCHITECT 10/03/2024 3:00 PM TERADATA ARCHITECT Narrative [facility] - 10/03/2024 4:53 PM TERADATA ARCHITECT Has the patient had Daratumumab or Isatuximab in the past 6 months?->Unknown Inderjit Stephen MD LAB BLOOD BANK TEST ORDERABLES Final Result Performing Organization Address [facility] Co de Phone Number [facility] [place] [address] * (ABNORMAL) Urine culture Urine, clean voided (10/03/2024 2:08 PM TERADATA ARCHITECT) Report Final Report: Greater than or equal to 100,000 colonies/mL of Klebsiella pneumoniae (.) Organism KLEBSIELLA PNEUMONIAE [facility] Urine, clean voided 10/03/2024 2:08 PM TERADATA ARCHITECT 10/03/2024 7:29 PM TERADATA ARCHITECT Narrative [facility] - 10/05/2024 3:03 PM TERADATA ARCHITECT Urine culture reflexed based upon urinalysis results. Testing performed by [facility] ([phone]) Organism Antibiotic Method Susceptibility Klebsiella pneumoniae Ampicillin [...] ENERAL ORDERABLES Final Result Performing Organization Address City/[facility]/ZIP Co de Phone Number [facility] Department [place] [address] * CRP (acute phase) (10/03/2024 2:08 PM TERADATA ARCHITECT) Pathologist [facility] CRP 0.5 <=10.0 mg/L Blood 10/03/2024 2:08 PM TERADATA ARCHITECT 10/03/2024 2:59 PM TERADATA ARCHITECT Inderjit Stephen MD LAB BLOOD ORDERABLES Final Result Performing Organization Address [facility] de Phone Number [facility] Department [place] [address] * (ABNORMAL) Comprehensive metabolic panel (10/03/2024 2:08 PM TERADATA ARCHITECT) Pathologist [facility] Sodium 145 135 - 145 mmol/L Potassium, pl 4.4 3.3 - 4.9 mmol/L [facility] Comment:Hemolyzed; Potassium value may be falsely elevated by as much as 0.3-0.5 mmol/L. Suggest redraw and reanalysis. Chloride 108 97 - 110 mmol/L [facility] CO2 30 22 - 32 mmol/L [facility] Anion gap 7 2 - 15 mmol/L [facility] BUN 18 6 - 25 mg/dL [facility] Creatinine 1.50(H) 0.60 - 1.10 mg/dL [facility] Glucose 58(L) 70 - 199 mg/dL [facility] Comment: Interpretive Data Fasting glucose >/= [...] 2022. Calcium 10.1 8.5 - 10.3 mg/dL [facility] Bilirubin, total 0.5 0.1 - 1.2 mg/dL [facility] Protein, pl 6.5 6.5 - 8.5 g/dL [facility] Albumin 3.9 3.5 - 5.0 g/dL [facility] Alk phos 59 40 - 130 Units/L [facility] ALT 20 7 - 45 Units/L [facility] AST 31 10 - 45 Units/L [facility] Comment:Hemolyzed; result ma y be falsely elevated Blood 10/03/2024 2:08 PM TERADATA ARCHITECT 10/03/2024 2:59 PM TERADATA ARCHITECT Result [facility] Inderjit Stephen MD LAB BLOOD ORDERABLES Final Result [facility] Department [place] [address] * POCT glucose (10/03/2024 9:32 AM TERADATA ARCHITECT) Pathologist [facility] Glucose Blood, POC 67 mg/dL Blood 10/03/2024 9:32 AM TERADATA ARCHITECT Result [facility]U POINT OF CARE TEST ORDERA BLES Final Result * POCT hemoglobin A1c (10/03/2024 9:32 AM TERADATA ARCHITECT) Hemoglobin A1C, POC 5.2 4.0 - 5.6 % Blood 10/03/2024 9:32 AM TERADATA ARCHITECT [facility]U POINT OF CARE TEST ORDERA BLES Final Result * Serum Hepatitis C ab (12/24/2015 6:54 AM CDT) HCV ab Negative NEG HISTORICAL RESULTS Serum 12/24/2015 6:54 AM CDT Narrative HISTORICAL RESULTS - 12/25/2015 7:16 AM CDT Interpretive Data If confirmation is required, call Laboratory Customer Service to request sample to be sent to [facility] for Hepatitis C Virus (HCV) RNA Detection and Quantitation by Real-Time Reverse [employer]-PCR (RT-PCR). Current interpretive data was last revised on 2011 Nicole Kunz NP LAB BLOOD ORDERA BLES Final Result HISTORICAL RESULTS from Last 3 Months or Most Recently Relevant to Health Maintenance [facility] [place] Advance Directives For more information, please contact: [phone] * Full Code (Latest Code Status on File) Date Activated Date Inactivated Comments 10/19/2024 6:14 PM 10/27/2024 8:46 PM Care Teams Language Pathologist Relationship Specialty Start Date End Date Hugh Sarkar MD PCP - General 11/16/16 Seda Russell MD [address] [place] [address] Referring Physician Transplant 05/02/20 Mlaena Morales MD [address] [place] [address] Referring Physician Endocrinology Diabetes & Metabolism 05/02/20 Allyn Tierney, RN [address] [address] Baggage Smasher Baggage Smasher 09/17/20
--- OUTSIDE RECORDS SUMMARY | 2024-11-01 18:36 | XMS_ITS | Encounter Summary ---
Author Organization [facility] Address [facility] [place] [address] Care Team Providers Care Pastry Chef Name Role Phone Hugh Sarkar MD Primary Care Provider Encounter Details Date Type Department Care Team (Late Contact Info) Description 02/11/2019 Abstract SFL CONVERSION [address] [place] [address] , Generic Conversion, Social History Tobacco Use Types Packs/Day Years [...] Description 12/13/2024 3:45 PM CDT Office Visit [facility] [address] [place] [address], [facility] [address] [place] [address] Malathi Clark PA [address] [place] [address] [address] [place] [address] documented as of this encounter Visit Diagnoses Not on filedocumented in this encounter Additional Health Concerns Infection Onset Date Last Indicated Resolved Time COVID-19 Rule Out 07/27/2020 07/27/2020 07/29/2020 4:30 PM PAINT PREPPER COVID-19 Rule Out 07/14/2021 07/14/2021 07/15/2021 7:07 PM PAINT PREPPER documented as of this encounter Care Teams Pastry Chef Relationship Specialty Start Date End Date Hugh Sarkar MD [address] [place] [address] PCP - General FAMILY PRACTICE 02/10/19 documented as of this encounter
--- OUTSIDE RECORDS SUMMARY | 2024-11-01 18:36 | XMS_ITS ---
Author Organization [facility] Address [address] [place] [address] Care Team Providers Care Sales Representative Gas Service Name Role Phone Hugh Sarkar MD Primary Care Provider Seda Russell MD Unavailable [phone] Malena Morales MD Unavailable Allyn Tierney RN Unavailable Active Problems Patient Care Coordination No te Formatting of this note migh t be different from the original. Lab: [facility] P:[phone] F:[phone] SO: Q-Monthly FK; Q-3 Routine (06/27/2025) Problem Noted Date Diagnosed Date Spondylolisthesis 10/19/2024 Hypoglycemia 10/03/2024 Assessment & Plan (10/03/2024 12:49 PM SYNCHRO ASSEMBLER): - Upon rooming, BG 67mg/dL, patient's hands [...] 10/01/21 Assessment & Plan (10/08/2021 9:32 AM SYNCHRO ASSEMBLER): Current infection - about 10/01/21. Causes some temporary hyperglycemia. Has immunity to COVID-19 virus 04/07/2021 Overview (08/10/2022): Moderna vaccine x 4 COVID infection 10/01/21 Note - immunosuppression from transplant Assessment & Plan (08/10/2022 9:25 AM SYNCHRO ASSEMBLER): Fully vaccinated, Hx COVID; eligible for booster. Assessment & Plan (12/19/2021 2:46 PM CDT): Moderna vaccine x3 as well as COVID infection. She can check with her transplant team ia to getting a fourth shot Assessment & Plan (10/03/2021 4:18 PM SYNCHRO ASSEMBLER): Moderna vaccine 06/11/2021, 09/28/2020, 08/31/2020 Note - immunosuppression from transplant Immunosuppression 12/06/2020 Edema, lower extremity 12/06/2020 Vitamin D deficiency 06/03/2018 Overview (10/08/2021): 04/24/2021 DEXA hip and spine normal Assessment & Plan (05/28/2024 7:09 PM CDT): Continue supplement Assessment & Plan (11/16/2023 8:43 PM CDT): Continue supplement Assessment & Plan (05/18/2023 7:19 PM CDT): Continue supplement Assessment & Plan (08/14/2022 10:26 AM SYNCHRO ASSEMBLER): Continue supplement and recheck level Assessment & Plan (12/19/2021 2:47 PM CDT): 04/24/2021 DEXA hip and spine normal Continue long-term supplement. Assessment & Plan (10/08/2021 9:35 AM SYNCHRO ASSEMBLER): 04/24/2021 DEXA hip and spine normal Continue long-term supplement and recheck level Assessment & Plan (04/07/2021 10:06 AM CDT): Recent level about 70, scheduled to have a 24 hour urine calcium and a DEXA bone density per the renal transplant team. Assessment & Plan (06/04/2020 4:46 PM CDT): Continue long-term supplementation Assessment & Plan (10/27/2019 3:01 PM SYNCHRO ASSEMBLER): Continue supplement Assessment & Plan (12/28/2018 3:31 PM CDT): Continue supplement, particularly since she has take steroids Basal cell carcinoma of skin of other parts of f yaima - Right 03/28/2018 Basal cell carcinoma of skin of other parts of f yaima 03/28/2018 Obesity with body mass index 30 or greater 01/07 Assessment & Plan (10/03/2024 12:51 PM SYNCHRO ASSEMBLER): - Continue Mounjaro 5 mg once a [...] 04/27/2016 Assessment & Plan (10/03/2024 12:47 PM SYNCHRO ASSEMBLER): - Diabetes is complicated by neuropathy, chronic kidney disease s/p transplant (2015), hyperlipidemia and obesity. Controlled - having too much hypoglycemia. Lab Results Component Value Date HGBA1C 5.2 10/03/2024 Per [place] [employer], goal A1c is less 7% [...] with Elif or Dexcom apps. Given sample supervisor scenic arts today as well. Plan to download in [...] that I am available via phone or [facility] if they have any concerns for hypo/hyperglycemia, medication refills, etc. Assessment & Plan (05/28/2024 7:09 PM CDT): Overall doing reasonably well, stable on current regimen Assessment & Plan (04/03/2024 10:05 AM CDT): - Diabetes is complicated by neuropathy, CKD s/p renal transplant (2016) and chronic steroid use. Controlled. Lab Results Component Value Date HGBA1C 5.4 04/03/2024 Per [place] [employer], goal A1c is less 7% [...] labs. Assessment & Plan (08/14/2022 10:27 AM SYNCHRO ASSEMBLER): Glucoses increase after meals, so needs mealtime [...] today Assessment & Plan (10/08/2021 9:37 AM SYNCHRO ASSEMBLER): Glucoses a little high, and renal function [...] benefit. Assessment & Plan (10/27/2019 3:01 PM SYNCHRO ASSEMBLER): Glucoses within a good margin of safety. However, we need to increase gabapentin as tolerated. She also uses Lyrica (control substances agreement in effect) Assessment & Plan (12/28/2018 3:31 PM CDT): Slightly suboptimal glycemic control, may do better with G LP 1 agonist instead of linagliptin Assessment & Plan (09/02/2018 3:44 PM SYNCHRO ASSEMBLER): She had been taking Januvia 100 mg [...] control Assessment & Plan (09/02/2018 3:48 PM SYNCHRO ASSEMBLER): Takes alpha lipoic acid Lyrica and gabapentin [...] History of nocturia 04/27/2016 Post-transplant diabetes mellitus (CMS/HCC) 03/06 Aftercare following organ transplant 03/24/2016 Assessment & Plan (05/07/2022 9:35 AM CDT): On steroids, immunosuppressants that affect glycemic control as well as neuropathy. Assessment & Plan (12/19/2021 2:45 PM CDT): On steroids, immunosuppressants that affect glycemic control as well as neuropathy. Assessment & Plan (10/08/2021 9:44 AM SYNCHRO ASSEMBLER): On steroids, immunosuppressants that affect glycemic control as well as neuropathy. Assessment & Plan (04/07/2021 10:14 AM CDT): On steroids, immunosuppressants that affect glycemic control as well as neuropathy Assessment & Plan (06/04/2020 4:47 PM CDT): On steroids, immunosuppressants that affect glycemic control as well as neuropathy Assessment & Plan (10/27/2019 8:05 AM SYNCHRO ASSEMBLER): On steroids, immunosuppressants that affect diabetes care Encounter for aftercare following kidney transpl ant 01/21/2016 Assessment & Plan (10/03/2024 12:52 PM SYNCHRO ASSEMBLER): - Chronic immunosuppressant and steroid use complicates [...] neuropathy. Assessment & Plan (08/14/2022 10:28 AM SYNCHRO ASSEMBLER): On steroids, immunosuppressants that affect glycemic control as well as neuropathy. Assessment & Plan (09/02/2018 3:43 PM SYNCHRO ASSEMBLER): Has follow-up with renal scheduled EGFR is 41 Creatinine has been range 1.5-1.65 Orthostatic hypotension 01/14/2016 Hyperlipidemia 03/12/2011 Assessment & Plan (10/03/2024 12:50 PM SYNCHRO ASSEMBLER): - Last LDL 65 (12/2023), up to [...] control. Assessment & Plan (08/14/2022 10:28 AM SYNCHRO ASSEMBLER): Continue statin, omega-3 and glycemic control. Assessment & Plan (05/07/2022 9:34 AM CDT): Continue statin therapy (atorvastatin 20mg) daily and she is also taking omega- 3. Optimize glycemic control. 04/2022- HDL 50, LDL 84 Assessment & Plan (12/19/2021 2:46 PM CDT): Continue statin, omega-3 and glycemic control. Recent Tg only slightly elevated and LDL within goal. Assessment & Plan (10/08/2021 9:33 AM SYNCHRO ASSEMBLER): Continue statin, omega-3 and glycemic control. Recent Tg only slightly elevated and LDL within goal. Assessment & Plan (04/07/2021 10:07 AM CDT): Continue statin, omega-3 and glycemic control Assessment & Plan (12/28/2018 3:31 PM CDT): Continue statin, optimize glycemic control Cerebral arterial aneurysm 03/12/2011 Polycystic kidney disease 03/12/2011 Current Treatment and Therapy Plans No current plan information found. Past Treatment and Therapy Plans No past plan information found. Lifetime Dose Tracking * Chemical Lifetime Dose Automatic Entry Manual Entr y Fluoro Time 0.552 minutes 0.552 minutes 0 minutes Air kerma at the reference point (Ka,r) 18.85 mGy 1 8.85 mGy 0 mGy Resolved Problems Problem Noted Date Diagnosed Date Resolved Date Hypercalcemia 12/06/2020 04/07/2021
--- OUTSIDE RECORDS SUMMARY | 2024-11-01 18:36 | XMS_ITS | Encounter Summary ---
Author Organization [facility] Address [address] [place] [address] Phone Care Team Providers Care Pararescue Manager Name Role Phone Hugh Sarkar MD Primary Care Provider [phone] Reason for Visit * Auth/Cert (Routine) Specialty Diagnoses / Procedures Referred By Arabella gonzalez Referred To Contact Referral ID Status Reason Start Date Expiration Date Visits Re quested Visits Authorized [id number] 1 1 Encounter Details Date Type Department Care Team (Late Contact Info) Description 11/01/2024 12:30 PM SHADE BANDER [facility] [address] [place] [address] Maria T Munoz, OT OT - INITIAL EVALUATION Social History Tobacco Use Types Packs/Day Years Used Date Smoking Tobacco: Never Assessed Comments Unknown Sex and Gender Information Value Date Recorded Sex Assigned at Not on file Legal Sex Female 7:58 AM SHADE BANDER Gender Identity Not on file Sexual Orientation Not on file documented as of this encounter Last Filed Vital Signs Vital Sign Reading Time Taken Comments Blood Pressure 102/58 11/01/2024 12:38 PM SHADE BANDER Pulse 73 11/01/2024 12:38 PM SHADE BANDER Temperature 36.3 C (97.4 F) 11/01/2024 12:38 PM SHADE BANDER Respiratory Rate 16 11/01/2024 12:38 PM SHADE BANDER Oxygen Saturation 95% 11/01/2024 12:38 PM SHADE BANDER Inhaled Oxygen Concentration - - Weight - - Height - - Body Mass Index - - documented in this encounter Plan of Treatment Upcoming Encounters Date Type Department Care Team (Late Contact Info) Description 11/02/2024 1:00 AM SHADE BANDER [facility] [address] [place] [address] Ifrah Andersen, RN [place] 11/02/2024 8:00 AM SHADE BANDER [facility] [address] [place] [address] Sho Reardon MSW [place] 11/03/2024 1:00 AM SHADE BANDER [facility] [address] [place] [address] Rayne Castillo, BOOKKEEPING TEACHER [place] 11/07/2024 1:00 AM SHADE BANDER [facility] [address] [place] [address] Rayne Castillo, BOOKKEEPING TEACHER [place] 11/07/2024 2:00 AM SHADE BANDER Home Care Visit [address] [address] Ifrah Andersen, RN [place] 11/08/2024 1:00 AM SHADE BANDER Home Care Visit [address] [address] Tiara Cortez, CONSTRUCTION CONTRACTOR [place] 11/09/2024 1:00 AM SHADE BANDER Home Care Visit [address] [address] Rayne Castillo, BOOKKEEPING TEACHER [place] 11/09/2024 2:00 AM SHADE BANDER Home Care Visit [address] [address] Ifrah Andersen, RN [place] 11/13/2024 1:00 AM CDT Home Care Visit [address] [address] Rayne Castillo, BOOKKEEPING TEACHER [place] 11/13/2024 2:00 AM CDT [facility] [address] [place] [address] Tiara oCrtez, TC [place] 11/14/2024 1:00 AM CDT Home Care Visit [address] [address] Ifrah Andersen, RN [place] 11/15/2024 1:00 AM CDT [facility] [address] [place] [address] Keiry Stubbs PT 11/15/2024 2:00 AM CDT [facility] [address] [place] [address] Tiara Cortez TC [place] 11/21/2024 1:00 AM CDT Home Care Visit [address] [address] Ifrah Andersen RN [place] 11/23/2024 1:00 AM CDT Home Care Visit [address] [address] Tiara Cortez TC [place] 11/24/2024 1:00 AM CDT Home Care Visit [address] [address] Tiara Cortez TC [place] 11/28/2024 1:00 AM CDT Home Care Visit [address] [address] Ifrah Andersen, RN [place] documented as of this encounter Visit Diagnoses Not on filedocumented in this encounter Home Health Visit - Care Plan Visit Details Visit Type -OT - INITIAL SUSY LUATION Discipline -Occupational Therapy Problems Problem Description Start Date Status Goals Interve ntions THERAPY DISEASE MANAGEMENT (O) Disciplines: Therapies 10/31/2024 Active - 2 problem interventions scheduled/documente d in this visit ALL HH VITAL SIGN PARAMETERS Disciplines: All Home Care 10/31/2024 Active - 1 problem intervention scheduled/documente d in this visit PAIN-MANAGEMENT/ EDUCATION Disciplines: Skilled Clinicians 10/31/2024 Active 1 goal linked to scheduled/document ed intervention 1 goal intervention scheduled/documente d in this visit FALL PREVENTION (O) Disciplines: SN, PT, OT, DINKEY LOCOMOTIVE OPERATOR, HCA, CERTIFIED HAND THERAPIST, RT 10/31/2024 Active 1 goal linked to scheduled/document ed intervention 1 goal intervention scheduled/documente d in this visit Goals Goal Associated Problem Outcome Goal Met? Visit Notes Pain Management/Education Description: Shared goal applicable to all disciplines with visit frequency order. Patient's pain level will remain at an acceptable level of 2 or lower with current pain medications/interventions. Target date: by 11/15/24 (date) PAIN-MANAGEMENT/EDUCATION No Fall Prevention Description: Shared goal applicable to all disciplines with a visit frequency order. Patient/ Caregiver will verbalize understanding of identified fall risk based on MAHC-10 Fall Risk assessment and methods to prevent falls. Target date: by 11/15/24 (date) FALL PREVENTION (O) No Interventions Intervention Associated Problem/Goal Status Variance Visit Notes Therapy Depression (O) Description: Assess and monitor for signs and symptoms of depression. Problem:THERAPY DISEASE MANAGEMENT (O) Completed Patient shows signs of depression no Therapy Diabetes Disease Management (O) Description: Monitor patient for signs and symptoms of diabetes exacerbation and report to nurse or physician. Problem:THERAPY DISEASE MANAGEMENT (O) Completed Diabetes issues identified: None All HH Vital Sign Parameters (Order Only) Description: Standard parameters to report to physician (unless patient specific parameters are ordered) - Applicable to all disciplines involved in patient's plan of care: Systolic blood pressure less than 90 Systolic blood pressure greater than 160 and/or diastolic blood pressure greater than 100 at rest unless due to uncontrolled pain or missed dose of antihypertensive medication. Blood Pressure greater than 140/90 for 3 consecutive readings occurring in at least two separate visits. Pulse greater than 110 at rest or less than 50 Respirations greater than 24 at rest or less than 10 Temperature greater than 101 degrees Fahrenheit New or increased edema Pulse ox less than 90% at rest on room air or while wearing prescribed oxygen, if ordered. Uncontrolled pain: chronic pain that changes in character or increases, pain that interferes with activity daily, or pain that is reported as unacceptable by the patient after use of prescribed pain control measures. Problem:ALL HH VITAL SIGN PARAMETERS Completed Pain Management/Education (Order Only) Description: Instruct patient/ caregiver on strategies to manage pain. Problem:PAIN-MANAGEME NT/EDUCATION Goal:Pain Management/Education Completed Fall (Order Only) Description: Shared intervention applicable to all disciplines with a visit frequency order.Patient meets criteria for Fall Risk based on MAHC-10 score. Instruct patient/caregiver on fall prevention measures. Problem:FALL PREVENTION (O) Goal:Fall Prevention Completed documented in this encounter Home Health Visit - Actions and Narratives Narratives Pt was [facility] to [facility] 10[facility]19/24-10/27/24 to undergo a L3-5 laminectomy/foraminotomy for spondylolisthesis and lumbar radiculopathy by Dr. Stephen. She has post-op complications of : dural tear, encephalopathy. Precautions : no bending, lifting > 10lbs, twisting, do not lift anything above your head. She has a follow up on 11/09/24. Pt denies any falls in the past few months. PMH : R kidney transplant, depression, anxiety, CAD, diabetes. Pt states she was having pain in her R leg, inner thighs and across her abdomen from the compression of L2-L5. Pt lives alone in a 1 level home with basement that she doesnt use. documented in this encounter Care Teams Pararescue Manager Relationship Specialty Start Date End Date Hugh Sarkar MD [address] [place] [address] PCP - General Family Medicine 10/27/24 documented as of this encounter
--- OUTSIDE RECORDS SUMMARY | 2024-11-01 18:36 | XMS_ITS | Encounter Summary ---
Author Organization [facility] Address [address] [place] [address] Phone Care Team Providers Care Truck Bench Mechanic Name Role Phone Hugh Sarkar MD Primary Care Provider Seda Russell MD Unavailable [phone] Malena Morales MD Unavailable Allyn Tierney RN Unavailable Encounter Details Date Type Department Care Team (Late st Contact Info) Description 11/01/2024 Telephone [facility] Orthopaedic Surgery [facility] Medical Office Building [address] [place] [address] Inderjit Stephen MD [address] [place] [address] [place] [address] Social History Tobacco Use Types Packs/Day Years Used Date Smoking Tobacco: Never Smokeless Tobacco: Never [facility] Utilities Answer Date Recorded In the past 12 months has [employer], gas, oil, or water company threatened to shut off services in your [...] 10/25/2024 How often do you attend chur ch or jainism services? More than 4 times per year 10/25/2024 Do you belong to any clubs o r organizations such as nondenominational groups, unions, fraternal or athletic groups, or [...] were you homeless or living in a assisted (including now)? No 10/25/2024 Personal Safety Answer Date Recorded Have you ever been in or are you currently in a harmful physical or emotional relationship or is someone making you feel afraid or unsafe? Denies 10/19/2024 Comments Unknown Sex and Gender Information Value Date Recorded Sex Assigned at Not on file Legal Sex Female 4:18 AM BUSINESS RELATIONSHIP MANAGER Gender Identity Female 07/10/2019 11:32 AM BUSINESS RELATIONSHIP MANAGER Sexual Orientation Not on file documented as of this encounter Miscellaneous Notes * Telephone Encounter - Zenobia Ricks RN - 11/01/2024 3:59 PM CST Speech therapist called today and LVM to notify us of Lily's slight left facial droop and memory problems. I called Chana, her daughter, to discuss her symptoms. I recommended she take her to the ER to rule out stroke, that it could it could also be bells palsy, but it should be addressed naomi. Chana said there had been complications in the hosptial post procedure re: a pain drip. She essentially overdosed and narcan was given. Chana said she's been pretty out of it since her stay. She will follow up with us after her visit to ER. NESS RELATIONSHIP MANAGER documented in this encounter Plan of Treatment Not on file documented as of this encounter Visit Diagnoses Not on filedocumented in this encounter Care Teams Truck Bench Mechanic Relationship Specialty Start Date End Date Hugh Sarkar MD PCP - General 11/16/16 Seda Russell MD [address] [address] Referring Physician Transplant 05/02/20 Malena Morales MD [address] [address] Referring Physician Endocrinology Diabetes & Metabolism 05/02/20 Allyn Tierney, DANIKA [address] [place] [address] Inner Tube Cutter Inner Tube Cutter 09/17/20 documented as of this encounter
--- OUTSIDE RECORDS SUMMARY | 2024-11-01 18:36 | XMS_ITS | Encounter Summary ---
Author Organization [facility] Address [address] [place] [address] Phone Care Team Providers Care Dietetic Technician Name Role Phone Hugh Sarkar MD Primary Care Provider [phone] Encounter Details Date Type Department Care Team (Late st Contact Info) Description 10/31/2024 Plan of Care Documentation [address] [address] Social History Tobacco Use Types Packs/Day Years Used Date Smoking Tobacco: Never Assessed Comments Unknown Sex and Gender Information Value Date Recorded Sex Assigned at Not on file Legal Sex Female 7:58 AM WRITER PRODUCER Gender Identity Not on file Sexual Orientation Not on file documented as of this encounter Plan of Treatment Upcoming Encounters Date Type Department Care Team (Late st Contact Info) Description 11/02/2024 1:00 AM WRITER PRODUCER Home Care Visit [address] [address] Ifrah Andersen RN [place] 11/02/2024 8:00 AM WRITER PRODUCER Home Care Visit [address] [address] Sho Reardon MSW [place] 11/03/2024 1:00 AM WRITER PRODUCER Home Care Visit [address] [address] Rayne Castillo, PLANNING OFFICIAL [place] 11/07/2024 1:00 AM WRITER PRODUCER Home Care Visit [address] [address] Rayne Castillo, PLANNING OFFICIAL [place] 11/07/2024 2:00 AM WRITER PRODUCER [facility] [address] [place] [address] Ifrah Andersen, RN [place] 11/08/2024 1:00 AM WRITER PRODUCER [facility] [address] [place] [address] Tiara Cortez, TC [place] 11/09/2024 1:00 AM WRITER PRODUCER [facility] [address] [place] [address] Rayne Castillo, PLANNING OFFICIAL [place] 11/09/2024 2:00 AM WRITER PRODUCER Home Care Visit [address] [address] Ifrah Andersen, RN [place] 11/13/2024 1:00 AM CDT Home Care Visit [address] [address] Rayne Castillo, PLANNING OFFICIAL [place] 11/13/2024 2:00 AM CDT Home Care Visit [address] [address] Tiara Cortez, REGIONAL CLINICAL DIRECTOR [place] 11/14/2024 1:00 AM CDT Home Care Visit [address] [address] Ifrah Andersen, RN [place] 11/15/2024 1:00 AM CDT Home Care Visit [address] [address] Keiry Stubbs, PT 11/15/2024 2:00 AM CDT [facility] [address] [place] [address] Tiara Cortez, TC [place] 11/21/2024 1:00 AM CDT Home Care Visit [address] [address] Ifrah Andersen, RN [place] 11/23/2024 1:00 AM CDT Home Care Visit [address] [address] Tiara Cortez OTA [place] 11/24/2024 1:00 AM CDT [facility] [address] [place] [address] Tiara Cortez [facility] 11/28/2024 1:00 AM CDT [facility] [address] [place] [address] Ifrah Andersen, RN [place] documented as of this encounter Visit Diagnoses Not on filedocumented in this encounter Care Teams Dietetic Technician Relationship Specialty Start Date End Date Hugh Sarkar MD [address] [place] [address] PCP - General Family Medicine 10/27/24 documented as of this encounter
--- OUTSIDE RECORDS SUMMARY | 2024-11-01 18:36 | XMS_ITS | Encounter Summary ---
Author Organization [facility] Address [address] [place] [address] Phone Care Team Providers Care Recruiter Coordinator Name Role Phone Hugh Sarkar MD Primary Care Provider [phone] Reason for Visit * Auth/Cert (Routine) Specialty Diagnoses / Procedures Referred By Arabella gonzalez Referred To Contact Referral ID Status Reason Start Date Expiration Date Visits Re quested Visits Authorized [id number] 1 1 Encounter Details Date Type Department Care Team (Late Contact Info) Description 11/01/2024 12:30 PM BULK SEALER OPERATOR Home Care Visit [address] [address] Joyce Alex, ENVIRONMENTAL SERVICES LEAD-SPEECH LANGUAGE PATHOLOGIST [place] ENVIRONMENTAL SERVICES LEAD - INITIAL EVALUATION Social History Tobacco Use Types Packs/Day Years Used Date Smoking Tobacco: Never Assessed Comments Unknown Sex and Gender Information Value Date Recorded Sex Assigned at Not on file Legal Sex Female 7:58 AM BULK SEALER OPERATOR Gender Identity Not on file Sexual Orientation Not on file documented as of this encounter Plan of Treatment Upcoming Encounters Date Type Department Care Team (Late Contact Info) Description 11/02/2024 1:00 AM BULK SEALER OPERATOR Home Care Visit [address] [address] Ifrah Andersen, RN [place] 11/02/2024 8:00 AM BULK SEALER OPERATOR Home Care Visit [address] [address] Sho Reardon MSW [place] 11/03/2024 1:00 AM BULK SEALER OPERATOR Home Care Visit [address] [address] Rayne Castillo PTA [place] 11/07/2024 1:00 AM BULK SEALER OPERATOR [facility] [address] [place] [address] Rayne Castillo, GARDE MANAGER [place] 11/07/2024 2:00 AM BULK SEALER OPERATOR [facility] [address] [place] [address] Ifrah Andersen, RN [place] 11/08/2024 1:00 AM BULK SEALER OPERATOR [facility] [address] [place] [address] Tiara Cortez, RISK PROFESSIONAL [place] 11/09/2024 1:00 AM BULK SEALER OPERATOR [facility] [address] [place] [address] Rayne Castillo, GARDE MANAGER [place] 11/09/2024 2:00 AM BULK SEALER OPERATOR [facility] [address] [place] [address] Ifrah Andersen, RN [place] 11/13/2024 1:00 AM CDT [facility] [address] [place] [address] Rayne Castillo, GARDE MANAGER [place] 11/13/2024 2:00 AM CDT [facility] [address] [place] [address] Tiara Cortez, TC [place] 11/14/2024 1:00 AM CDT [facility] [address] [place] [address] Ifrah Andersen, RN [place] 11/15/2024 1:00 AM CDT [facility] [address] [place] [address] eKiry Stubbs, PT 11/15/2024 2:00 AM CDT [facility] [address] [place] [address] Tiara Cortez, RISK PROFESSIONAL [place] 11/21/2024 1:00 AM CDT [facility] [address] [place] [address] Ifrah Andersen, DANIKA [place] 11/23/2024 1:00 AM CDT [facility] [address] [place] [address] Tiara Cortez, RISK PROFESSIONAL [place] 11/24/2024 1:00 AM CDT [facility] [address] [place] [address] Tiara Cortez, TC [place] 11/28/2024 1:00 AM CDT [facility] [address] [place] [address] Ifrah Andersen, RN [place] documented as of this encounter Visit Diagnoses Not on filedocumented in this encounter Home Health Visit - Care Plan Visit Details Visit Type -ENVIRONMENTAL SERVICES LEAD - INITIAL EV ALUATION Discipline -Speech Language Pathology Problems Problem Description Start Date Status Goals Interve ntions THERAPY DISEASE MANAGEMENT (O) Disciplines: Therapies 10/31/2024 Active - 1 problem intervention scheduled/documented in this visit Interventions Intervention Associated Problem/Goal Status Variance Visit Notes Therapy Depression (O) Description: Assess and monitor for signs and symptoms of depression. Problem:THERAPY DISEASE MANAGEMENT (O) Scheduled documented in this encounter Care Teams Recruiter Coordinator Relationship Specialty Start Date End Date Hugh Sarkar MD [address] [place] [address] PCP - General Family Medicine 10/27/24 documented as of this encounter
--- OUTSIDE RECORDS SUMMARY | 2024-11-01 18:36 | XMS_ITS | Encounter Summary ---
Author Organization [facility] Address [address] [place] [address] Phone Care Team Providers Care Assistant County Engineer Name Role Phone Hugh Sarkar MD Primary Care Provider [phone] Reason for Visit * Auth/Cert (Routine) Specialty Diagnoses / Procedures Referred By Arabella gonzalez Referred To Contact Referral ID Status Reason Start Date Expiration Date Visits Re quested Visits Authorized [id number] 1 1 Encounter Details Date Type Department Care Team (Late Contact Info) Description 10/31/2024 11:30 AM GAS SUBSTATION OPERATOR [facility] [address] [place] [address] Keiry Stubbs, PT PT - INITIAL EVALUATION Social History Tobacco Use Types Packs/Day Years Used Date Smoking Tobacco: Never Assessed Comments Unknown Sex and Gender Information Value Date Recorded Sex Assigned at Not on file Legal Sex Female 7:58 AM GAS SUBSTATION OPERATOR Gender Identity Not on file Sexual Orientation Not on file documented as of this encounter Last Filed Vital Signs Vital Sign Reading Time Taken Comments Blood Pressure 110/66 10/31/2024 12:00 PM GAS SUBSTATION OPERATOR Pulse 76 10/31/2024 12:00 PM GAS SUBSTATION OPERATOR Temperature 36.6 C (97.8 F) 10/31/2024 12:00 PM GAS SUBSTATION OPERATOR Respiratory Rate 16 10/31/2024 12:00 PM GAS SUBSTATION OPERATOR Oxygen Saturation 97% 10/31/2024 12:00 PM GAS SUBSTATION OPERATOR Inhaled Oxygen Concentration - - Weight - - Height - - Body Mass Index - - documented in this encounter Plan of Treatment Upcoming Encounters Date Type Department Care Team (Late Contact Info) Description 11/02/2024 1:00 AM GAS SUBSTATION OPERATOR [facility] [address] [place] [address] Ifrah Andersen, RN [place] 11/02/2024 8:00 AM GAS SUBSTATION OPERATOR Home Care Visit [address] [address] Sho Reardon MSW [place] 11/03/2024 1:00 AM GAS SUBSTATION OPERATOR [facility] [address] [place] [address] Rayne Castillo, COREMAKER PIPE [place] 11/07/2024 1:00 AM GAS SUBSTATION OPERATOR [facility] [address] [place] [address] Rayne Castillo, COREMAKER PIPE [place] 11/07/2024 2:00 AM GAS SUBSTATION OPERATOR [facility] [address] [place] [address] Ifrah Andersen, RN [place] 11/08/2024 1:00 AM GAS SUBSTATION OPERATOR [facility] [address] [place] [address] Tiara Cortez, CITY WELLNESS COORDINATOR [place] 11/09/2024 1:00 AM GAS SUBSTATION OPERATOR Home Care Visit [address] [address] Rayne Castillo, COREMAKER PIPE [place] 11/09/2024 2:00 AM GAS SUBSTATION OPERATOR Home Care Visit [address] [address] Ifrah Andersen, RN [place] 11/13/2024 1:00 AM CDT [facility] [address] [place] [address] Rayne Castillo, COREMAKER PIPE [place] 11/13/2024 2:00 AM CDT [facility] [address] [place] [address] Tiara Cortez, TC [place] 11/14/2024 1:00 AM CDT Home Care Visit [address] [address] Ifrah Andersen, RN [place] 11/15/2024 1:00 AM CDT Home Care Visit [address] [address] Keiry Stubbs, PT 11/15/2024 2:00 AM CDT [facility] [address] [place] [address] Tiara Cortez, TC [place] 11/21/2024 1:00 AM CDT Home Care Visit [address] [address] Ifrah Andersen RN [place] 11/23/2024 1:00 AM CDT Home Care Visit [address] [address] Tiara Cortez, TC [place] 11/24/2024 1:00 AM CDT Home Care Visit [address] [address] Tiara Cortez, TC [place] 11/28/2024 1:00 AM CDT Home Care Visit [address] [address] Ifrah Andersen, RN [place] documented as of this encounter Visit Diagnoses Not on filedocumented in this encounter Home Health Visit - Care Plan Visit Details Visit Type -PT - INITIAL SUSY LUATION Discipline -Physical Therapy Problems Problem Description Start Date Status Goals Interve ntions THERAPY DISEASE MANAGEMENT (O) Disciplines: Therapies 10/31/2024 Active - 1 problem intervention scheduled/documente d in this visit PT COMPREHENSIVE Disciplines: Physical Therapy 10/31/2024 Active 1 goal linked to scheduled/document ed intervention 1 goal intervention scheduled/documente d in this visit Goals Goal Associated Problem Outcome Goal Met? Visit Notes PT Precautions Description: Short Term Goal: Patient will demonstrate adherence to spinal precautions - no bending, lifting > 10lbs, twisting, do not lift anything above your head in order to promote healing and reduce risk of injury. To be met by 11-10-24. PT COMPREHENSIVE No Interventions Intervention Associated Problem/Goal Status Variance Visit Notes Therapy Depression (O) Description: Assess and monitor for signs and symptoms of depression. Problem:THERAPY DISEASE MANAGEMENT (O) Completed Patient shows signs of depression no PT Precautions Description: Educate patient on indicated precautions. Problem:PT COMPREHENSIVE Goal:PT Precautions Completed Educated Patient on no bending, lifting > 10lbs, twisting, do not lift anything above your head Response verbalize understanding. documented in this encounter Care Teams Assistant County Engineer Relationship Specialty Start Date End Date Hugh Sarkar MD [address] [place], [place] [id number] PCP - General Family Medicine 10/27/24 documented as of this encounter
--- OUTSIDE RECORDS SUMMARY | 2024-11-01 18:36 | XMS_ITS | Encounter Summary ---
Author Organization [facility] Healthcare Address [address] [place] [address] Care Team Providers Care Pricing Coordinator Name Role Phone Hugh Sarkar MD Primary Care Provider Esmer Moreira RN Unavailable Seda Russell MD Unavailable [phone] Malena Morales MD Unavailable Allyn Tierney RN Unavailable Doreen Ruiz Unavailable [phone] Encounter Details Date Type Department Care Team (Late st Contact Info) Description 05/06/2020 Orders Only [facility] Health Information Management [address] [place] [address] Scanning, Provider Social History Tobacco Use Types Packs/Day Years Used Date Smoking Tobacco: Never Smokeless Tobacco: Never Comments Unknown Sex and Gender Information Value Date Recorded Sex Assigned at Not on file Legal Sex Female 4:18 AM HOTEL HOUSEKEEPER Gender Identity Female 07/10/2019 11:32 AM HOTEL HOUSEKEEPER Sexual Orientation Not on file documented as of this encounter Plan of Treatment Not on file documented as of this encounter Procedures Procedure Name Priority Date/Time Associated Diagnosis Comments SCAN - LABS 05/06/2020 7:51 AM CDT SCAN - LABS 05/06/2020 7:51 AM CDT SCAN - LABS 05/06/2020 7:51 AM CDT SCAN - LABS 05/06/2020 7:39 AM CDT documented in this encounter Results * SCAN - LABS (05/06/2020 7:51 AM CDT) us Provider Scanning Final Result * SCAN - LABS (05/06/2020 7:51 AM CDT) us Provider Scanning Final Result * SCAN - LABS (05/06/2020 7:51 AM CDT) us Provider Scanning Final Result * SCAN - LABS (05/06/2020 7:39 AM CDT) us Provider Scanning Final Result documented in this encounter Visit Diagnoses Not on filedocumented in this encounter Care Teams Pricing Coordinator Relationship Specialty Start Date End Date Hugh Sarkar MD PCP - General 11/16/16 Esmer Moreira RN [address] [address] Registered Nurse 02/08/18 09/17/20 Seda Russell MD [address] [address] Referring Physician Transplant 05/02/20 Malena Morales MD [address] [address] Referring Physician Endocrinology Diabetes & Metabolism 05/02/20 Allyn Tierney, DANIKA [address] [address] Keg Header Keg Header 09/17/20 Doreen Ruiz PA [address] [address] Physician Garnett Room Worker Physician Garnett Room Worker 05/07/22 documented as of this encounter
[2024-11-01 20:22] LABS: Fractional Inspired Oxygen 21 %; HCO3 VBG 26.3 mEq/l (24.0-30.0); PCO2 VBG 40.6 mmHg (42.0-48.0)
[2024-11-01 20:25] LABS: Device ROOM AIR; PO2 VBG < 27.0 mmHg (35.0-45.0); pH VBG 7.429 (7.300-7.400)
[2024-11-01 20:27] LABS: Ammonia < 9 umol/L (9-30)
[2024-11-01 20:28] LABS: Lactic Acid Reflex 1.2 mmol/L (0.7-2.0)
[2024-11-01 20:28] LABS: Add Urine Microscopic? YES; Appearance Urine Cloudy (Clear); Bacteria Urine None Seen /hpf; Bilirubin Urine Negative (Negative); Blood Urine Negative (Negative); Color Urine Yellow (Yellow); Glucose Urine UA Negative (Negative); Ketones Urine Trace mg/dL (Negative); Leukocyte Esterase Ur 2+ LEU/UL (Negative); Need Manual Microscopic Reviewed; Nitrate Urine Negative (Negative); Non Pathogenic Casts 0-2; Protein Urine Trace mg/dL (Negative); RBC Urine 0-2 /hpf (0-2); Specific Grav Ur 1.029 (1.001-1.035); Squamous Epithelial Cell Urine Moderate /hpf (Few); WBC Urine 51-100 /hpf (0-3)
[2024-11-01] MEDS: SODIUM CHLORIDE 0.9% IV 1,000 ML 125 ML IV CONT (21:11)
[2024-11-01] MEDS: ATORVASTATIN 40 MG TABLET 80 MG PO (21:11)
[2024-11-01] MEDS: ASPIRIN 325 MG TABLET 81 MG PO (21:15)
--- NOTE | 2024-11-01 21:22 | PM.IMHP ---
H&P: HPI History of Present Illness Date/Time: 11/01/24 21:22 Chief Complaint: 1. Facial droop Narrative: Lily Junior is a 59 yo F with a mhx significant for ESRD s/p renal transplant; s/p lumbar spinal fusion (10/19/24 @ [facility]), IDDM2, Peripheral neuropathy; Depression. Discharged home from [facility] with home PT/OT, there were concerns about her droopy face for which SLAG WORKER was recommended; when the speech therapist arrived at her home, she advised an ED visit after preliminary evaluations demonstrated a loss of the left nasolabial fold compared to the right. The patient is on a regimen of Pregabalin, Gabapentin, Opioids, Methocarbamol; she is said to have been having prolonged sleeps with fatigue and a poor ambulatory range. With no known modifying factors to her notable signs, she does not feel sick or different; she denies fevers, chills, rigors, visual/speech difficulties, falls, chest pain, nausea, vomiting, flank pain, dysuria, hematuria, skin/joint changes. She does not smoke/chew tobacco, drink alcohol or consume recreational/illicit drugs; she ambulates with an assist device. Work-up findings UA: 51-100 WBC, 2+LE; no bacteria; -ve Nitrite Triglycerides: 267; chol 106 BUN 36; Cr 1.36; GFR 40 LA 1.2 AST 36; ALT 28; ALP 108; T. Bili 1.1 NH3 <[address]: Unremarkable CXR: Unremarkable Lily Junior will be admitted, evaluated and managed for stroke-like symptoms and UTI Review of Systems Review of Systems: All systems reviewed & are unremarkable except as noted in HPI and below PMFSH Past Medical History Medical History (Updated 11/01/24 @ 21:38 by Enrique Escobedo MD) UTI (urinary tract infection) GERD (gastroesophageal reflux disease) Insulin dependent diabetes mellitus Recurrent depression Dyslipidemia Surgical History Surgical History (Updated 11/01/24 @ 21:38 by Enrique Escobedo MD) S/P lumbar fusion S/P kidney transplant Meds Home Medications and Allergies Home Medications ?Medication ?Instructions ?Recorded ?Confirmed ?Type alpha lipoic acid 600 mg capsule 600 mg PO DAILY 11/01/24 11/01/24 History amitriptyline 10 mg tablet mg HS 11/01/24 History atorvastatin 20 mg tablet mg HS 11/01/24 History escitalopram oxalate 10 mg tablet mg DAILY 11/01/24 History fludrocortisone 0.1 mg tablet mg .am 11/01/24 History gabapentin 300 mg capsule mg TID 11/01/24 History glucagon 3 mg/actuation nasal mg intranasal PRN 11/01/24 History spray (Baqsimi) metformin 500 mg tablet,extended See Rx Instructions PO .COMPLEX 11/01/24 11/01/24 History release 24 hr methocarbamol 500 mg tablet mg Q6H 11/01/24 History omeprazole 40 mg capsule,delayed mg BID 11/01/24 History release oxycodone 15 mg tablet Q4H 11/01/24 History prednisone 5 mg tablet mg DAILY 11/01/24 History pregabalin 100 mg capsule mg HS 11/01/24 History tacrolimus 1 mg tablet,extended mg PO 11/01/24 History release 24 hr (Envarsus XR) Allergies Allergy/AdvReac Type Severity Reaction Status Date / Time vancomycin Allergy Intermediate Hives Verified 11/01/24 21:10 amoxicillin Allergy Mild Hives Verified 11/01/24 21:10 Vital Signs Vital Signs - 24 hr 11/01/24 17:07 11/01/24 17:50 11/01/24 17:51 Temperature 96.8 F L Pulse Rate 93 84 88 Respiratory Rate 18 16 18 Blood Pressure 101/60 100/65 100/65 Pulse Oximetry 98 97 Oxygen Delivery Room Air 11/01/24 19:39 Temperature Pulse Rate 81 Respiratory Rate 16 Blood Pressure 99/45 L Pulse Oximetry 94 Oxygen Delivery Exam Const: General: comfortable HENMT: Face/Nose/Sinus: Normal nares present Mouth: Yes moist mucous membranes Eyes: General: appearance normal, both eyes and all related structures Sclera: sclerae normal Pupils: Equal, round and reactive pupils present Neck: Neck: supple Resp: Effort & Inspection: normal respiratory effort Auscultation: clear to auscultation bilaterally, no crackles, no rales, no rhonchi and no wheezes Cardio: Rate: regular rate Rhythm: regular rhythm GI: GI Palp: Yes Soft to palpation and No Tenderness to palpation present (GI) Skin: Wounds: wounds noted (Back; Post-op Lumbar fusion) Neuro: General: gait normal Motor exam (neuro): 5/5 motor strength present throughout, Normal motor muscle tone present throughout and Abnormal motor strength present Extrem: General: normal to inspection Psych: Mental Status: mental status grossly normal Affect: No normal affect (Flat), Sad affect present and Anxious affect present H&P: Results Labs Labs: Short CBC 11/01/24 Range/Units 17:20 WBC 8.3 (4.5-10.0) K/mm3 Hgb 12.0 (12.0-15.0) g/dL Hct 39.5 (37.0-47.0) % Plt Count 278 (150-375) k/mm3 BMP 11/01/24 17:20 Sodium 137 Potassium 5.0 Chloride 102 Carbon Dioxide 25 BUN 36 H Creatinine 1.36 H Glucose 121 H Calcium 10.4 H Cardiac Enzymes 11/01/24 Range/Units 17:20 Troponin I < 0.012 (0.000-0.034) ng/mL Liver Function 11/01/24 Range/Units 17:20 Total Bilirubin 1.1 (0.2-1.3) mg/dL AST 36 (14-36) U/L ALT 28 (6-35) U/L Alkaline Phosphatase 108 (38-126) U/L Albumin 3.7 (3.5-5.1) g/dL Urine 11/01/24 Range/Units 20:01 Urine Color Yellow (Yellow) Urine Appearance Cloudy H (Clear) Urine pH 5.0 (5.0-9.0) Ur Specific [place] 1.029 (1.001-1.035) Urine Protein Trace (Negative) mg/dL Urine Glucose (UA) Negative (Negative) mg/dL Assessment and Plan Assessment and plan (1) Stroke-like symptoms: Code(s): R29.90 - Unspecified symptoms and signs involving the nervous system Status: Acute (2) S/P kidney transplant: Code(s): Z94.0 - Kidney transplant status Status: Acute (3) S/P lumbar fusion: Code(s): Z98.1 - Arthrodesis status Status: Acute (4) Dyslipidemia: Code(s): E78.5 - Hyperlipidemia, unspecified Status: Acute (5) Recurrent depression: Code(s): F33.9 - Major depressive disorder, recurrent, unspecified Status: Acute (6) Insulin dependent diabetes mellitus: Status: Acute (7) GERD (gastroesophageal reflux disease): Code(s): K21.9 - Gastro-esophageal reflux disease without esophagitis Status: Acute (8) UTI (urinary tract infection): Code(s): N39.0 - Urinary tract infection, site not specified Status: Acute Plan Acute and principal conditions 1. Stroke-like symptoms. probably 2/2 polypharmacy 2. UTI 3. Acute renal insufficiency. Rx: A. IVFs; B. Ceftriaxone; Urine culture C. SLAG WORKER/PT/OT eval and Rx D. MRI brain E. Monitor renal function; avoid nephrotoxins Chronic and stable conditions 1. GERD. on PPI 2. s/p renal transplant. on Tacrolimus, Prednisone 3. IDDM2. 4. Chronic pain syndrome 5. Peripheral neuropathy with DM2. 6. GERD. on PPI 7. Adrenal insufficiency. on Fludrocortisone 8. Recurrent depression. on Escitalopram Awaiting medication reconciliation; will hold/resume home meds as appropriate Miscellaneous care 1. Code status. Full 2. Nutrition. Heart healthy 3. VTE prophylaxis. SCDs; [facility] Hospitalist [facility] Advance Care Plan I have confirmed that the patient's Advanced Care Plan is present, code status is documented, or surrogate decision maker is listed in patient medical record.: Yes Medication Reconciliation I have utilized all available resources to obtain, update and review the patients current medications (includes all prescriptions, OTC, herbals, cannabis, and nutritional supplements).: Yes The patient is not eligible for med reconciliation; the patient is in a emergent medical situation where delaying treatment would jeopardize the patients health.: Yes
[2024-11-01] MEDS: SODIUM CHLORIDE 0.9% IV 1,000 ML 75 ML IV CONT (21:30)
[2024-11-01 21:37] LABS: Cholesterol 106 mg/dL (0-200); HDL Direct 31 mg/dL; Triglycerides 267 mg/dL (<150)
[2024-11-01 21:45] LABS: Hemoglobin A1C 5.2 % (<5.7)
[2024-11-01 21:51] LABS: LDL Cholesterol Direct < 30 mg/dL
--- NOTE | 2024-11-01 22:25 | ADMGEN ---
This patient, Lily Junior, was admitted to Medical Room 341-01. Patient/family oriented to hospital policies and general routines including ID bracelet, bed and alarms, visiting hours, pain management, procedures, bathroom and other care routines, personal items, smoking policy, room service/diet, and visiting hours. Information on how to activate the Rapid Response Team has been discussed. Patient/Family are encouraged to report perceived risks to care and to ask questions if they do not understand what they are told or what they should do.
[2024-11-01] MEDS: HEPARIN SODIUM 5,000 UNITS/ML VIAL 5000 UNITS SUB-Q (23:03)
[2024-11-01 23:11] LABS: Glucose Point of Care 139 mg/dl (65-105)
[2024-11-02] VITALS (8 sets, daily range): BP systolic 108–143; BP diastolic 59–68; PULSE 74–84; RESP 16–18; TEMP 36.4–36.7; O2SAT 95–99
[2024-11-02 06:05] LABS: Basophils Percent Auto 0.4 % (0.2-1.2); Eosinophils Absolute Auto 0.1 K/mm3 (0-0.3); Eosinophils Percent Auto 2.1 % (0-4.4); Hematocrit 32.9 % (37.0-47.0); Immature Granulocyte Absolute 0.01 K/mm3 (0.00-0.031); Immature Granulocyte Percent A 0.2 % (0-0.5); Lymphocytes Absolute Auto 0.93 K/mm3 (0.9-3.2); Lymphocytes Percent Auto 19.2 % (18.3-44.2); Mean Corpuscular HGB Conc 30.4 g/dl (32-36); Mean Corpuscular Hemoglobin 28.7 pg (26-34); Mean Corpuscular Volume 94.5 fl (80-100); Monocytes Absolute Auto 0.4 K/mm3 (0.1-0.6); Monocytes Percent Auto 7.6 % (2.6-8.5); Neutrophils Absolute Auto 3.4 K/mm3 (1.3-6.7); Neutrophils Percent Auto 70.5 % (45.5-73.1); Platelet Count Result 204 k/mm3 (150-375); Red Blood Count 3.48 M/mm3 (4.2-5.4); Red Cell Distribution Width 15.1 % (11.5-14.5); White Blood Count 4.9 K/mm3 (4.5-10.0)
[2024-11-02 06:21] LABS: Alanine Aminotransferase 20 U/L (6-35); Albumin Level 2.9 g/dL (3.5-5.1); Alkaline Phosphatase 87 U/L (38-126); Anion Gap 9 mmol/L (4-12); Aspartate Amino Transferase 25 U/L (14-36); Bilirubin,Total 0.7 mg/dL (0.2-1.3); Blood Urea Nitrogen 35 mg/dL (7-17); Calcium 9.6 mg/dL (8.4-10.2); Carbon Dioxide 22 mmol/L (22-30); Chloride 107 mmol/L (98-107); Estimated CRCL calculation 51 ml/min; Estimated Glomerular Filt Rate 44; Glucose 89 mg/dL (65-110); Sodium 138 mmol/L (137-145)
[2024-11-02 08:39] LABS: Glucose Point of Care 97 mg/dl (65-105)
[2024-11-02] MEDS: ASPIRIN 81 MG CHEWABLE TABLET PO (08:43)
[2024-11-02] MEDS: HEPARIN SODIUM 5,000 UNITS/ML VIAL 5000 UNITS SUB-Q ×2 (08:44→20:28)
--- NOTE | 2024-11-02 11:02 | PCSTNOTE ---
Please refer to the Bedside Swallow Evaluation in the EMR. Please note, silent aspiration cannot be ruled out at bedside.
--- NOTE | 2024-11-02 12:16 | WPDNEURCNPN ---
Assessment and Plan Assessment and plan (1) Stroke-like symptoms: Code(s): R29.90 - Unspecified symptoms and signs involving the nervous system Status: Acute (2) S/P lumbar fusion: Code(s): Z98.1 - Arthrodesis status Status: Acute (3) Insulin dependent diabetes mellitus: Status: Acute (4) S/P kidney transplant: Code(s): Z94.0 - Kidney transplant status Status: Acute Plan MRI of the brain did not show any definite new stroke. 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 The lesion appears to significantly more on the right than the left side and hence small new or additional infarct can hide within such areas nevertheless I do not find is she has any significant weakness in the limbs or difficulty with swallowing or speech and there is a questionable minimal flattening of the left nasal labial fold. The patient is currently on aspirin 81 mg a day and atorvastatin 80 mg a day. And these should be continued. Clinical follow-up is recommended. Risk factor management should continue. Consult date: 11/02/24 HPI: Lily Junior is a 59 year old female With history of surgery on the lumbar spine at [facility] on October 18. She has had some problem thereafter and require Narcan to wake her up according to the daughter. She has history of renal transplantation in the past and also diabetes mellitus. She presented to the hospital with the left facial droop and suspected stroke. CT scan of brain shows right frontal encephalomalacia. MRI of the brain shows old infarct in both frontal areas white matter changes. No new infarcts were seen. Patient also had some slurring of speech along with the left facial droop. Patient's daughter was present the time of the evaluation. Symptoms are observed by the a physical therapist. She also seen by speech therapist. Patient has 2 daughters. They are supportive. The emergency room physician also spoke to a neurologist as [facility] who felt that an acute stroke was less likely given the phase agitation. He was able to review the records from [place] and did not feel that the patient required intervention and patient would be compatible with MRI. He also suggest a carotid Doppler study to be done and start her on aspirin and atorvastatin. It was noted that the patient was discharged home from which is see without any to have physical therapy and occupational therapy since there was concern about droopy face for which speech and language therapy was recommended. There is a history of excessive sleepiness which has been attributed to her being on several medications including gabapentin and methocarbamol on opioid. Patient does not smoke or drink any alcohol except social drinking. She ambulates with assistance devices. Review of Systems Review of Systems: All systems reviewed & are unremarkable except as noted in HPI and below PMFSH Past Medical History Medical History UTI (urinary tract infection) GERD (gastroesophageal reflux disease) Insulin dependent diabetes mellitus Recurrent depression Dyslipidemia Surgical History Surgical History S/P lumbar fusion S/P kidney transplant Social History Social History Smoking status: Never smoker Alcohol intake: never Substance use: never Do You Feel Safe in your Home?: Yes Lack of Transportation: No Lack of Food: Never True Current Housing: I Have Housing Concerned About Future Housing: No Difficulty Paying Gas/Electric Bills: No Difficulty Paying for Meds: No Currently Unemployed: No Education: High School Diploma/GED Difficulty w/ Childcare or Family Care: No Spiritual care concerns: No Meds Home Medications and Allergies Home Medications ?Medication ?Instructions ?Recorded ?Confirmed ?Type alpha lipoic acid 600 mg capsule 600 mg PO DAILY 11/01/24 11/01/24 History amitriptyline 10 mg tablet 10 mg PO HS 11/01/24 11/01/24 History atorvastatin 20 mg tablet 20 mg PO HS 11/01/24 11/01/24 History escitalopram oxalate 10 mg tablet 10 mg PO DAILY 11/01/24 11/01/24 History fludrocortisone 0.1 mg tablet 0.1 mg PO .am 11/01/24 11/01/24 History gabapentin 300 mg capsule 300 mg PO TID 11/01/24 11/01/24 History hydrocodone 5 mg-acetaminophen 325 1 tablet PO Q6H 11/01/24 11/01/24 History mg tablet metformin 500 mg tablet,extended See Rx Instructions PO .COMPLEX 11/01/24 11/01/24 History release 24 hr methocarbamol 500 mg tablet 500 mg PO Q6H 11/01/24 11/01/24 History omeprazole 40 mg capsule,delayed 40 mg PO BID 11/01/24 11/01/24 History release oxycodone 15 mg tablet 15 mg PO Q4H 11/01/24 11/01/24 History prednisone 5 mg tablet 5 mg PO DAILY 11/01/24 11/01/24 History pregabalin 100 mg capsule 100 mg PO HS 11/01/24 11/01/24 History tacrolimus 1 mg tablet,extended 1 mg PO QID 11/01/24 11/01/24 History release 24 hr (Envarsus XR) tirzepatide 5 mg/0.5 mL 5 mg subcut WEEKLY 11/01/24 11/01/24 History subcutaneous pen injector (Mounjaro) Allergies Allergy/AdvReac Type Severity Reaction Status Date / Time vancomycin Allergy Intermediate Hives Verified 11/01/24 21:10 amoxicillin Allergy Mild Hives Verified 11/01/24 21:10 Vital Signs Vital Signs - 24 hr 11/01/24 17:07 11/01/24 17:50 11/01/24 17:51 Temperature 96.8 F L Pulse Rate 93 84 88 Respiratory Rate 18 16 18 Blood Pressure 101/60 100/65 100/65 Pulse Oximetry 98 97 Oxygen Delivery Room Air 11/01/24 19:39 11/01/24 21:55 11/01/24 22:38 Temperature Pulse Rate 81 88 89 Respiratory Rate 16 20 Blood Pressure 99/45 L 100/54 L Pulse Oximetry 94 94 Oxygen Delivery 11/01/24 23:01 11/01/24 23:33 11/02/24 00:00 Temperature 98.0 F Pulse Rate 84 84 Respiratory Rate 16 Blood Pressure 107/64 Pulse Oximetry 94 Oxygen Delivery 11/02/24 04:00 11/02/24 05:36 11/02/24 08:00 Temperature 98.1 F Pulse Rate 84 79 Respiratory Rate 18 Blood Pressure 120/59 L Pulse Oximetry 95 Oxygen Delivery Room Air Exam Narrative: Fully conscious alert oriented to self time place and person. No aphasia or dysarthria. Examination head and neck shows no evidence of external trauma. No nuchal rigidity. No carotid bruit. Cranial nerves pupils were equal react to light. Visual mendez and extraocular movements are intact. There is a minimal flattening of the left nasolabial fold compared to the right side. There is a questionable tongue deviation to the right side. Facial sensation intact. Other cranial normal limits. Motor system shows normal power and tone in both upper lower limbs. Deep tendon reflexes did not show any significant asymmetry. Sensory option intact to pin temperature and vibration. No ataxia nystagmus or intention tremors were noted. Gait was not tested this time. No cogwheeling. Results Labs 11/02/24 05:29 11/02/24 05:29 Labs: Short CBC 11/01/24 11/02/24 Range/Units 17:20 05:29 WBC 8.3 4.9 (4.5-10.0) K/mm3 Hgb 12.0 10.0 L (12.0-15.0) g/dL Hct 39.5 32.9 L (37.0-47.0) % Plt Count 278 204 (150-375) k/mm3 BMP 11/01/24 11/02/24 17:20 05:29 Sodium 137 138 Potassium 5.0 4.0 Chloride 102 107 Carbon Dioxide 25 22 BUN 36 H 35 H Creatinine 1.36 H 1.25 H Glucose 121 H 89 Calcium 10.4 H 9.6 Cardiac Enzymes 11/01/24 Range/Units 17:20 Troponin I < 0.012 (0.000-0.034) ng/mL Liver Function 11/01/24 11/02/24 Range/Units 17:20 05:29 Total Bilirubin 1.1 0.7 (0.2-1.3) mg/dL AST 36 25 (14-36) U/L ALT 28 20 (6-35) U/L Alkaline Phosphatase 108 87 (38-126) U/L Albumin 3.7 2.9 L (3.5-5.1) g/dL Urine 11/01/24 Range/Units 20:01 Urine Color Yellow (Yellow) Urine Appearance Cloudy H (Clear) Urine pH 5.0 (5.0-9.0) Ur Specific [place] 1.029 (1.001-1.035) Urine Protein Trace (Negative) mg/dL Urine Glucose (UA) Negative (Negative) mg/dL
[2024-11-02 12:34] LABS: Glucose Point of Care 160 mg/dl (65-105)
[2024-11-02] MEDS: SODIUM CHLORIDE 0.9% IV 1,000 ML 75 ML IV CONT (12:39)
--- NOTE | 2024-11-02 15:12 | PM.IMPN ---
Progress Note: A&P Assessment and Plan (1) Stroke-like symptoms: Code(s): R29.90 - Unspecified symptoms and signs involving the nervous system Status: Acute (2) S/P kidney transplant: Code(s): Z94.0 - Kidney transplant status Status: Acute (3) S/P lumbar fusion: Code(s): Z98.1 - Arthrodesis status Status: Acute (4) Dyslipidemia: Code(s): E78.5 - Hyperlipidemia, unspecified Status: Acute (5) Recurrent depression: Code(s): F33.9 - Major depressive disorder, recurrent, unspecified Status: Acute (6) Insulin dependent diabetes mellitus: Status: Acute (7) GERD (gastroesophageal reflux disease): Code(s): K21.9 - Gastro-esophageal reflux disease without esophagitis Status: Acute (8) UTI (urinary tract infection): Code(s): N39.0 - Urinary tract infection, site not specified Status: Acute Plan Acute and principal conditions 1. Stroke-like symptoms. probably 2/2 polypharmacy 2. UTI 3. Acute renal insufficiency. Rx: A. IVFs; B. Ceftriaxone; Urine culture C. RELATIONSHIP MGR/PT/OT eval and Rx D. MRI brain E. Monitor renal function; avoid nephrotoxins - neurology consulted. Chronic and stable conditions 1. GERD. on PPI 2. s/p renal transplant. on Tacrolimus, Prednisone 3. IDDM2. 4. Chronic pain syndrome 5. Peripheral neuropathy with DM2. 6. GERD. on PPI 7. Adrenal insufficiency. on Fludrocortisone 8. Recurrent depression. on Escitalopram Awaiting medication reconciliation; will hold/resume home meds as appropriate 1. Code status. Full 2. Nutrition. Heart healthy 3. VTE prophylaxis. SCDs; ELAINE Time Spent With Patient Time with patient: 25 - 35 minutes Subjective Date/time seen: 11/02/24 15:12 Interval history: Facial droop Lily Junior is a 59 yo F with a mhx significant for ESRD s/p renal transplant; s/p lumbar spinal fusion (10/19/24 @ [facility]), IDDM2, Peripheral neuropathy; Depression. Discharged home from [facility] with home PT/OT, there were concerns about her droopy face for which RELATIONSHIP MGR was recommended; when the speech therapist arrived at her home, she advised an ED visit after preliminary evaluations demonstrated a loss of the left nasolabial fold compared to the right. The patient is on a regimen of Pregabalin, Gabapentin, Opioids, Methocarbamol; she is said to have been having prolonged sleeps with fatigue and a poor ambulatory range. With no known modifying factors to her notable signs, she does not feel sick or different; she denies fevers, chills, rigors, visual/speech difficulties, falls, chest pain, nausea, vomiting, flank pain, dysuria, hematuria, skin/joint changes. She does not smoke/chew tobacco, drink alcohol or consume recreational/illicit drugs; she ambulates with an assist device. Work-up findings UA: 51-100 WBC, 2+LE; no bacteria; -ve Nitrite Triglycerides: 267; chol 106 BUN 36; Cr 1.36; GFR 40 LA 1.2 AST 36; ALT 28; ALP 108; T. Bili 1.1 NH3 <[address]: Unremarkable CXR: Unremarkable Pt is seen and examined. speech is consulted, neurology is consulted. Review of Systems Review of Systems: All systems reviewed & are unremarkable except as noted in HPI and below Exam Const: General: comfortable HENMT: Face/Nose/Sinus: Normal nares present Mouth: Yes moist mucous membranes Eyes: General: appearance normal, both eyes and all related structures Sclera: sclerae normal Pupils: Equal, round and reactive pupils present Neck: Neck: supple Resp: Effort & Inspection: normal respiratory effort Auscultation: clear to auscultation bilaterally, no crackles, no rales, no rhonchi and no wheezes Cardio: Rate: regular rate Rhythm: regular rhythm Skin: General skin exam: wounds noted (Back; Post-op Lumbar fusion) Wounds: wounds noted (Back; Post-op Lumbar fusion) Neuro: General: gait normal Cranial nerves: Yes Equal, round and reactive pupils present Motor exam (neuro): 5/5 motor strength present throughout, Normal motor muscle tone present throughout and Abnormal motor strength present Extrem: General: normal to inspection Psych: Mental Status: mental status grossly normal Affect: No normal affect (Flat), Sad affect present and Anxious affect present Objective Data Vital Signs Vital Signs: Vital Signs - 24 hr 11/01/24 17:07 11/01/24 17:50 11/01/24 17:51 Temperature 96.8 F L Pulse Rate 93 84 88 Respiratory Rate 18 16 18 Blood Pressure 101/60 100/65 100/65 Pulse Oximetry 98 97 Oxygen Delivery Room Air 11/01/24 19:39 11/01/24 21:55 11/01/24 22:38 Temperature Pulse Rate 81 88 89 Respiratory Rate 16 20 Blood Pressure 99/45 L 100/54 L Pulse Oximetry 94 94 Oxygen Delivery 11/01/24 23:01 11/01/24 23:33 11/02/24 00:00 Temperature 98.0 F Pulse Rate 84 84 Respiratory Rate 16 Blood Pressure 107/64 Pulse Oximetry 94 Oxygen Delivery 11/02/24 04:00 11/02/24 05:36 11/02/24 08:00 Temperature 98.1 F Pulse Rate 84 79 Respiratory Rate 18 Blood Pressure 120/59 L Pulse Oximetry 95 Oxygen Delivery Room Air 11/02/24 14:00 Temperature 97.6 F Pulse Rate 82 Respiratory Rate 16 Blood Pressure 108/67 Pulse Oximetry 99 Oxygen Delivery Intake/Output Intake/Output: Intake & Output 10/30/24 10/31/24 11/01/24 11/02/24 23:59 23:59 23:59 23:59 Intake Total 1050 1720 Output Total 500 Balance 1050 1220 Meds/Results Medications: Active Medications Generic Name Dose Route Start Last Admin Trade Name Freq PRN Reason Stop Dose Admin Albuterol/Ipratropium 3 ml 11/01/24 21:20 Ipratropium 0.5 Mg/Albuterol Sulfate 2.5 Mg Ampul.Neb 3 Ml INHALATION Q4HRT PRN shortness of breath/Wheezing Aspirin 81 mg 11/02/24 08:00 11/02/24 08:43 Aspirin 81 Mg Chewable Tablet PO 81 mg DAILY@0800 ELAINE Administration Atorvastatin Calcium 80 mg 11/02/24 18:00 Atorvastatin 40 Mg Tablet PO QPM ELAINE Fludrocortisone Acetate 0.1 mg 11/01/24 22:20 11/02/24 02:28 Fludrocortisone Acetate 0.1 Mg Tablet PO Not Given HS ELAINE Heparin Sodium (Porcine) 5,000 units 11/01/24 21:25 11/02/24 08:44 Heparin Sodium 5,000 Units/Ml Vial SUB-Q 5,000 units Q12HR ELAINE Administration Sodium Chloride 1,000 mls @ 75 mls/hr 11/01/24 21:20 11/02/24 12:39 Normal Saline Iv IV CONT 75 mls/hr .[id number] ELAINE Administration Ceftriaxone Sodium 1 gm in 50 mls @ 100 mls/hr 11/01/24 22:00 11/01/24 23:30 Rocephin 1 Gm/Ns 50 Ml IVPB Infused Q24H ELAINE Infusion Melatonin 5 mg 11/01/24 21:20 Melatonin 5 Mg Tablet PO HS PRN Insomnia Non-Formulary Medication 1 each 11/02/24 08:39 Nonformulary Nutritional Supplement XX 11/03/24 08:38 PRN PRN PROTOCOL Polyethylene Glycol 17 gm 11/01/24 21:20 Polyethylene Glycol 3350 17 Gm Powd.Pack PO QAM PRN Constipation Prochlorperazine Edisylate 10 mg 11/01/24 21:20 Prochlorperazine Edisylate 10 Mg/2 Ml Vial IV PUSH Q6H PRN Nausea And Vomiting Radiology Results: ITS Impressions Head CT 11/01/24 17:41 IMPRESSION: No acute intracranial process. Chest X-Ray 11/01/24 19:48 IMPRESSION: No acute cardiopulmonary process. Brain MRI 11/02/24 10:08 IMPRESSION: 1. Old infarcts in the frontal lobes, right worse than left. 2. Moderate nonspecific cerebral white matter disease. 3. 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 Carotid Doppler Study 11/02/24 14:03 IMPRESSION: 1. <50% stenosis in the right internal carotid artery. 2. <50% stenosis in the left internal carotid artery. Labs Labs: Laboratory Results - last 24 hr 11/01/24 11/01/24 11/01/24 17:20 20:01 20:11 WBC 8.3 RBC 4.19 L Hgb 12.0 Hct 39.5 MCV 94.3 MCH 28.6 MCHC 30.4 L RDW 15.2 H Plt Count 278 MPV 9.9 Immature Gran % (Auto) 0.4 Neut % (Auto) 84.1 H Lymph % (Auto) 9.5 L [place] % (Auto) 3.9 Eos % (Auto) 1.6 Baso % (Auto) 0.5 Lymph # (Auto) 0.79 L [place] # (Auto) 0.3 Eos # (Auto) 0.1 Baso # (Auto) 0.0 Abs Immat Gran (auto) 0.03 Absolute Neuts (auto) 7.0 H Absolute Nucleated RBC 0.000 Nucleated RBC % 0.0 PT 13.1 INR 0.9 APTT 27.5 VBG pH 7.429 H* VBG pCO2 40.6 L VBG pO2 < 27.0 L VBG HCO3 26.3 O2 Delivery Device Room air O2 Liters/Min Not Reportable FiO2 21 Sodium 137 Potassium 5.0 Chloride 102 Carbon Dioxide 25 Anion Gap 10 BUN 36 H Creatinine 1.36 H Estim Creat Clear Calc 47 Estimated GFR 40 L Glucose 121 H POC Capillary Glucose Hemoglobin A1c 5.2 Lactic Acid 1.2 Calcium 10.4 H Total Bilirubin 1.1 AST 36 ALT 28 Alkaline Phosphatase 108 Ammonia < 9 L Troponin I < 0.012 Total Protein 7.0 Albumin 3.7 Triglycerides 267 H Cholesterol 106 LDL Cholesterol Direct < 30 HDL Direct 31 Urine Color Yellow Urine Appearance Cloudy H Urine pH 5.0 Ur Specific [place] 1.029 Urine Protein Trace Urine Glucose (UA) Negative Urine Ketones Trace H Ur Blood (Man) Negative Urine Nitrate Negative Urine Bilirubin Negative Urine Urobilinogen 1.0 Add Ur Microanalysis Reviewed Leukocyte Esterase Rfl 2+ H Urine RBC 0-2 Urine WBC 51-100 H Ur Squamous Epith Cells Moderate Urine Bacteria None seen Urine Casts 0-2 11/01/24 11/02/24 11/02/24 23:06 05:29 08:31 WBC 4.9 RBC 3.48 L Hgb 10.0 L Hct 32.9 L MCV 94.5 MCH 28.7 MCHC 30.4 L RDW 15.1 H Plt Count 204 MPV 10.0 Immature Gran % (Auto) 0.2 Neut % (Auto) 70.5 Lymph % (Auto) 19.2 [place] % (Auto) 7.6 Eos % (Auto) 2.1 Baso % (Auto) 0.4 Lymph # (Auto) 0.93 [place] # (Auto) 0.4 Eos # (Auto) 0.1 Baso # (Auto) 0.0 Abs Immat Gran (auto) 0.01 Absolute Neuts (auto) 3.4 Absolute Nucleated RBC 0.000 Nucleated RBC % 0.0 PT INR APTT VBG pH VBG pCO2 VBG pO2 VBG HCO3 O2 Delivery Device O2 Liters/Min FiO2 Sodium 138 Potassium 4.0 Chloride 107 Carbon Dioxide 22 Anion Gap 9 BUN 35 H Creatinine 1.25 H Estim Creat Clear Calc 51 Estimated GFR 44 L Glucose 89 POC Capillary Glucose 139 H 97 Hemoglobin A1c Lactic Acid Calcium 9.6 Total Bilirubin 0.7 AST 25 ALT 20 Alkaline Phosphatase 87 Ammonia Troponin I Total Protein 5.0 L Albumin 2.9 L Triglycerides Cholesterol LDL Cholesterol Direct HDL Direct Urine Color Urine Appearance Urine pH Ur Specific [place] Urine Protein Urine Glucose (UA) Urine Ketones Ur Blood (Man) Urine Nitrate Urine Bilirubin Urine Urobilinogen Add Ur Microanalysis Leukocyte Esterase Rfl Urine RBC Urine WBC Ur Squamous Epith Cells Urine Bacteria Urine Casts 11/02/24 12:25 WBC RBC Hgb Hct MCV MCH MCHC RDW Plt Count MPV Immature Gran % (Auto) Neut % (Auto) Lymph % (Auto) [place] % (Auto) Eos % (Auto) Baso % (Auto) Lymph # (Auto) [place] # (Auto) Eos # (Auto) Baso # (Auto) Abs Immat Gran (auto) Absolute Neuts (auto) Absolute Nucleated RBC Nucleated RBC % PT INR APTT VBG pH VBG pCO2 VBG pO2 VBG HCO3 O2 Delivery Device O2 Liters/Min FiO2 Sodium Potassium Chloride Carbon Dioxide Anion Gap BUN Creatinine Estim Creat Clear Calc Estimated GFR Glucose POC Capillary Glucose 160 H Hemoglobin A1c Lactic Acid Calcium Total Bilirubin AST ALT Alkaline Phosphatase Ammonia Troponin I Total Protein Albumin Triglycerides Cholesterol LDL Cholesterol Direct HDL Direct Urine Color Urine Appearance Urine pH Ur Specific [place] Urine Protein Urine Glucose (UA) Urine Ketones Ur Blood (Man) Urine Nitrate Urine Bilirubin Urine Urobilinogen Add Ur Microanalysis Leukocyte Esterase Rfl Urine RBC Urine WBC Ur Squamous Epith Cells Urine Bacteria Urine Casts
[2024-11-02 16:58] LABS: Glucose Point of Care 126 mg/dl (65-105)
[2024-11-02] MEDS: ATORVASTATIN 40 MG TABLET 80 MG PO (17:22)
[2024-11-02] MEDS: ACETAMINOPHEN 500 MG TABLET 1000 MG PO (17:28)
[2024-11-02] MEDS: MELATONIN 5 MG TABLET PO (20:28)
[2024-11-02] MEDS: FLUDROCORTISONE ACETATE 0.1 MG TABLET PO (20:28)
[2024-11-03] VITALS: PULSE 79
[2024-11-03] MEDS: ACETAMINOPHEN 500 MG TABLET 1000 MG PO ×2 (00:13→09:26)
[2024-11-03 04:00] VITALS: PULSE 75
[2024-11-03] MEDS: SODIUM CHLORIDE 0.9% IV 1,000 ML 75 ML IV CONT (04:06)
[2024-11-03 05:41] LABS: Basophils Percent Auto 0.8 % (0.2-1.2); Eosinophils Absolute Auto 0.1 K/mm3 (0-0.3); Eosinophils Percent Auto 3.5 % (0-4.4); Hematocrit 33.2 % (37.0-47.0); Hemoglobin 10.2 g/dL (12.0-15.0); Immature Granulocyte Absolute 0.01 K/mm3 (0.00-0.031); Immature Granulocyte Percent A 0.3 % (0-0.5); Lymphocytes Percent Auto 18.8 % (18.3-44.2); Mean Corpuscular HGB Conc 30.7 g/dl (32-36); Mean Corpuscular Hemoglobin 28.8 pg (26-34); Mean Corpuscular Volume 93.8 fl (80-100); Monocytes Absolute Auto 0.4 K/mm3 (0.1-0.6); Neutrophils Absolute Auto 2.4 K/mm3 (1.3-6.7); Neutrophils Percent Auto 65.6 % (45.5-73.1); Platelet Count Result 193 k/mm3 (150-375); Red Blood Count 3.54 M/mm3 (4.2-5.4); White Blood Count 3.7 K/mm3 (4.5-10.0)
[2024-11-03 05:58] LABS: Alanine Aminotransferase 17 U/L (6-35); Albumin Level 2.9 g/dL (3.5-5.1); Alkaline Phosphatase 96 U/L (38-126); Anion Gap 7 mmol/L (4-12); Aspartate Amino Transferase 27 U/L (14-36); Bilirubin,Total 0.6 mg/dL (0.2-1.3); Blood Urea Nitrogen 23 mg/dL (7-17); Calcium 9.7 mg/dL (8.4-10.2); Carbon Dioxide 24 mmol/L (22-30); Chloride 109 mmol/L (98-107); Estimated CRCL calculation 57 ml/min; Estimated Glomerular Filt Rate 50; Glucose 95 mg/dL (65-110); Potassium 3.8 mmol/L (3.4-5.0); Sodium 140 mmol/L (137-145)
[2024-11-03 06:00] VITALS: BP 151/60; PULSE 76; RESP 16; TEMP 36.4; O2SAT 95
[2024-11-03 08:00] VITALS: PULSE 88
[2024-11-03] MEDS: ASPIRIN 81 MG CHEWABLE TABLET PO (09:25)
[2024-11-03] MEDS: HEPARIN SODIUM 5,000 UNITS/ML VIAL 5000 UNITS SUB-Q (09:27)
[2024-11-03 12:00] VITALS: PULSE 82
--- NOTE | 2024-11-03 12:42 | PM.DS ---
DS: Admitting Diagnosis Discharge Date 11/03 Admitting Diagnosis facial droop DS: Discharge Diagnosis Discharge Diagnosis (1) Stroke-like symptoms: Code(s): R29.90 - Unspecified symptoms and signs involving the nervous system Status: Acute (2) S/P kidney transplant: Code(s): Z94.0 - Kidney transplant status Status: Acute (3) S/P lumbar fusion: Code(s): Z98.1 - Arthrodesis status Status: Acute (4) Dyslipidemia: Code(s): E78.5 - Hyperlipidemia, unspecified Status: Acute (5) Recurrent depression: Code(s): F33.9 - Major depressive disorder, recurrent, unspecified Status: Acute (6) Insulin dependent diabetes mellitus: Status: Acute (7) GERD (gastroesophageal reflux disease): Code(s): K21.9 - Gastro-esophageal reflux disease without esophagitis Status: Acute (8) UTI (urinary tract infection): Code(s): N39.0 - Urinary tract infection, site not specified Status: Acute DS: Summary Hospital Course Hospital Course: Pt is admitted for facial droop. Neurology was consulted and pt was seen. MRI and carotic doppler was done. 1. Stroke-like symptoms. probably 2/2 polypharmacy 2. UTI 3. Acute renal insufficiency. A. IVFs; B. Ceftriaxone; Urine culture- n/a C. 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 MRI brain- MRI of the brain did not show any definite new stroke. 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 The lesion appears to significantly more on the right than the left side and hence small new or additional infarct can hide within such areas nevertheless I do not find is she has any significant weakness in the limbs or difficulty with swallowing or speech and there is a questionable minimal flattening of the left nasal labial fold. The patient is currently on aspirin 81 mg a day and atorvastatin 80 mg a day. And these should be continued. Clinical follow-up is recommended. Risk factor management should continue. Her neurological symptoms completely resolved. She was cleared to be discharged per neurology with a close f/u. ASA 81 mg and statin 80 mg advised. pt was on 20 mg daily- will be increased over the next few weeks to ensure pt tolerated it well. E. Monitor renal function; avoid nephrotoxins- cr improving. will order bmp to be completed as an out to ensure resolution of symptoms. # polypharmacy pt is on pregabalin, amitriptyline, gabapentin, oxy and hydrocodone. She was not taking meds here- so when she was discharged, i restarted radha at hs and stopped lyrica. restart norco but stop oxy. She was advised to f/u with PCP to go over home meds to ensure she taking appropriate and safe amount of meds. Chronic and stable conditions 1. GERD. on PPI 2. s/p renal transplant. on Tacrolimus, Prednisone 3. IDDM2. 4. Chronic pain syndrome 5. Peripheral neuropathy with DM2. 6. GERD. on PPI 7. Adrenal insufficiency. on Fludrocortisone 8. Recurrent depression. on Escitalopram Status at Discharge Functional status at discharge: independent ambulation Overall status at discharge: patient is progressing back to baseline Time Spent with Patient Time attestation: Total time spent providing and/or coordinating discharge services: Time spent: Greater than 30 minutes Exam Const: General: comfortable HENMT: Face/Nose/Sinus: Normal nares present Mouth: Yes moist mucous membranes Eyes: General: appearance normal, both eyes and all related structures Sclera: sclerae normal Pupils: Equal, round and reactive pupils present Neck: Neck: supple Resp: Effort & Inspection: normal respiratory effort Auscultation: clear to auscultation bilaterally, no crackles, no rales, no rhonchi and no wheezes Cardio: Rate: regular rate Rhythm: regular rhythm Skin: General skin exam: wounds noted (Back; Post-op Lumbar fusion) Wounds: wounds noted (Back; Post-op Lumbar fusion) Neuro: General: gait normal Cranial nerves: Yes Equal, round and reactive pupils present Motor exam (neuro): 5/5 motor strength present throughout, Normal motor muscle tone present throughout and Abnormal motor strength present Extrem: General: normal to inspection Psych: Mental Status: mental status grossly normal Affect: No normal affect (Flat), Sad affect present and Anxious affect present DS: Data Data Completed and Pending Labs on day of discharge: Labs from last 24 hours 11/03/24 11/02/24 05:22 16:49 WBC 3.7 L RBC 3.54 L Hgb 10.2 L Hct 33.2 L MCV 93.8 MCH 28.8 MCHC 30.7 L RDW 15.0 H Plt Count 193 MPV 10.0 Immature Gran % (Auto) 0.3 Neut % (Auto) 65.6 Lymph % (Auto) 18.8 [place] % (Auto) 11.0 H Eos % (Auto) 3.5 Baso % (Auto) 0.8 Lymph # (Auto) 0.70 L [place] # (Auto) 0.4 Eos # (Auto) 0.1 Baso # (Auto) 0.0 Abs Immat Gran (auto) 0.01 Absolute Neuts (auto) 2.4 Absolute Nucleated RBC 0.000 Nucleated RBC % 0.0 Sodium 140 Potassium 3.8 Chloride 109 H Carbon Dioxide 24 Anion Gap 7 BUN 23 H D Creatinine 1.11 H Estim Creat Clear Calc 57 Estimated GFR 50 L Glucose 95 POC Capillary Glucose 126 H Calcium 9.7 Total Bilirubin 0.6 AST 27 ALT 17 Alkaline Phosphatase 96 Total Protein 6.0 L Albumin 2.9 L Discharge Plan Discharge Attending physician on discharge: Khari Casanova Consulting providers: Sam Philip Discharging Clinician: Kimberly [place] Patient Disposition: Home Health Service Activity: may shower Diet: as tolerated and renal Discharge Instructions: Per Care Coordination. Patient to resume [facility] for RN/PT/OT/ST eval and treat. P: [phone] RN to fax discharge instructions to F: [phone] Pt is admitted for facial droop. Neurology was consulted and pt was seen. MRI and carotic doppler was done. 1. Stroke-like symptoms. probably due to polypharmacy (multiple medications especially for pain) 2. UTI- your initial UA was concerning for UTI but it was not bad enough to reflux to culture. As we discussed, we will complete to course of antibiotics as we already started treatment while you were in the hospital. MRI brain- MRI of the brain did not show any definite new stroke. 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 The lesion appears to significantly more on the right than the left side and hence small new or additional infarct can hide within such areas nevertheless I do not find is she has any significant weakness in the limbs or difficulty with swallowing or speech and there is a questionable minimal flattening of the left nasal labial fold. The patient is currently on aspirin 81 mg a day and atorvastatin 80 mg a day. And these should be continued. Clinical follow-up is recommended. Risk factor management should continue. YOur neurological symptoms completely resolved. YOu were cleared to be discharged per neurology with a close f/u. ASA 81 mg and statin 80 mg advised. You were on 20 mg daily prior to admission- will be increased over the next few weeks to ensure pt tolerated it well. As we discussed start taking 40 mg of atorvastatin and in 2-3 week increase dose. Discuss it with your PCP who can direct you further. Another important thing to remember is to cut down on some of your meds- like amitriptyline, gabapentin, pregabalin. Since you were not taking any of those here, i will stop pregabalin and decrease your gabapentin. Try to find a lowest dose of ti that works for you. Also oxycodone and hydrocodone were listed on your meds list. I will continue hydrocodone but stop oxy. Use lidocaine pathces OTC if needed- no RX needed for those. Please discuss with your PCP what meds you need to be on with your pcp as it seems liek way too much pain meds. You had some elevation in kidney numbers which was improved. I will order bmp to be completed as an outpatient to ensure resolution of symptoms. Please f/u with neurology- Dr James here or any neurologist of your choice. Patient Instructions: Antibiotic Form Patient Language: Macanese Stand Alone Forms: General Discharge Information Follow-up/Referrals: Sam Philip MD [Physician] - 2 Weeks Sarkar,MD Hugh [Primary Care Provider] - 1 Week Discharge Medications: New atorvastatin [Lipitor] 40 mg tablet 40 mg PO DAILY Qty: 90 0RF nitrofurantoin macrocrystal 100 mg capsule 100 mg PO Q12H 3 Days Qty: 6 0RF Rx Instructions: must administer with a meal/food aspirin [Children's Aspirin] 81 mg Tablet,Chewable 81 mg PO DAILY@0800 Qty: 90 0RF Continued amitriptyline 10 mg tablet 10 mg PO HS escitalopram oxalate 10 mg tablet 10 mg PO DAILY fludrocortisone 0.1 mg tablet 0.1 mg PO .am metformin 500 mg tablet extended release 24 hr See Rx Instructions PO .COMPLEX Rx Instructions: orally take one tablet by mouth before lunch and before dinner methocarbamol 500 mg tablet 500 mg PO Q6H omeprazole 40 mg capsule,delayed release(DR/EC) 40 mg PO BID Envarsus XR 1 mg tablet extended release 24 hr 1 mg PO QID prednisone 5 mg tablet 5 mg PO DAILY alpha lipoic acid 600 mg capsule 600 mg PO DAILY hydrocodone-acetaminophen 5-325 mg tablet 1 tablet PO Q6H Mounjaro 5 mg/0.5 mL pen injector 5 mg SUBCUT WEEKLY Changed gabapentin 300 mg capsule 300 mg PO HS Qty: 30 0RF Discontinued atorvastatin 20 mg tablet 20 mg PO HS oxycodone 15 mg tablet 15 mg PO Q4H pregabalin 100 mg capsule 100 mg PO HS Other Ambulatory Orders: Basic Metabolic Panel (Routine) Timeframe: 1 Week Location: Determined by Patient Ordered By: Kimberly [place] Date of admission: 11/01/24 19:57 Primary Care Provider: ValeriaHugh Admitting Provider: Enrique Escobedo Attending physician on admission: Enrique Escobedo Condition: Stable Hospitalist MIPS Heart Failure (Exclusion) Patient has history of Heart Transplant or Left Ventricular Assistive Device?: No IF YES, STOP HERE Heart Failure (Qualifier) Patient has current or prior documentation of LVEF less than or equal to 40%, or mod/servere depressed LVSF?: No IF NO, STOP HERE
--- NOTE | 2024-11-03 14:20 | PC.NURSE ---
discharge packet faxed to home health.
== END 2024-11-03 13:50 | disposition home health service (06) ==
LOC: ANHED 19:22 → ANH3MED 11-02 00:12
PROVIDERS: Physician Assistant; Admitting Provider Internal Medicine; Emergency Provider Physician Assistant; PCP Family Medicine; Visit Provider Internal Medicine
DX: R29.810 Facial weakness (principal); N39.0 Urinary tract infection, site not specified; E78.5 Hyperlipidemia, unspecified; F33.9 Major depressive disorder, recurrent, unspecified; K21.9 Gastro-esophageal reflux disease without esophagitis; E11.22 Type 2 diabetes mellitus with diabetic chronic kidney disease; E11.42 Type 2 diabetes mellitus with diabetic polyneuropathy; N18.6 End stage renal disease; Z94.0 Kidney transplant status; E27.40 Unspecified adrenocortical insufficiency; G89.4 Chronic pain syndrome; Z98.1 Arthrodesis status; Z79.84 Long term (current) use of oral hypoglycemic drugs; Z79.85 Long-term (current) use of injectable non-insulin antidiabetic drugs; Z79.899 Other long term (current) drug therapy
CPT/HCPCS: 36415; 70450; 70551; 71045; 80053; 80061; 81001; 82140; 82803; 82948; 83036; 83605; 84484; 85025; 85610; 85730; 92610; 93005; 93880; 96361; 96365; 96372; 96374; 99285; A9270; G0378; J0696; J1644; J7030